=== PATIENT | female | born 1955 | race Caucasian/White ===

== ENCOUNTER → 2019-02-10 12:30 | Outpatient (CLI) | payer OTHER, SELFPAY ==
--- NOTE | 2019-02-10 | DI.MRI.S_ITS ---
PROCEDURE: MR HEAD/BRAIN WO/W CON INDICATIONS: Multiple sclerosis TECHNIQUE: Noncontrast axial T1 spin echo, axial T2 fast spin echo, sagittal and axial FLAIR, coronal T2 fast spin echo, axial gradient echo, axial diffusion and ADC through the brain. After the administration of contrast, axial and coronal 3D VIBE or T1 spin echo with fat saturation through the brain. COMPARISON: , MR, BRAIN WITH AND WITHOUT CONTRAS, 02/06/2009, 12:16. , MR, BRAIN W&WO CONTRAST, 12/05/2015, 15:52. , MR, BRAIN WITHOUT CONTRAST, 03/26/2017, 12:59. [facility], MR, MR BRAIN WITHOUT CONTRAST, 01/02/2018, 8:51. FINDINGS: Image quality: Excellent. CSF Spaces: Basal cisterns are patent. No extra-axial fluid collections. Ventricles are normal in size and shape. Brain: No midline shift. No intracranial bleeds or masses. Multiple foci of increased T2 signal compatible with reported history of multiple sclerosis involving the periventricular, subcortical, juxtacortical and corpus callosal white matter tracts are noted which are unchanged in number compared to 01/02/18. White matter lesions are not significantly changed in size or contour compared to 01/02 and 18. No abnormal intracranial enhancement. The brainstem appears normal. Diffusion-weighted images demonstrate no acute ischemic insults. No chronic ischemic insults. There is mild diffuse cerebral volume loss. Normal intravascular flow voids are present. Skull and face: Calvarial marrow is normal in signal. Orbits appear normal. Sinuses: Sinuses and mastoids appear clear. IMPRESSION: 1. Multiple foci of abnormal T2 signal involving the periventricular, subcortical, juxtacortical and corpus callosal white matter compatible with multiple sclerosis. Multiple sclerosis plaques are not significantly changed in size, contour number compared to 01/02/2018. 2. No abnormal postcontrast enhancement. Dictated by: Jenni House MD, PhD on 02/10/2019 at 14:45 Approved by: Jenni House MD, PhD on 02/10/2019 at 14:54
--- NOTE | 2019-02-10 | DI.MRI.S_ITS ---
PROCEDURE: MR CERVICAL SPINE WO/W CON INDICATIONS: Multiple sclerosis TECHNIQUE: Noncontrast sagittal T1 spin echo and T2 fast spin echo, sagittal STIR, sagittal PD fast spin echo, foraminal oblique sagittal T2 fast spin echo, axial gradient echo or T2 fast spin echo through the cervical spine. After the administration of contrast, sagittal and axial T1 spin echo with fat saturation through the cervical spine. COMPARISON: MR, C-SPINE WITHOUT CONTRAST, 02/24/2007, 7:52. FINDINGS: Image quality: Excellent. Alignment and curvature: There is normal bony alignment. Marrow: Marrow demonstrates normal overall signal. Spinal cord: There is a small, approximately 6 mm in diameter subtle focus of increased T2 signal in the right lateral column of the cervical spinal cord level of the C6-C7 disc. No suspicious intramedullary enhancement. No cerebellar tonsillar herniation. Paraspinous soft tissues: No paravertebral masses or suspicious enhancement. C2-C3: Loss of the signal. Mild, diffuse disc bulge. No central stenosis. No neural foraminal narrowing. No neural impingement. C3-C4: Loss of the signal. Mild, diffuse disc bulge. Mild bilateral facet hypertrophy. Mild right uncovertebral joint hypertrophy. Mild bilateral neural foraminal narrowing. No neural impingement. C4-C5: Loss of disc signal. Moderate, diffuse disc bulge. Mild narrowing of the central canal. Mild bilateral uncovertebral joint hypertrophy. Mild bilateral neural foraminal narrowing. No neural impingement. C5-C6: Loss of the signal and height. Moderate, diffuse disc bulge. Moderate narrowing of the central canal. Mild right and moderate left uncovertebral joint hypertrophy. Moderate right and severe left neural foraminal narrowing with compression of the exiting left C6 nerve root. C6-C7: Loss of disc signal and height. Moderate, diffuse disc bulge. Moderate narrowing of the central canal. Mild bilateral uncovertebral joint hypertrophy. Moderate bilateral neural foraminal narrowing. No neural impingement. C7-T1: Loss of the signal. Minimal, diffuse disc bulge. No central stenosis. No neural foraminal narrowing. No neural impingement. IMPRESSION: 1. Small 6 mm in diameter focus of subtle increased T2 signal in the right lateral column of the cervical spinal cord level the C6-C7 disc suspicious for multiple sclerosis plaque. 2. No abnormal postcontrast enhancement. 3. Multilevel degenerative disc disease. 4. Moderate C5-C6 and C6-C7 central canal narrowing. Mild C4-C5 central canal narrowing. 5. Moderate right and severe left C5-C6 neural foraminal narrowing. Moderate bilateral C6-C7 C7 neural foraminal narrowing. Mild bilateral C3-C4 and C4-C5 neural foraminal narrowing. 6. Compression of the exiting left C6 nerve root secondary to neural foraminal narrowing. Please correlate with clinical data. Dictated by: Jenni House MD, PhD on 02/10/2019 at 14:58 Approved by: Jenni House MD, PhD on 02/10/2019 at 15:08
== END ==
PROVIDERS: Family Provider Family Medicine; PCP Family Medicine; Visit Provider Psychiatry & Neurology Neurology
DX: G35 Multiple sclerosis (principal); M50.31 Other cervical disc degeneration, high cervical region; M48.02 Spinal stenosis, cervical region
CPT/HCPCS: 70553; 72156; A9579

== ENCOUNTER → 2019-10-04 16:01 | Outpatient (CLI) | payer OTHER, SELFPAY ==
--- NOTE | 2019-10-04 | DI.MRI.S_ITS ---
PROCEDURE: MR KNEE LT WO CON INDICATIONS: Unspecified internal derangement of left knee TECHNIQUE: Noncontrast sagittal PD fast spin echo and T2 fast spin echo with fat saturation, sagittal 3-D FLASH with fat saturation; coronal T1 spin echo and PD fast spin echo with fat saturation, and axial PD fast spin echo with fat saturation through the knee. COMPARISON: [facility], CR, XR KNEE ARTHRITIC SERIES LT, 08/23/2019, 13:31. FINDINGS: Image quality: Excellent. Menisci: The medial and lateral menisci demonstrate normal morphology and internal signal. The meniscal root ligaments appear intact. Cruciate ligaments: The anterior and posterior cruciate ligaments appear intact. Medial structures: There is a small curvilinear focus of fluid signal intensity within the mid/proximal medial collateral ligament. Visualized portions of the pes anserinus tendons appear normal. No abnormal bursal fluid. Lateral structures: The lateral collateral ligament, long and short heads of the biceps femoris tendon appear intact. The popliteus tendon appears normal. Iliotibial band appears normal. Anterior structures: The quadriceps and patellar tendons appear intact. Patellar alignment is normal. No femoral trochlear dysplasia or ventral trochlear prominence. No edema in the infrapatellar fat pad. Bones and cartilage: No bone marrow contusions or fractures. 10 mm high T2 intensity well circumscribed focus within the proximal anterior tibia with internal punctate low T2 intensity foci. Mild diffuse articular cartilage loss overlies the weightbearing aspects of the medial femoral condyle and medial tibial plateau. Focal region of severe articular cartilage loss overlies the medial patellar apex superiorly. There is mild ill-defined underlying STIR signal elevation within the medial patellar apex. Joint space: There is physiologic knee joint fluid. Trace Cali's cyst. Normal appearing synovial plicae are incidentally noted. IMPRESSION: 1. Partial-thickness medial collateral ligament tear. 2. No evidence of cruciate ligament nor meniscal tear. 3. Small focus of osteochondral injury overlying the medial patellar apex superiorly. 4. Trace Cali's cyst. 5. 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 Dictated by: Stefany Quintanilla M.D. on 10/04/2019 at 16:44 Approved by: Stefany Quintanilla M.D. on 10/04/2019 at 16:48
== END ==
PROVIDERS: PCP Family Medicine; Visit Provider Orthopaedic Surgery
DX: S83.412A Sprain of medial collateral ligament of left knee, initial encounter (principal)
CPT/HCPCS: 73721

== ENCOUNTER → 2020-06-23 11:32 | Outpatient (CLI) | payer OTHER, SELFPAY ==
[2020-06-23 12:21] LABS: Add Manual Diff / Slide Review NO; Appearance Urine UA CLEAR; Basophils Absolute Auto 0 /uL (0-100); Basophils Percent Auto 0.6 % (0-2); Bilirubin Urine UA NEGATIVE (NEGATIVE); Color Urine UA YELLOW; Eosinophils Absolute Auto 400 /uL (0-450); Eosinophils Percent Auto 5.1 % (2-4); Glucose Urine UA TRACE g/dL (Negative); Hemoglobin 13.1 g/dL (12.0-16.0); Ketones Urine UA NEGATIVE (NEGATIVE); Leukocyte Esterase Urine UA TRACE (NEGATIVE); Lymphocytes Absolute Auto 2400 /uL (1100-4500); Lymphocytes Percent Auto 29.6 % (25-40); Mean Corpuscular HGB Conc 34.6 % (30-36); Mean Corpuscular Volume 86.8 fL (80-100); Monocytes Absolute Auto 400 /uL (0-900); Monocytes Percent Auto 4.5 % (3-14); Neutrophils Absolute Auto 4800 /uL (1500-7000); Neutrophils Percent Auto 60.2 % (50-75); Nitrite Urine UA POSITIVE (Negative); Occult Blood Urine UA TRACE-LYSED (Negative); Platelet Count 379 X10^3/uL (150-400); Protein Urine UA NEGATIVE (Negative); Red Blood Cell Count 4.37 X10^6/uL (4.0-5.2); Urobilinogen Urine UA 0.2 E.U./dL (0.2)
[2020-06-23 12:27] LABS: pH Urine UA 6.5 (4.5-8.0)
[2020-06-23 12:31] LABS: Bacteria Urine Many (>30); Culture Indicated Urine Specimen Cultured; RBC Urine 1-5/HPF (0-5/HPF); Squamous Epithelial Cell Urine 0-1 /HPF (0-5/HPF); WBC Urine 10-30/HPF (0-5/HPF)
[2020-06-23 12:33] LABS: Alanine Aminotransferase 47 IU/L (<35); Albumin 4.8 g/dL (3.5-5.0); Albumin Globulin Ratio 1.8 (1.0-2.8); Alkaline Phosphatase 77 U/L (38-126); Aspartate Aminotransferase 34 IU/L (14-36); BUN Creatinine Ratio 25.5 (6-22); Bilirubin Total 0.5 mg/dL (0.2-1.3); Blood Urea Nitrogen 25 mg/dL (7-17); Calcium 9.6 mg/dL (8.4-10.2); Carbon Dioxide 31 mmol/L (22-32); Chloride 98 mmol/L (98-107); Estimated Glomerular Filt Rate 57.5 mL/min (>60); Globulin 2.7 g/dL (1.7-4.1); Glucose 93 mg/dL (80-110); HEMOLYSIS < 15 (0-50); Potassium 4.3 mmol/L (3.4-5.1); Sodium 137 mmol/L (137-145); Total Protein 7.5 g/dL (6.3-8.2)
[2020-06-23 12:49] LABS: UR Morphine/Opiate cutoff 300 Negative (Negative); Ur Creatinine Normal (Normal); Ur Specific Gravity Normal (Normal); Urine Amphetamines Negative (Negative); Urine Barbiturates Negative (Negative); Urine Benzodiazepines Negative (Negative); Urine Cocaine Negative (Negative); Urine MDMA Negative (Negative); Urine Methadone Negative (Negative); Urine Methamphetamines Negative (Negative); Urine Oxycodone Negative (Negative); Urine Phencyclidine Negative (Negative); Urine Tetrahydrocannabinol Positive (Negative); Urine Tricyclic Antidepressant Positive (Negative); Urine pH Normal (Normal)
[2020-06-23 13:11] LABS: Free T4, Direct Thyroxine 1.28 ng/dL (0.78-2.19)
[2020-06-23 13:25] LABS: Thyroid Stimulating Hormone 1.11 uIU/mL (0.47-4.68)
[2020-06-25 09:31] LABS: COVID19 Sendout Not Detected (Not Detect)
== END ==
PROVIDERS: Physician Assistant; Referring Provider Psychiatry & Neurology Psychiatry; Visit Provider Psychiatry & Neurology Psychiatry
DX: F33.2 Major depressive disorder, recurrent severe without psychotic features (principal); F41.9 Anxiety disorder, unspecified; Z51.81 Encounter for therapeutic drug level monitoring; Z11.59 Encounter for screening for other viral diseases
CPT/HCPCS: 36415; 80053; 80305; 80335; 81001; 84439; 84443; 85025; 87077; 87086; 87186; 87635

== ENCOUNTER → 2020-07-14 09:56 | Outpatient (CLI) | payer OTHER, SELFPAY ==
[2020-07-14 11:00] LABS: Cholesterol 224 mg/dL (140-199); HDL Cholesterol 42 mg/dL (40-60); LDL Cholesterol Calculated 145 mg/dL (<100); Triglycerides 187 mg/dL (35-150)
[2020-07-14 11:53] LABS: Vitamin D 25 Hydroxy (D3) 59.8 ng/mL (30.0-100.0)
== END ==
PROVIDERS: PCP Student in an Organized Health Care Education/Training Program; Referring Provider Student in an Organized Health Care Education/Training Program; Visit Provider Student in an Organized Health Care Education/Training Program
DX: Z13.220 Encounter for screening for lipoid disorders (principal); E55.9 Vitamin D deficiency, unspecified
CPT/HCPCS: 36415; 80061; 82306

== ENCOUNTER → 2020-08-02 10:05 | Outpatient (CLI) | payer OTHER, SELFPAY ==
--- NOTE | 2020-08-02 10:06 | DI.MG.S_ITS ---
BILATERAL DIGITAL SCREENING MAMMOGRAM 3D/2D WITH CAD: 08/02/2020 CLINICAL: Routine screening. Comparison is made to exams dated: 03/03/2019 mammogram and 07/15/2017 mammogram - outside location. The tissue of both breasts is predominantly fatty. Current study was also evaluated with a Computer Aided Detection (CAD) system. No significant masses, calcifications, or other findings are seen in either breast. There has been no significant interval change. IMPRESSION: NEGATIVE There is no mammographic evidence of malignancy. A 1 year screening mammogram is recommended. This exam was interpreted at Station ID: [id number]. NOTE: For mammograms, a report in lay terms will be sent to the patient. Approximately 15% of breast malignancies will not be visualized mammographically. In the management of a palpable breast mass, a negative mammogram must not discourage biopsy of a clinically suspicious lesion. Electronically Signed By: Jose Manuel winter/liz:08/02/2020 10:35:31 letter sent: Normal Exam ACR BI-RADS Category 1: Negative [id number]
== END ==
PROVIDERS: PCP Student in an Organized Health Care Education/Training Program; Referring Provider Student in an Organized Health Care Education/Training Program; Visit Provider Student in an Organized Health Care Education/Training Program
DX: Z12.31 Encounter for screening mammogram for malignant neoplasm of breast (principal)
CPT/HCPCS: 77063; 77067

== ENCOUNTER → 2021-07-12 11:37 | Outpatient (CLI) | payer OTHER, SELFPAY ==
[2021-07-12 13:00] LABS: Magnesium 2.1 mg/dL (1.6-2.3)
[2021-07-12 13:02] LABS: Alanine Aminotransferase 24 IU/L (<35); Albumin 4.5 g/dL (3.5-5.0); Alkaline Phosphatase 55 U/L (38-126); Aspartate Aminotransferase 22 IU/L (14-36); BUN Creatinine Ratio 20.2 (6-22); Bilirubin Total 0.4 mg/dL (0.2-1.3); Blood Urea Nitrogen 19 mg/dL (7-17); Carbon Dioxide 31 mmol/L (22-32); Chloride 98 mmol/L (98-107); Cholesterol 228 mg/dL (140-199); Estimated Glomerular Filt Rate > 60.0 mL/min (>60); Globulin 2.3 g/dL (1.7-4.1); Glucose 87 mg/dL (80-110); HDL Cholesterol 46 mg/dL (40-60); HEMOLYSIS < 15 (0-50); LDL Cholesterol Calculated 145 mg/dL (<100); Potassium 4.8 mmol/L (3.4-5.1); Sodium 138 mmol/L (137-145); Total Protein 6.8 g/dL (6.3-8.2); Triglycerides 184 mg/dL (35-150)
[2021-07-12 13:09] LABS: Hemoglobin A1C% w Est Avg Glu 5.1 % (4.0-6.0)
== END ==
PROVIDERS: PCP Student in an Organized Health Care Education/Training Program; Referring Provider Psychiatry & Neurology Psychiatry; Visit Provider Psychiatry & Neurology Psychiatry
DX: Z79.899 Other long term (current) drug therapy (principal); G35 Multiple sclerosis; Z01.89 Encounter for other specified special examinations; Z51.81 Encounter for therapeutic drug level monitoring
CPT/HCPCS: 36415; 80053; 80061; 83036; 83735

== ENCOUNTER → 2021-08-03 15:38 | Outpatient (CLI) | payer OTHER, SELFPAY ==
--- NOTE | 2021-08-03 | DI.MG.S_ITS ---
BILATERAL DIGITAL SCREENING MAMMOGRAM 3D/2D WITH CAD: 08/03/2021 CLINICAL: Routine screening. Comparison is made to exams dated: 08/02/2020 mammogram - [facility], 03/03/2019 mammogram, and 07/15/2017 mammogram - outside location. There are scattered fibroglandular elements in both breasts. Current study was also evaluated with a Computer Aided Detection (CAD) system. No significant masses, calcifications, or other findings are seen in either breast. There has been no significant interval change. IMPRESSION: NEGATIVE There is no mammographic evidence of malignancy. A 1 year screening mammogram is recommended. This exam was interpreted at Station ID: [id number]. NOTE: For mammograms, a report in lay terms will be sent to the patient. Approximately 15% of breast malignancies will not be visualized mammographically. In the management of a palpable breast mass, a negative mammogram must not discourage biopsy of a clinically suspicious lesion. Electronically Signed By: Reta cortes/liz:08/03/2021 16:36:09 letter sent: Normal Exam ACR BI-RADS Category 1: Negative [id number]
== END ==
PROVIDERS: PCP Student in an Organized Health Care Education/Training Program; Referring Provider Student in an Organized Health Care Education/Training Program; Visit Provider Student in an Organized Health Care Education/Training Program
DX: Z12.31 Encounter for screening mammogram for malignant neoplasm of breast (principal)
CPT/HCPCS: 77063; 77067

== ENCOUNTER → 2022-04-06 10:24 | Outpatient (CLI) | payer OTHER, SELFPAY ==
[2022-04-06 11:30] LABS: Add Manual Diff / Slide Review NO; Basophils Absolute Auto 100 /uL (0-100); Basophils Percent Auto 0.6 % (0-2); Eosinophils Absolute Auto 300 /uL (0-450); Eosinophils Percent Auto 2.4 % (2-4); Hematocrit 34.7 % (36-46); Hemoglobin 11.7 g/dL (12.0-16.0); Lymphocytes Absolute Auto 2300 /uL (1100-4500); Lymphocytes Percent Auto 18.6 % (25-40); Mean Corpuscular HGB Conc 33.8 % (30-36); Mean Corpuscular Hemoglobin 29.7 PG (26-34); Monocytes Absolute Auto 500 /uL (0-900); Monocytes Percent Auto 3.8 % (3-14); Neutrophils Absolute Auto 9200 /uL (1500-7000); Neutrophils Percent Auto 74.6 % (50-75); Platelet Count 377 X10^3/uL (150-400); Red Blood Cell Count 3.95 X10^6/uL (4.0-5.2); Red Cell Distribution Width 13.1 % (11.6-14.8); White Blood Cell Count 12.4 X10^3/uL (4.5-11.0)
[2022-04-06 11:56] LABS: Alanine Aminotransferase 21 IU/L (<35); Albumin 4.7 g/dL (3.5-5.0); Albumin Globulin Ratio 2.2 (1.0-2.8); Alkaline Phosphatase 82 U/L (38-126); Aspartate Aminotransferase 23 IU/L (14-36); BUN Creatinine Ratio 22.9 (6-22); Bilirubin Total 0.4 mg/dL (0.2-1.3); Blood Urea Nitrogen 22 mg/dL (7-17); C-Reactive Protein Quant < 0.5 mg/dL (<1.0); Calcium 9.5 mg/dL (8.4-10.2); Carbon Dioxide 26 mmol/L (22-32); Chloride 98 mmol/L (98-107); Estimated Glomerular Filt Rate > 60 mL/min (>60); Globulin 2.1 g/dL (1.7-4.1); Glucose 87 mg/dL (80-110); HEMOLYSIS < 15 (0-50); Phosphorous 4.2 mg/dL (2.8-4.1); Potassium 4.4 mmol/L (3.4-5.1); Sodium 135 mmol/L (137-145); Total Protein 6.8 g/dL (6.3-8.2)
[2022-04-06 12:02] LABS: Erythrocyte Sedimentation Rate 5 MM/HR (0-20)
[2022-04-06 12:15] LABS: TSH w/ Reflex to FT4 2.03 uIU/mL (0.47-4.68)
== END ==
PROVIDERS: PCP Student in an Organized Health Care Education/Training Program; Referring Provider Student in an Organized Health Care Education/Training Program; Visit Provider Student in an Organized Health Care Education/Training Program
DX: G43.909 Migraine, unspecified, not intractable, without status migrainosus (principal); G47.62 Sleep related leg cramps; I10 Essential (primary) hypertension
CPT/HCPCS: 36415; 80053; 84100; 84443; 85025; 85651; 86140

== ENCOUNTER → 2022-04-08 09:41 | Outpatient (CLI) | payer OTHER, SELFPAY ==
--- NOTE | 2022-04-08 09:42 | DI.CT.S_ITS ---
PROCEDURE: CT HEAD/BRAIN WO/W CON INDICATIONS: New headache after 52 TECHNIQUE: 4.5 mm thick angled axial sections acquired from the foramen magnum to the vertex both before and after the administration of intravenous contrast, with coronal and sagittal reformats. For radiation dose reduction, the following was used: automated exposure control, adjustment of mA and/or kV according to patient size. COMPARISON: [facility], MR, MR HEAD/BRAIN WO/W CON, 02/10/2019, 12:53. [facility], MR, MR BRAIN WITHOUT CONTRAST, 01/02/2018, 8:51. [facility], CT, HEAD WITHOUT CONTRAST, 12/05/2015, 12:39. [facility], CT, HEAD WITHOUT CONTRAST, 01/18/2008, 19:16. [facility], CT, HEAD WITHOUT CONTRAST, 09/21/2015, 14:44. FINDINGS: Image quality: Excellent. CSF spaces: Basal cisterns are patent. No extra-axial fluid collections. Ventricles are symmetric in size and shape. Brain: No midline shift. No intracranial bleeds or masses. No abnormal intracranial enhancement. There is cerebral volume loss for age. There is periventricular white matter chronic small vessel ischemic change. There is intracranial internal carotid artery atherosclerosis. Skull and face: Calvarium and visualized facial bones appear intact, without suspicious lesions. Sinuses: Visualized sinuses and mastoids are clear. IMPRESSION: No masses or abnormal enhancement can be seen to the limits of CT. There is No imaging explanation is found for this patient's presenting symptoms. Dictated by: Jere Rivera M.D. on 04/08/2022 at 9:38 Approved by: Jere Rivera M.D. on 04/08/2022 at 9:40
== END ==
PROVIDERS: PCP Student in an Organized Health Care Education/Training Program; Referring Provider Student in an Organized Health Care Education/Training Program; Visit Provider Student in an Organized Health Care Education/Training Program
DX: R51.9 Headache, unspecified (principal); I65.29 Occlusion and stenosis of unspecified carotid artery; F43.10 Post-traumatic stress disorder, unspecified; F41.9 Anxiety disorder, unspecified; F33.1 Major depressive disorder, recurrent, moderate; F51.9 Sleep disorder not due to a substance or known physiological condition, unspecified
CPT/HCPCS: 70470; 90837

== ENCOUNTER 2022-05-01 22:33 | Inpatient (IN) | payer OTHER, SELFPAY ==
[2022-05-01] VITALS (19 sets, daily range): BP systolic 61–113; BP diastolic 37–60; PULSE 97–105; RESP 10–33; TEMP 34.9–36.9; O2SAT 90–100
--- NOTE | 2022-05-01 | DI.RAD.S_ITS ---
PROCEDURE: XR CHEST 1V INDICATIONS: CENTRAL LINE PLACEMENT. TECHNIQUE: One view of the chest was acquired. COMPARISON: [facility], , CHEST 2 VIEW, 10/18/2017, 13:23. FINDINGS: Surgical changes and devices: There is a new right internal jugular catheter with the tip projecting over the right atrium. Lungs and pleura: There are linear left basilar opacities suggestive of atelectasis or scarring. The lung apices are incompletely included on the current study limiting evaluation. No pleural effusions or pneumothorax. Mediastinum: Mediastinal contours appear normal. Heart size is normal. Bones and chest wall: No suspicious bony lesions. Overlying soft tissues appear unremarkable. IMPRESSION: 1. No definite evidence of pneumothorax. 2. No definite acute airspace consolidation. There is likely atelectasis or scarring in the left lung base. Dictated by: Donaldo Mckeon M.D. on 05/02/2022 at 0:04 Approved by: Donaldo Mckeon M.D. on 05/02/2022 at 0:06
[2022-05-01] MEDS: SODIUM CHLORIDE 0.9% 1,000 ML 1000 ML IV ×3 (22:25→22:40)
--- NOTE | 2022-05-01 22:31 | DI.CT.S_ITS ---
PROCEDURE: CT STROKE INDICATIONS: stroke TECHNIQUE: Noncontrast 5 mm thick angled axial sections acquired from the foramen magnum to the vertex, with coronal reformats. For radiation dose reduction, the following was used: automated exposure control, adjustment of mA and/or kV according to patient size. COMPARISON: None. FINDINGS: Image quality: Excellent. CSF spaces: Basal cisterns are patent. No extra-axial fluid collections. There is mild cerebral volume loss, with resultant ventricular and sulcal prominence. Brain: No intracranial hemorrhage, mass, or mass effect. There are subcortical, periventricular and deep white matter hypodensities consistent with mild chronic small vessel ischemic changes. The dey-white matter junction appears preserved. There is intracranial internal carotid artery atherosclerosis. Skull and face: Calvarium and visualized facial bones are intact, without suspicious lesions. Sinuses: Visualized sinuses and mastoids are clear. IMPRESSION: 1. No intracranial hemorrhage or other definite acute intracranial abnormality. 2. Mild cerebral volume loss and chronic white matter small vessel ischemic changes. 3. Findings discussed Dr. Bautista on 05/01/2022 at 10:43 p.m.. This study fulfills neurological imaging criteria for inclusion or exclusion of acute stroke therapies based on available published neurological imaging guidelines. Dictated by: Donaldo Mckeon M.D. on 05/01/2022 at 22:43 Approved by: Donaldo Mckeon M.D. on 05/01/2022 at 22:45
--- NOTE | 2022-05-01 22:37 | ED_ITS ---
HPI - General Adult General Chief complaint: Neuro Symptoms/Deficit Stated complaint: Stroke Time Seen by Provider: 05/01/22 22:35 History of Present Illness HPI narrative: 66-year-old woman a history of migraine, depression, hypertension who was at home this evening relaxing watching TV complaining of a migraine. She has been having intermittent migraines over the last 3 weeks that is close to her baseline her noted that she seemed to become acutely worse, was not able to fully speak and unable to keep her head up. Time was 9:40 p.m. when he called medics. Initial blood pressure was 83/54 she was 90% on room air blood sugar was 148 heart rate 103. She was brought in as possible stroke taken immediately to the CT scanner. Related Data Home Medications Medication Instructions Recorded Confirmed cholecalciferol (vitamin D3) 25 25 mcg PO DAILY 07/28/20 03/19/22 mcg (1,000 unit) capsule magnesium hydroxide 400 mg (170 mg mg PO 07/28/20 03/19/22 magnesium) chewable tablet mecobalamin (vitamin B12) 1,000 1,000 mcg PO DAILY 07/28/20 03/19/22 mcg chewable tablet albuterol sulfate 90 mcg/actuation 2 puff inhalation Q6H PRN 07/23/21 03/19/22 aerosol inhaler (Ventolin HFA) nitrofurantoin macrocrystal 100 mg 100 mg PO DAILY 10/16/21 03/19/22 capsule trospium 60 mg capsule,extended 60 mg PO DAILY 10/16/21 03/19/22 release 24 hr methocarbamol 500 mg tablet 500 mg PO TID PRN muscle spasm 03/19/22 03/19/22 Previous Rx's Medication Instructions Recorded famotidine 20 mg tablet 20 mg PO DAILY #90 tabs 08/14/21 telmisartan 80 mg tablet 80 mg PO DAILY #90 tabs 08/14/21 fluoxetine 20 mg capsule 40 mg PO QDAY #180 caps 08/20/21 gabapentin 300 mg capsule 300 mg PO TID #270 caps 08/21/21 doxepin 75 mg capsule 75 mg PO HS #90 caps 08/31/21 acyclovir 400 mg tablet 400 mg PO DAILY #90 tabs 09/24/21 hydrochlorothiazide 25 mg tablet 25 mg PO DAILY #90 tabs 11/05/21 risperidone 0.5 mg tablet See Rx Instructions .Route 03/07/22 .COMPLEX #405 tabs promethazine 25 mg tablet 25 mg PO TID PRN nausea #30 tabs 04/15/22 rizatriptan 10 mg tablet See Rx Instructions .Route 04/15/22 .COMPLEX #6 tabs estradiol 0.01% (0.1 mg/gram) 1 g vaginal 2XW #42.5 grams 04/30/22 vaginal cream Allergies Allergy/AdvReac Type Severity Reaction Status Date / Time zolpidem AdvReac Severe HALLUCINATIONS, Verified 03/18/22 15:13 NOT KNOWING WHERE SHE WAS, DIZZINESS Review of Systems Review of Systems ROS Unobtainable: Unobtainable due to medical condition Patient History Medical History Cholelithiasis Hx of fracture of ankle Major depressive disorder, recurrent episode, severe Major depressive disorder, recurrent, moderate Surgical History History of carpal tunnel release of both wrists Hx of hysterectomy Family History Mother Cardiac arrest Father Colitis Social History household members: spouse Smoking Status: Never smoker Smoking Status: Never smoker Exam Initial Vital Signs Initial Vital Signs: Vital Signs Pulse Rate 105 H 05/01/22 22:41 General: Pale, globally weak acutely ill able to weakly respond to commands and answer yes or no questions HEENT: Moist mucous membranes, normal sclera with reactive pupils, Neck: No JVD, supple Respiratory: Lungs are clear to auscultation, no wheezing no rales no rhonchi. Full and symmetrical air movement Cardiac: Regular rate and rhythm no murmurs no bruits Abdomen: Soft, nontender, good bowel tones, no flank pain Skin: Pale and dry, no rashes Neurologic: Globally weak, Grossly neurologically intact with no obvious asymmetries or abnormalities Extremities: No trauma, well perfused Psych: Cooperative, acutely ill Procedures Central Line Placement Right IJ: Time of procedure: 01:48 Time Out Performed: Yes Patient Placed on Monitor/Pulse Ox: Yes Prep: mask, gown, gloves and other Central Line Prep: Chlorhexidine scrub Local Anesthetic: lidocaine 1% Amount of anesthesia used (mL): 3 Ultrasound Used for Placement: Yes Central Line Lumen Inserted: triple Post Procedure: sutured in place, good blood return, all ports aspirated, flushed, capped and sterile dressing applied Post Procedure X-Ray: tip of catheter in good position and no pneumothorax seen Patient Tolerated Procedure: Well Complications: none Lumbar Puncture Time of procedure: 01:46 Time Out Performed: Yes Patient Position: upright Skin Prep: Povidone-Iodine 1% Local Anesthetic: lidocaine 1% Amount of anesthesia used (mL): 5 Spinal Needle Gauge: 22G Interspace Used: L4-L5 Fluid Initially Obtained: clear Complications: traumatic tap Course Orders Ordered: ED Orders 05/01/22 22:31 CT Stroke Stat 05/01/22 22:42 Complete Blood Count AUTO DIFF Stat Comprehensive Metabolic Panel Stat Lactate (Lactic Acid) Stat Lipase Stat Magnesium Stat Procalcitonin Stat Troponin I Stat 05/01/22 22:50 Blood Culture Stat COVID19 -Nasal RAPID/Pre-Proc Stat EKG-12 Lead Stat 05/01/22 23:11 Glucose CSF Stat Meningitis Panel (Film Array) Stat Total Protein CSF Stat 05/01/22 23:12 Cell Count w Diff CSF Stat HOLD TUBE CSF Stat 05/01/22 23:15 Urinalysis and Microscopic Stat Urine Culture Stat 05/02/22 01:34 CSF culture Stat Acetaminophen (Acetaminophen 325 Mg Tablet) 650 mg PO Q6HR PRN PRN Reason: Fever/Mild Pain (1-3) Doxepin HCl (Doxepin 75 Mg Capsule) 75 mg PO BEDTIME [facility] Last Admin: 05/02/22 06:11 Dose: Not Given Documented By: [facility] Enoxaparin Sodium (Enoxaparin 40 Mg/0.4 Ml Syringe) 40 mg SUBCUT DAILY [facility] Fluoxetine HCl (Fluoxetine 20 Mg Capsule) 20 mg PO BID [facility] Gabapentin (Gabapentin 300 Mg Capsule) 300 mg PO TID [facility] Heparin Sodium (Porcine) (Heparin Flush (Cl/Picc/Mid-Line) 50 Unit/5 Ml Syringe) 50 unit IV PRN PRN PRN Reason: Flush Hydrocortisone (Hydrocortisone 100 Mg/2 Ml Vial) 50 mg IV Q6HR [facility] Last Admin: 05/02/22 06:11 Dose: 50 mg Documented By: [facility] Sodium Chloride (Normal Saline 0.9%) 1,000 mls @ 200 mls/hr IV CONT ADRIANA Last Infusion: 05/02/22 06:30 Dose: 0 mls/hr Documented By: Admin: 05/02/22 02:55 Dose: 200 mls/hr Documented By: GLENN Ceftriaxone Sodium 1,000 mg/ (Sodium Chloride) 100 mls @ 200 mls/hr IV Q24H ADRIANA Lactated Ringer's (Lactated Ringers) 1,000 mls @ 175 mls/hr IV CONT ADRIANA Last Admin: 05/02/22 06:11 Dose: 175 mls/hr Documented By: LEYLA Risperidone (Risperidone 0.25 Mg Tablet) 0.5 mg PO DAILY ADRIANA Risperidone (Risperidone 0.25 Mg Tablet) 0.25 mg PO 1200,2100 ADRIANA Sodium Chloride (Sodium Chloride 0.9% Flush) 10 ml IV PRN PRN PRN Reason: Flush Sodium Chloride (Sodium Chloride 0.9% Flush) 10 ml IV BID ADRIANA Discontinued Medications Fluoxetine HCl (Fluoxetine 20 Mg Capsule) 40 mg PO BID ADRIANA Sodium Chloride (Normal Saline 0.9%) 1,000 mls @ 1,000 mls/hr IV BOLUS ONE Stop: 05/01/22 23:28 Last Infusion: 05/01/22 23:20 Dose: 0 mls/hr Documented By: Admin: 05/01/22 22:40 Dose: 1,000 mls/hr Documented By: GLENN Ceftriaxone Sodium 2,000 mg/ (Sodium Chloride) 100 mls @ 200 mls/hr IV NOW ONE Stop: 05/01/22 23:13 Last Infusion: 05/02/22 02:35 Dose: 0 mls/hr Documented By: Admin: 05/02/22 01:54 Dose: 200 mls/hr Documented By: GLENN Sodium Chloride (Normal Saline 0.9%) 1,000 mls @ 1,000 mls/hr IV BOLUS ONE Stop: 05/02/22 00:48 Last Infusion: 05/01/22 23:20 Dose: 0 mls/hr Documented By: Admin: 05/01/22 22:40 Dose: 1,000 mls/hr Documented By: GLENN Sodium Chloride (Normal Saline 0.9%) 1,000 mls @ 1,000 mls/hr IV BOLUS ONE Stop: 05/02/22 00:52 Last Infusion: 05/02/22 01:50 Dose: 0 mls/hr Documented By: Admin: 05/01/22 22:25 Dose: 1,000 mls/hr Documented By: GLENN Sodium Chloride (Normal Saline 0.9%) 1,000 mls @ 1,000 mls/hr IV BOLUS ONE Stop: 05/02/22 02:39 Last Infusion: 05/02/22 03:00 Dose: 0 mls/hr Documented By: Admin: 05/02/22 01:51 Dose: 1,000 mls/hr Documented By: UMESH Acyclovir 770 mg/ Dextrose 250 mls @ 250 mls/hr IV NOW ONE Stop: 05/02/22 01:41 Last Infusion: 05/02/22 05:01 Dose: 0 mls/hr Documented By: Admin: 05/02/22 02:47 Dose: 250 mls/hr Documented By: GLENN Sodium Chloride (Normal Saline 0.9%) 1,000 mls @ 175 mls/hr IV CONT ADRIANA Acyclovir 770 mg/ Dextrose 250 mls @ 250 mls/hr IV Q8H ADRIANA Lidocaine HCl (Lidocaine 1% 20 Ml) 20 ml INJ INTRA-OP ONE Stop: 05/02/22 01:13 Last Admin: 05/02/22 01:50 Dose: Not Given Documented By: UMESH Ondansetron HCl (Ondansetron 4 Mg/2 Ml Inj) 4 mg IV NOW ONE Stop: 05/01/22 22:32 Last Admin: 05/02/22 01:54 Dose: 4 mg Documented By: GLENN Vital Signs Vital signs: Vital Signs - 8 hr 05/01/22 23:20 05/01/22 23:20 05/01/22 23:25 Temperature 95.9 F L 96.1 F L Pulse Rate 102 H 100 H Respiratory Rate 22 28 H Blood Pressure 108/55 L Pulse Oximetry 98 97 05/01/22 23:25 05/01/22 23:30 05/01/22 23:30 Temperature 96.3 F L Pulse Rate 100 H Respiratory Rate 27 H Blood Pressure 113/57 L 109/60 Pulse Oximetry 98 05/01/22 23:35 05/01/22 23:35 05/01/22 23:40 Temperature 96.3 F L Pulse Rate 98 H Respiratory Rate 12 Blood Pressure 109/58 L 108/56 L Pulse Oximetry 98 05/01/22 23:40 05/01/22 23:45 05/01/22 23:45 Temperature 96.4 F L 96.4 F L Pulse Rate 98 H 97 H Respiratory Rate 11 L 10 L Blood Pressure 108/58 L Pulse Oximetry 98 98 05/01/22 23:50 05/01/22 23:50 05/01/22 23:55 Temperature 96.4 F L Pulse Rate 97 H Respiratory Rate 10 L Blood Pressure 107/56 L 108/57 L Pulse Oximetry 99 05/01/22 23:55 05/02/22 00:00 05/02/22 00:00 Temperature 96.4 F L 96.4 F L Pulse Rate 97 H 97 H Respiratory Rate 10 L 11 L Blood Pressure 105/57 L Pulse Oximetry 98 98 05/02/22 00:05 05/02/22 00:05 05/02/22 00:10 Temperature 96.4 F L Pulse Rate 97 H Respiratory Rate 10 L Blood Pressure 109/56 L 112/57 L Pulse Oximetry 98 05/02/22 00:10 05/02/22 00:15 05/02/22 00:15 Temperature 96.4 F L 96.4 F L Pulse Rate 99 H 99 H Respiratory Rate 10 L 10 L Blood Pressure 110/58 L Pulse Oximetry 98 98 05/02/22 00:20 05/02/22 00:20 05/02/22 00:25 Temperature 96.4 F L Pulse Rate 101 H Respiratory Rate 21 Blood Pressure 108/56 L 108/56 L Pulse Oximetry 97 05/02/22 00:25 05/02/22 00:30 05/02/22 00:30 Temperature 96.4 F L 96.6 F L Pulse Rate 101 H 101 H Respiratory Rate 11 L 11 L Blood Pressure 108/59 L Pulse Oximetry 97 98 05/02/22 00:35 05/02/22 00:35 05/02/22 00:40 Temperature 96.6 F L Pulse Rate 104 H Respiratory Rate 18 Blood Pressure 108/66 104/60 Pulse Oximetry 100 05/02/22 00:40 05/02/22 00:45 05/02/22 00:45 Temperature 96.6 F L 96.8 F L Pulse Rate 104 H 103 H Respiratory Rate 11 L 10 L Blood Pressure 105/60 Pulse Oximetry 98 99 05/02/22 00:50 05/02/22 00:50 05/02/22 00:55 Temperature 96.8 F L 96.8 F L Pulse Rate 104 H 104 H Respiratory Rate 11 L 11 L Blood Pressure 108/61 Pulse Oximetry 100 99 05/02/22 00:55 05/02/22 01:00 05/02/22 01:00 Temperature 97.0 F L Pulse Rate 108 H Respiratory Rate 13 Blood Pressure 107/61 107/58 L Pulse Oximetry 100 05/02/22 01:05 05/02/22 01:05 05/02/22 01:10 Temperature 97.0 F L Pulse Rate 114 H Respiratory Rate 24 Blood Pressure 112/63 114/56 L Pulse Oximetry 99 05/02/22 01:10 05/02/22 01:15 05/02/22 01:15 Temperature 96.8 F L 97.0 F L Pulse Rate 116 H 112 H Respiratory Rate 19 19 Blood Pressure 100/54 L Pulse Oximetry 98 99 05/02/22 01:20 05/02/22 01:20 05/02/22 01:30 Temperature 97.2 F L 97.3 F L Pulse Rate 117 H 120 H Respiratory Rate 20 23 Blood Pressure 98/68 Pulse Oximetry 99 95 05/02/22 01:40 05/02/22 01:40 05/02/22 01:45 Temperature 97.7 F Pulse Rate 111 H Respiratory Rate 13 Blood Pressure 75/36 L 92/53 L Pulse Oximetry 98 05/02/22 01:45 05/02/22 01:50 05/02/22 01:50 Temperature 97.9 F 97.9 F Pulse Rate 109 H 115 H Respiratory Rate 18 24 Blood Pressure 90/54 L Pulse Oximetry 98 99 05/02/22 01:55 05/02/22 01:55 05/02/22 02:00 Temperature 97.9 F Pulse Rate 116 H Respiratory Rate 28 H Blood Pressure 102/56 L 105/51 L Pulse Oximetry 100 05/02/22 02:00 Temperature 97.9 F Pulse Rate 118 H Respiratory Rate 25 H Blood Pressure Pulse Oximetry 99 Medical Decision Making Lab Data Result diagrams: 05/02/22 05:40 05/02/22 05:40 Labs: Lab Results 08/10/22 08/10/22 08/10/22 Range/Units 22:42 22:42 22:42 WBC 11.1 H (4.5-11.0) X10^3/uL RBC 4.11 (4.0-5.2) X10^6/uL Hgb 12.2 (12.0-16.0) g/dL Hct 35.5 L (36-46) % MCV 86.5 (80-100) fL MCH 29.7 (26-34) PG MCHC 34.3 (30-36) % RDW 13.4 (11.6-14.8) % Plt Count 328 (150-400) X10^3/uL Neut % (Auto) 66.0 (50-75) % Lymph % (Auto) 27.1 (25-40) % [place] % (Auto) 4.6 (3-14) % Eos % (Auto) 1.6 L (2-4) % Baso % (Auto) 0.7 (0-2) % Neut # (Auto) 7300 H (7767-9605) /uL Lymph # (Auto) 3000 (2094-9689) /uL [place] # (Auto) 500 (0-900) /uL Eos # (Auto) 200 (0-450) /uL Baso # (Auto) 100 (0-100) /uL Sodium 135 L (137-145) mmol/L Potassium 3.4 (3.4-5.1) mmol/L Chloride 101 (98-107) mmol/L Carbon Dioxide 28 (22-32) mmol/L BUN 22 H (7-17) mg/dL Creatinine 0.86 (0.52-1.04) mg/dL Estimated GFR > 60 (>60) mL/min BUN/Creatinine Ratio 25.6 H (6-22) Glucose 132 H (80-110) mg/dL Lactate 1.2 (0.7-2.1) mmol/L Calcium 9.2 (8.4-10.2) mg/dL Magnesium (1.6-2.3) mg/dL Total Bilirubin 0.5 (0.2-1.3) mg/dL AST 24 (14-36) IU/L ALT 20 (<35) IU/L Alkaline Phosphatase 87 (38-126) U/L Troponin I (0.01-0.034) ng/mL Total Protein 6.8 (6.3-8.2) g/dL Albumin 4.3 (3.5-5.0) g/dL Globulin 2.5 (1.7-4.1) g/dL Albumin/Globulin Ratio 1.7 (1.0-2.8) Lipase (23-300) U/L Procalcitonin (<0.5) ng/mL Urine Color Urine Appearance Urine pH (4.5-8.0) Ur Specific [place] (1.000-1.035) Urine Protein (Negative) Urine Glucose (UA) (Negative) g/dL Urine Ketones (NEGATIVE) Urine Occult Blood (Negative) Urine Nitrate (Negative) Urine Bilirubin (NEGATIVE) Urine Urobilinogen (0.2) E.U./dL Ur Leukocyte Esterase (NEGATIVE) Urine RBC (0-5/HPF) Urine WBC (0-5/HPF) Ur Squamous Epith Cells (0-5/HPF) Urine Bacteria (None) Ur Culture Indicated? CSF Tube Number CSF Volume CSF Appearance (Clear) CSF Color (Colorless) CSF WBC (0-5) MONO/uL CSF RBC RBC /uL CSF Mononuclear WBCs CSF Polynuclear WBCs CSF Glucose (40-70) mg/dL CSF Total Protein (12-60) mg/dL CSF C.neoform/gat PCR (Not Detect) CSF CMV DNA (PCR) (Not Detect) CSF Enterovirus (PCR) (Not Detect) CSF E. coli (PCR) (Not Detect) CSF H. influenzae (PCR) (Not Detect) CSF HSV I (PCR) (Not Detect) CSF HSV II (PCR) (Not Detect) CSF HHV 6 (PCR) (Not Detect) CSF L.monocytogenes PCR (Not Detect) CSF N. meningitidis PCR (Not Detect) CSF Parechovirus (PCR) (Not Detect) CSF S. agalactiae (PCR) (Not Detect) CSF S. pneumoniae (PCR) (Not Detect) CSF VZV (PCR) (Not Detecte) SARS-CoV-2 (PCR) (Negative) 05/01/22 05/01/22 05/01/22 Range/Units 22:42 22:50 23:15 WBC (4.5-11.0) X10^3/uL RBC (4.0-5.2) X10^6/uL Hgb (12.0-16.0) g/dL Hct (36-46) % MCV (80-100) fL MCH (26-34) PG MCHC (30-36) % RDW (11.6-14.8) % Plt Count (150-400) X10^3/uL Neut % (Auto) (50-75) % Lymph % (Auto) (25-40) % [place] % (Auto) (3-14) % Eos % (Auto) (2-4) % Baso % (Auto) (0-2) % Neut # (Auto) (1558-1968) /uL Lymph # (Auto) (4315-8679) /uL [place] # (Auto) (0-900) /uL Eos # (Auto) (0-450) /uL Baso # (Auto) (0-100) /uL Sodium (137-145) mmol/L Potassium (3.4-5.1) mmol/L Chloride (98-107) mmol/L Carbon Dioxide (22-32) mmol/L BUN (7-17) mg/dL Creatinine (0.52-1.04) mg/dL Estimated GFR (>60) mL/min BUN/Creatinine Ratio (6-22) Glucose (80-110) mg/dL Lactate (0.7-2.1) mmol/L Calcium (8.4-10.2) mg/dL Magnesium 3.1 H (1.6-2.3) mg/dL Total Bilirubin (0.2-1.3) mg/dL AST (14-36) IU/L ALT (<35) IU/L Alkaline Phosphatase (38-126) U/L Troponin I < 0.012 (0.01-0.034) ng/mL Total Protein (6.3-8.2) g/dL Albumin (3.5-5.0) g/dL Globulin (1.7-4.1) g/dL Albumin/Globulin Ratio (1.0-2.8) Lipase 110 (23-300) U/L Procalcitonin 0.04 (<0.5) ng/mL Urine Color Yellow Urine Appearance Clear Urine pH 7.0 (4.5-8.0) Ur Specific [place] 1.010 (1.000-1.035) Urine Protein Negative (Negative) Urine Glucose (UA) Negative (Negative) g/dL Urine Ketones Negative (NEGATIVE) Urine Occult Blood Trace-intact (Negative) Urine Nitrate Positive H (Negative) Urine Bilirubin Negative (NEGATIVE) Urine Urobilinogen 0.2 (0.2) E.U./dL Ur Leukocyte Esterase Negative (NEGATIVE) Urine RBC None seen (0-5/HPF) Urine WBC 0-1/hpf (0-5/HPF) Ur Squamous Epith Cells 0-1 /hpf (0-5/HPF) Urine Bacteria Many (>30) H (None) Ur Culture Indicated? Specimen cultured CSF Tube Number CSF Volume CSF Appearance (Clear) CSF Color (Colorless) CSF WBC (0-5) MONO/uL CSF RBC RBC /uL CSF Mononuclear WBCs CSF Polynuclear WBCs CSF Glucose (40-70) mg/dL CSF Total Protein (12-60) mg/dL CSF C.neoform/gat PCR (Not Detect) CSF CMV DNA (PCR) (Not Detect) CSF Enterovirus (PCR) (Not Detect) CSF E. coli (PCR) (Not Detect) CSF H. influenzae (PCR) (Not Detect) CSF HSV I (PCR) (Not Detect) CSF HSV II (PCR) (Not Detect) CSF HHV 6 (PCR) (Not Detect) CSF L.monocytogenes PCR (Not Detect) CSF N. meningitidis PCR (Not Detect) CSF Parechovirus (PCR) (Not Detect) CSF S. agalactiae (PCR) (Not Detect) CSF S. pneumoniae (PCR) (Not Detect) CSF VZV (PCR) (Not Detecte) SARS-CoV-2 (PCR) Negative (Negative) 05/02/22 05/02/22 05/02/22 Range/Units 01:34 01:34 01:34 WBC (4.5-11.0) X10^3/uL RBC (4.0-5.2) X10^6/uL Hgb (12.0-16.0) g/dL Hct (36-46) % MCV (80-100) fL MCH (26-34) PG MCHC (30-36) % RDW (11.6-14.8) % Plt Count (150-400) X10^3/uL Neut % (Auto) (50-75) % Lymph % (Auto) (25-40) % [place] % (Auto) (3-14) % Eos % (Auto) (2-4) % Baso % (Auto) (0-2) % Neut # (Auto) (5603-0696) /uL Lymph # (Auto) (5559-0893) /uL [place] # (Auto) (0-900) /uL Eos # (Auto) (0-450) /uL Baso # (Auto) (0-100) /uL Sodium (137-145) mmol/L Potassium (3.4-5.1) mmol/L Chloride (98-107) mmol/L Carbon Dioxide (22-32) mmol/L BUN (7-17) mg/dL Creatinine (0.52-1.04) mg/dL Estimated GFR (>60) mL/min BUN/Creatinine Ratio (6-22) Glucose (80-110) mg/dL Lactate (0.7-2.1) mmol/L Calcium (8.4-10.2) mg/dL Magnesium (1.6-2.3) mg/dL Total Bilirubin (0.2-1.3) mg/dL AST (14-36) IU/L ALT (<35) IU/L Alkaline Phosphatase (38-126) U/L Troponin I (0.01-0.034) ng/mL Total Protein (6.3-8.2) g/dL Albumin (3.5-5.0) g/dL Globulin (1.7-4.1) g/dL Albumin/Globulin Ratio (1.0-2.8) Lipase (23-300) U/L Procalcitonin (<0.5) ng/mL Urine Color Urine Appearance Urine pH (4.5-8.0) Ur Specific [place] (1.000-1.035) Urine Protein (Negative) Urine Glucose (UA) (Negative) g/dL Urine Ketones (NEGATIVE) Urine Occult Blood (Negative) Urine Nitrate (Negative) Urine Bilirubin (NEGATIVE) Urine Urobilinogen (0.2) E.U./dL Ur Leukocyte Esterase (NEGATIVE) Urine RBC (0-5/HPF) Urine WBC (0-5/HPF) Ur Squamous Epith Cells (0-5/HPF) Urine Bacteria (None) Ur Culture Indicated? CSF Tube Number 3 CSF Volume 1.0 ml CSF Appearance Clear (Clear) CSF Color Colorless (Colorless) CSF WBC 0 (0-5) MONO/uL CSF RBC 26 RBC /uL CSF Mononuclear WBCs TNP CSF Polynuclear WBCs TNP CSF Glucose 63 (40-70) mg/dL CSF Total Protein 48 (12-60) mg/dL CSF C.neoform/gat PCR Not detected (Not Detect) CSF CMV DNA (PCR) Not detected (Not Detect) CSF Enterovirus (PCR) Not detected (Not Detect) CSF E. coli (PCR) Not detected (Not Detect) CSF H. influenzae (PCR) Not detected (Not Detect) CSF HSV I (PCR) Not detected (Not Detect) CSF HSV II (PCR) Not detected (Not Detect) CSF HHV 6 (PCR) Not detected (Not Detect) CSF L.monocytogenes PCR Not detected (Not Detect) CSF N. meningitidis PCR Not detected (Not Detect) CSF Parechovirus (PCR) Not detected (Not Detect) CSF S. agalactiae (PCR) Not detected (Not Detect) CSF S. pneumoniae (PCR) Not detected (Not Detect) CSF VZV (PCR) Not detected (Not Detecte) SARS-CoV-2 (PCR) (Negative) Point of Care Testing Glucose POC 138 Point of care testing: Point of Care Testing Glucose POC [address] scan - head: Radiologist's Impression: FINDINGS:? Image quality:? Excellent.? ? CSF spaces:? Basal cisterns are patent.? No extra-axial fluid collections.? There is mild cerebral volume loss, with resultant ventricular and sulcal prominence.? ? Brain:? No intracranial hemorrhage, mass, or mass effect.? There are subcortical, periventricular and deep white matter hypodensities consistent with mild chronic small vessel ischemic changes.? The dey-white matter junction appears preserved.? There is intracranial internal carotid artery atherosclerosis.? ? Skull and face:? Calvarium and visualized facial bones are intact, without suspicious lesions.? ? Sinuses:? Visualized sinuses and mastoids are clear.? ? IMPRESSION:? ? 1. No intracranial hemorrhage or other definite acute intracranial abnormality. ? 2. Mild cerebral volume loss and chronic white matter small vessel ischemic changes. ? 3. Findings discussed Dr. Bautista on 05/01/2022 at 10:43 p.m..? ? This study fulfills neurological imaging criteria for inclusion or exclusion of acute Chest x-ray: Radiologist's Impression: FINDINGS:? ? Surgical changes and devices:? There is a new right internal jugular catheter with the tip projecting over the right atrium.? ? Lungs and pleura:? There are linear left basilar opacities suggestive of atelectasis or scarring.? The lung apices are incompletely included on the current study limiting evaluation.? No pleural effusions or pneumothorax.? ? Mediastinum:? Mediastinal contours appear normal.? Heart size is normal.? ? Bones and chest wall:? No suspicious bony lesions.? Overlying soft tissues appear unremarkable.? ? IMPRESSION:? ? 1. No definite evidence of pneumothorax. ? 2. No definite acute airspace consolidation.? There is likely atelectasis or scarring in the left lung base.? ? ? Dictated by: Donaldo Mckeon M.D. on 05/02/2022 at 0:04 ? ? ECG Data Interpretation: Sinus rhythm at a rate of 101 Normal intervals, normal axis No acute ischemic changes MDM Narrative Medical decision making narrative: 66-year-old woman in her usual state of health until this evening when she became acutely altered difficulty speaking slumped over. She has had a significant headache for the last 3 weeks but has a long history of chronic migraine. She nor her felt that it was worse than her baseline. She does not describe significant fevers. Code stroke was initiated on arrival. No evidence of acute bleeding. Clinical exam does not suggest embolic stroke and CTA of the head neck was not performed. She was hemodynamically unstable and brought back to room 1 for additional resuscitation. She was was responding to initial L of fluid. Central line was placed without difficulty and by the end of the 2 L of fluid her blood pressure was up high enough that we did not need to begin Levophed. Blood pressures have continued to be fluid responsive. Urine is concentrated. She has not had a fever. Labs indicate a slight leukocytosis at 11.1 without significant left shift. No evidence of hypoglycemia. She is mildly hyper-magnesemic, no elevated lactic, lipase or procalcitonin. Urine nitrates are positive but no leukocyte esterase, red blood cells, white blood cells but there are multiple bacteria. Will wait for culture and patient will be on antibiotics for alternate reasons. At this time, I do not have a complete explanation of her dramatic presentation and persistent hypotension. Lumbar puncture was performed with clear fluid returning. She will be started on 2 g of ceftriaxone and IV acyclovir until CSF cultures return. Blood pressures remain sensitive to fluids she does have a central line should pressors be required. She is not immediately septic, there is no evidence of heart failure, kidney failure, liver failure. No evidence of stroke or acute coronary syndrome. Patient does have multiple sclerosis but does not have any evidence of acute exacerbation. She will be admitted to the medicine service initially going to the intensive care unit due to the soft blood pressures and uncertain etiology at this time. Findings reviewed with patient and her , questions are answered, care is reviewed with the hospitalist service. Critical Care Time Critical Care Time Critical Care Time: Yes Total Critical Care Time: 34 Attestation: Critical care time is separate from other billable procedures. There is a high probability of a significant, sudden or life-threatening deterioration that requires my full and direct attention, intervention and personal management. This critical care time includes consultation with family and other consulting doctors, review of records, and interpretation of data from labs, EKGs and imaging as well as managements of acute circulatory failure, altered mental status multiple etiologies to be excluded Discharge Plan Departure Patient Disposition: Admitted As Inpatient Clinical Impression: Acute alteration in mental status, Acute hypotension, Hypermagnesemia, Headache Admit Date/Time: 05/02/22 02:02 Admit Provider: Suzanne Mejia
--- NOTE | 2022-05-01 22:55 | PC.NURSE ---
Addendum entered by Jayshree Krishnamurthy R.N. 05/01/22 23:12: 2313: Levophed was pulled on arrival and remains at bedside. Pt with positive response to fluids. Levophed held at this time. , Wu at bedside. Pt being prepped for Lumbar puncture. Original Note: 2234: Pt arrived via [facility]. LKW 2039 while lying on couch with with heating pad due to intermittent migraine type pain. reports decreased responsiveness and difficulty rousing. Airway patent and pt breathing spontaneously. 99% on 2L via NC by EMS. No thinners. On arrival BP 80's/50's for EMS. Glucose 138. Pt unable to answer simple questions, confused. GCS 12. arrived with 22G in R hand. 20g LAC placed. Pt to CT on arrival. NS IV fluids infusing with pressure bag for repeat BP 61/40. Pt prepped for central line and inserted successfully by Dr Bautista. XR to confirm placement. 2303: placement confirmed with XR. Pt BP improved to 103/59. Capnography 37. 16F temp boucher placed.
[2022-05-01 22:56] LABS: Add Manual Diff / Slide Review NO; Basophils Absolute Auto 100 /uL (0-100); Basophils Percent Auto 0.7 % (0-2); Eosinophils Absolute Auto 200 /uL (0-450); Eosinophils Percent Auto 1.6 % (2-4); Hematocrit 35.5 % (36-46); Hemoglobin 12.2 g/dL (12.0-16.0); Lymphocytes Absolute Auto 3000 /uL (1100-4500); Lymphocytes Percent Auto 27.1 % (25-40); Mean Corpuscular HGB Conc 34.3 % (30-36); Mean Corpuscular Hemoglobin 29.7 PG (26-34); Mean Corpuscular Volume 86.5 fL (80-100); Monocytes Absolute Auto 500 /uL (0-900); Monocytes Percent Auto 4.6 % (3-14); Neutrophils Absolute Auto 7300 /uL (1500-7000); Platelet Count 328 X10^3/uL (150-400); Red Blood Cell Count 4.11 X10^6/uL (4.0-5.2); Red Cell Distribution Width 13.4 % (11.6-14.8); White Blood Cell Count 11.1 X10^3/uL (4.5-11.0)
[2022-05-01 23:07] LABS: Alanine Aminotransferase 20 IU/L (<35); Albumin 4.3 g/dL (3.5-5.0); Albumin Globulin Ratio 1.7 (1.0-2.8); Alkaline Phosphatase 87 U/L (38-126); Aspartate Aminotransferase 24 IU/L (14-36); BUN Creatinine Ratio 25.6 (6-22); Bilirubin Total 0.5 mg/dL (0.2-1.3); Blood Urea Nitrogen 22 mg/dL (7-17); Calcium 9.2 mg/dL (8.4-10.2); Carbon Dioxide 28 mmol/L (22-32); Chloride 101 mmol/L (98-107); Estimated Glomerular Filt Rate > 60 mL/min (>60); Globulin 2.5 g/dL (1.7-4.1); Glucose 132 mg/dL (80-110); HEMOLYSIS 19 (0-50); Lactate (Lactic Acid) 1.2 mmol/L (0.7-2.1); Lipase 110 U/L (23-300); Magnesium 3.1 mg/dL (1.6-2.3); Potassium 3.4 mmol/L (3.4-5.1); Sodium 135 mmol/L (137-145); Total Protein 6.8 g/dL (6.3-8.2)
[2022-05-01 23:15] LABS: COVID19 -Nasal RAPID Negative (Negative)
[2022-05-01 23:19] LABS: Troponin I < 0.012 ng/mL (0.01-0.034)
[2022-05-01 23:22] LABS: Appearance Urine UA CLEAR; Bilirubin Urine UA NEGATIVE (NEGATIVE); Color Urine UA YELLOW; Glucose Urine UA NEGATIVE (Negative); Ketones Urine UA NEGATIVE (NEGATIVE); Leukocyte Esterase Urine UA NEGATIVE (NEGATIVE); Nitrite Urine UA POSITIVE (Negative); Occult Blood Urine UA TRACE-INTACT (Negative); Protein Urine UA NEGATIVE (Negative); Urobilinogen Urine UA 0.2 E.U./dL (0.2)
[2022-05-01 23:23] LABS: Procalcitonin 0.04 ng/mL (<0.5)
[2022-05-01 23:42] LABS: Bacteria Urine Many (>30); Culture Indicated Urine Specimen Cultured; RBC Urine None Seen (0-5/HPF); Squamous Epithelial Cell Urine 0-1 /HPF (0-5/HPF); WBC Urine 0-1/HPF (0-5/HPF)
[2022-05-02] VITALS (88 sets, daily range): BP systolic 63–121; BP diastolic 36–81; PULSE 97–124; RESP 10–34; TEMP 35.8–38.8; O2SAT 85–100; BMI 28.3
[2022-05-02] MEDS: SODIUM CHLORIDE 0.9% 1,000 ML 1000 ML IV (01:51)
[2022-05-02 01:52] LABS: Glucose CSF 63 mg/dL (40-70); Total Protein CSF 48 mg/dL (12-60)
[2022-05-02] MEDS: ONDANSETRON 4 MG/2 ML INJ IV (01:54)
[2022-05-02] MEDS: cefTRIAXone 2,000 MG in SODIUM CHLORIDE 0.9% 100 ML 200 MG IV (01:54)
[2022-05-02 02:16] LABS: Appearance CSF Clear (Clear); CSF Tube Number 3; CSF Tube Volume 1.0 mL; Color CSF Colorless (Colorless); Red Blood Cell CSF 26 RBC /uL; White Blood Cell CSF 0 MONO/uL (0-5)
[2022-05-02] MEDS: WATER IV (02:47)
[2022-05-02] MEDS: ACYCLOVIR IV (02:47)
[2022-05-02] MEDS: DEXTROSE 5% IV (02:47)
[2022-05-02] MEDS: SODIUM CHLORIDE 0.9% 1,000 ML 200 ML IV (02:55)
[2022-05-02] MEDS: NOREPINEPHRINE BITARTRATE/D5W 4 MG/250 ML PLAST..BAG 30 MG IV (02:55)
[2022-05-02 03:07] LABS: Cryptococcus neoformans/gattii Not Detected (Not Detect); Enterovirus Not Detected (Not Detect); Escherichia coli K1 Not Detected (Not Detect); Haemophilus influenzae Not Detected (Not Detect); Herpes simplex virus 1 Not Detected (Not Detect); Herpes simplex virus 2 Not Detected (Not Detect); Human herpesvirus 6 Not Detected (Not Detect); Human parechovirus Not Detected (Not Detect); Listeria monocytogenes Not Detected (Not Detect); Neisseria meningitidis Not Detected (Not Detect); Streptococcus agalactiae Not Detected (Not Detect); Streptococcus pneumoniae Not Detected (Not Detect); Varicella Zoster Virus Not Detected (Not Detecte)
--- NOTE | 2022-05-02 04:07 | PM.HP.1 ---
History of Present Illness History of Present Illness Date Patient Seen: 05/02/22 Time Patient Seen: 03:45 Chief complaint: Hypotension, sepsis Narrative: Rhonda Cartagena is a 66-year-old female with a history of MS, fibromyalgia, depression, essential hypertension, was in her usual state of health when she and her were watching TV, she went to walk to the bathroom and per the she collapsed and could not speak or hold her head up. He states that her eyes were closed and was not responding to her . Six he called EMS. Upon presentation to the ED your blood pressure was 83/54, she was 90% on room air and had an elevated blood sugar of 148 and elevated heart rate of 103. Per the patient and she has a history of migraine headaches and has had worsening headaches over the past 3 weeks. Chest x-ray was negative for pneumonia, brain CT was negative for any intracranial hemorrhage or intracranial abnormality it did note mild cerebral volume loss and chronic white matter small-vessel ischemic changes. Per clinical exam and brain imaging, she was ruled out for CVA and worked up for possible infection of unknown origin. In the ED they did a lumbar puncture and cell count and CS F fluid analysis is pending. ED provider placed a central line. She was initiated on IV ceftriaxone and IV acyclovir though the patient takes oral acyclovir for herpes suppression. She continues to have soft blood pressures and request was made to have her admitted to the ICU for further monitoring and when she arrived to the floor, they had started her on a levaphed drip. She had been responding to fluid boluses. She is febrile with a temperature of 100.2?, blood pressure 101/52, heart rate 124, respiratory rate 19, oxygen saturation of 93% on 2 L. She has an elevated white count of 11.1 with a left shift and a mildly elevated neutrophil count of 7300, sodium is 135 BUN 22, glucose 132, magnesium 3.1, liver enzymes were within normal limits she had positive nitrates in her urine with ?many bacteria? and the specimen will be cultured and is pending. CSF panel did not indicate any abnormalities. Bacterial and viral cultures are pending. COVID-19 PCR is negative. Patient History Medical History Cholelithiasis Hx of fracture of ankle Major depressive disorder, recurrent episode, severe Major depressive disorder, recurrent, moderate Surgical History History of carpal tunnel release of both wrists Hx of hysterectomy Family & Social History Family History Mother Cardiac arrest Father Colitis Safety & Behavioral: Feels Safe in Current Yes Environment Been Physically Hurt or No Threatened By a Person Tobacco & Substance use: Smoking Status Never smoker Alcohol consumption Rarely Meds Home Medications and Allergies Home Medications Medication Instructions Recorded Confirmed Type cholecalciferol (vitamin D3) 25 25 mcg PO DAILY 07/28/20 03/19/22 History mcg (1,000 unit) capsule magnesium hydroxide 400 mg (170 mg mg PO 07/28/20 03/19/22 History magnesium) chewable tablet mecobalamin (vitamin B12) 1,000 1,000 mcg PO DAILY 07/28/20 03/19/22 History mcg chewable tablet albuterol sulfate 90 mcg/actuation 2 puff inhalation Q6H PRN 07/23/21 03/19/22 History aerosol inhaler (Ventolin HFA) famotidine 20 mg tablet 20 mg PO DAILY #90 tabs 08/14/21 03/19/22 Rx telmisartan 80 mg tablet 80 mg PO DAILY #90 tabs 08/14/21 03/19/22 Rx fluoxetine 20 mg capsule 40 mg PO QDAY #180 caps 08/20/21 03/19/22 Rx gabapentin 300 mg capsule 300 mg PO TID #270 caps 08/21/21 03/19/22 Rx doxepin 75 mg capsule 75 mg PO HS #90 caps 08/31/21 03/19/22 Rx acyclovir 400 mg tablet 400 mg PO DAILY #90 tabs 09/24/21 03/19/22 Rx nitrofurantoin macrocrystal 100 mg 100 mg PO DAILY 10/16/21 03/19/22 History capsule trospium 60 mg capsule,extended 60 mg PO DAILY 10/16/21 03/19/22 History release 24 hr hydrochlorothiazide 25 mg tablet 25 mg PO DAILY #90 tabs 11/05/21 03/19/22 Rx risperidone 0.5 mg tablet See Rx Instructions .Route 03/07/22 03/19/22 Rx .COMPLEX #405 tabs methocarbamol 500 mg tablet 500 mg PO TID PRN muscle spasm 03/19/22 03/19/22 History promethazine 25 mg tablet 25 mg PO TID PRN nausea #30 tabs 04/15/22 Rx rizatriptan 10 mg tablet See Rx Instructions .Route 04/15/22 Rx .COMPLEX #6 tabs estradiol 0.01% (0.1 mg/gram) 1 g vaginal 2XW #42.5 grams 04/30/22 Rx vaginal cream Allergies Allergy/AdvReac Type Severity Reaction Status Date / Time zolpidem AdvReac Severe HALLUCINATIONS, Verified 03/18/22 15:13 NOT KNOWING WHERE SHE WAS, DIZZINESS Review of Systems Review of Systems ROS: Yes All systems reviewed with the patient and are negative except as otherwise documented Exam Vital Signs (past 8 hours): - 05/01/22 22:52 05/01/22 22:41 05/01/22 22:43 Temperature 98.4 F Pulse Rate 104 H 105 H Respiratory Rate 14 Blood Pressure 85/50 L 61/37 L Pulse Oximetry 90 L Oxygen Delivery Method Room Air Oxygen Flow Rate 05/01/22 22:43 05/01/22 22:45 05/01/22 22:45 Temperature Pulse Rate 104 H 102 H Respiratory Rate 13 13 Blood Pressure 74/44 L Pulse Oximetry 98 Oxygen Delivery Method Nasal Cannula Oxygen Flow Rate 2 05/01/22 22:50 05/01/22 22:51 05/01/22 22:51 Temperature Pulse Rate 100 H 100 H Respiratory Rate 15 27 H Blood Pressure 106/57 L Pulse Oximetry 96 98 Oxygen Delivery Method Nasal Cannula Nasal Cannula Oxygen Flow Rate 2 2 05/01/22 22:55 05/01/22 22:55 05/01/22 23:00 Temperature Pulse Rate 101 H Respiratory Rate 14 Blood Pressure 98/54 L 99/54 L Pulse Oximetry 100 Oxygen Delivery Method Oxygen Flow Rate 05/01/22 23:00 05/01/22 23:05 05/01/22 23:05 Temperature Pulse Rate 101 H 100 H Respiratory Rate 33 H 14 Blood Pressure 103/59 L Pulse Oximetry 100 100 Oxygen Delivery Method Oxygen Flow Rate 05/01/22 23:10 05/01/22 23:10 05/01/22 23:15 Temperature Pulse Rate 104 H Respiratory Rate 17 Blood Pressure 106/57 L 107/56 L Pulse Oximetry 97 Oxygen Delivery Method Oxygen Flow Rate 05/01/22 23:15 05/01/22 23:20 05/01/22 23:20 Temperature 94.8 F L 95.9 F L Pulse Rate 104 H 102 H Respiratory Rate 15 22 Blood Pressure 108/55 L Pulse Oximetry 98 98 Oxygen Delivery Method Oxygen Flow Rate 05/01/22 23:25 05/01/22 23:25 05/01/22 23:30 Temperature 96.1 F L Pulse Rate 100 H Respiratory Rate 28 H Blood Pressure 113/57 L 109/60 Pulse Oximetry 97 Oxygen Delivery Method Oxygen Flow Rate 05/01/22 23:30 05/01/22 23:35 05/01/22 23:35 Temperature 96.3 F L 96.3 F L Pulse Rate 100 H 98 H Respiratory Rate 27 H 12 Blood Pressure 109/58 L Pulse Oximetry 98 98 Oxygen Delivery Method Oxygen Flow Rate 05/01/22 23:40 05/01/22 23:40 05/01/22 23:45 Temperature 96.4 F L Pulse Rate 98 H Respiratory Rate 11 L Blood Pressure 108/56 L 108/58 L Pulse Oximetry 98 Oxygen Delivery Method Oxygen Flow Rate 05/01/22 23:45 05/01/22 23:50 05/01/22 23:50 Temperature 96.4 F L 96.4 F L Pulse Rate 97 H 97 H Respiratory Rate 10 L 10 L Blood Pressure 107/56 L Pulse Oximetry 98 99 Oxygen Delivery Method Oxygen Flow Rate 05/01/22 23:55 05/01/22 23:55 05/02/22 00:00 Temperature 96.4 F L Pulse Rate 97 H Respiratory Rate 10 L Blood Pressure 108/57 L 105/57 L Pulse Oximetry 98 Oxygen Delivery Method Oxygen Flow Rate 05/02/22 00:00 05/02/22 00:05 05/02/22 00:05 Temperature 96.4 F L 96.4 F L Pulse Rate 97 H 97 H Respiratory Rate 11 L 10 L Blood Pressure 109/56 L Pulse Oximetry 98 98 Oxygen Delivery Method Oxygen Flow Rate 05/02/22 00:10 05/02/22 00:10 05/02/22 00:15 Temperature 96.4 F L Pulse Rate 99 H Respiratory Rate 10 L Blood Pressure 112/57 L 110/58 L Pulse Oximetry 98 Oxygen Delivery Method Oxygen Flow Rate 05/02/22 00:15 05/02/22 00:20 05/02/22 00:20 Temperature 96.4 F L 96.4 F L Pulse Rate 99 H 101 H Respiratory Rate 10 L 21 Blood Pressure 108/56 L Pulse Oximetry 98 97 Oxygen Delivery Method Oxygen Flow Rate 05/02/22 00:25 05/02/22 00:25 05/02/22 00:30 Temperature 96.4 F L Pulse Rate 101 H Respiratory Rate 11 L Blood Pressure 108/56 L 108/59 L Pulse Oximetry 97 Oxygen Delivery Method Oxygen Flow Rate 05/02/22 00:30 05/02/22 00:35 05/02/22 00:35 Temperature 96.6 F L 96.6 F L Pulse Rate 101 H 104 H Respiratory Rate 11 L 18 Blood Pressure 108/66 Pulse Oximetry 98 100 Oxygen Delivery Method Oxygen Flow Rate 05/02/22 00:40 05/02/22 00:40 05/02/22 00:45 Temperature 96.6 F L Pulse Rate 104 H Respiratory Rate 11 L Blood Pressure 104/60 105/60 Pulse Oximetry 98 Oxygen Delivery Method Oxygen Flow Rate 05/02/22 00:45 05/02/22 00:50 05/02/22 00:50 Temperature 96.8 F L 96.8 F L Pulse Rate 103 H 104 H Respiratory Rate 10 L 11 L Blood Pressure 108/61 Pulse Oximetry 99 100 Oxygen Delivery Method Oxygen Flow Rate 05/02/22 00:55 05/02/22 00:55 05/02/22 01:00 Temperature 96.8 F L Pulse Rate 104 H Respiratory Rate 11 L Blood Pressure 107/61 107/58 L Pulse Oximetry 99 Oxygen Delivery Method Oxygen Flow Rate 05/02/22 01:00 05/02/22 01:05 05/02/22 01:05 Temperature 97.0 F L 97.0 F L Pulse Rate 108 H 114 H Respiratory Rate 13 24 Blood Pressure 112/63 Pulse Oximetry 100 99 Oxygen Delivery Method Oxygen Flow Rate 05/02/22 01:10 05/02/22 01:10 05/02/22 01:15 Temperature 96.8 F L Pulse Rate 116 H Respiratory Rate 19 Blood Pressure 114/56 L 100/54 L Pulse Oximetry 98 Oxygen Delivery Method Oxygen Flow Rate 05/02/22 01:15 05/02/22 01:20 05/02/22 01:20 Temperature 97.0 F L 97.2 F L Pulse Rate 112 H 117 H Respiratory Rate 19 20 Blood Pressure 98/68 Pulse Oximetry 99 99 Oxygen Delivery Method Oxygen Flow Rate 05/02/22 01:30 05/02/22 01:40 05/02/22 01:40 Temperature 97.3 F L 97.7 F Pulse Rate 120 H 111 H Respiratory Rate 23 13 Blood Pressure 75/36 L Pulse Oximetry 95 98 Oxygen Delivery Method Oxygen Flow Rate 05/02/22 01:45 05/02/22 01:45 05/02/22 01:50 Temperature 97.9 F 97.9 F Pulse Rate 109 H 115 H Respiratory Rate 18 24 Blood Pressure 92/53 L Pulse Oximetry 98 99 Oxygen Delivery Method Oxygen Flow Rate 05/02/22 01:50 05/02/22 01:55 05/02/22 01:55 Temperature 97.9 F Pulse Rate 116 H Respiratory Rate 28 H Blood Pressure 90/54 L 102/56 L Pulse Oximetry 100 Oxygen Delivery Method Oxygen Flow Rate 05/02/22 02:00 05/02/22 02:00 05/02/22 02:05 Temperature 97.9 F 98.1 F Pulse Rate 118 H 116 H Respiratory Rate 25 H 15 Blood Pressure 105/51 L Pulse Oximetry 99 99 Oxygen Delivery Method Oxygen Flow Rate 05/02/22 02:05 05/02/22 02:10 05/02/22 02:10 Temperature 98.1 F Pulse Rate 114 H Respiratory Rate 18 Blood Pressure 95/50 L 94/44 L Pulse Oximetry 99 Oxygen Delivery Method Oxygen Flow Rate 05/02/22 02:16 05/02/22 02:16 05/02/22 02:20 Temperature 98.2 F Pulse Rate 119 H Respiratory Rate 14 Blood Pressure 63/39 L 103/57 L Pulse Oximetry 100 Oxygen Delivery Method Oxygen Flow Rate 05/02/22 02:20 05/02/22 02:30 05/02/22 02:30 Temperature 98.2 F 98.6 F Pulse Rate 121 H 120 H Respiratory Rate 24 17 Blood Pressure 88/49 L Pulse Oximetry 100 100 Oxygen Delivery Method Oxygen Flow Rate 05/02/22 02:45 05/02/22 02:45 05/02/22 03:00 Temperature 99.0 F Pulse Rate 124 H Respiratory Rate 22 Blood Pressure 86/51 L 88/56 L Pulse Oximetry 100 Oxygen Delivery Method Oxygen Flow Rate 05/02/22 03:00 05/02/22 03:05 05/02/22 03:05 Temperature 99.3 F 99.5 F Pulse Rate 121 H 123 H Respiratory Rate 18 23 Blood Pressure 100/65 Pulse Oximetry 100 100 Oxygen Delivery Method Oxygen Flow Rate 05/02/22 03:13 05/02/22 03:13 05/02/22 03:15 Temperature 99.7 F H Pulse Rate 121 H Respiratory Rate 23 Blood Pressure 106/67 101/64 Pulse Oximetry 99 Oxygen Delivery Method Oxygen Flow Rate 05/02/22 03:15 05/02/22 03:20 05/02/22 03:20 Temperature 99.7 F H 99.9 F H Pulse Rate 121 H 118 H Respiratory Rate 21 19 Blood Pressure 95/54 L Pulse Oximetry 100 100 Oxygen Delivery Method Oxygen Flow Rate 05/02/22 03:25 05/02/22 03:25 05/02/22 03:30 Temperature 99.9 F H Pulse Rate 116 H Respiratory Rate 23 Blood Pressure 92/46 L 91/47 L Pulse Oximetry 99 Oxygen Delivery Method Oxygen Flow Rate 05/02/22 03:30 Temperature 100.0 F H Pulse Rate 117 H Respiratory Rate 20 Blood Pressure Pulse Oximetry 99 Oxygen Delivery Method Oxygen Flow Rate Oxygen Delivery Method Room Air Oxygen Flow Rate 2 Narrative Exam Narrative: Gen: Alert, oriented, well-developed [] y.o. [] fe[]male, NAD HEENT: normocephalic, atraumatic, conjunctiva clear, sclera non-icteric, oral mucosa pink and moist Neck: supple, full ROM, no JVD, trachea is midline Resp: Lungs CTA, non-labored breathing CV: RRR, no murmur or rubs Abd: soft, non-tender, normoactive BTs Skin: no lesions or rashes, dry and intact Neuro: Alert and oriented X 4 w/no focal deficits. Speech clear and coherent. Extremities: moves all 4 extremities, is ambulatory, negative Rachel?s sign Psyche: normal mood and affect. Objective Labs Result Diagrams: 05/01/22 22:42 05/01/22 22:42 Labs: Laboratory Results - last 24 hr 05/01/22 05/01/22 05/01/22 22:42 22:42 22:42 WBC 11.1 H RBC 4.11 Hgb 12.2 Hct 35.5 L MCV 86.5 MCH 29.7 MCHC 34.3 RDW 13.4 Plt Count 328 Neut % (Auto) 66.0 Lymph % (Auto) 27.1 [place] % (Auto) 4.6 Eos % (Auto) 1.6 L Baso % (Auto) 0.7 Neut # (Auto) 7300 H Lymph # (Auto) 3000 [place] # (Auto) 500 Eos # (Auto) 200 Baso # (Auto) 100 Sodium 135 L Potassium 3.4 Chloride 101 Carbon Dioxide 28 BUN 22 H Creatinine 0.86 Estimated GFR > 60 BUN/Creatinine Ratio 25.6 H Glucose 132 H Lactate 1.2 Calcium 9.2 Magnesium Total Bilirubin 0.5 AST 24 ALT 20 Alkaline Phosphatase 87 Troponin I Total Protein 6.8 Albumin 4.3 Globulin 2.5 Albumin/Globulin Ratio 1.7 Lipase Procalcitonin Urine Color Urine Appearance Urine pH Ur Specific [place] Urine Protein Urine Glucose (UA) Urine Ketones Urine Occult Blood Urine Nitrate Urine Bilirubin Urine Urobilinogen Ur Leukocyte Esterase Urine RBC Urine WBC Ur Squamous Epith Cells Urine Bacteria Ur Culture Indicated? CSF Tube Number CSF Volume CSF Appearance CSF Color CSF WBC CSF RBC CSF Mononuclear WBCs CSF Polynuclear WBCs CSF Glucose CSF Total Protein CSF C.neoform/gat PCR CSF CMV DNA (PCR) CSF Enterovirus (PCR) CSF E. coli (PCR) CSF H. influenzae (PCR) CSF HSV I (PCR) CSF HSV II (PCR) CSF HHV 6 (PCR) CSF L.monocytogenes PCR CSF N. meningitidis PCR CSF Parechovirus (PCR) CSF S. agalactiae (PCR) CSF S. pneumoniae (PCR) CSF VZV (PCR) SARS-CoV-2 (PCR) 05/01/22 05/01/22 05/01/22 22:42 22:50 23:15 WBC RBC Hgb Hct MCV MCH MCHC RDW Plt Count Neut % (Auto) Lymph % (Auto) [place] % (Auto) Eos % (Auto) Baso % (Auto) Neut # (Auto) Lymph # (Auto) [place] # (Auto) Eos # (Auto) Baso # (Auto) Sodium Potassium Chloride Carbon Dioxide BUN Creatinine Estimated GFR BUN/Creatinine Ratio Glucose Lactate Calcium Magnesium 3.1 H Total Bilirubin AST ALT Alkaline Phosphatase Troponin I < 0.012 Total Protein Albumin Globulin Albumin/Globulin Ratio Lipase 110 Procalcitonin 0.04 Urine Color Yellow Urine Appearance Clear Urine pH 7.0 Ur Specific [place] 1.010 Urine Protein Negative Urine Glucose (UA) Negative Urine Ketones Negative Urine Occult Blood Trace-intact Urine Nitrate Positive H Urine Bilirubin Negative Urine Urobilinogen 0.2 Ur Leukocyte Esterase Negative Urine RBC None seen Urine WBC 0-1/hpf Ur Squamous Epith Cells 0-1 /hpf Urine Bacteria Many (>30) H Ur Culture Indicated? Specimen cultured CSF Tube Number CSF Volume CSF Appearance CSF Color CSF WBC CSF RBC CSF Mononuclear WBCs CSF Polynuclear WBCs CSF Glucose CSF Total Protein CSF C.neoform/gat PCR CSF CMV DNA (PCR) CSF Enterovirus (PCR) CSF E. coli (PCR) CSF H. influenzae (PCR) CSF HSV I (PCR) CSF HSV II (PCR) CSF HHV 6 (PCR) CSF L.monocytogenes PCR CSF N. meningitidis PCR CSF Parechovirus (PCR) CSF S. agalactiae (PCR) CSF S. pneumoniae (PCR) CSF VZV (PCR) SARS-CoV-2 (PCR) Negative 05/02/22 05/02/22 05/02/22 01:34 01:34 01:34 WBC RBC Hgb Hct MCV MCH MCHC RDW Plt Count Neut % (Auto) Lymph % (Auto) [place] % (Auto) Eos % (Auto) Baso % (Auto) Neut # (Auto) Lymph # (Auto) [place] # (Auto) Eos # (Auto) Baso # (Auto) Sodium Potassium Chloride Carbon Dioxide BUN Creatinine Estimated GFR BUN/Creatinine Ratio Glucose Lactate Calcium Magnesium Total Bilirubin AST ALT Alkaline Phosphatase Troponin I Total Protein Albumin Globulin Albumin/Globulin Ratio Lipase Procalcitonin Urine Color Urine Appearance Urine pH Ur Specific [place] Urine Protein Urine Glucose (UA) Urine Ketones Urine Occult Blood Urine Nitrate Urine Bilirubin Urine Urobilinogen Ur Leukocyte Esterase Urine RBC Urine WBC Ur Squamous Epith Cells Urine Bacteria Ur Culture Indicated? CSF Tube Number 3 CSF Volume 1.0 ml CSF Appearance Clear CSF Color Colorless CSF WBC 0 CSF RBC 26 CSF Mononuclear WBCs TNP CSF Polynuclear WBCs TNP CSF Glucose 63 CSF Total Protein 48 CSF C.neoform/gat PCR Not detected CSF CMV DNA (PCR) Not detected CSF Enterovirus (PCR) Not detected CSF E. coli (PCR) Not detected CSF H. influenzae (PCR) Not detected CSF HSV I (PCR) Not detected CSF HSV II (PCR) Not detected CSF HHV 6 (PCR) Not detected CSF L.monocytogenes PCR Not detected CSF N. meningitidis PCR Not detected CSF Parechovirus (PCR) Not detected CSF S. agalactiae (PCR) Not detected CSF S. pneumoniae (PCR) Not detected CSF VZV (PCR) Not detected SARS-CoV-2 (PCR) Assessment & Plan Assessment & Plan narrative: Rhonda Cartagena is admitted to the ICU for hypotension associated with a UTI, and other unknown cause. Bacterial or viral meningitis ruled out, CSF protein and glucose within normal limits and no bacteria seen. Sepsis qSOFA score of 2, acute, unknown bacterial origin, present on admission Patient is febrile, heart rate persistently above 100, hypotensive, elevated white count and magnesium She was intiated on IV ceftriaxone and acyclovir. Acyclovir will be d/c'd due to normal CSF results. CT of the chest abdomen and pelvis Question if initial presentation might be a seizure, may need to consult neurology as we do not have EEG capability Hypotension, present on admission She was bolused 4 liters NS in the ED echo in the am, serial troponins Will start LR at 175 ml/hour per advice of home care coordinator Multiple sclerosis, chronic Continue home dose of gabapentin 300 mg po tid Depresson, chronic Continue home doses of doxepin, fluoxitine and risperidone Hypermagnemesia, present on admission Magnesium is 3/1, continue to monitor daily VTE Prophylaxis: Wells risk score 0 [X]Enoxaparin 40 mg subQ once daily [X] Bilateral SCDs Patient is admitted to the inpatient intensive care service due to the severity of disease, risks of further disease progression and this stay is expected to exceed 2 midnights. FEN: IV fluids: LR at 175 ml/hour, diet: general, labs: CBC, C/BMP, liver enzymes, Mag, PT/INR Consultants Intercept ICU care and involvement in the patient?s care is appreciated. Dispo: unknown at this time Code status: DNR/DNI as discussed with the patient who identifies her , Wu as her surrogate and POA. [X] I have utilized all available immediate resources to obtain, update, or review of the patient's current medications COVID-19 COVID-19 status: Negative Result date/Date tested (Pos, Neg/Pending): 05/02/22 Time Spent With Patient Critical Care time: I spent a total of 45 minutes of critical care time on this patient's care today; this time is exclusive of procedural time. Scores SOFA PaO2/FIO2: >=400 mmHg Platelets: >= 150 Bilirubin: < 1.2 mg/dL Hypotension: Dopamine >5 or norepinephrine <=0.1 Viki Coma Scale: 15 Renal: < 1.2 mg/dL SOFA Score: 3 Wells' Criteria for PE Clinical signs and symptoms of DVT: No PE is #1 Dx or equally likely: No Heart rate > 100: No Immobilization at least 3 days or surg in previous 4 weeks: No History of PE or DVT: No Hemoptysis: No Malignancy w/Treatment within 6 months or palliative: No Wells' PE Score total: 0
--- NOTE | 2022-05-02 04:47 | P.TELICUCN_ITS ---
History of Present Illness Consult details If camera was activated, add TeleICU A-V Statement: audio/visiual connection established pt seen in and assess in bed with bedside provider and nurse present Chief complaint: Hypotension, sepsis Consent obtained for tele-person investigator care: Yes Patient Location: ICU Provider location (State): [place] Other participants/roles: [facility] Medical History Cholelithiasis Hx of fracture of ankle Major depressive disorder, recurrent episode, severe Major depressive disorder, recurrent, moderate Surgical History History of carpal tunnel release of both wrists Hx of hysterectomy Family History Mother Cardiac arrest Father Colitis Social History household members: spouse Smoking Status: Never smoker Current Medications Current Medications Medications: Home Medications cholecalciferol (vitamin D3) 25 mcg (1,000 unit) capsule 25 mcg PO DAILY 03/11 [History Confirmed 03/19/22] magnesium hydroxide 400 mg (170 mg magnesium) chewable tablet mg PO 07/28/20 [History Confirmed 03/19/22] mecobalamin (vitamin B12) 1,000 mcg chewable tablet 1,000 mcg PO DAILY 07/28/20 [History Confirmed 03/19/22] albuterol sulfate 90 mcg/actuation aerosol inhaler (Ventolin HFA) 2 puff inhalation Q6H PRN 07/23/21 [History Confirmed 03/19/22] famotidine 20 mg tablet 20 mg PO DAILY #90 tabs 08/14/21 [Rx Confirmed 03/19/22] telmisartan 80 mg tablet 80 mg PO DAILY #90 tabs 08/14/21 [Rx Confirmed 03/19/22] fluoxetine 20 mg capsule 40 mg PO QDAY #180 caps 08/20/21 [Rx Confirmed 03/19/22] gabapentin 300 mg capsule 300 mg PO TID #270 caps 08/21/21 [Rx Confirmed ] doxepin 75 mg capsule 75 mg PO HS #90 caps 08/31/21 [Rx Confirmed 03/19/22] acyclovir 400 mg tablet 400 mg PO DAILY #90 tabs 09/24/21 [Rx Confirmed 03/19/22] nitrofurantoin macrocrystal 100 mg capsule 100 mg PO DAILY 10/16/21 [History Confirmed 03/19/22] trospium 60 mg capsule,extended release 24 hr 60 mg PO DAILY 10/16/21 [History Confirmed 03/19/22] hydrochlorothiazide 25 mg tablet 25 mg PO DAILY #90 tabs 11/05/21 [Rx Confirmed 03/19/22] risperidone 0.5 mg tablet See Rx Instructions .Route .COMPLEX #405 tabs 03/07/22 [Rx Confirmed 03/19/22] methocarbamol 500 mg tablet 500 mg PO TID PRN muscle spasm 03/19/22 [History Confirmed 03/19/22] promethazine 25 mg tablet 25 mg PO TID PRN nausea #30 tabs 04/15/22 [Rx] rizatriptan 10 mg tablet See Rx Instructions .Route .COMPLEX #6 tabs 04/15/22 [Rx] estradiol 0.01% (0.1 mg/gram) vaginal cream 1 g vaginal 2XW #42.5 grams 04/30/22 [Rx] Visit Medications (administered) Generic Name Dose Route Start Last Admin Trade Name Freq PRN Reason Stop Dose Admin Sodium Chloride 1,000 mls @ 200 mls/hr 05/02/22 01:45 05/02/22 02:55 Normal Saline 0.9% IV 200 mls/hr CONT ADRIANA Administration Exam Vital Signs (past 8 hours): - 05/01/22 22:52 05/01/22 22:41 05/01/22 22:43 Temperature 98.4 F Pulse Rate 104 H 105 H Respiratory Rate 14 Blood Pressure 85/50 L 61/37 L Pulse Oximetry 90 L Oxygen Delivery Method Room Air Oxygen Flow Rate 05/01/22 22:43 05/01/22 22:45 05/01/22 22:45 Temperature Pulse Rate 104 H 102 H Respiratory Rate 13 13 Blood Pressure 74/44 L Pulse Oximetry 98 Oxygen Delivery Method Nasal Cannula Oxygen Flow Rate 2 05/01/22 22:50 05/01/22 22:51 05/01/22 22:51 Temperature Pulse Rate 100 H 100 H Respiratory Rate 15 27 H Blood Pressure 106/57 L Pulse Oximetry 96 98 Oxygen Delivery Method Nasal Cannula Nasal Cannula Oxygen Flow Rate 2 2 05/01/22 22:55 05/01/22 22:55 05/01/22 23:00 Temperature Pulse Rate 101 H Respiratory Rate 14 Blood Pressure 98/54 L 99/54 L Pulse Oximetry 100 Oxygen Delivery Method Oxygen Flow Rate 05/01/22 23:00 05/01/22 23:05 05/01/22 23:05 Temperature Pulse Rate 101 H 100 H Respiratory Rate 33 H 14 Blood Pressure 103/59 L Pulse Oximetry 100 100 Oxygen Delivery Method Oxygen Flow Rate 05/01/22 23:10 05/01/22 23:10 05/01/22 23:15 Temperature Pulse Rate 104 H Respiratory Rate 17 Blood Pressure 106/57 L 107/56 L Pulse Oximetry 97 Oxygen Delivery Method Oxygen Flow Rate 05/01/22 23:15 05/01/22 23:20 05/01/22 23:20 Temperature 94.8 F L 95.9 F L Pulse Rate 104 H 102 H Respiratory Rate 15 22 Blood Pressure 108/55 L Pulse Oximetry 98 98 Oxygen Delivery Method Oxygen Flow Rate 05/01/22 23:25 05/01/22 23:25 05/01/22 23:30 Temperature 96.1 F L Pulse Rate 100 H Respiratory Rate 28 H Blood Pressure 113/57 L 109/60 Pulse Oximetry 97 Oxygen Delivery Method Oxygen Flow Rate 05/01/22 23:30 05/01/22 23:35 05/01/22 23:35 Temperature 96.3 F L 96.3 F L Pulse Rate 100 H 98 H Respiratory Rate 27 H 12 Blood Pressure 109/58 L Pulse Oximetry 98 98 Oxygen Delivery Method Oxygen Flow Rate 05/01/22 23:40 05/01/22 23:40 05/01/22 23:45 Temperature 96.4 F L Pulse Rate 98 H Respiratory Rate 11 L Blood Pressure 108/56 L 108/58 L Pulse Oximetry 98 Oxygen Delivery Method Oxygen Flow Rate 05/01/22 23:45 05/01/22 23:50 05/01/22 23:50 Temperature 96.4 F L 96.4 F L Pulse Rate 97 H 97 H Respiratory Rate 10 L 10 L Blood Pressure 107/56 L Pulse Oximetry 98 99 Oxygen Delivery Method Oxygen Flow Rate 05/01/22 23:55 05/01/22 23:55 05/02/22 00:00 Temperature 96.4 F L Pulse Rate 97 H Respiratory Rate 10 L Blood Pressure 108/57 L 105/57 L Pulse Oximetry 98 Oxygen Delivery Method Oxygen Flow Rate 05/02/22 00:00 05/02/22 00:05 05/02/22 00:05 Temperature 96.4 F L 96.4 F L Pulse Rate 97 H 97 H Respiratory Rate 11 L 10 L Blood Pressure 109/56 L Pulse Oximetry 98 98 Oxygen Delivery Method Oxygen Flow Rate 05/02/22 00:10 05/02/22 00:10 05/02/22 00:15 Temperature 96.4 F L Pulse Rate 99 H Respiratory Rate 10 L Blood Pressure 112/57 L 110/58 L Pulse Oximetry 98 Oxygen Delivery Method Oxygen Flow Rate 05/02/22 00:15 05/02/22 00:20 05/02/22 00:20 Temperature 96.4 F L 96.4 F L Pulse Rate 99 H 101 H Respiratory Rate 10 L 21 Blood Pressure 108/56 L Pulse Oximetry 98 97 Oxygen Delivery Method Oxygen Flow Rate 05/02/22 00:25 05/02/22 00:25 05/02/22 00:30 Temperature 96.4 F L Pulse Rate 101 H Respiratory Rate 11 L Blood Pressure 108/56 L 108/59 L Pulse Oximetry 97 Oxygen Delivery Method Oxygen Flow Rate 05/02/22 00:30 05/02/22 00:35 05/02/22 00:35 Temperature 96.6 F L 96.6 F L Pulse Rate 101 H 104 H Respiratory Rate 11 L 18 Blood Pressure 108/66 Pulse Oximetry 98 100 Oxygen Delivery Method Oxygen Flow Rate 05/02/22 00:40 05/02/22 00:40 05/02/22 00:45 Temperature 96.6 F L Pulse Rate 104 H Respiratory Rate 11 L Blood Pressure 104/60 105/60 Pulse Oximetry 98 Oxygen Delivery Method Oxygen Flow Rate 05/02/22 00:45 05/02/22 00:50 05/02/22 00:50 Temperature 96.8 F L 96.8 F L Pulse Rate 103 H 104 H Respiratory Rate 10 L 11 L Blood Pressure 108/61 Pulse Oximetry 99 100 Oxygen Delivery Method Oxygen Flow Rate 05/02/22 00:55 05/02/22 00:55 05/02/22 01:00 Temperature 96.8 F L Pulse Rate 104 H Respiratory Rate 11 L Blood Pressure 107/61 107/58 L Pulse Oximetry 99 Oxygen Delivery Method Oxygen Flow Rate 05/02/22 01:00 05/02/22 01:05 05/02/22 01:05 Temperature 97.0 F L 97.0 F L Pulse Rate 108 H 114 H Respiratory Rate 13 24 Blood Pressure 112/63 Pulse Oximetry 100 99 Oxygen Delivery Method Oxygen Flow Rate 05/02/22 01:10 05/02/22 01:10 05/02/22 01:15 Temperature 96.8 F L Pulse Rate 116 H Respiratory Rate 19 Blood Pressure 114/56 L 100/54 L Pulse Oximetry 98 Oxygen Delivery Method Oxygen Flow Rate 05/02/22 01:15 05/02/22 01:20 05/02/22 01:20 Temperature 97.0 F L 97.2 F L Pulse Rate 112 H 117 H Respiratory Rate 19 20 Blood Pressure 98/68 Pulse Oximetry 99 99 Oxygen Delivery Method Oxygen Flow Rate 05/02/22 01:30 05/02/22 01:40 05/02/22 01:40 Temperature 97.3 F L 97.7 F Pulse Rate 120 H 111 H Respiratory Rate 23 13 Blood Pressure 75/36 L Pulse Oximetry 95 98 Oxygen Delivery Method Oxygen Flow Rate 05/02/22 01:45 05/02/22 01:45 05/02/22 01:50 Temperature 97.9 F 97.9 F Pulse Rate 109 H 115 H Respiratory Rate 18 24 Blood Pressure 92/53 L Pulse Oximetry 98 99 Oxygen Delivery Method Oxygen Flow Rate 05/02/22 01:50 05/02/22 01:55 05/02/22 01:55 Temperature 97.9 F Pulse Rate 116 H Respiratory Rate 28 H Blood Pressure 90/54 L 102/56 L Pulse Oximetry 100 Oxygen Delivery Method Oxygen Flow Rate 05/02/22 02:00 05/02/22 02:00 05/02/22 02:05 Temperature 97.9 F 98.1 F Pulse Rate 118 H 116 H Respiratory Rate 25 H 15 Blood Pressure 105/51 L Pulse Oximetry 99 99 Oxygen Delivery Method Oxygen Flow Rate 05/02/22 02:05 05/02/22 02:10 05/02/22 02:10 Temperature 98.1 F Pulse Rate 114 H Respiratory Rate 18 Blood Pressure 95/50 L 94/44 L Pulse Oximetry 99 Oxygen Delivery Method Oxygen Flow Rate 05/02/22 02:16 05/02/22 02:16 05/02/22 02:20 Temperature 98.2 F Pulse Rate 119 H Respiratory Rate 14 Blood Pressure 63/39 L 103/57 L Pulse Oximetry 100 Oxygen Delivery Method Oxygen Flow Rate 05/02/22 02:20 05/02/22 02:30 05/02/22 02:30 Temperature 98.2 F 98.6 F Pulse Rate 121 H 120 H Respiratory Rate 24 17 Blood Pressure 88/49 L Pulse Oximetry 100 100 Oxygen Delivery Method Oxygen Flow Rate 05/02/22 02:45 05/02/22 02:45 05/02/22 03:00 Temperature 99.0 F Pulse Rate 124 H Respiratory Rate 22 Blood Pressure 86/51 L 88/56 L Pulse Oximetry 100 Oxygen Delivery Method Oxygen Flow Rate 05/02/22 03:00 05/02/22 03:05 05/02/22 03:05 Temperature 99.3 F 99.5 F Pulse Rate 121 H 123 H Respiratory Rate 18 23 Blood Pressure 100/65 Pulse Oximetry 100 100 Oxygen Delivery Method Oxygen Flow Rate 05/02/22 03:13 05/02/22 03:13 05/02/22 03:15 Temperature 99.7 F H Pulse Rate 121 H Respiratory Rate 23 Blood Pressure 106/67 101/64 Pulse Oximetry 99 Oxygen Delivery Method Oxygen Flow Rate 05/02/22 03:15 05/02/22 03:20 05/02/22 03:20 Temperature 99.7 F H 99.9 F H Pulse Rate 121 H 118 H Respiratory Rate 21 19 Blood Pressure 95/54 L Pulse Oximetry 100 100 Oxygen Delivery Method Oxygen Flow Rate 05/02/22 03:25 05/02/22 03:25 05/02/22 03:30 Temperature 99.9 F H Pulse Rate 116 H Respiratory Rate 23 Blood Pressure 92/46 L 91/47 L Pulse Oximetry 99 Oxygen Delivery Method Oxygen Flow Rate 05/02/22 03:30 05/02/22 04:00 05/02/22 04:00 Temperature 100.0 F H 100.2 F H Pulse Rate 117 H 124 H Respiratory Rate 20 19 Blood Pressure 101/52 L Pulse Oximetry 99 93 Oxygen Delivery Method Oxygen Flow Rate Oxygen Delivery Method Room Air Oxygen Flow Rate 2 Objective Labs Result Diagrams: 05/01/22 22:42 05/01/22 22:42 Labs: Laboratory Results - last 24 hr 05/01/22 05/01/22 05/01/22 22:42 22:42 22:42 WBC 11.1 H RBC 4.11 Hgb 12.2 Hct 35.5 L MCV 86.5 MCH 29.7 MCHC 34.3 RDW 13.4 Plt Count 328 Neut % (Auto) 66.0 Lymph % (Auto) 27.1 [place] % (Auto) 4.6 Eos % (Auto) 1.6 L Baso % (Auto) 0.7 Neut # (Auto) 7300 H Lymph # (Auto) 3000 [place] # (Auto) 500 Eos # (Auto) 200 Baso # (Auto) 100 Sodium 135 L Potassium 3.4 Chloride 101 Carbon Dioxide 28 BUN 22 H Creatinine 0.86 Estimated GFR > 60 BUN/Creatinine Ratio 25.6 H Glucose 132 H Lactate 1.2 Calcium 9.2 Magnesium Total Bilirubin 0.5 AST 24 ALT 20 Alkaline Phosphatase 87 Troponin I Total Protein 6.8 Albumin 4.3 Globulin 2.5 Albumin/Globulin Ratio 1.7 Lipase Procalcitonin Urine Color Urine Appearance Urine pH Ur Specific [place] Urine Protein Urine Glucose (UA) Urine Ketones Urine Occult Blood Urine Nitrate Urine Bilirubin Urine Urobilinogen Ur Leukocyte Esterase Urine RBC Urine WBC Ur Squamous Epith Cells Urine Bacteria Ur Culture Indicated? CSF Tube Number CSF Volume CSF Appearance CSF Color CSF WBC CSF RBC CSF Mononuclear WBCs CSF Polynuclear WBCs CSF Glucose CSF Total Protein CSF C.neoform/gat PCR CSF CMV DNA (PCR) CSF Enterovirus (PCR) CSF E. coli (PCR) CSF H. influenzae (PCR) CSF HSV I (PCR) CSF HSV II (PCR) CSF HHV 6 (PCR) CSF L.monocytogenes PCR CSF N. meningitidis PCR CSF Parechovirus (PCR) CSF S. agalactiae (PCR) CSF S. pneumoniae (PCR) CSF VZV (PCR) SARS-CoV-2 (PCR) 05/01/22 05/01/22 05/01/22 22:42 22:50 23:15 WBC RBC Hgb Hct MCV MCH MCHC RDW Plt Count Neut % (Auto) Lymph % (Auto) [place] % (Auto) Eos % (Auto) Baso % (Auto) Neut # (Auto) Lymph # (Auto) [place] # (Auto) Eos # (Auto) Baso # (Auto) Sodium Potassium Chloride Carbon Dioxide BUN Creatinine Estimated GFR BUN/Creatinine Ratio Glucose Lactate Calcium Magnesium 3.1 H Total Bilirubin AST ALT Alkaline Phosphatase Troponin I < 0.012 Total Protein Albumin Globulin Albumin/Globulin Ratio Lipase 110 Procalcitonin 0.04 Urine Color Yellow Urine Appearance Clear Urine pH 7.0 Ur Specific [place] 1.010 Urine Protein Negative Urine Glucose (UA) Negative Urine Ketones Negative Urine Occult Blood Trace-intact Urine Nitrate Positive H Urine Bilirubin Negative Urine Urobilinogen 0.2 Ur Leukocyte Esterase Negative Urine RBC None seen Urine WBC 0-1/hpf Ur Squamous Epith Cells 0-1 /hpf Urine Bacteria Many (>30) H Ur Culture Indicated? Specimen cultured CSF Tube Number CSF Volume CSF Appearance CSF Color CSF WBC CSF RBC CSF Mononuclear WBCs CSF Polynuclear WBCs CSF Glucose CSF Total Protein CSF C.neoform/gat PCR CSF CMV DNA (PCR) CSF Enterovirus (PCR) CSF E. coli (PCR) CSF H. influenzae (PCR) CSF HSV I (PCR) CSF HSV II (PCR) CSF HHV 6 (PCR) CSF L.monocytogenes PCR CSF N. meningitidis PCR CSF Parechovirus (PCR) CSF S. agalactiae (PCR) CSF S. pneumoniae (PCR) CSF VZV (PCR) SARS-CoV-2 (PCR) Negative 05/02/22 05/02/22 05/02/22 01:34 01:34 01:34 WBC RBC Hgb Hct MCV MCH MCHC RDW Plt Count Neut % (Auto) Lymph % (Auto) [place] % (Auto) Eos % (Auto) Baso % (Auto) Neut # (Auto) Lymph # (Auto) [place] # (Auto) Eos # (Auto) Baso # (Auto) Sodium Potassium Chloride Carbon Dioxide BUN Creatinine Estimated GFR BUN/Creatinine Ratio Glucose Lactate Calcium Magnesium Total Bilirubin AST ALT Alkaline Phosphatase Troponin I Total Protein Albumin Globulin Albumin/Globulin Ratio Lipase Procalcitonin Urine Color Urine Appearance Urine pH Ur Specific [place] Urine Protein Urine Glucose (UA) Urine Ketones Urine Occult Blood Urine Nitrate Urine Bilirubin Urine Urobilinogen Ur Leukocyte Esterase Urine RBC Urine WBC Ur Squamous Epith Cells Urine Bacteria Ur Culture Indicated? CSF Tube Number 3 CSF Volume 1.0 ml CSF Appearance Clear CSF Color Colorless CSF WBC 0 CSF RBC 26 CSF Mononuclear WBCs TNP CSF Polynuclear WBCs TNP CSF Glucose 63 CSF Total Protein 48 CSF C.neoform/gat PCR Not detected CSF CMV DNA (PCR) Not detected CSF Enterovirus (PCR) Not detected CSF E. coli (PCR) Not detected CSF H. influenzae (PCR) Not detected CSF HSV I (PCR) Not detected CSF HSV II (PCR) Not detected CSF HHV 6 (PCR) Not detected CSF L.monocytogenes PCR Not detected CSF N. meningitidis PCR Not detected CSF Parechovirus (PCR) Not detected CSF S. agalactiae (PCR) Not detected CSF S. pneumoniae (PCR) Not detected CSF VZV (PCR) Not detected SARS-CoV-2 (PCR) Assessment & Plan Assessment & Plan narrative: pt seen with Dr ramírez and bedside nurse chart/labs/imaging reviewed 66 year old female with ams possible septic shock 2/2 to UTI vs other meningitis/encephalitis unlikely dehydration/volume depletion suggest -neurochecks/seizure precautions -avoid sedatives -initial imaging -ve -can check eeg/MRI -LP -ve -continue ivf, assess responsiveness, should use LR -jo cx -broad spec abx -wean pressers -start stress dose steroids -consider ct CAP -serial ekg/trop first set -ve -check echo -monitor ins/outs -replace lytes prn -keep glucose 140-180s -gi/dvt ppx -please call eICU if condition changes Time Spent With Patient Critical Care time: I spent a total of 45] minutes of critical care time on this patient's care today; this time is exclusive of procedural time.
--- NOTE | 2022-05-02 05:00 | DI.CT.S_ITS ---
PROCEDURE: CT CHEST ABD PEL W CON INDICATIONS: Sepsis of unknown origin TECHNIQUE: After the administration of oral and intravenous contrast, axial sections acquired from the supraclavicular neck to the pubic symphysis. Coronal and sagittal reformats were performed. For radiation dose reduction, the following was used: automated exposure control, adjustment of mA and/or kV according to patient size. COMPARISON: [facility], [place], ABDOMEN/PELVIS WITH CONTRAST, 01/10/2016, 19:59. FINDINGS: Image quality: Adequate. CHEST: Lower Neck: No enlarged lymph nodes. Axillae: No enlarged lymph nodes. Lungs and Airways: Mild dependent opacities present, likely dependent and hypoventilatory atelectasis. No lobar consolidation. Pleura: No pneumothorax or large pleural effusions. Heart: No pericardial effusion. Thoracic Vessels: The aorta and pulmonary arteries demonstrate normal size. Mediastinum and Cassy: No enlarged lymph nodes. Tip of the right internal jugular central venous catheter terminates at the right atrium. Esophagus: Possible wall thickening. ABDOMEN: Liver: Unremarkable. Gallbladder: Resected. Biliary ducts: Unremarkable. Pancreas: Unremarkable. Spleen: Unremarkable. Adrenal Glands: Unremarkable. Kidneys and Ureters: No hydronephrosis. Stomach and Bowel: The stomach is distended with oral contrast. Oral contrast has reached the level of the distal small bowel at the time of the exam. No evidence of high-grade mechanical small bowel obstruction. A large volume of stool is present throughout the colon. The colon is distended from the cecum through the descending colon, without a definite high-grade caliber transition to more normal caliber sigmoid and rectum. Mild pericolonic fat stranding and fluid present adjacent to the descending colon. Normal appendix. Peritoneum: Trace abdominal and pelvic free fluid. No free air. Ventral Wall: No hernia. Abdominal Nodes: No retroperitoneal or mesenteric adenopathy by size criteria. Vessels: Aorta and inferior vena cava are normal in size. PELVIS: Pelvic Organs: The uterus is not visualized and is presumed surgically absent. Bladder: A Hsu catheter is present. Small amount of gas in the bladder presumably related to the presence of the catheter. Pelvic Nodes: No enlarged lymph nodes. Miscellaneous: No inguinal hernias are seen. Bones: Multilevel degenerative change of the visualized spine. IMPRESSION: 1. Mild fat stranding and fluid is present adjacent to the descending colon, findings that could indicate a colitis with infectious or inflammatory etiologies possible. Ischemic colitis is also possible. 2. The colon is distended without definite evidence of a focal caliber transition. Findings raise the possibility of a colonic ileus. 3. Mild bilateral pulmonary opacities present, likely atelectasis but aspiration or pneumonia are difficult to fully exclude. 4. Possible esophageal wall thickening demonstrated, which can be seen in the setting of esophagitis. Dictated by: Jose Manuel Francisco M.D. on 05/02/2022 at 8:33 Approved by: Jose Manuel Francisco M.D. on 05/02/2022 at 9:04
[2022-05-02 06:04] LABS: Add Manual Diff / Slide Review NO; Basophils Absolute Auto 100 /uL (0-100); Basophils Percent Auto 0.5 % (0-2); Eosinophils Absolute Auto 0 /uL (0-450); Hematocrit 31.9 % (36-46); Hemoglobin 10.9 g/dL (12.0-16.0); Lymphocytes Absolute Auto 600 /uL (1100-4500); Lymphocytes Percent Auto 3.2 % (25-40); Mean Corpuscular HGB Conc 34.2 % (30-36); Mean Corpuscular Hemoglobin 29.8 PG (26-34); Monocytes Absolute Auto 1000 /uL (0-900); Monocytes Percent Auto 5.1 % (3-14); Neutrophils Absolute Auto 18000 /uL (1500-7000); Neutrophils Percent Auto 91.2 % (50-75); Platelet Count 307 X10^3/uL (150-400); Red Blood Cell Count 3.67 X10^6/uL (4.0-5.2); Red Cell Distribution Width 13.5 % (11.6-14.8); White Blood Cell Count 19.7 X10^3/uL (4.5-11.0)
[2022-05-02] MEDS: HYDROCORTISONE 100 MG/2 ML VIAL 50 MG IV ×4 (06:11→23:40)
[2022-05-02] MEDS: LACTATED RINGERS 1,000 ML 175 ML IV (06:11)
[2022-05-02 06:14] LABS: Alanine Aminotransferase 23 IU/L (<35); Albumin 3.4 g/dL (3.5-5.0); Albumin Globulin Ratio 1.5 (1.0-2.8); Alkaline Phosphatase 63 U/L (38-126); Aspartate Aminotransferase 24 IU/L (14-36); BUN Creatinine Ratio 23.9 (6-22); Bilirubin Total 0.2 mg/dL (0.2-1.3); Blood Urea Nitrogen 17 mg/dL (7-17); Calcium 7.3 mg/dL (8.4-10.2); Carbon Dioxide 22 mmol/L (22-32); Chloride 108 mmol/L (98-107); Estimated Glomerular Filt Rate > 60 mL/min (>60); Globulin 2.2 g/dL (1.7-4.1); Glucose 165 mg/dL (80-110); HEMOLYSIS < 15 (0-50); Magnesium 2.2 mg/dL (1.6-2.3); Potassium 3.7 mmol/L (3.4-5.1); Sodium 136 mmol/L (137-145); Total Protein 5.6 g/dL (6.3-8.2)
[2022-05-02 06:26] LABS: Troponin I < 0.012 ng/mL (0.01-0.034)
--- NOTE | 2022-05-02 06:45 | PC.NURSE ---
Admit Note-Patient brought to ICU room 226, slider board for transfer to bed. Drowsy but oriented x4, call answer most questions, at bedside for awhile, took all her belongings home. Levophed started in ED, currently at 10mcg/min, BP 90s-105/50s MAP 70s, ST 110-120, core Tmax with Hsu up to 101.5, she had chills upon admit, has several blankets.
[2022-05-02] MEDS: NOREPINEPHRINE BITARTRATE/D5W 4 MG/250 ML PLAST..BAG 41.3 MG IV (08:32)
[2022-05-02] MEDS: GABAPENTIN 300 MG CAPSULE PO ×3 (08:33→21:02)
[2022-05-02] MEDS: ENOXAPARIN 40 MG/0.4 ML SYRINGE SUBCUT (08:33)
[2022-05-02] MEDS: FLUoxetine 20 MG CAPSULE PO ×2 (08:33→21:02)
[2022-05-02] MEDS: risperiDONE 0.25 MG TABLET 0.5 MG PO (08:33)
[2022-05-02] MEDS: SODIUM CHLORIDE 0.9% FLUSH 10 ML IV ×2 (08:35→21:03)
[2022-05-02] MEDS: PIPERACILLIN/TAZO 3.375 GM in SODIUM CHLORIDE 0.9% 100 ML IV ×2 (09:45→17:43)
[2022-05-02 10:00] LABS: TSH w/ Reflex to FT4 3.75 uIU/mL (0.47-4.68)
--- NOTE | 2022-05-02 10:13 | P.TELICUPN_ITS ---
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: Yes Patient Location: ICU Provider location (State): [place] Other participants/roles: [facility] Current Medications Current Medications Medications: Home Medications cholecalciferol (vitamin D3) 25 mcg (1,000 unit) capsule 25 mcg PO DAILY 07/28/20 [History Confirmed 05/02/22] magnesium hydroxide 400 mg (170 mg magnesium) chewable tablet mg PO 07/28/20 [History Confirmed 03/19/22] mecobalamin (vitamin B12) 1,000 mcg chewable tablet 1,000 mcg PO DAILY 07/28/20 [History Confirmed 05/02/22] famotidine 20 mg tablet 20 mg PO DAILY #90 tabs 08/14/21 [Rx Confirmed 05/02/22] telmisartan 80 mg tablet 80 mg PO DAILY #90 tabs 08/14/21 [Rx Confirmed 05/02/22] fluoxetine 20 mg capsule 40 mg PO QDAY #180 caps 08/20/21 [Rx Confirmed 05/02/22] gabapentin 300 mg capsule 300 mg PO TID #270 caps 08/21/21 [Rx Confirmed 05/02/22] doxepin 75 mg capsule 75 mg PO HS #90 caps 08/31/21 [Rx Confirmed 05/02/22] nitrofurantoin macrocrystal 100 mg capsule 100 mg PO DAILY 10/16/21 [History Confirmed 05/02/22] trospium 60 mg capsule,extended release 24 hr 60 mg PO DAILY 10/16/21 [History Confirmed 05/02/22] hydrochlorothiazide 25 mg tablet 25 mg PO DAILY #90 tabs 11/05/21 [Rx Confirmed 05/02/22] risperidone 0.5 mg tablet See Rx Instructions .Route .COMPLEX #405 tabs 03/07/22 [Rx Confirmed 03/19/22] methocarbamol 500 mg tablet 500 mg PO TID PRN muscle spasm 03/19/22 [History Confirmed 05/02/22] promethazine 25 mg tablet 25 mg PO TID PRN nausea #30 tabs 04/15/22 [Rx Confirmed 05/02/22] rizatriptan 10 mg tablet See Rx Instructions .Route .COMPLEX #6 tabs 04/15/22 [Rx] estradiol 0.01% (0.1 mg/gram) vaginal cream 1 g vaginal 2XW #42.5 grams 04/30/22 [Rx Confirmed 05/02/22] Visit Medications (administered) Generic Name Dose Route Start Last Admin Trade Name Bala PRN Reason Stop Dose Admin Doxepin HCl 75 mg 05/02/22 03:30 05/02/22 06:11 Doxepin 75 Mg Capsule PO Not Given BEDTIME ADRIANA Enoxaparin Sodium 40 mg 05/02/22 09:00 05/02/22 08:33 Enoxaparin 40 Mg/0.4 Ml Syringe SUBCUT 40 mg DAILY ADRIANA Administration Fluoxetine HCl 20 mg 05/02/22 09:00 05/02/22 08:33 Fluoxetine 20 Mg Capsule PO 20 mg BID ADRIANA Administration Gabapentin 300 mg 05/02/22 09:00 05/02/22 08:33 Gabapentin 300 Mg Capsule PO 300 mg TID ADRIANA Administration Hydrocortisone 50 mg 05/02/22 06:00 05/02/22 06:11 Hydrocortisone 100 Mg/2 Ml Vial IV 50 mg Q6HR ADRIANA Administration Lactated Ringer's 1,000 mls @ 175 mls/hr 05/02/22 05:15 05/02/22 06:11 Lactated Ringers IV 175 mls/hr CONT ADRIANA Administration NOREPINEPHRINE BITARTRATE/D5W 4 mg in 250 mls @ 30 mls/hr 05/02/22 07:24 05/02/22 09:06 Levophed IV 12 mcg/min TITRATE ADRIANA 45 mls/hr Titration Protocol 8 MCG/MIN Risperidone 0.5 mg 05/02/22 09:00 05/02/22 08:33 Risperidone 0.25 Mg Tablet PO 0.5 mg DAILY ADRIANA Administration Sodium Chloride 10 ml 05/02/22 09:00 05/02/22 08:35 Sodium Chloride 0.9% Flush IV 10 ml BID ADRIANA Administration Objective Labs Result Diagrams: 05/02/22 05:40 05/02/22 05:40 Labs: Laboratory Results - last 24 hr 05/01/22 05/01/22 05/01/22 22:40 22:42 22:42 WBC 11.1 H RBC 4.11 Hgb 12.2 Hct 35.5 L MCV 86.5 MCH 29.7 MCHC 34.3 RDW 13.4 Plt Count 328 Neut % (Auto) 66.0 Lymph % (Auto) 27.1 [place] % (Auto) 4.6 Eos % (Auto) 1.6 L Baso % (Auto) 0.7 Neut # (Auto) 7300 H Lymph # (Auto) 3000 [place] # (Auto) 500 Eos # (Auto) 200 Baso # (Auto) 100 Sodium 135 L Potassium 3.4 Chloride 101 Carbon Dioxide 28 BUN 22 H Creatinine 0.86 Estimated GFR > 60 BUN/Creatinine Ratio 25.6 H Glucose 132 H Lactate Calcium 9.2 Magnesium Total Bilirubin 0.5 AST 24 ALT 20 Alkaline Phosphatase 87 Troponin I Total Protein 6.8 Albumin 4.3 Globulin 2.5 Albumin/Globulin Ratio 1.7 Lipase Procalcitonin TSH 3.75 Urine Color Urine Appearance Urine pH Ur Specific [place] Urine Protein Urine Glucose (UA) Urine Ketones Urine Occult Blood Urine Nitrate Urine Bilirubin Urine Urobilinogen Ur Leukocyte Esterase Urine RBC Urine WBC Ur Squamous Epith Cells Urine Bacteria Ur Culture Indicated? CSF Tube Number CSF Volume CSF Appearance CSF Color CSF WBC CSF RBC CSF Mononuclear WBCs CSF Polynuclear WBCs CSF Glucose CSF Total Protein CSF C.neoform/gat PCR CSF CMV DNA (PCR) CSF Enterovirus (PCR) CSF E. coli (PCR) CSF H. influenzae (PCR) CSF HSV I (PCR) CSF HSV II (PCR) CSF HHV 6 (PCR) CSF L.monocytogenes PCR CSF N. meningitidis PCR CSF Parechovirus (PCR) CSF S. agalactiae (PCR) CSF S. pneumoniae (PCR) CSF VZV (PCR) Nasal Screen MRSA (PCR) SARS-CoV-2 (PCR) 05/01/22 05/01/22 05/01/22 22:42 22:42 22:50 WBC RBC Hgb Hct MCV MCH MCHC RDW Plt Count Neut % (Auto) Lymph % (Auto) [place] % (Auto) Eos % (Auto) Baso % (Auto) Neut # (Auto) Lymph # (Auto) [place] # (Auto) Eos # (Auto) Baso # (Auto) Sodium Potassium Chloride Carbon Dioxide BUN Creatinine Estimated GFR BUN/Creatinine Ratio Glucose Lactate 1.2 Calcium Magnesium 3.1 H Total Bilirubin AST ALT Alkaline Phosphatase Troponin I < 0.012 Total Protein Albumin Globulin Albumin/Globulin Ratio Lipase 110 Procalcitonin 0.04 TSH Urine Color Urine Appearance Urine pH Ur Specific [place] Urine Protein Urine Glucose (UA) Urine Ketones Urine Occult Blood Urine Nitrate Urine Bilirubin Urine Urobilinogen Ur Leukocyte Esterase Urine RBC Urine WBC Ur Squamous Epith Cells Urine Bacteria Ur Culture Indicated? CSF Tube Number CSF Volume CSF Appearance CSF Color CSF WBC CSF RBC CSF Mononuclear WBCs CSF Polynuclear WBCs CSF Glucose CSF Total Protein CSF C.neoform/gat PCR CSF CMV DNA (PCR) CSF Enterovirus (PCR) CSF E. coli (PCR) CSF H. influenzae (PCR) CSF HSV I (PCR) CSF HSV II (PCR) CSF HHV 6 (PCR) CSF L.monocytogenes PCR CSF N. meningitidis PCR CSF Parechovirus (PCR) CSF S. agalactiae (PCR) CSF S. pneumoniae (PCR) CSF VZV (PCR) Nasal Screen MRSA (PCR) SARS-CoV-2 (PCR) Negative 05/01/22 05/02/22 05/02/22 23:15 01:34 01:34 WBC RBC Hgb Hct MCV MCH MCHC RDW Plt Count Neut % (Auto) Lymph % (Auto) [place] % (Auto) Eos % (Auto) Baso % (Auto) Neut # (Auto) Lymph # (Auto) [place] # (Auto) Eos # (Auto) Baso # (Auto) Sodium Potassium Chloride Carbon Dioxide BUN Creatinine Estimated GFR BUN/Creatinine Ratio Glucose Lactate Calcium Magnesium Total Bilirubin AST ALT Alkaline Phosphatase Troponin I Total Protein Albumin Globulin Albumin/Globulin Ratio Lipase Procalcitonin TSH Urine Color Yellow Urine Appearance Clear Urine pH 7.0 Ur Specific [place] 1.010 Urine Protein Negative Urine Glucose (UA) Negative Urine Ketones Negative Urine Occult Blood Trace-intact Urine Nitrate Positive H Urine Bilirubin Negative Urine Urobilinogen 0.2 Ur Leukocyte Esterase Negative Urine RBC None seen Urine WBC 0-1/hpf Ur Squamous Epith Cells 0-1 /hpf Urine Bacteria Many (>30) H Ur Culture Indicated? Specimen cultured CSF Tube Number CSF Volume CSF Appearance CSF Color CSF WBC CSF RBC CSF Mononuclear WBCs CSF Polynuclear WBCs CSF Glucose 63 CSF Total Protein 48 CSF C.neoform/gat PCR Not detected CSF CMV DNA (PCR) Not detected CSF Enterovirus (PCR) Not detected CSF E. coli (PCR) Not detected CSF H. influenzae (PCR) Not detected CSF HSV I (PCR) Not detected CSF HSV II (PCR) Not detected CSF HHV 6 (PCR) Not detected CSF L.monocytogenes PCR Not detected CSF N. meningitidis PCR Not detected CSF Parechovirus (PCR) Not detected CSF S. agalactiae (PCR) Not detected CSF S. pneumoniae (PCR) Not detected CSF VZV (PCR) Not detected Nasal Screen MRSA (PCR) SARS-CoV-2 (PCR) 05/02/22 05/02/22 05/02/22 01:34 04:00 05:40 WBC 19.7 H D RBC 3.67 L Hgb 10.9 L Hct 31.9 L MCV 87.0 MCH 29.8 MCHC 34.2 RDW 13.5 Plt Count 307 Neut % (Auto) 91.2 H D Lymph % (Auto) 3.2 L D [place] % (Auto) 5.1 Eos % (Auto) 0.0 L Baso % (Auto) 0.5 Neut # (Auto) 75238 H Lymph # (Auto) 600 L [place] # (Auto) 1000 H Eos # (Auto) 0 Baso # (Auto) 100 Sodium Potassium Chloride Carbon Dioxide BUN Creatinine Estimated GFR BUN/Creatinine Ratio Glucose Lactate Calcium Magnesium Total Bilirubin AST ALT Alkaline Phosphatase Troponin I Total Protein Albumin Globulin Albumin/Globulin Ratio Lipase Procalcitonin TSH Urine Color Urine Appearance Urine pH Ur Specific [place] Urine Protein Urine Glucose (UA) Urine Ketones Urine Occult Blood Urine Nitrate Urine Bilirubin Urine Urobilinogen Ur Leukocyte Esterase Urine RBC Urine WBC Ur Squamous Epith Cells Urine Bacteria Ur Culture Indicated? CSF Tube Number 3 CSF Volume 1.0 ml CSF Appearance Clear CSF Color Colorless CSF WBC 0 CSF RBC 26 CSF Mononuclear WBCs TNP CSF Polynuclear WBCs TNP CSF Glucose CSF Total Protein CSF C.neoform/gat PCR CSF CMV DNA (PCR) CSF Enterovirus (PCR) CSF E. coli (PCR) CSF H. influenzae (PCR) CSF HSV I (PCR) CSF HSV II (PCR) CSF HHV 6 (PCR) CSF L.monocytogenes PCR CSF N. meningitidis PCR CSF Parechovirus (PCR) CSF S. agalactiae (PCR) CSF S. pneumoniae (PCR) CSF VZV (PCR) Nasal Screen MRSA (PCR) Negative for mrsa SARS-CoV-2 (PCR) 05/02/22 05/02/22 05:40 05:40 WBC RBC Hgb Hct MCV MCH MCHC RDW Plt Count Neut % (Auto) Lymph % (Auto) [place] % (Auto) Eos % (Auto) Baso % (Auto) Neut # (Auto) Lymph # (Auto) [place] # (Auto) Eos # (Auto) Baso # (Auto) Sodium 136 L Potassium 3.7 Chloride 108 H Carbon Dioxide 22 BUN 17 Creatinine 0.71 Estimated GFR > 60 BUN/Creatinine Ratio 23.9 H Glucose 165 H Lactate Calcium 7.3 L Magnesium 2.2 Total Bilirubin 0.2 AST 24 ALT 23 Alkaline Phosphatase 63 Troponin I < 0.012 Total Protein 5.6 L Albumin 3.4 L Globulin 2.2 Albumin/Globulin Ratio 1.5 Lipase Procalcitonin TSH Urine Color Urine Appearance Urine pH Ur Specific [place] Urine Protein Urine Glucose (UA) Urine Ketones Urine Occult Blood Urine Nitrate Urine Bilirubin Urine Urobilinogen Ur Leukocyte Esterase Urine RBC Urine WBC Ur Squamous Epith Cells Urine Bacteria Ur Culture Indicated? CSF Tube Number CSF Volume CSF Appearance CSF Color CSF WBC CSF RBC CSF Mononuclear WBCs CSF Polynuclear WBCs CSF Glucose CSF Total Protein CSF C.neoform/gat PCR CSF CMV DNA (PCR) CSF Enterovirus (PCR) CSF E. coli (PCR) CSF H. influenzae (PCR) CSF HSV I (PCR) CSF HSV II (PCR) CSF HHV 6 (PCR) CSF L.monocytogenes PCR CSF N. meningitidis PCR CSF Parechovirus (PCR) CSF S. agalactiae (PCR) CSF S. pneumoniae (PCR) CSF VZV (PCR) Nasal Screen MRSA (PCR) SARS-CoV-2 (PCR) Exam Vital Signs (past 8 hours): - 05/02/22 02:16 05/02/22 02:16 05/02/22 02:20 Temperature 98.2 F Pulse Rate 119 H Respiratory Rate 14 Blood Pressure 63/39 L 103/57 L Pulse Oximetry 100 Oxygen Delivery Method Oxygen Flow Rate 05/02/22 02:20 05/02/22 02:30 05/02/22 02:30 Temperature 98.2 F 98.6 F Pulse Rate 121 H 120 H Respiratory Rate 24 17 Blood Pressure 88/49 L Pulse Oximetry 100 100 Oxygen Delivery Method Oxygen Flow Rate 05/02/22 02:45 05/02/22 02:45 05/02/22 03:00 Temperature 99.0 F Pulse Rate 124 H Respiratory Rate 22 Blood Pressure 86/51 L 88/56 L Pulse Oximetry 100 Oxygen Delivery Method Oxygen Flow Rate 05/02/22 03:00 05/02/22 03:05 05/02/22 03:05 Temperature 99.3 F 99.5 F Pulse Rate 121 H 123 H Respiratory Rate 18 23 Blood Pressure 100/65 Pulse Oximetry 100 100 Oxygen Delivery Method Oxygen Flow Rate 05/02/22 03:13 05/02/22 03:13 05/02/22 03:15 Temperature 99.7 F H Pulse Rate 121 H Respiratory Rate 23 Blood Pressure 106/67 101/64 Pulse Oximetry 99 Oxygen Delivery Method Oxygen Flow Rate 05/02/22 03:15 05/02/22 03:20 05/02/22 03:20 Temperature 99.7 F H 99.9 F H Pulse Rate 121 H 118 H Respiratory Rate 21 19 Blood Pressure 95/54 L Pulse Oximetry 100 100 Oxygen Delivery Method Oxygen Flow Rate 05/02/22 03:25 05/02/22 03:25 05/02/22 03:30 Temperature 99.9 F H Pulse Rate 116 H Respiratory Rate 23 Blood Pressure 92/46 L 91/47 L Pulse Oximetry 99 Oxygen Delivery Method Oxygen Flow Rate 05/02/22 03:30 05/02/22 04:00 05/02/22 04:00 Temperature 100.0 F H 100.2 F H Pulse Rate 117 H 124 H Respiratory Rate 20 19 Blood Pressure 101/52 L Pulse Oximetry 99 93 Oxygen Delivery Method Oxygen Flow Rate 05/02/22 04:00 05/02/22 04:30 05/02/22 04:30 Temperature 100.6 F H Pulse Rate 118 H Respiratory Rate 15 Blood Pressure 98/49 L Pulse Oximetry 96 Oxygen Delivery Method Room Air [place] Nasal Cannula Oxygen Flow Rate 05/02/22 05:00 05/02/22 05:00 05/02/22 05:30 Temperature 100.6 F H Pulse Rate 116 H Respiratory Rate 16 Blood Pressure 96/51 L 100/52 L Pulse Oximetry 98 Oxygen Delivery Method Oxygen Flow Rate 05/02/22 05:30 05/02/22 05:59 05/02/22 06:00 Temperature 100.9 F H 101.1 F H Pulse Rate 115 H 115 H Respiratory Rate 16 16 Blood Pressure 100/52 L Pulse Oximetry 98 98 Oxygen Delivery Method Oxygen Flow Rate 05/02/22 07:00 05/02/22 08:00 05/02/22 09:00 Temperature 101.7 F H 101.3 F H 98.1 F Pulse Rate 116 H 112 H Respiratory Rate 16 17 Blood Pressure 100/74 106/65 Pulse Oximetry 97 95 Oxygen Delivery Method Oxygen Flow Rate 2 2 05/02/22 06:00 05/02/22 06:30 05/02/22 06:30 Temperature 101.1 F H 101.5 F H Pulse Rate 115 H 116 H Respiratory Rate 15 15 Blood Pressure 102/49 L Pulse Oximetry 98 98 Oxygen Delivery Method Oxygen Flow Rate 05/02/22 07:00 05/02/22 07:00 05/02/22 07:30 Temperature 101.7 F H Pulse Rate 116 H Respiratory Rate 16 Blood Pressure 100/47 L 101/53 L Pulse Oximetry 97 Oxygen Delivery Method Oxygen Flow Rate 05/02/22 07:30 05/02/22 08:00 05/02/22 08:00 Temperature 101.8 F H 101.7 F H Pulse Rate 123 H 115 H Respiratory Rate 23 15 Blood Pressure 89/48 L Pulse Oximetry 94 94 Oxygen Delivery Method Oxygen Flow Rate 05/02/22 08:26 05/02/22 08:26 05/02/22 08:29 Temperature 101.3 F H 101.3 F H Pulse Rate 118 H 117 H Respiratory Rate 17 22 Blood Pressure 93/54 L Pulse Oximetry 90 L 95 Oxygen Delivery Method Oxygen Flow Rate 05/02/22 08:29 05/02/22 08:30 05/02/22 08:30 Temperature 101.3 F H Pulse Rate 116 H Respiratory Rate 17 Blood Pressure 106/51 L 103/54 L Pulse Oximetry 95 Oxygen Delivery Method Oxygen Flow Rate 05/02/22 09:00 05/02/22 09:00 05/02/22 07:00 Temperature Pulse Rate 116 H Respiratory Rate 23 Blood Pressure 75/51 L Pulse Oximetry 95 Oxygen Delivery Method Room Air [place] Nasal Cannula Oxygen Flow Rate Oxygen Delivery Method Room Air,[place] Nasal Cannula Oxygen Flow Rate 2 Assessment & Plan Assessment & Plan narrative: pt seen with Dr Crow bedside nurse chart/labs/imaging reviewed clincially pt improved, alert awake does not appear toxic 66 year old female with ams possible septic shock 2/2 to UTI vs other dehydration/volume depletion suggest -neurochecks/seizure precautions -avoid sedatives -CT CAP, possible colitis -MRI pending -LP -ve -continue ivf would decrease maintenance fluid to 100, bolus 500cc of albumin and assess responsiveness -change levo to sher -add vaso if requirements remain high -ucx showing gram -ve baciilli -continue zosyn, would give 1 dose of amikacin -check final cxs -sd steroids -echo pending -monitor ins/outs -replace lytes prn -keep glucose 140-180s -gi/dvt ppx -unclear if this is an MS flair, appears less likely. suggest neuro evaluation if possible. -please call eICU if condition changes Time Spent With Patient Critical Care time: I spent a total of [] minutes of critical care time on this patient's care today; this time is exclusive of procedural time.
[2022-05-02 10:16] LABS: D Dimer 1235 ng/ml (<500)
--- NOTE | 2022-05-02 10:32 | DI.ECHO.S_ITS ---
Name: KENYA ALFORD Study Date: 05/02/2022 Height: 65 in : :Hospital ReadingLocation: Weight: 170 lb : : Gender: Female BSA: 1.8 m2 : :: 1955 Age: 66 yrs BP: 121/63 mmHg: :Reason For Study: Hypotension : :Ordering Physician: ELE, : :PILY Performed By: Landry Schneider : :Referring: PILY MARLOW : + + Interpretation Summary The left ventricle is normal in size and wall thickness. Left ventricular systolic function is normal. The ejection fraction is estimated to be 65-70%. The patient was in sinus tachycardia with heart rates between 112-117 bpm during the exam. There is mild tricuspid regurgitation. The right ventricular systolic pressure is estimated to be at least 33 mmHg based on an estimated right atrial pressure of 3 mm Hg. No prior study for comparison Procedure: A two-dimensional transthoracic echocardiogram with color flow and Doppler was performed. The study quality was technically adequate. There is no prior echocardiogram noted for this patient. The patient was in sinus tachycardia with heart rates between 112-117 bpm during the exam. Left Ventricle: The left ventricle is normal in size and wall thickness. Left ventricular systolic function is normal. The ejection fraction is estimated to be 65-70%. There are no focal wall motion abnormalities. Diastolic parameters suggest probable normal left ventricular diastolic function and normal filling pressures. Right Ventricle: The right ventricle is normal in size and function. Atria: Both atria are normal in size. The interatrial septum grossly appears intact with no obvious evidence for an atrial septal defect. Mitral Valve: The mitral valve is normal in structure and function. There is no mitral regurgitation noted. Aortic Valve: The aortic valve is normal in structure and function. No aortic regurgitation is present. Tricuspid Valve: The tricuspid valve is normal in structure and function. There is mild tricuspid regurgitation. The right ventricular systolic pressure is estimated to be at least 33 mmHg based on an estimated right atrial pressure of 3 mm Hg. Pulmonic Valve: The pulmonic valve is normal in structure and function. There is a trace or physiologic amount of pulmonic regurgitation. Great Vessels: The aortic root is normal size. The dimensions of the ascending aorta are normal. The IVC is of normal diameter and collapses greater than 50% with a sniff. This suggests a low right atrial pressure of 3 mm Hg. Pericardium/ Pleura There is no pericardial effusion. There is no pleural effusion. MMode/2D Measurements & Calculations LVIDd: 3.8 cm LVOT diam: 1.9 cm LVIDs: 2.3 cm Ao root diam: 2.7 cm FS: 38.2 % asc Aorta Diam: 2.7 cm IVSd: 0.85 cm LVPWd: 0.89 cm LV rodas. diameter/BSA (cm/m^2): 2.0 LV sys. diameter/BSA (cm/m^2): 1.3 LA A2 area: 14.2 cm2 RA long axis: 4.7 cm LA A4 area: 15.0 cm2 RA area: 9.7 cm2 LA length (vol): 4.3 cm RA vol: 17.0 ml LA vol: 41.6 ml RA : 9.2 ml/m2 LA vol index: 22.6 ml/m2 TAPSE: 2.0 cm Doppler Measurements & Calculations Ao V2 max: 207.1 cm/sec LVOT Max Marcus: 172.5 cm/sec Ao V2 mean: 139.3 cm/sec LV V1 max P.9 mmHg Ao max P.2 mmHg LV V1 VTI: 26.1 cm Ao mean P.6 mmHg BKEAH(I,D): 2.7 cm2 Ao V2 VTI: 28.9 cm BEKAH(V,D): 2.5 cm2 sev ratio: 0.90 BEKAH indexed to BSA (cm^2/m^2): 1.5 MV E max marcus: 88.5 cm/sec TR max marcus: 273.3 cm/sec MV A max marcus: 126.5 cm/sec TR max P.9 mmHg MV E/A: 0.70 Med Peak E' Marcus: 8.8 cm/sec E/E' med: 10.1 Lat Peak E' Marcus: 11.3 cm/sec E/E' lat: 7.9 E/e' average: 9.0 MV dec time: 0.23 sec SV(LVOT): 77.7 ml Reading Physician:KAILA
[2022-05-02] MEDS: HYDROCODONE/ACET 5/325 TABLET 1 TAB PO ×2 (11:24→18:37)
[2022-05-02] MEDS: LACTATED RINGERS 1,000 ML 100 ML IV ×2 (11:25→22:27)
[2022-05-02] MEDS: INSULIN LISPRO 100 UNIT/ML 3ML VIAL SUBCUT ×2 (11:25→17:06)
[2022-05-02 12:07] LABS: Troponin I < 0.012 ng/mL (0.01-0.034)
[2022-05-02] MEDS: risperiDONE 0.25 MG TABLET PO ×2 (12:44→21:02)
[2022-05-02] MEDS: SODIUM CHLORIDE 0.9% INTRA-ARTI (12:44)
[2022-05-02] MEDS: TOBRAMYCIN INTRA-ARTI (12:44)
[2022-05-02] MEDS: NOREPINEPHRINE BITARTRATE/D5W 4 MG/250 ML PLAST..BAG 33.75 MG IV (15:34)
--- NOTE | 2022-05-02 16:39 | PC.NURSE ---
Dayshift note: A/Ox4, lethargic at times, Levophed infusing as noted in emar BP currently 94/53 with MAP of 70, ST 105/110, LR infusing at 100 mL/hr. Tmax 99.3, temp. sensing boucher is not accurate, currently using oral thermometer for temps. Boucher patent draining clear yellow urine. Bed low and locked, call light within reach, will continue to monitor.
[2022-05-02 19:10] LABS: Troponin I 0.013 ng/mL (0.01-0.034)
--- NOTE | 2022-05-02 20:22 | PM.PN.1 ---
Subjective Subjective Date Patient Seen: 05/02/22 Time Patient Seen: 08:00 Interval history: Today her mental status improved. She did have waxing and waning weakness in her upper and lower extremities. She continued to have a headache and felt fatigued. Exam Vital Signs (past 8 hours): - 05/02/22 13:00 05/02/22 14:00 05/02/22 15:00 Temperature 99.3 F Pulse Rate 120 H 112 H Respiratory Rate 27 H 32 H Blood Pressure 109/59 L 99/55 L Pulse Oximetry 90 L 94 Oxygen Delivery Method Room Air [place] Nasal Cannula Oxygen Flow Rate 0 0 05/02/22 12:30 05/02/22 12:30 05/02/22 13:00 Temperature Pulse Rate 120 H Respiratory Rate 27 H Blood Pressure 99/55 L 109/59 L Pulse Oximetry Oxygen Delivery Method Oxygen Flow Rate 05/02/22 13:00 05/02/22 13:30 05/02/22 13:30 Temperature Pulse Rate 115 H 120 H Respiratory Rate 21 24 Blood Pressure 93/55 L Pulse Oximetry 91 Oxygen Delivery Method Oxygen Flow Rate 05/02/22 13:57 05/02/22 13:57 05/02/22 13:59 Temperature Pulse Rate 116 H 116 H Respiratory Rate 22 22 Blood Pressure 92/46 L Pulse Oximetry 88 L 89 L Oxygen Delivery Method Oxygen Flow Rate 05/02/22 13:59 05/02/22 14:00 05/02/22 14:02 Temperature Pulse Rate 117 H 116 H Respiratory Rate 27 H 23 Blood Pressure 93/47 L Pulse Oximetry 88 L 88 L Oxygen Delivery Method Oxygen Flow Rate 05/02/22 14:02 05/02/22 14:30 05/02/22 14:30 Temperature Pulse Rate 112 H Respiratory Rate 20 Blood Pressure 99/55 L 99/49 L Pulse Oximetry 93 Oxygen Delivery Method Oxygen Flow Rate 05/02/22 15:00 05/02/22 15:00 05/02/22 15:00 Temperature Pulse Rate 108 H 108 H Respiratory Rate 17 16 Blood Pressure 96/51 L 96/51 L Pulse Oximetry 95 95 Oxygen Delivery Method Oxygen Flow Rate 2 05/02/22 16:00 05/02/22 17:00 05/02/22 15:30 Temperature 98.2 F Pulse Rate 109 H 106 H Respiratory Rate 18 31 H Blood Pressure 94/50 L 99/51 L 88/46 L Pulse Oximetry 95 96 Oxygen Delivery Method Oxygen Flow Rate 2 2 05/02/22 15:30 05/02/22 16:00 05/02/22 16:00 Temperature Pulse Rate 108 H 109 H Respiratory Rate 16 17 Blood Pressure 94/50 L Pulse Oximetry 95 94 Oxygen Delivery Method Oxygen Flow Rate 05/02/22 16:30 05/02/22 16:30 05/02/22 17:00 Temperature Pulse Rate 108 H Respiratory Rate 16 Blood Pressure 94/53 L 99/51 L Pulse Oximetry 95 Oxygen Delivery Method Oxygen Flow Rate 05/02/22 17:00 05/02/22 18:00 05/02/22 17:30 Temperature Pulse Rate 107 H 111 H 114 H Respiratory Rate 17 26 H 34 H Blood Pressure 105/57 L Pulse Oximetry 96 93 92 Oxygen Delivery Method Oxygen Flow Rate 0 05/02/22 17:31 05/02/22 17:31 05/02/22 18:00 Temperature Pulse Rate 114 H Respiratory Rate 29 H Blood Pressure 99/81 105/57 L Pulse Oximetry 91 Oxygen Delivery Method Oxygen Flow Rate 05/02/22 18:00 05/02/22 18:30 05/02/22 18:30 Temperature Pulse Rate 114 H 114 H Respiratory Rate 30 H 33 H Blood Pressure 96/58 L Pulse Oximetry 92 90 L Oxygen Delivery Method Oxygen Flow Rate 05/02/22 19:00 05/02/22 19:01 05/02/22 19:01 Temperature Pulse Rate 115 H 115 H Respiratory Rate 24 23 Blood Pressure 95/55 L Pulse Oximetry 88 L 88 L Oxygen Delivery Method Oxygen Flow Rate 05/02/22 20:00 Temperature Pulse Rate Respiratory Rate Blood Pressure Pulse Oximetry Oxygen Delivery Method Nasal Cannula Oxygen Flow Rate Oxygen Delivery Method Nasal Cannula Oxygen Flow Rate 0 Narrative Exam Narrative: Gen: ill appearing, oriented Resp: clear bilaterally CV: tachycardic, with no murmurs Abd: soft, distended, minimal tenderness Neuro: Alert and oriented, she has had waxning and waning weakness in her arms and legs, but has had noted 3/5 strength in her upper and lower extremities with subjective numbness in her upper extremities Objective Labs Result Diagrams: 05/02/22 05:40 05/02/22 05:40 Labs: Laboratory Results - last 24 hr 05/01/22 05/01/22 05/01/22 22:40 22:42 22:42 WBC 11.1 H RBC 4.11 Hgb 12.2 Hct 35.5 L MCV 86.5 MCH 29.7 MCHC 34.3 RDW 13.4 Plt Count 328 Neut % (Auto) 66.0 Lymph % (Auto) 27.1 [place] % (Auto) 4.6 Eos % (Auto) 1.6 L Baso % (Auto) 0.7 Neut # (Auto) 7300 H Lymph # (Auto) 3000 [place] # (Auto) 500 Eos # (Auto) 200 Baso # (Auto) 100 D-Dimer Sodium 135 L Potassium 3.4 Chloride 101 Carbon Dioxide 28 BUN 22 H Creatinine 0.86 Estimated GFR > 60 BUN/Creatinine Ratio 25.6 H Glucose 132 H Lactate Calcium 9.2 Magnesium Total Bilirubin 0.5 AST 24 ALT 20 Alkaline Phosphatase 87 Troponin I Total Protein 6.8 Albumin 4.3 Globulin 2.5 Albumin/Globulin Ratio 1.7 Lipase Procalcitonin TSH 3.75 Urine Color Urine Appearance Urine pH Ur Specific [place] Urine Protein Urine Glucose (UA) Urine Ketones Urine Occult Blood Urine Nitrate Urine Bilirubin Urine Urobilinogen Ur Leukocyte Esterase Urine RBC Urine WBC Ur Squamous Epith Cells Urine Bacteria Ur Culture Indicated? CSF Tube Number CSF Volume CSF Appearance CSF Color CSF WBC CSF RBC CSF Mononuclear WBCs CSF Polynuclear WBCs CSF Glucose CSF Total Protein CSF C.neoform/gat PCR CSF CMV DNA (PCR) CSF Enterovirus (PCR) CSF E. coli (PCR) CSF H. influenzae (PCR) CSF HSV I (PCR) CSF HSV II (PCR) CSF HHV 6 (PCR) CSF L.monocytogenes PCR CSF N. meningitidis PCR CSF Parechovirus (PCR) CSF S. agalactiae (PCR) CSF S. pneumoniae (PCR) CSF VZV (PCR) Nasal Screen MRSA (PCR) SARS-CoV-2 (PCR) 05/01/22 05/01/22 05/01/22 22:42 22:42 22:50 WBC RBC Hgb Hct MCV MCH MCHC RDW Plt Count Neut % (Auto) Lymph % (Auto) [place] % (Auto) Eos % (Auto) Baso % (Auto) Neut # (Auto) Lymph # (Auto) [place] # (Auto) Eos # (Auto) Baso # (Auto) D-Dimer Sodium Potassium Chloride Carbon Dioxide BUN Creatinine Estimated GFR BUN/Creatinine Ratio Glucose Lactate 1.2 Calcium Magnesium 3.1 H Total Bilirubin AST ALT Alkaline Phosphatase Troponin I < 0.012 Total Protein Albumin Globulin Albumin/Globulin Ratio Lipase 110 Procalcitonin 0.04 TSH Urine Color Urine Appearance Urine pH Ur Specific [place] Urine Protein Urine Glucose (UA) Urine Ketones Urine Occult Blood Urine Nitrate Urine Bilirubin Urine Urobilinogen Ur Leukocyte Esterase Urine RBC Urine WBC Ur Squamous Epith Cells Urine Bacteria Ur Culture Indicated? CSF Tube Number CSF Volume CSF Appearance CSF Color CSF WBC CSF RBC CSF Mononuclear WBCs CSF Polynuclear WBCs CSF Glucose CSF Total Protein CSF C.neoform/gat PCR CSF CMV DNA (PCR) CSF Enterovirus (PCR) CSF E. coli (PCR) CSF H. influenzae (PCR) CSF HSV I (PCR) CSF HSV II (PCR) CSF HHV 6 (PCR) CSF L.monocytogenes PCR CSF N. meningitidis PCR CSF Parechovirus (PCR) CSF S. agalactiae (PCR) CSF S. pneumoniae (PCR) CSF VZV (PCR) Nasal Screen MRSA (PCR) SARS-CoV-2 (PCR) Negative 05/01/22 05/02/22 05/02/22 23:15 01:34 01:34 WBC RBC Hgb Hct MCV MCH MCHC RDW Plt Count Neut % (Auto) Lymph % (Auto) [place] % (Auto) Eos % (Auto) Baso % (Auto) Neut # (Auto) Lymph # (Auto) [place] # (Auto) Eos # (Auto) Baso # (Auto) D-Dimer Sodium Potassium Chloride Carbon Dioxide BUN Creatinine Estimated GFR BUN/Creatinine Ratio Glucose Lactate Calcium Magnesium Total Bilirubin AST ALT Alkaline Phosphatase Troponin I Total Protein Albumin Globulin Albumin/Globulin Ratio Lipase Procalcitonin TSH Urine Color Yellow Urine Appearance Clear Urine pH 7.0 Ur Specific [place] 1.010 Urine Protein Negative Urine Glucose (UA) Negative Urine Ketones Negative Urine Occult Blood Trace-intact Urine Nitrate Positive H Urine Bilirubin Negative Urine Urobilinogen 0.2 Ur Leukocyte Esterase Negative Urine RBC None seen Urine WBC 0-1/hpf Ur Squamous Epith Cells 0-1 /hpf Urine Bacteria Many (>30) H Ur Culture Indicated? Specimen cultured CSF Tube Number CSF Volume CSF Appearance CSF Color CSF WBC CSF RBC CSF Mononuclear WBCs CSF Polynuclear WBCs CSF Glucose 63 CSF Total Protein 48 CSF C.neoform/gat PCR Not detected CSF CMV DNA (PCR) Not detected CSF Enterovirus (PCR) Not detected CSF E. coli (PCR) Not detected CSF H. influenzae (PCR) Not detected CSF HSV I (PCR) Not detected CSF HSV II (PCR) Not detected CSF HHV 6 (PCR) Not detected CSF L.monocytogenes PCR Not detected CSF N. meningitidis PCR Not detected CSF Parechovirus (PCR) Not detected CSF S. agalactiae (PCR) Not detected CSF S. pneumoniae (PCR) Not detected CSF VZV (PCR) Not detected Nasal Screen MRSA (PCR) SARS-CoV-2 (PCR) 05/02/22 05/02/22 05/02/22 01:34 04:00 05:40 WBC 19.7 H D RBC 3.67 L Hgb 10.9 L Hct 31.9 L MCV 87.0 MCH 29.8 MCHC 34.2 RDW 13.5 Plt Count 307 Neut % (Auto) 91.2 H D Lymph % (Auto) 3.2 L D [place] % (Auto) 5.1 Eos % (Auto) 0.0 L Baso % (Auto) 0.5 Neut # (Auto) 71693 H Lymph # (Auto) 600 L [place] # (Auto) 1000 H Eos # (Auto) 0 Baso # (Auto) 100 D-Dimer Sodium Potassium Chloride Carbon Dioxide BUN Creatinine Estimated GFR BUN/Creatinine Ratio Glucose Lactate Calcium Magnesium Total Bilirubin AST ALT Alkaline Phosphatase Troponin I Total Protein Albumin Globulin Albumin/Globulin Ratio Lipase Procalcitonin TSH Urine Color Urine Appearance Urine pH Ur Specific [place] Urine Protein Urine Glucose (UA) Urine Ketones Urine Occult Blood Urine Nitrate Urine Bilirubin Urine Urobilinogen Ur Leukocyte Esterase Urine RBC Urine WBC Ur Squamous Epith Cells Urine Bacteria Ur Culture Indicated? CSF Tube Number 3 CSF Volume 1.0 ml CSF Appearance Clear CSF Color Colorless CSF WBC 0 CSF RBC 26 CSF Mononuclear WBCs TNP CSF Polynuclear WBCs TNP CSF Glucose CSF Total Protein CSF C.neoform/gat PCR CSF CMV DNA (PCR) CSF Enterovirus (PCR) CSF E. coli (PCR) CSF H. influenzae (PCR) CSF HSV I (PCR) CSF HSV II (PCR) CSF HHV 6 (PCR) CSF L.monocytogenes PCR CSF N. meningitidis PCR CSF Parechovirus (PCR) CSF S. agalactiae (PCR) CSF S. pneumoniae (PCR) CSF VZV (PCR) Nasal Screen MRSA (PCR) Negative for mrsa SARS-CoV-2 (PCR) 05/02/22 05/02/22 05/02/22 05:40 05:40 09:42 WBC RBC Hgb Hct MCV MCH MCHC RDW Plt Count Neut % (Auto) Lymph % (Auto) [place] % (Auto) Eos % (Auto) Baso % (Auto) Neut # (Auto) Lymph # (Auto) [place] # (Auto) Eos # (Auto) Baso # (Auto) D-Dimer 1235 H Sodium 136 L Potassium 3.7 Chloride 108 H Carbon Dioxide 22 BUN 17 Creatinine 0.71 Estimated GFR > 60 BUN/Creatinine Ratio 23.9 H Glucose 165 H Lactate Calcium 7.3 L Magnesium 2.2 Total Bilirubin 0.2 AST 24 ALT 23 Alkaline Phosphatase 63 Troponin I < 0.012 Total Protein 5.6 L Albumin 3.4 L Globulin 2.2 Albumin/Globulin Ratio 1.5 Lipase Procalcitonin TSH Urine Color Urine Appearance Urine pH Ur Specific [place] Urine Protein Urine Glucose (UA) Urine Ketones Urine Occult Blood Urine Nitrate Urine Bilirubin Urine Urobilinogen Ur Leukocyte Esterase Urine RBC Urine WBC Ur Squamous Epith Cells Urine Bacteria Ur Culture Indicated? CSF Tube Number CSF Volume CSF Appearance CSF Color CSF WBC CSF RBC CSF Mononuclear WBCs CSF Polynuclear WBCs CSF Glucose CSF Total Protein CSF C.neoform/gat PCR CSF CMV DNA (PCR) CSF Enterovirus (PCR) CSF E. coli (PCR) CSF H. influenzae (PCR) CSF HSV I (PCR) CSF HSV II (PCR) CSF HHV 6 (PCR) CSF L.monocytogenes PCR CSF N. meningitidis PCR CSF Parechovirus (PCR) CSF S. agalactiae (PCR) CSF S. pneumoniae (PCR) CSF VZV (PCR) Nasal Screen MRSA (PCR) SARS-CoV-2 (PCR) 05/02/22 05/02/22 11:05 17:35 WBC RBC Hgb Hct MCV MCH MCHC RDW Plt Count Neut % (Auto) Lymph % (Auto) [place] % (Auto) Eos % (Auto) Baso % (Auto) Neut # (Auto) Lymph # (Auto) [place] # (Auto) Eos # (Auto) Baso # (Auto) D-Dimer Sodium Potassium Chloride Carbon Dioxide BUN Creatinine Estimated GFR BUN/Creatinine Ratio Glucose Lactate Calcium Magnesium Total Bilirubin AST ALT Alkaline Phosphatase Troponin I < 0.012 0.013 Total Protein Albumin Globulin Albumin/Globulin Ratio Lipase Procalcitonin TSH Urine Color Urine Appearance Urine pH Ur Specific [place] Urine Protein Urine Glucose (UA) Urine Ketones Urine Occult Blood Urine Nitrate Urine Bilirubin Urine Urobilinogen Ur Leukocyte Esterase Urine RBC Urine WBC Ur Squamous Epith Cells Urine Bacteria Ur Culture Indicated? CSF Tube Number CSF Volume CSF Appearance CSF Color CSF WBC CSF RBC CSF Mononuclear WBCs CSF Polynuclear WBCs CSF Glucose CSF Total Protein CSF C.neoform/gat PCR CSF CMV DNA (PCR) CSF Enterovirus (PCR) CSF E. coli (PCR) CSF H. influenzae (PCR) CSF HSV I (PCR) CSF HSV II (PCR) CSF HHV 6 (PCR) CSF L.monocytogenes PCR CSF N. meningitidis PCR CSF Parechovirus (PCR) CSF S. agalactiae (PCR) CSF S. pneumoniae (PCR) CSF VZV (PCR) Nasal Screen MRSA (PCR) SARS-CoV-2 (PCR) [facility] Medical History Cholelithiasis Hx of fracture of ankle Major depressive disorder, recurrent episode, severe Major depressive disorder, recurrent, moderate Surgical History History of carpal tunnel release of both wrists Hx of hysterectomy Family History Mother Cardiac arrest Father Colitis Social History household members: spouse Smoking Status: Never smoker Assessment & Plan Assessment & Plan narrative: Ms. Cartagena is a 66W with PMH MS who presented with weakness found to have UTI and septic shock. 1. Septic shock from urinary tract infection - initially started on ceftriaxone and acyclovir - workup showed positive UA, and gram negative rods in blood - follow up speciaition - CT showed possible colitis, has nausea, but no vomiting/diarrhea -check stool if diarrhea - no respiratory symptoms, but slightly hypoxemic on room air, lung imaging shows no definite consolidation - LP shows no evidence of infection - due to shock, abx were broadended to double GNR coverage with zosyn, tobra and plan to narrow based on sensitivities -MRSA swab negative, no vancomycin Hypotension -suspect secondary to infection -MAP goal of 65 -in AM of 03/02 was maxed on levophed at 12, but throughout day able to wean down -ECHO already ordered and completed, not read yet, no effusion noted on CT Multiple sclerosis, chronic -Continue home dose of gabapentin 300 mg po tid -if continues to have neuro symptoms after treatment of infection, per neurology would recommend at that time getting MRI to eval for new lesion that would warrant steroids, however currently they do not think MRI is indicated, and given infection would advise against steroids if actively treating infection Depresson, chronic -Continue home doses of doxepin, fluoxitine and risperidone Hypermagnemesia, resolved COVID-19 COVID-19 status: Negative Result date/Date tested (Pos, Neg/Pending): 05/02/22 Time Spent With Patient Critical Care time: I spent a total of [] minutes of critical care time on this patient's care today; this time is exclusive of procedural time.
--- NOTE | 2022-05-02 20:54 | PM.ICURNDS ---
- Date Patient Seen: 05/02/22 Time Patient Seen: 20:54 :: This patient was seen via real time interactive two-way audiovisual telecommunication. Note: patient seen with bedside nurse febrile to 101, pressors requirements less, levo at 6mcg adequate urinr output will give 1L ivf bolus, check bcx will monitor
[2022-05-02] MEDS: LACTATED RINGERS 1,000 ML 1000 ML IV (21:02)
[2022-05-02] MEDS: ACETAMINOPHEN 325 MG TABLET 650 MG PO (21:02)
[2022-05-02] MEDS: DOXEPIN 75 MG PO (21:02)
--- NOTE | 2022-05-02 22:02 | PC.NURSE ---
Addendum entered by Felicitas Preston R.N. 05/03/22 06:19: Patient remains on Levophed gtt at 6mcg/min, current BP 114/62(82), will attempt to titrate down. HR 100-105, she has been afebrile since 2200. After receiving HS meds-fluoxetine, doxepin, risperidone, and gabapentin, patient was lethargic, sleeping hard, but in am, she was able to follow commands and oriented x3. 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 Patient is drowsy but able to follow commands, NIH =1. 1 liter LR bolus started, Blood Cultures obtained, Tylenol given allow with her HS meds, no swallow difficulty, denies nausea.
[2022-05-02 22:54] LABS: Acinetobacter baumannii Not Detected (Not Detect); Candida albicans Not Detected (Not Detect); Candida glabrata Not Detected (Not Detect); Candida krusei Not Detected (Not Detect); Candida parapsilosis Not Detected (Not Detect); Candida tropicalis Not Detected (Not Detect); E. coli Not Detected (Not Detect); Enterobacter cloacae complex Not Detected (Not Detect); Enterobacteriaceae species Not Detected (Not Detect); Enterococcus species Not Detected (Not Detect); Haemophilus influenzae Not Detected (Not Detect); Listeria monocytogenes Not Detected (Not Detect); Methicillin-resistant gene Not Detected (Not Detect); Neisseria meningitidis Not Detected (Not Detect); Proteus species Not Detected (Not Detect); Pseudomonas aeruginosa Not Detected (Not Detect); Serratia marcescens Not Detected (Not Detect); Staphylococcus species Detected (Not Detect); Streptococcus agalactiae (Gr B Not Detected (Not Detect); Streptococcus pneumonia Not Detected (Not Detect); Streptococcus pyogenes (Gr A) Not Detected (Not Detect); Streptococcus species Not Detected (Not Detect)
[2022-05-03] VITALS (50 sets, daily range): BP systolic 90–136; BP diastolic 50–80; PULSE 98–121; RESP 10–36; TEMP 36.6–36.8; O2SAT 83–98
[2022-05-03 00:19] LABS: Troponin I < 0.012 ng/mL (0.01-0.034)
[2022-05-03] MEDS: PIPERACILLIN/TAZO 3.375 GM in SODIUM CHLORIDE 0.9% 100 ML IV ×2 (00:49→08:57)
[2022-05-03] MEDS: NOREPINEPHRINE BITARTRATE/D5W 4 MG/250 ML PLAST..BAG 22.5 MG IV (00:50)
[2022-05-03] MEDS: HYDROCORTISONE 100 MG/2 ML VIAL 50 MG IV (05:36)
[2022-05-03 05:57] LABS: Add Manual Diff / Slide Review NO; Basophils Absolute Auto 100 /uL (0-100); Basophils Percent Auto 0.5 % (0-2); Eosinophils Absolute Auto 0 /uL (0-450); Hematocrit 28.5 % (36-46); Hemoglobin 9.8 g/dL (12.0-16.0); Lymphocytes Absolute Auto 1000 /uL (1100-4500); Mean Corpuscular HGB Conc 34.2 % (30-36); Mean Corpuscular Hemoglobin 29.6 PG (26-34); Mean Corpuscular Volume 86.6 fL (80-100); Monocytes Absolute Auto 1400 /uL (0-900); Monocytes Percent Auto 7.2 % (3-14); Neutrophils Absolute Auto 17300 /uL (1500-7000); Neutrophils Percent Auto 87.3 % (50-75); Platelet Count 267 X10^3/uL (150-400); Red Cell Distribution Width 13.4 % (11.6-14.8); White Blood Cell Count 19.9 X10^3/uL (4.5-11.0)
[2022-05-03 07:11] LABS: Alanine Aminotransferase 26 IU/L (<35); Albumin 2.7 g/dL (3.5-5.0); Albumin Globulin Ratio 1.2 (1.0-2.8); Alkaline Phosphatase 51 U/L (38-126); Aspartate Aminotransferase 24 IU/L (14-36); BUN Creatinine Ratio 16.9 (6-22); Bilirubin Total 0.5 mg/dL (0.2-1.3); Blood Urea Nitrogen 12 mg/dL (7-17); Calcium 7.7 mg/dL (8.4-10.2); Carbon Dioxide 27 mmol/L (22-32); Chloride 107 mmol/L (98-107); Estimated Glomerular Filt Rate > 60 mL/min (>60); Globulin 2.3 g/dL (1.7-4.1); Glucose 146 mg/dL (80-110); HEMOLYSIS < 15 (0-50); Magnesium 1.9 mg/dL (1.6-2.3); Potassium 3.3 mmol/L (3.4-5.1); Sodium 136 mmol/L (137-145)
--- NOTE | 2022-05-03 08:08 | CM.DANOTE ---
Initial DCP Assessment Note Pt is a 66 yo female, resident of [place], arrives via EMS for increasing sx of stroke at home- sever migraine, unable to speak and keep her head upright. Patient admitted inpatient and found to be septic sec to UTI PMH includes: MS, fibromyalgia, depression, essential hypertension PCP: Dereck Roper Payer: Derrell [id number] Reviewed chart, met w/patient and spouse, introduced self and role. Patient sleepy but A+O, able to participate in conversation. Patient/spouse have 4 adult children, none together, [place]. Patient indp in ADLs most days, unless she is suffering from a flare either from her MS and/or her Fibromyalgia; during which she will require assistance d/t pain and weakness Spouse expects to take patient back home upon DC. Discussed HH and patient/spouse agreeable if it's recommended Additional PMH, Mental Health, includes: PTSD, Anxiety, Major Depressive Disorder (MDD), Sleep ndisorder, Personality disorder, eating disorder. Patient is established at behavioral health CM team will plan to follow closely in case any DC needs or concerns arise ALICE Arevalo Discharge Planning/Care Management CM Discharge Assessment Start: 05/03/22 08:04 Freq: Status: Active Protocol: Document 05/03/22 08:04 YOMAIRA (Rec: 05/03/22 08:07 YOMAIRA [id number]) Discharge Planning Assessment Assigned [employer] ALICE Garcia DPOA/Assigned Designee Name Wu Cartagena, spouse Contact Information [phone] Advance Directives? No History Provided By Patient,Significant Other Prior Living Arrangements House Household Members spouse Type of transportation used prior to Relies on Others admit Independent with ADL's Yes: MS and Fibromyalgia flares=days she requires assistance Is patient alert and oriented? Yes Needs Assistance With Bathing,Grooming,Meal Prep, Managing Medications,Home Chores / Shopping Comment Depending on the day per spouse Barriers to Discharge Yes Comment Weakness. Expect home w/spouse , r/o need for HH Discharge Plan Home Transportation Arrangement Spouse Additional Comment Will discuss HH w/team and w/ patient/spouse Medicare Choice List Provided Yes
[2022-05-03] MEDS: ENOXAPARIN 40 MG/0.4 ML SYRINGE SUBCUT (08:41)
[2022-05-03] MEDS: risperiDONE 0.25 MG TABLET 0.5 MG PO (08:42)
[2022-05-03] MEDS: FLUoxetine 20 MG CAPSULE PO ×2 (08:42→21:01)
[2022-05-03] MEDS: INSULIN LISPRO 100 UNIT/ML 3ML VIAL SUBCUT ×3 (08:42→17:06)
[2022-05-03] MEDS: GABAPENTIN 300 MG CAPSULE PO ×3 (08:42→21:01)
[2022-05-03] MEDS: SODIUM CHLORIDE 0.9% FLUSH 10 ML IV ×2 (08:43→21:02)
[2022-05-03] MEDS: HYDROCODONE/ACET 5/325 TABLET 1 TAB PO ×2 (08:55→19:54)
--- NOTE | 2022-05-03 09:49 | P.TELICUPN_ITS ---
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 Patient Location: ICU Provider location (State): [place] Other participants/roles: [facility] Current Medications Current Medications Medications: Home Medications cholecalciferol (vitamin D3) 25 mcg (1,000 unit) capsule 25 mcg PO DAILY 07/28/20 [History Confirmed 05/02/22] magnesium hydroxide 400 mg (170 mg magnesium) chewable tablet 400 mg PO DAILY 07/28/20 [History Confirmed 05/02/22] mecobalamin (vitamin B12) 1,000 mcg chewable tablet 1,000 mcg PO DAILY 07/28/20 [History Confirmed 05/02/22] famotidine 20 mg tablet 20 mg PO DAILY #90 tabs 08/14/21 [Rx Confirmed 05/02/22] telmisartan 80 mg tablet 80 mg PO DAILY #90 tabs 08/14/21 [Rx Confirmed 05/02/22] fluoxetine 20 mg capsule 40 mg PO QDAY #180 caps 08/20/21 [Rx Confirmed 05/02/22] gabapentin 300 mg capsule 300 mg PO TID #270 caps 08/21/21 [Rx Confirmed 05/02/22] doxepin 75 mg capsule 75 mg PO HS #90 caps 08/31/21 [Rx Confirmed 05/02/22] nitrofurantoin macrocrystal 100 mg capsule 100 mg PO DAILY 10/16/21 [History Confirmed 05/02/22] trospium 60 mg capsule,extended release 24 hr 60 mg PO DAILY 10/16/21 [History Confirmed 05/02/22] hydrochlorothiazide 25 mg tablet 25 mg PO DAILY #90 tabs 11/05/21 [Rx Confirmed 05/02/22] risperidone 0.5 mg tablet See Rx Instructions .Route .COMPLEX #405 tabs 03/07/22 [Rx Confirmed 05/02/22] methocarbamol 500 mg tablet 500 mg PO TID PRN muscle spasm 03/19/22 [History Confirmed 05/02/22] promethazine 25 mg tablet 25 mg PO TID PRN nausea #30 tabs 04/15/22 [Rx Confirmed 05/02/22] rizatriptan 10 mg tablet See Rx Instructions .Route .COMPLEX #6 tabs 04/15/22 [Rx Confirmed 05/02/22] estradiol 0.01% (0.1 mg/gram) vaginal cream 1 g vaginal 2XW #42.5 grams 04/30/22 [Rx Confirmed 05/02/22] Visit Medications (administered) Generic Name Dose Route Start Last Admin Trade Name Bala PRN Reason Stop Dose Admin Acetaminophen 650 mg 05/02/22 02:25 05/02/22 21:02 Acetaminophen 325 Mg Tablet PO 650 mg Q6HR PRN Administration Fever/Mild Pain (1-3) Hydrocodone Bitart/Acetaminophen 1 tab 05/02/22 12:55 05/03/22 08:55 Hydrocodone/Acet 5/325 Tablet PO 1 tab Q4HR PRN Administration Pain, Moderate (4-6) Doxepin HCl 75 mg 05/02/22 03:30 05/02/22 21:02 Doxepin 75 Mg Capsule PO 75 mg BEDTIME ADRIANA Administration Enoxaparin Sodium 40 mg 05/02/22 09:00 05/03/22 08:41 Enoxaparin 40 Mg/0.4 Ml Syringe SUBCUT 40 mg DAILY ADRIANA Administration Fluoxetine HCl 20 mg 05/02/22 09:00 05/03/22 08:42 Fluoxetine 20 Mg Capsule PO 20 mg BID ADRIANA Administration Gabapentin 300 mg 05/02/22 09:00 05/03/22 08:42 Gabapentin 300 Mg Capsule PO 300 mg TID ADRIANA Administration Hydrocortisone 50 mg 05/03/22 00:00 05/03/22 05:36 Hydrocortisone 100 Mg/2 Ml Vial IV 50 mg Q6HR ADRIANA Administration NOREPINEPHRINE BITARTRATE/D5W 4 mg in 250 mls @ 30 mls/hr 05/02/22 07:24 09:00 Levophed IV 4 mcg/min TITRATE ADRIANA 15 mls/hr Titration Protocol 8 MCG/MIN Piperacillin Sod/Tazobactam 100 mls @ 25 mls/hr 05/02/22 09:15 05/03/22 08:57 Sod 3.375 gm/ Sodium Chloride IV 25 mls/hr Q8H ADRIANA Administration Vasopressin 40 unit/ Sodium 102 mls @ 6.12 mls/hr 05/02/22 09:11 05/02/22 11:09 Chloride INJ Not Given TITRATE ADRIANA 0.04 UNIT/MIN Lactated Ringer's 1,000 mls @ 100 mls/hr 05/02/22 11:15 05/02/22 22:27 Lactated Ringers IV 100 mls/hr CONT ADRIANA Administration Insulin Human Lispro 0 unit 05/02/22 11:45 05/03/22 08:42 Insulin Lispro 100 Unit/Ml 3ml Vial SUBCUT 1 unit ACHS ADRIANA Administration Protocol Risperidone 0.5 mg 05/02/22 09:00 05/03/22 08:42 Risperidone 0.25 Mg Tablet PO 0.5 mg DAILY ADRIANA Administration Risperidone 0.25 mg 05/02/22 12:00 05/02/22 21:02 Risperidone 0.25 Mg Tablet PO 0.25 mg 1200,2100 ADRIANA Administration Sodium Chloride 10 ml 05/02/22 09:00 05/03/22 08:43 Sodium Chloride 0.9% Flush IV 10 ml BID ADRIANA Administration Objective Labs Result Diagrams: 05/03/22 05:45 05/03/22 05:45 Labs: Laboratory Results - last 24 hr 05/01/22 05/01/22 05/02/22 22:40 22:50 09:42 WBC RBC Hgb Hct MCV MCH MCHC RDW Plt Count Neut % (Auto) Lymph % (Auto) [place] % (Auto) Eos % (Auto) Baso % (Auto) Neut # (Auto) Lymph # (Auto) [place] # (Auto) Eos # (Auto) Baso # (Auto) D-Dimer 1235 H Sodium Potassium Chloride Carbon Dioxide BUN Creatinine Estimated GFR BUN/Creatinine Ratio Glucose Calcium Magnesium Total Bilirubin AST ALT Alkaline Phosphatase Troponin I Total Protein Albumin Globulin Albumin/Globulin Ratio TSH 3.75 A. baumannii (PCR) Not detected Allyson albicans (PCR) Not detected C. glabrata (PCR) Not detected C. krusei (PCR) Not detected C. parapsilosis (PCR) Not detected C. tropicalis (PCR) Not detected Enterobacteriac sp PCR Not detected E. cloacae complex PCR Not detected Enterococcus sp PCR Not detected E. coli (PCR) Not detected H. influenzae (PCR) Not detected Klebsiella oxytoca PCR Not detected Klebsiella pneumoniae Not detected List. monocytogenes PCR Not detected N. meningitidis (PCR) Not detected Proteus species (PCR) Not detected Serratia marcescens PCR Not detected Staphylococcus sp PCR Detected H Staph aureus (PCR) Not detected mecA-Methicil Res Gene Not detected Streptococcus sp PCR Not detected Group A Strep (PCR) Not detected Strep agalactiae (PCR) Not detected Strep pneumoniae (PCR) Not detected P. aeruginosa (PCR) Not detected Jamaal/B-Vanco Res Genes Not Reportable KPC-Carbap Res Gene PCR Not Reportable 05/02/22 05/02/22 05/02/22 11:05 17:35 23:40 WBC RBC Hgb Hct MCV MCH MCHC RDW Plt Count Neut % (Auto) Lymph % (Auto) [place] % (Auto) Eos % (Auto) Baso % (Auto) Neut # (Auto) Lymph # (Auto) [place] # (Auto) Eos # (Auto) Baso # (Auto) D-Dimer Sodium Potassium Chloride Carbon Dioxide BUN Creatinine Estimated GFR BUN/Creatinine Ratio Glucose Calcium Magnesium Total Bilirubin AST ALT Alkaline Phosphatase Troponin I < 0.012 0.013 < 0.012 Total Protein Albumin Globulin Albumin/Globulin Ratio TSH A. baumannii (PCR) Allyson albicans (PCR) C. glabrata (PCR) C. krusei (PCR) C. parapsilosis (PCR) C. tropicalis (PCR) Enterobacteriac sp PCR E. cloacae complex PCR Enterococcus sp PCR E. coli (PCR) H. influenzae (PCR) Klebsiella oxytoca PCR Klebsiella pneumoniae List. monocytogenes PCR N. meningitidis (PCR) Proteus species (PCR) Serratia marcescens PCR Staphylococcus sp PCR Staph aureus (PCR) mecA-Methicil Res Gene Streptococcus sp PCR Group A Strep (PCR) Strep agalactiae (PCR) Strep pneumoniae (PCR) P. aeruginosa (PCR) Jamaal/B-Vanco Res Genes KPC-Carbap Res Gene PCR 05/03/22 05/03/22 05:45 05:45 WBC 19.9 H RBC 3.30 L Hgb 9.8 L Hct 28.5 L MCV 86.6 MCH 29.6 MCHC 34.2 RDW 13.4 Plt Count 267 Neut % (Auto) 87.3 H Lymph % (Auto) 5.0 L [place] % (Auto) 7.2 Eos % (Auto) 0.0 L Baso % (Auto) 0.5 Neut # (Auto) 56037 H Lymph # (Auto) 1000 L [place] # (Auto) 1400 H Eos # (Auto) 0 Baso # (Auto) 100 D-Dimer Sodium 136 L Potassium 3.3 L Chloride 107 Carbon Dioxide 27 BUN 12 Creatinine 0.71 Estimated GFR > 60 BUN/Creatinine Ratio 16.9 Glucose 146 H Calcium 7.7 L Magnesium 1.9 Total Bilirubin 0.5 AST 24 ALT 26 Alkaline Phosphatase 51 Troponin I Total Protein 5.0 L Albumin 2.7 L Globulin 2.3 Albumin/Globulin Ratio 1.2 TSH A. baumannii (PCR) Allyson albicans (PCR) C. glabrata (PCR) C. krusei (PCR) C. parapsilosis (PCR) C. tropicalis (PCR) Enterobacteriac sp PCR E. cloacae complex PCR Enterococcus sp PCR E. coli (PCR) H. influenzae (PCR) Klebsiella oxytoca PCR Klebsiella pneumoniae List. monocytogenes PCR N. meningitidis (PCR) Proteus species (PCR) Serratia marcescens PCR Staphylococcus sp PCR Staph aureus (PCR) mecA-Methicil Res Gene Streptococcus sp PCR Group A Strep (PCR) Strep agalactiae (PCR) Strep pneumoniae (PCR) P. aeruginosa (PCR) Jamaal/B-Vanco Res Genes KPC-Carbap Res Gene PCR Exam Vital Signs (past 8 hours): - 05/03/22 02:00 05/03/22 02:00 05/03/22 02:00 Temperature Pulse Rate 104 H 104 H Respiratory Rate 12 12 Blood Pressure 110/56 L 110/56 L Pulse Oximetry 96 96 Oxygen Delivery Method Oxygen Flow Rate 0 05/03/22 04:00 05/03/22 02:30 05/03/22 02:30 Temperature 98.2 F Pulse Rate 101 H 100 H Respiratory Rate 10 L 11 L Blood Pressure 103/57 L 100/51 L Pulse Oximetry 96 96 Oxygen Delivery Method Oxygen Flow Rate 0 05/03/22 03:00 05/03/22 03:00 05/03/22 03:30 Temperature Pulse Rate 98 H Respiratory Rate 11 L Blood Pressure 103/56 L 98/56 L Pulse Oximetry 96 Oxygen Delivery Method Oxygen Flow Rate 05/03/22 03:30 05/03/22 04:00 05/03/22 04:00 Temperature Pulse Rate 100 H 101 H Respiratory Rate 10 L 10 L Blood Pressure 103/57 L Pulse Oximetry 96 96 Oxygen Delivery Method Oxygen Flow Rate 05/03/22 04:00 05/03/22 05:00 05/03/22 04:30 Temperature Pulse Rate 101 H Respiratory Rate 12 Blood Pressure 109/60 114/63 Pulse Oximetry 96 Oxygen Delivery Method Nasal Cannula Oxygen Flow Rate 0 05/03/22 04:30 05/03/22 05:00 05/03/22 05:00 Temperature Pulse Rate 101 H 101 H Respiratory Rate 13 12 Blood Pressure 109/60 Pulse Oximetry 97 96 Oxygen Delivery Method Oxygen Flow Rate 05/03/22 05:30 05/03/22 05:30 05/03/22 06:00 Temperature Pulse Rate 102 H Respiratory Rate 12 Blood Pressure 119/65 114/62 Pulse Oximetry 97 Oxygen Delivery Method Oxygen Flow Rate 05/03/22 06:00 05/03/22 06:30 05/03/22 06:30 Temperature Pulse Rate 101 H 104 H Respiratory Rate 13 13 Blood Pressure 122/69 Pulse Oximetry 97 97 Oxygen Delivery Method Oxygen Flow Rate 05/03/22 07:00 05/03/22 07:00 05/03/22 07:30 Temperature Pulse Rate 103 H Respiratory Rate 12 Blood Pressure 117/64 108/56 L Pulse Oximetry 95 Oxygen Delivery Method Oxygen Flow Rate 05/03/22 07:30 05/03/22 08:00 05/03/22 08:00 Temperature Pulse Rate 103 H 101 H Respiratory Rate 13 15 Blood Pressure 111/57 L Pulse Oximetry 95 96 Oxygen Delivery Method Oxygen Flow Rate 05/03/22 08:30 05/03/22 08:30 05/03/22 09:00 Temperature Pulse Rate 115 H Respiratory Rate 24 Blood Pressure 115/69 114/58 L Pulse Oximetry 93 Oxygen Delivery Method Oxygen Flow Rate 05/03/22 09:00 Temperature Pulse Rate 121 H Respiratory Rate 27 H Blood Pressure Pulse Oximetry 94 Oxygen Delivery Method Oxygen Flow Rate Oxygen Delivery Method Nasal Cannula Oxygen Flow Rate 0 Assessment & Plan Assessment & Plan narrative: pt seen with nikky nurse and provider chart/labs/imaging reviewed non tonix with some weakness 66 year old female with ams possible septic shock 2/2 to UTI vs other dehydration/volume depletion MS flair suggest -neurochecks/seizure precautions -avoid sedatives -MRI still pending, pt is on pressors -remains on ivf, will try albumin today -can set map goal to 60-65 -start midodrine 10mg tid -wean off levo -start solumedrol MS exacerbation dose, 1g for 3 days, would benefit from neuro eval -echo done results pending -check venous duplex to rule out dvt -cxs grew jo sensitive e.coi, can dc zosyn start rocpehin -monitor ins/outs -replace lytes prn -keep glucose 140-180s -gi/dvt ppx -pt with more MS flair like symptoms in past 24 hours likely 2/2 to UTI -please call eICU if condition changes Time Spent With Patient Critical Care time: I spent a total of [45] minutes of critical care time on this patient's care today; this time is exclusive of procedural time.
[2022-05-03] MEDS: POTASSIUM CHLORIDE 20 MEQ TAB 40 MEQ PO ×2 (10:14→15:12)
--- NOTE | 2022-05-03 11:33 | OT.IP.EVAL ---
Current Diagnoses Sepsis, unspecified organism (05/02/22) Past Medical History (Last Reviewed 05/02/22 @ 04:24 by LYN Black) Cholelithiasis Hx of fracture of ankle Major depressive disorder, recurrent episode, severe Major depressive disorder, recurrent, moderate Surgical History (Last Reviewed 05/02/22 @ 04:24 by LYN Black) History of carpal tunnel release of both wrists Hx of hysterectomy Occupational Therapy Inpatient Evaluation/Re-Eval M1 PT/OT-IP Prior Functional Status Start: 05/03/22 11:42 Freq: NEEDED Status: Active Protocol: Document 05/03/22 11:43 [facility] (Rec: 05/03/22 12:05 [facility] [id number]) Medical Review Prior Functional Status Communication independent Mobility and Gait Pt has MS and states on her good days able to walk without any devices, however on her bad days uses a cane, 4ww for longer distances , and uses a wc for appointments and long outings. Activities of Daily Living and IADL's Pt states mainly does her dressing needs and that her assist her with most everything else pending her flare ups. Social History Household Members spouse Living Arrangements House Number of Floors (Floors) Two Floors Number of Stairs To Enter/Railing? 6 steps from the front and left rail and right wall. From the garage 6 steps and bilateral rails. Pt able to use bathroom on the main level and sleep on the love seat if needed. However her bedroom is upstairs approx 6 steps, landing, and 6 steps -railing on the left and wall on the right going up. Home Environment High Toilet,Walk in Shower Home Equipment Four Wheel Walker,Straight Cane,Manual Wheelchair,Hand Held Shower,[facility] Additional Social History Comment Pt's always present to assist pt to get up and down the steps. M2 OT-IP Current Condition Start: 05/03/22 11:42 Freq: Status: Active Protocol: Document 05/03/22 11:43 [facility] (Rec: 05/03/22 12:05 [facility] [id number]) Occupational Therapy Current Condition Current Condition Evaluation Date 05/03/22 Treatment Diagnosis Hypotension/sepsis/ UTI Diagnosis Onset Date 05/02/22 M3 OT- IP Subjective and Pain Start: 05/03/22 11:42 Freq: Status: Active Protocol: Document 05/03/22 11:43 [facility] (Rec: 05/03/22 12:05 [facility] [id number]) OT- Subjective Occupational Therapy Visit Type Type Initial Evaluation Visit Start Time 10:48 Visit Stop Time 11:33 Total Visit Minutes 45 Occupational Therapy Visit Comments Patient Comments Pt agreed to get up. Patient/Caregiver Goals To go home. OT Pain Assessment Pain When Pain Assessed At Rest Pain Present Pain Present Denied Pain M4 OT- IP ADL's Start: 05/03/22 11:42 Freq: Status: Active Protocol: Document 05/03/22 11:43 [facility] (Rec: 05/03/22 12:05 [facility] [id number]) OT ODH-Bban-Sejpzey Comments OT Self-Feeding Comments not at meal time OT ADL-Grooming General Evaluation Grooming Ability Standby Assistance Comments OT Grooming Comments Pt able to wash her face after set-up. OT ADL-Oral Care Comments Oral Care Comments Pt states did prior. OT ADL-Dressing General Eval Lower Body Dressing Ability Standby Assistance Comments OT Dressing Comments Pt able to get her socks on while in bed. Pt states at home can get herself dressed but takes between 10-15 minutes to do. OT ADL-Toileting General Evaluation Toileting Ability Total Assistance Comments OT Toileting Comments Hsu in place. OT ADL-Bathing Comments OT Bathing Comments Not performed. M5 OT- IP IADL's Start: 05/03/22 11:42 Freq: Status: Active Protocol: Document 05/03/22 11:43 [facility] (Rec: 05/03/22 12:05 [facility] [id number]) OT-Instrumental Activities of Daily Living Home Safety Awareness Awareness of Need for Assistance at Home Good Awareness Home Safety Comments Pt's assist pt for most needs especially when pt has her MS flare ups. Medication Management Medication Management Caregiver Administers Money Management Money Management Caregiver Provides Assistance Meal Preparation Meal Preparation Caregiver Provides Assist Electrician Station Assistant Electrician Station Assistant Caregiver Provides Assist M6 OT- IP Functional Cognition Start: 05/03/22 11:42 Freq: Status: Active Protocol: Document 05/03/22 11:43 [facility] (Rec: 05/03/22 12:05 [facility] [id number]) Cognitive Factors Limiting Selfcare Function Cognitive Ability Level of Alertness Alert Patient Orientation Name,Place,Situation Attention Span Ability Capable of Focused Attention, Capable of Sustained Attention Ability to Follow Commands Able to Follow One Step Commands Cognitive Comments Cognitive Assessment Comments Pt able to follow directions for ADl and mobility needs. Pt needing cues to take a rest break as tends to push herself to continue even though pt looking a little pale. OT- Vision and Hearing OT- Hearing Assessment OT- Hearing Assessment WFL OT- Vision Assessment Visual Acuity Glasses All The Time Occular Pursuits WFL Visual Convergence WFL Visual Stark WFL Diplopia Absent Vision Assessment Comments Pt states has difficulty to see close up and states going to get her eyes rechecked as just received new glasses 6 months ago. M7 OT- IP Mobility and Balance Start: 05/03/22 11:42 Freq: Status: Active Protocol: Document 05/03/22 11:43 [facility] (Rec: 05/03/22 12:05 [facility] [id number]) OT- Bed Mobility Assessment Supine to Sit Supine to Sit Assist Standby Assistance,Head of Bed Elevated OT-Transfer Assessment Sit to and From Stand Sit to and from Stand Contact Guard Assistance Transfers Transfer Ability Minimal Assistance Technique Transfer Destination Bed,Chair Transfer Technique Stand Step Pivot Devices Transfer Assistive Devices Gait Belt,Front Wheeled Walker Comments Mobility Comments BP in supine 108/58 and after sitting down after taking a few steps in the rooom with the FWW 104/58. Pt able to get to the edge of the bed with HOB up, pt not feeling up to trying to get up with bed flat as she does at home. Pt states at times her has to get her up out of bed. Sit to stand CGA to the FWW and able to take some step CGA initially and then MEAGAN as tiring. Pt needing assist for all tubing management. Pt's O2 94%. OT- Balance Assessment Sitting Balance and Reactions Static Sitting Balance Ability Normal Dynamic Sitting Balance Ability Good Standing Balance and Reactions Static Standing Balance Ability Fair Dynamic Standing Balance Ability Poor M8 OT- IP Objective Assessments Start: 05/03/22 11:42 Freq: Status: Active Protocol: Document 05/03/22 11:43 [facility] (Rec: 05/03/22 12:05 [facility] [id number]) OT Gross Range of Motion Upper Extremity Range of Motion Assessment Within Functional Limits OT Strength Upper Extremity Strength Assessment Within Functional Limits OT- Coordination Assessment Upper Extremity Finger to Nose Test Within Functional Limits OT-Muscle Tone Assessment Muscle Tone WNL Yes OT Sensation Assessment Comments Summary Comments Intactt for light touch M9 OT- IP Assessment and Plan Start: 05/03/22 11:42 Freq: Status: Active Protocol: Document 05/03/22 11:43 [facility] (Rec: 05/03/22 12:05 [facility] [id number]) OT Summary Assessment and Plan Potential Rehabilitation Potential Good Analytic Complexity at Evaluation Moderate Summary OT Impairments Balance,Functional Mobility, Grooming,Dressing,Toileting, Bathing,Toilet Transfers, Shower Transfers,Activity Tolerance Progress Towards Goals Progressing Toward Goals Assessment Summary Pt MOD complexity and main barriers are steps, decreased activity tolerance and dynamic balance, and now needing one person assist for all ADl and mobility needs. Pt has a supportive prior at times assist pt with her needs due to MS flares up. Pt looking to go home when medically stable. Pt will benefit to continue her outpt PT in [place]. Goals Self-Feeding Goal Independent Grooming Goal Independent Dressing Goal Independent Toileting Goal Independent Bathing Goal Minimal Assistance Toilet Transfer Goal Independent Shower Transfer Goal Standby Assistance Patient/Caregiver Education Goal Demonstrate Energy Conservation and Pacing Days to Meet Goals 7 Frequency of Treatment Frequency Of Treatment Once a Day Treatment Plan OT Treatment Plan ADL Training,Functional Mobility,Patient/Family Education,Discharge Planning Discharge Recommendations OT Discharge Recommendations Home with 14/04 Assist Available,Outpatient PT Home Equipment Needs shower chair, fww Transportation Needs at Discharge Private Vehicle
[2022-05-03] MEDS: ALBUMIN HUMAN 25 GM/100 ML VIAL IV (11:36)
[2022-05-03] MEDS: methylPREDNISolone 1,000 MG in SODIUM CHLORIDE 0.9% 250 ML 258 MG IV (11:36)
[2022-05-03] MEDS: MIDODRINE HCL 5 MG TABLET 10 MG PO ×2 (11:53→17:06)
[2022-05-03] MEDS: risperiDONE 0.25 MG TABLET PO ×2 (11:54→21:02)
--- NOTE | 2022-05-03 12:48 | P.PN_ITS ---
Subjective Subjective Date Patient Seen: 05/03/22 Interval history: 66-year-old female with multiple sclerosis, hypertension and fibromyalgia who was admitted early yesterday morning with septic shock secondary to UTI. She is been requiring pressors but has been tolerating weaning doses. In the patient has been on Zosyn and a single dose of tobramycin. She is requiring norepinephrine, required up to 12 mcg per minute yesterday, but by last evening was down to 7. Overnight she was weaned down to 4 micrograms/minute. Blood pressures have been maintaining in the low 100s. She is asymptomatic. She was on hydrocortisone for possible adrenal insufficiency. She has been having some neurologic symptoms with increasing leg weakness, hand weakness, and left eye blurring. Neurology was contacted yesterday and advised that likely her MS flare could be secondary to her acute infection. Today, she reports improvement in her weakness and numbness. She also reports her blurred vision in the left eye appears improved. Exam Vital Signs (past 8 hours): - 05/03/22 05:00 05/03/22 05:00 05/03/22 05:00 Pulse Rate 101 H 101 H Respiratory Rate 12 12 Blood Pressure 109/60 109/60 Pulse Oximetry 96 96 Oxygen Flow Rate 0 05/03/22 05:30 05/03/22 05:30 05/03/22 06:00 Pulse Rate 102 H Respiratory Rate 12 Blood Pressure 119/65 114/62 Pulse Oximetry 97 Oxygen Flow Rate 05/03/22 06:00 05/03/22 06:30 05/03/22 06:30 Pulse Rate 101 H 104 H Respiratory Rate 13 13 Blood Pressure 122/69 Pulse Oximetry 97 97 Oxygen Flow Rate 05/03/22 07:00 05/03/22 07:00 05/03/22 07:30 Pulse Rate 103 H Respiratory Rate 12 Blood Pressure 117/64 108/56 L Pulse Oximetry 95 Oxygen Flow Rate 05/03/22 07:30 05/03/22 08:00 05/03/22 08:00 Pulse Rate 103 H 101 H Respiratory Rate 13 15 Blood Pressure 111/57 L Pulse Oximetry 95 96 Oxygen Flow Rate 05/03/22 08:30 05/03/22 08:30 05/03/22 09:00 Pulse Rate 115 H Respiratory Rate 24 Blood Pressure 115/69 114/58 L Pulse Oximetry 93 Oxygen Flow Rate 05/03/22 09:00 05/03/22 09:30 05/03/22 09:30 Pulse Rate 121 H 119 H Respiratory Rate 27 H 23 Blood Pressure 106/58 L Pulse Oximetry 94 91 Oxygen Flow Rate 05/03/22 10:00 05/03/22 10:00 05/03/22 10:30 Pulse Rate 116 H Respiratory Rate 33 H Blood Pressure 99/69 103/60 Pulse Oximetry 90 L Oxygen Flow Rate 05/03/22 10:30 05/03/22 11:00 05/03/22 11:02 Pulse Rate 113 H 115 H Respiratory Rate 20 25 H Blood Pressure 108/58 L Pulse Oximetry 91 92 Oxygen Flow Rate 05/03/22 11:02 05/03/22 11:27 05/03/22 11:27 Pulse Rate 115 H 113 H Respiratory Rate 24 21 Blood Pressure 108/56 L Pulse Oximetry 93 93 Oxygen Flow Rate 05/03/22 11:28 05/03/22 11:28 05/03/22 11:30 Pulse Rate 113 H 112 H Respiratory Rate 24 31 H Blood Pressure 104/58 L Pulse Oximetry 92 92 Oxygen Flow Rate Oxygen Delivery Method Nasal Cannula Oxygen Flow Rate 0 Narrative Exam Narrative: GEN: Alert and oriented x 3, NAD HEENT:NC, Face symmetric CHEST: Respiratory excursions symmetric, CTAB CV: RRR, no M/R/G ABD: Soft, NT/ND, BT present in all 4 quadrants, no organomegaly or masses EXTR: warm, well perfused, no C/C/E SKIN: warm and dry, no rash NEURO: Alert and oriented x 3, nonfocal Objective Labs Result Diagrams: 05/03/22 05:45 05/03/22 05:45 Labs: Laboratory Results - last 24 hr 05/01/22 05/02/22 05/02/22 22:50 17:35 23:40 WBC RBC Hgb Hct MCV MCH MCHC RDW Plt Count Neut % (Auto) Lymph % (Auto) [place] % (Auto) Eos % (Auto) Baso % (Auto) Neut # (Auto) Lymph # (Auto) [place] # (Auto) Eos # (Auto) Baso # (Auto) Sodium Potassium Chloride Carbon Dioxide BUN Creatinine Estimated GFR BUN/Creatinine Ratio Glucose Calcium Magnesium Total Bilirubin AST ALT Alkaline Phosphatase Troponin I 0.013 < 0.012 Total Protein Albumin Globulin Albumin/Globulin Ratio A. baumannii (PCR) Not detected Allyson albicans (PCR) Not detected C. glabrata (PCR) Not detected C. krusei (PCR) Not detected C. parapsilosis (PCR) Not detected C. tropicalis (PCR) Not detected Enterobacteriac sp PCR Not detected E. cloacae complex PCR Not detected Enterococcus sp PCR Not detected E. coli (PCR) Not detected H. influenzae (PCR) Not detected Klebsiella oxytoca PCR Not detected Klebsiella pneumoniae Not detected List. monocytogenes PCR Not detected N. meningitidis (PCR) Not detected Proteus species (PCR) Not detected Serratia marcescens PCR Not detected Staphylococcus sp PCR Detected H Staph aureus (PCR) Not detected mecA-Methicil Res Gene Not detected Streptococcus sp PCR Not detected Group A Strep (PCR) Not detected Strep agalactiae (PCR) Not detected Strep pneumoniae (PCR) Not detected P. aeruginosa (PCR) Not detected Jamaal/B-Vanco Res Genes Not Reportable KPC-Carbap Res Gene PCR Not Reportable 05/03/22 05/03/22 05:45 05:45 WBC 19.9 H RBC 3.30 L Hgb 9.8 L Hct 28.5 L MCV 86.6 MCH 29.6 MCHC 34.2 RDW 13.4 Plt Count 267 Neut % (Auto) 87.3 H Lymph % (Auto) 5.0 L [place] % (Auto) 7.2 Eos % (Auto) 0.0 L Baso % (Auto) 0.5 Neut # (Auto) 99269 H Lymph # (Auto) 1000 L [place] # (Auto) 1400 H Eos # (Auto) 0 Baso # (Auto) 100 Sodium 136 L Potassium 3.3 L Chloride 107 Carbon Dioxide 27 BUN 12 Creatinine 0.71 Estimated GFR > 60 BUN/Creatinine Ratio 16.9 Glucose 146 H Calcium 7.7 L Magnesium 1.9 Total Bilirubin 0.5 AST 24 ALT 26 Alkaline Phosphatase 51 Troponin I Total Protein 5.0 L Albumin 2.7 L Globulin 2.3 Albumin/Globulin Ratio 1.2 A. baumannii (PCR) Allyson albicans (PCR) C. glabrata (PCR) C. krusei (PCR) C. parapsilosis (PCR) C. tropicalis (PCR) Enterobacteriac sp PCR E. cloacae complex PCR Enterococcus sp PCR E. coli (PCR) H. influenzae (PCR) Klebsiella oxytoca PCR Klebsiella pneumoniae List. monocytogenes PCR N. meningitidis (PCR) Proteus species (PCR) Serratia marcescens PCR Staphylococcus sp PCR Staph aureus (PCR) mecA-Methicil Res Gene Streptococcus sp PCR Group A Strep (PCR) Strep agalactiae (PCR) Strep pneumoniae (PCR) P. aeruginosa (PCR) Jamaal/B-Vanco Res Genes KPC-Carbap Res Gene PCR PFSH Medical History Cholelithiasis Hx of fracture of ankle Major depressive disorder, recurrent episode, severe Major depressive disorder, recurrent, moderate Surgical History History of carpal tunnel release of both wrists Hx of hysterectomy Family History Mother Cardiac arrest Father Colitis Social History household members: spouse Smoking Status: Never smoker Assessment & Plan Assessment & Plan narrative: 1. Septic shock Tolerating weaning of Levophed. Blood pressures have stabilized to some extent. Tele road passenger firer recommended the initiation of midodrine 10 mg 3 times daily and further weaning of the Levophed. Additionally recommended the addition of a 1 time bolus of albumin. Etiology of the septic shock is E coli UTI, pansensitive. Septic shock is improving. CSF and blood cultures have been negative to date. Echo results revealed a normal LVEF. Sinus tachycardia. Mild TR. RVSP of at least 33 mm Hg. 2. E coli UTI Patient will be transitioned to Rocephin given the resulting sensitivities. 3. Multiple sclerosis with flare Continue usual dose of gabapentin. Will start Solu-Medrol 1 g IV daily x3 days. Once she is weaned off of pressors, an MRI of the brain can be accomplished. The IV pumps are not MRI compatible. She does report improving symptoms today. Will have PT and OT work with her. 4. Leukocytosis White blood cell count is 19.9. Likely persistent elevation related to steroids. Clinically, she is improving. 5. Normocytic anemia Hemoglobin is 9.8, down from 10.9. Likely hemodilutional. 6. Hypokalemia Potassium is 3.3 today. Will replete. 7. Depression Continue doxepin, fluoxetine, and risperidone. Resolved issues: Hypermagnesemia Code status Full Prophylaxis Continue Lovenox Disposition Continued inpatient ICU stay. Time Spent With Patient Critical Care time: I spent a total of [] minutes of critical care time on this patient's care today; this time is exclusive of procedural time.
--- NOTE | 2022-05-03 15:34 | PT.IIE ---
Current Diagnoses Sepsis, unspecified organism (05/02/22) Surgical History (Last Reviewed 05/02/22 @ 04:24 by LYN Black) History of carpal tunnel release of both wrists Hx of hysterectomy Medical History (Last Reviewed 05/02/22 @ 04:24 by LYN Black) Cholelithiasis Hx of fracture of ankle Major depressive disorder, recurrent episode, severe Major depressive disorder, recurrent, moderate Physical Therapy Inpatient Evaluation/Re-Eval M1 PT/OT-IP Prior Functional Status Start: 05/03/22 11:42 Freq: NEEDED Status: Active Protocol: Document 05/03/22 15:36 DLM (Rec: 05/03/22 17:09 DLM [id number]) Medical Review Prior Functional Status Medical History Reviewed Yes Diet/Fluid Consistency Regular Communication independent Mobility and Gait Pt has MS and states on her good days able to walk without any devices, however on her bad days uses a cane, 4ww for longer distances , and uses a wc for appointments and on outings in community. On her good days she can go up and down the stairs at home on her own and on her bad days her Spouse assists her. Activities of Daily Living and IADL's Pt states she can do her own dressing and that her assist her with most everythng else pending her flare ups. Spouse reports they cook together. Prior Functional Level (Other details) she is not driving so she goes everywhere with her Spouse Social History Household Members spouse Living Arrangements House Number of Floors (Floors) Two Floors Number of Stairs To Enter/Railing? 6 steps from the front and left rail and right wall. From the garage 6 steps and bilateral rails. Pt able to use bathroom on the main level and sleep on the love seat if needed. Her bedroom is upstairs approx 6 steps, landing, and 6 steps- railing on the left and wall on the right going up. Home Environment High Toilet,Walk in Shower Home Equipment Four Wheel Walker,Straight Cane,Manual Wheelchair,Hand Held Shower,Career Manager Additional Social History Comment Pt's can provide 24/7 assist at home as needed M2 PT-IP Current Condition Start: 05/03/22 16:53 Freq: NEEDED Status: Active Protocol: Document 05/03/22 15:36 DLM (Rec: 05/03/22 17:09 [facility] [id number]) Physical Therapy Current Condition Current Condition Evaluation Date 05/03/22 Treatment Diagnosis UTI, septic, impaired gait and mobility Onset Date 05/02/22 M3 PT-IP Subjective Start: 05/03/22 16:53 Freq: NEEDED Status: Active Protocol: Document 05/03/22 15:36 DLM (Rec: 05/03/22 17:09 DL [id number]) Subjective Physical Therapy Visit Type Type Initial Evaluation Visit Start Time 15:00 Visit Stop Time 15:36 Total Visit Minutes 36 Number of UX INTERACTION DESIGNER Visits 0 Physical Therapy Visit Comments Patient Comments she reports she is feeling better today Patient Goals Discharge home M4 PT-IP Mobility and Gait Start: 05/03/22 16:53 Freq: NEEDED Status: Active Protocol: Document 05/03/22 15:36 DLM (Rec: 05/03/22 17:09 [facility] [id number]) PT-Transfer Assessment Sit to and From Stand Sit to and from Stand Standby Assistance,Contact Guard Assistance,Use of Upper Extremities Equipment Transfer Assistive Device Gait Belt,Front Wheeled Walker Transfers Transfer Destination Chair Transfer Technique Stand Step Pivot Transfer Ability Level of Assist Contact Guard Assistance Comments Mobility Comments Pt up in the recliner this visit and wants to stay up so bed mobility not assessed at this time Gait Assessment Gait Gait Assistance Required: Contact Guard Assist,Minimum Assistance Distance (Feet) 40 Assistive Devices Assistive Device Gait Belt,Front Wheeled Walker Gait Deviations General Gait Pattern Wide Based Gait Factors Limiting Gait Function Factors Limiting Gait Function Decreased Activity Tolerance, Incoordination,Poor Balance Comments Gait Comments she needs assist to stay coordinated with the FWW and keep her feet inside of the device, gait training performed in her room due to the limitations of her many lines today Stair Climbing Assessment Comments Stair Climbing Comments not assessed today PT-Balance Assessment Sitting Balance and Reactions Static Sitting Balance Ability Normal Dynamic Sitting Balance Ability Good Standing Balance and Reactions Static Standing Balance Ability Good Dynamic Standing Balance Ability Fair Device Used FWW M5 PT-IP Objective Assessments Start: 05/03/22 16:53 Freq: NEEDED Status: Active Protocol: Document 05/03/22 15:36 DLM (Rec: 05/03/22 17:09 [facility] [id number]) Orientation Orientation/Cognition Level of Alertness Alert Orientation Name,Age,Birthday,Month,Date, Year,Day of Week,Place, Situation Language Function Ability No Deficits Noted Safety Awareness Understands Safety Issues Memory Description Short Term Impaired Comments she defers to her Spouse for some more complicated questions about how she does things at home, pt reports feeling like it is hard to take deep breaths today Gross Range of Motion Upper Extremity ROM Assessment Within Functional Limits Lower Extremity ROM Assessment Within Functional Limits Impairments mild ankle stiffness that affects DF Strength Upper Extremity Strength Assessment Within Functional Limits Lower Extremity Strength Assessment Within Functional Limits Coordination Assessment Gross Coordination Gross Coordination Impaired Assessment Coordination Comments mild bradykinetic Sensation Assessment Sensation Gross Sensation WNL Muscle Tone Comments Muscle Tone Comments mild tremors in LE's standing without device M6 PT-IP Treatment Start: 05/03/22 16:53 Freq: NEEDED Status: Active Protocol: Document 05/03/22 15:36 DLM (Rec: 05/03/22 17:09 DL [id number]) Physical Therapy Treatment Exercises Exercises Ankle Pumps,Shoulder Flexion Education Education Provided Safety Other Treatments Other Treatment Performed Her Spouse was present for therapy session today M7 PT-IP Assessment and Plan Start: 05/03/22 16:53 Freq: NEEDED Status: Active Protocol: Document 05/03/22 15:36 DLM (Rec: 05/03/22 17:09 DL [id number]) PT Summary Assessment and Plan Potential Rehabilitation Potential Good Status of Condition at Evaluation Evolving Summary Impairments Strength,Balance,Coordination, Bed Mobility,Transfers,Gait, Activity Tolerance Assessment Summary Rhonda is alert and sitting up in the recliner. She describes getting tired faster than normal but otherwise tolerated activity well today. She was able to ambulate in her room with the FWW and one person assist. Her Spouse is prepared to assist her at home and can provide 24/7 assist as needed. She could benefit from home health PT to further assist in her functional recovery. She is below her baseline in functional mobility and gait. There are reports of increased left sided weakness related to her infection but this appears to be resolving and was not identified on this clinical exam. Goals Bed Mobility Goal Independent Transfer Goal Independent,Front Wheeled Walker Gait Goal Independent,Front Wheel Walker Gait Distance 100 feet Other Goals UP and down 6 steps with rail and min assist Days to Meet Goals 3 Frequency of Treatment Frequency Of Treatment Once a Day Treatment Plan Physical Therapy Treatment Plan Bed Mobility Training,Transfer Training,Gait Training, Therapeutic Exercise,Balance Retraining,Discharge Planning, Neuromuscular Re-ed Precautions Other Precautions fall risk, has hx of MS Recommendations To Nursing Amount of Assist Needed 1 Person Assist Discharge Recommendations PT Discharge Recommendations Home with Assistance Transportation Needs at Discharge Private Vehicle
[2022-05-03] MEDS: cefTRIAXone 1,000 MG in SODIUM CHLORIDE 0.9% 100 ML 200 MG IV (17:05)
[2022-05-03] MEDS: LACTATED RINGERS 1,000 ML 100 ML IV (19:09)
--- NOTE | 2022-05-03 19:58 | PM.ICURNDS ---
- Date Patient Seen: 05/03/22 Time Patient Seen: 20:03 :: This patient was seen via real time interactive two-way audiovisual telecommunication. Note: Pateint off levophed since 1 pm w/ MAP > 65. Patient complains of epigastric discomfort. Added protonix given patient was started on pulse steroids. D/w patient and RN at bedside.
[2022-05-03] MEDS: DOXEPIN 75 MG PO (21:02)
[2022-05-03] MEDS: PANTOPRAZOLE DR 40 MG TABLET PO (21:02)
[2022-05-03] MEDS: ACETAMINOPHEN 325 MG TABLET 650 MG PO (22:20)
[2022-05-03] MEDS: SUMAtriptan 25 MG TABLET 50 MG PO (23:54)
[2022-05-04] VITALS (39 sets, daily range): BP systolic 96–156; BP diastolic 60–86; PULSE 67–108; RESP 4–35; TEMP 32–37; O2SAT 89–97
[2022-05-04] MEDS: FUROSEMIDE 40 MG/4 ML VIAL IV ×3 (00:29→17:56)
--- NOTE | 2022-05-04 00:35 | PC.NURSE ---
Addendum entered by Felicitas Preston R.N. 05/04/22 06:48: As preceptor, I agree with Betsey Marshall assessment, interventions, and documentation. Addendum entered by Betsey Sanchez R.N. 05/04/22 06:34: Pt continued to have trouble breathing after Lasix was given. Manager Of Construction was notified. An ABG, CXR and an additional dose of lasix was ordered, along with the addition of the Bipap and to stop the LR. Original Note: Pt complaining of shortness of breath. Lung sounds heard were expiratory wheezes and crackles. Roberto SULLIVAN was notified and ordered a treatment from RT. Manager Of Construction also notified and 40 mg of IV Lasix was ordered and given. Pt also complaining of migraines. PO narco nor tylenol helped. Roberto SULLIVAN notified and ordered Sumatriptan for headaches.
[2022-05-04 05:26] LABS: Add Manual Diff / Slide Review NO; Basophils Absolute Auto 0 /uL (0-100); Basophils Percent Auto 0.1 % (0-2); Eosinophils Absolute Auto 0 /uL (0-450); Lymphocytes Absolute Auto 1200 /uL (1100-4500); Lymphocytes Percent Auto 5.6 % (25-40); Mean Corpuscular HGB Conc 33.4 % (30-36); Mean Corpuscular Hemoglobin 29.2 PG (26-34); Mean Corpuscular Volume 87.5 fL (80-100); Monocytes Absolute Auto 700 /uL (0-900); Monocytes Percent Auto 3.4 % (3-14); Neutrophils Absolute Auto 19500 /uL (1500-7000); Neutrophils Percent Auto 90.9 % (50-75); Platelet Count 253 X10^3/uL (150-400); Red Blood Cell Count 3.08 X10^6/uL (4.0-5.2); Red Cell Distribution Width 13.6 % (11.6-14.8); White Blood Cell Count 21.4 X10^3/uL (4.5-11.0)
[2022-05-04 05:35] LABS: Alanine Aminotransferase 25 IU/L (<35); Albumin 3.2 g/dL (3.5-5.0); Albumin Globulin Ratio 1.3 (1.0-2.8); Alkaline Phosphatase 52 U/L (38-126); Aspartate Aminotransferase 19 IU/L (14-36); BUN Creatinine Ratio 29.1 (6-22); Bilirubin Total 0.3 mg/dL (0.2-1.3); Blood Urea Nitrogen 23 mg/dL (7-17); Calcium 8.5 mg/dL (8.4-10.2); Carbon Dioxide 27 mmol/L (22-32); Chloride 101 mmol/L (98-107); Estimated Glomerular Filt Rate > 60 mL/min (>60); Globulin 2.4 g/dL (1.7-4.1); Glucose 138 mg/dL (80-110); HEMOLYSIS < 15 (0-50); Magnesium 1.8 mg/dL (1.6-2.3); Sodium 136 mmol/L (137-145); Total Protein 5.6 g/dL (6.3-8.2)
--- NOTE | 2022-05-04 05:52 | DI.RAD.S_ITS ---
PROCEDURE: XR CHEST 1V INDICATIONS: SOB TECHNIQUE: One view of the chest was acquired. COMPARISON: [facility], CT, CT CHEST ABD PEL W CON, 05/02/2022, 8:15. [facility], CR, XR CHEST 1V, 05/01/2022, 22:59. [facility], CR, CHEST 2 VIEW, 10/18/2017, 13:23. FINDINGS: Surgical changes and devices: Right IJ central venous line with the catheter tip projecting at right atrium. Lungs and pleura: Lower lung volumes. Wispy pulmonary markings bilaterally. No pleural effusions or pneumothorax. Mediastinum: Mediastinal contours appear unchanged. Heart size is within normal limits. Bones and chest wall: No suspicious bony lesions. Overlying soft tissues appear unremarkable. IMPRESSION: Right IJ central venous line with the catheter tip projecting at the right atrium. Mild fluid overload/CHF is suspected. Pneumonia felt to be less likely. No significant discrepancy with the overnight preliminary interpretation. Dictated by: Jayme Draper M.D. on 05/04/2022 at 7:57 Approved by: Jayme Draper M.D. on 05/04/2022 at 8:01
[2022-05-04] MEDS: MIDODRINE HCL 5 MG TABLET 10 MG PO ×3 (06:04→17:56)
[2022-05-04] MEDS: PANTOPRAZOLE DR 40 MG TABLET PO (06:04)
--- NOTE | 2022-05-04 06:05 | DI.MRI.S_ITS ---
PROCEDURE: MR HEAD/BRAIN WO CON INDICATIONS: Neuro symptoms in MS TECHNIQUE: Non-contrast axial T1 spin echo, axial T2 fast spin echo, sagittal and axial FLAIR, coronal T2 fast spin echo, axial gradient echo, axial diffusion and ADC through the brain. COMPARISON: [facility], CT, CT STROKE, 05/01/2022, 22:38. [facility], MR, MR HEAD/BRAIN WO/W CON, 02/10/2019, 12:53. [facility], MR, MR BRAIN WITHOUT CONTRAST, 01/02/2018, 8:51. [facility], MR, BRAIN WITHOUT CONTRAST, 03/26/2017, 12:59. FINDINGS: Image quality: Excellent. CSF spaces: Ventricles appear symmetric in size and shape. Basal cisterns are patent. No extra-axial fluid collections. Brain: No intracranial bleeds or mass effects. There is cerebral volume loss for age. Age-appropriate brain parenchymal volume loss is seen. Several foci of T2 weighted hyperintensity can be seen within the periventricular and deep white matter. A few of the periventricular lesions demonstrate a perpendicular orientation to the lateral ventricles. There is involvement of the corpus callosum. Brainstem appears normal. Diffusion-weighted images show no acute ischemic insults. No chronic ischemic insults. Normal intravascular flow voids are present. Skull and face: Calvarial bone marrow is normal in signal. Orbits are normal. Sinuses: Sinuses and mastoids are clear. IMPRESSION: No findings of acute or subacute infarction can be seen. Multiple foci of T2 weighted hyperintensity are seen, which are similar to prior studies and are consistent with the given clinical history of multiple sclerosis. Dictated by: Jere Rivera M.D. on 05/05/2022 at 11:58 Approved by: Jere Rivera M.D. on 05/05/2022 at 12:01
--- NOTE | 2022-05-04 07:25 | PM.PN.1 ---
Subjective Subjective Date Patient Seen: 05/04/22 Interval history: 66-year-old female with multiple sclerosis, hypertension and fibromyalgia who was admitted early yesterday morning with septic shock secondary to UTI.? She was requiring pressors yesterday but was placed on midodrine and the Levophed was weaned off over the course of the evening yesterday. Overnight, patient developed sudden onset of shortness of breath. Chest x-ray revealed pulmonary edema with evidence of volume overload. She was placed on BiPAP and given furosemide 40 mg IV a little after midnight and a 2nd dose around 6:00 a.m.. She had only diuresed about 1800 cc by this morning. She reports some persistent blurriness in her left eye. She does complain of feeling short of breath. She would like to have the BiPAP removed. Exam Vital Signs (past 8 hours): - 05/03/22 23:31 05/04/22 00:00 05/04/22 01:00 Temperature Pulse Rate 101 H Respiratory Rate 22 Blood Pressure Pulse Oximetry 90 L Oxygen Delivery Method Nasal Cannula Oxygen Flow Rate 3 Fraction of Inspired Oxygen 05/03/22 23:56 05/03/22 23:56 05/04/22 00:01 Temperature Pulse Rate 105 H 104 H Respiratory Rate 32 H 30 H Blood Pressure 131/67 Pulse Oximetry 92 92 Oxygen Delivery Method Oxygen Flow Rate Fraction of Inspired Oxygen 05/04/22 00:01 05/04/22 01:07 05/04/22 01:07 Temperature Pulse Rate 103 H Respiratory Rate 30 H Blood Pressure 142/82 H 115/74 Pulse Oximetry 90 L Oxygen Delivery Method Oxygen Flow Rate Fraction of Inspired Oxygen 05/04/22 01:08 05/04/22 03:00 05/04/22 02:00 Temperature Pulse Rate 98 H Respiratory Rate 18 Blood Pressure 142/75 H Pulse Oximetry 93 Oxygen Delivery Method Oxygen Flow Rate 3 Fraction of Inspired Oxygen 05/04/22 02:00 05/04/22 02:55 05/04/22 02:55 Temperature Pulse Rate 89 91 H Respiratory Rate 15 13 Blood Pressure 155/76 H Pulse Oximetry 94 91 Oxygen Delivery Method Oxygen Flow Rate Fraction of Inspired Oxygen 05/04/22 02:59 05/04/22 04:00 05/04/22 04:00 Temperature Pulse Rate 90 Respiratory Rate 13 Blood Pressure Pulse Oximetry 93 Oxygen Delivery Method Room Air Oxygen Flow Rate 3 Fraction of Inspired Oxygen 05/04/22 04:00 05/04/22 04:00 05/04/22 04:46 Temperature Pulse Rate 94 H 94 H Respiratory Rate 14 14 Blood Pressure 139/86 Pulse Oximetry 94 94 Oxygen Delivery Method Oxygen Flow Rate Fraction of Inspired Oxygen 05/04/22 06:00 05/04/22 06:15 05/04/22 06:00 Temperature 97.7 F Pulse Rate 100 H 108 H Respiratory Rate 24 29 H Blood Pressure 127/66 Pulse Oximetry 97 89 L Oxygen Delivery Method Oxygen Flow Rate Fraction of Inspired Oxygen 50 05/04/22 06:00 05/04/22 06:52 05/04/22 06:10 Temperature Pulse Rate 94 H Respiratory Rate 17 Blood Pressure 127/66 127/66 Pulse Oximetry 97 Oxygen Delivery Method Oxygen Flow Rate Fraction of Inspired Oxygen 50 Fraction of Inspired Oxygen 50 Oxygen Delivery Method Room Air Oxygen Flow Rate 3 Narrative Exam Narrative: GEN: Alert and oriented x 3, tachypneic HEENT:NC, Face symmetric CHEST: Respiratory excursions symmetric, coarse and diminished throughout, crackles heard anteriorly CV: RRR, no M/R/G ABD: Soft, NT/moderately distended, BT present in all 4 quadrants, no organomegaly or masses EXTR: warm, well perfused, no C/C/E, generalized edema, nonpitting noted to lower extremities, hips, and hands SKIN: warm and dry, no rash NEURO: Alert and oriented x 3, nonfocal Objective Labs Result Diagrams: 05/04/22 04:55 05/04/22 16:25 Labs: Laboratory Results - last 24 hr 05/03/22 05/04/22 05/04/22 05:45 04:55 04:55 WBC 21.4 H RBC 3.08 L Hgb 9.0 L Hct 27.0 L MCV 87.5 MCH 29.2 MCHC 33.4 RDW 13.6 Plt Count 253 Neut % (Auto) 90.9 H Lymph % (Auto) 5.6 L [place] % (Auto) 3.4 Eos % (Auto) 0.0 L Baso % (Auto) 0.1 Neut # (Auto) 61048 H Lymph # (Auto) 1200 [place] # (Auto) 700 Eos # (Auto) 0 Baso # (Auto) 0 Sodium 136 L 136 L Potassium 3.3 L 4.0 Chloride 107 101 Carbon Dioxide 27 27 BUN 12 23 H Creatinine 0.71 0.79 Estimated GFR > 60 > 60 BUN/Creatinine Ratio 16.9 29.1 H Glucose 146 H 138 H Calcium 7.7 L 8.5 Magnesium 1.9 1.8 Total Bilirubin 0.5 0.3 AST 24 19 ALT 26 25 Alkaline Phosphatase 51 52 Total Protein 5.0 L 5.6 L Albumin 2.7 L 3.2 L Globulin 2.3 2.4 Albumin/Globulin Ratio 1.2 1.3 PFSH Medical History Cholelithiasis Hx of fracture of ankle Major depressive disorder, recurrent episode, severe Major depressive disorder, recurrent, moderate Surgical History History of carpal tunnel release of both wrists Hx of hysterectomy Family History Mother Cardiac arrest Father Colitis Social History household members: spouse Smoking Status: Never smoker Assessment & Plan Assessment & Plan narrative: 1. Acute hypoxic respiratory failure Likely secondary to volume overload related to fluid resuscitation for her septic shock. She is diuresing reasonably well at this time. Will continue BiPAP for now. Continue diuresis as tolerated. Wean to nasal cannula oxygen when able. 2. Septic shock Resolved with the addition of midodrine. She did receive IV albumin yesterday. Etiology of the septic shock is E coli UTI, pansensitive.?CSF and blood cultures have been negative to date.? Echo results revealed a normal LVEF.? Sinus tachycardia.? Mild TR.? RVSP of at least 33 mm Hg. 2. E coli UTI On Rocephin. 3. Multiple sclerosis with flare Continue usual dose of gabapentin.? Continue Solu-Medrol 1 g IV daily, day 2/3. Plan for MRI of the brain today, but will hopefully be able to do it later today if she can wean off of the BiPAP. 4. Leukocytosis White blood cell count up.? Likely persistent elevation related to steroids.? 5. Normocytic anemia Hemoglobin is now down to 9 from 9.8 yesterday and 10.9 the day before. Likely hemodilution all. Anticipate this will improve with diuresis., 6. Hypokalemia Improved with repletion. Given diuresis, will monitor. 7. Depression Continue doxepin, fluoxetine, and risperidone. 8. Steroid induced Hyperglycemia Blood sugar on this morning's labs was 138. Up to 211 this afternoon. As she will only receive 1 more dose of high-dose IV Solu-Medrol, will defer fingersticks. Resolved issues: Hypermagnesemia Code status Full Prophylaxis Continue Lovenox Disposition Continued inpatient ICU stay. Time Spent With Patient Critical Care time: I spent a total of [] minutes of critical care time on this patient's care today; this time is exclusive of procedural time.
--- NOTE | 2022-05-04 07:30 | DI.US.S_ITS ---
PROCEDURE: US PERIPH VENOUS LOW EXTREM BI INDICATIONS: EDEMA TECHNIQUE: Real-time imaging, as well as color and pulse Doppler interrogation, were performed of the deep veins of both legs from the inguinal ligament to the popliteal fossa. COMPARISON: [facility], CR, XR CHEST 1V, 05/04/2022, 6:06. FINDINGS: Right: The common femoral, femoral and popliteal veins are normally compressible, and free of intraluminal thrombus. Color and pulse Doppler demonstrate normal phasic intravascular flow. There is normal augmentation response to distal compression maneuver. Left: The common femoral, femoral and popliteal veins are normally compressible, and free of intraluminal thrombus. Color and pulse Doppler demonstrate normal phasic intravascular flow. There is normal augmentation response to distal compression maneuver. IMPRESSION: Negative for deep venous thrombosis. Dictated by: Jere Rivera M.D. on 05/04/2022 at 7:55 Approved by: Jere Rivera M.D. on 05/04/2022 at 7:56
[2022-05-04] MEDS: ENOXAPARIN 40 MG/0.4 ML SYRINGE SUBCUT (09:32)
[2022-05-04] MEDS: HYDROCODONE/ACET 5/325 TABLET 1 TAB PO (09:35)
[2022-05-04] MEDS: risperiDONE 0.25 MG TABLET 0.5 MG PO (09:35)
[2022-05-04] MEDS: GABAPENTIN 300 MG CAPSULE PO ×3 (09:35→20:43)
[2022-05-04] MEDS: FLUoxetine 20 MG CAPSULE PO ×2 (09:35→20:43)
[2022-05-04] MEDS: SODIUM CHLORIDE 0.9% FLUSH 10 ML IV ×2 (09:36→20:50)
--- NOTE | 2022-05-04 09:54 | P.TELICUPN_ITS ---
Subjective Subjective Consent obtained for tele-recovery auditor care: Yes Patient Location: ICU Provider location (State): [place] Other participants/roles: [facility] Current Medications Current Medications Medications: Home Medications cholecalciferol (vitamin D3) 25 mcg (1,000 unit) capsule 25 mcg PO DAILY 07/28/20 [History Confirmed 05/02/22] magnesium hydroxide 400 mg (170 mg magnesium) chewable tablet 400 mg PO DAILY 07/28/20 [History Confirmed 05/02/22] mecobalamin (vitamin B12) 1,000 mcg chewable tablet 1,000 mcg PO DAILY 07/28/20 [History Confirmed 05/02/22] famotidine 20 mg tablet 20 mg PO DAILY #90 tabs 08/14/21 [Rx Confirmed 05/02/22] telmisartan 80 mg tablet 80 mg PO DAILY #90 tabs 08/14/21 [Rx Confirmed 05/02/22] fluoxetine 20 mg capsule 40 mg PO QDAY #180 caps 08/20/21 [Rx Confirmed 05/02/22] gabapentin 300 mg capsule 300 mg PO TID #270 caps 08/21/21 [Rx Confirmed 05/02/22] doxepin 75 mg capsule 75 mg PO HS #90 caps 08/31/21 [Rx Confirmed 05/02/22] nitrofurantoin macrocrystal 100 mg capsule 100 mg PO DAILY 10/16/21 [History Confirmed 05/02/22] trospium 60 mg capsule,extended release 24 hr 60 mg PO DAILY 10/16/21 [History Confirmed 05/02/22] hydrochlorothiazide 25 mg tablet 25 mg PO DAILY #90 tabs 11/05/21 [Rx Confirmed 05/02/22] risperidone 0.5 mg tablet See Rx Instructions .Route .COMPLEX #405 tabs 03/07/22 [Rx Confirmed 05/02/22] methocarbamol 500 mg tablet 500 mg PO TID PRN muscle spasm 03/19/22 [History Confirmed 05/02/22] promethazine 25 mg tablet 25 mg PO TID PRN nausea #30 tabs 04/15/22 [Rx Confirmed 05/02/22] rizatriptan 10 mg tablet See Rx Instructions .Route .COMPLEX #6 tabs 04/15/22 [Rx Confirmed 05/02/22] estradiol 0.01% (0.1 mg/gram) vaginal cream 1 g vaginal 2XW #42.5 grams 04/30/22 [Rx Confirmed 05/02/22] Visit Medications (administered) Generic Name Dose Route Start Last Admin Trade Name Bala PRN Reason Stop Dose Admin Acetaminophen 650 mg 05/02/22 02:25 05/03/22 22:20 Acetaminophen 325 Mg Tablet PO 650 mg Q6HR PRN Administration Fever/Mild Pain (1-3) Hydrocodone Bitart/Acetaminophen 1 tab 05/02/22 12:55 05/04/22 09:35 Hydrocodone/Acet 5/325 Tablet PO 1 tab Q4HR PRN Administration Pain, Moderate (4-6) Doxepin HCl 75 mg 05/02/22 03:30 05/03/22 21:02 Doxepin 75 Mg Capsule PO 75 mg BEDTIME ADRIANA Administration Enoxaparin Sodium 40 mg 05/02/22 09:00 05/04/22 09:32 Enoxaparin 40 Mg/0.4 Ml Syringe SUBCUT 40 mg DAILY ADRIANA Administration Fluoxetine HCl 20 mg 05/02/22 09:00 05/04/22 09:35 Fluoxetine 20 Mg Capsule PO 20 mg BID ADRIANA Administration Gabapentin 300 mg 05/02/22 09:00 05/04/22 09:35 Gabapentin 300 Mg Capsule PO 300 mg TID ADRIANA Administration NOREPINEPHRINE BITARTRATE/D5W 4 mg in 250 mls @ 30 mls/hr 05/02/22 07:24 05/03/22 13:08 Levophed IV 0 mcg/min TITRATE ADRIANA 0 mls/hr Titration Protocol 8 MCG/MIN Vasopressin 40 unit/ Sodium 102 mls @ 6.12 mls/hr 05/02/22 09:11 05/02/22 11:09 Chloride INJ Not Given TITRATE ADRIANA 0.04 UNIT/MIN Methylprednisolone 1,000 mg/ 258 mls @ 258 mls/hr 05/03/22 11:15 05/03/22 19:28 Sodium Chloride IV 05/05/22 12:14 Infused Q24H ADRIANA Infusion Ceftriaxone Sodium 1,000 mg/ 100 mls @ 200 mls/hr 05/03/22 17:00 05/03/22 19:29 Sodium Chloride IV 05/09/22 17:29 Infused Q24H ADRIANA Infusion Insulin Human Lispro 0 unit 05/02/22 11:45 05/04/22 08:20 Insulin Lispro 100 Unit/Ml 3ml Vial SUBCUT Not Given ACHS [facility] Protocol Midodrine 10 mg 05/03/22 12:00 05/04/22 06:04 Midodrine Hcl 5 Mg Tablet PO 10 mg 0600,1200,1800 ADRIANA Administration Pantoprazole Sodium 40 mg 05/03/22 20:05 05/04/22 06:[address] 40 Mg Tablet PO 40 mg 0700 ADRIANA Administration Risperidone 0.5 mg 05/02/22 09:00 05/04/22 09:35 Risperidone 0.25 Mg Tablet PO 0.5 mg DAILY ADRIANA Administration Risperidone 0.25 mg 05/02/22 12:00 05/03/22 21:02 Risperidone 0.25 Mg Tablet PO 0.25 mg 1200,2100 ADRIANA Administration Sodium Chloride 10 ml 05/02/22 09:00 05/04/22 09:36 Sodium Chloride 0.9% Flush IV 10 ml BID ADRIANA Administration Sumatriptan Succinate 50 mg 05/03/22 23:29 05/03/22 23:54 Sumatriptan 25 Mg Tablet PO 50 mg Q2H PRN Administration Headache Objective Ventilator Parameters: Ventilator Settings FiO2 0.50 Labs Result Diagrams: 05/04/22 04:55 05/04/22 04:55 Labs: Laboratory Results - last 24 hr 05/04/22 05/04/22 04:55 04:55 WBC 21.4 H RBC 3.08 L Hgb 9.0 L Hct 27.0 L MCV 87.5 MCH 29.2 MCHC 33.4 RDW 13.6 Plt Count 253 Neut % (Auto) 90.9 H Lymph % (Auto) 5.6 L [place] % (Auto) 3.4 Eos % (Auto) 0.0 L Baso % (Auto) 0.1 Neut # (Auto) 58256 H Lymph # (Auto) 1200 [place] # (Auto) 700 Eos # (Auto) 0 Baso # (Auto) 0 Sodium 136 L Potassium 4.0 Chloride 101 Carbon Dioxide 27 BUN 23 H Creatinine 0.79 Estimated GFR > 60 BUN/Creatinine Ratio 29.1 H Glucose 138 H Calcium 8.5 Magnesium 1.8 Total Bilirubin 0.3 AST 19 ALT 25 Alkaline Phosphatase 52 Total Protein 5.6 L Albumin 3.2 L Globulin 2.4 Albumin/Globulin Ratio 1.3 Exam Vital Signs (past 8 hours): - 05/04/22 03:00 05/04/22 02:00 05/04/22 02:00 Temperature Pulse Rate 89 Respiratory Rate 15 Blood Pressure 142/75 H Pulse Oximetry 94 Oxygen Delivery Method Oxygen Flow Rate 3 Fraction of Inspired Oxygen 05/04/22 02:55 05/04/22 02:55 05/04/22 02:59 Temperature Pulse Rate 91 H 90 Respiratory Rate 13 13 Blood Pressure 155/76 H Pulse Oximetry 91 93 Oxygen Delivery Method Oxygen Flow Rate Fraction of Inspired Oxygen 05/04/22 04:00 05/04/22 04:00 05/04/22 04:00 Temperature Pulse Rate Respiratory Rate Blood Pressure 139/86 Pulse Oximetry Oxygen Delivery Method Room Air Oxygen Flow Rate 3 Fraction of Inspired Oxygen 05/04/22 04:00 05/04/22 04:46 05/04/22 06:00 Temperature Pulse Rate 94 H 94 H 100 H Respiratory Rate 14 14 24 Blood Pressure 127/66 Pulse Oximetry 94 94 97 Oxygen Delivery Method Oxygen Flow Rate Fraction of Inspired Oxygen 50 05/04/22 06:15 05/04/22 06:00 05/04/22 06:00 Temperature 97.7 F Pulse Rate 108 H Respiratory Rate 29 H Blood Pressure 127/66 Pulse Oximetry 89 L Oxygen Delivery Method Oxygen Flow Rate Fraction of Inspired Oxygen 05/04/22 06:52 05/04/22 06:10 05/04/22 07:00 Temperature Pulse Rate 94 H 91 H Respiratory Rate 17 17 Blood Pressure 127/66 Pulse Oximetry 97 97 Oxygen Delivery Method Oxygen Flow Rate Fraction of Inspired Oxygen 50 05/04/22 07:30 05/04/22 08:00 05/04/22 08:00 Temperature Pulse Rate 90 94 H Respiratory Rate 15 20 Blood Pressure 143/75 H Pulse Oximetry 97 97 Oxygen Delivery Method Oxygen Flow Rate Fraction of Inspired Oxygen 05/04/22 08:00 05/04/22 08:30 05/04/22 09:00 Temperature Pulse Rate 92 H 94 H Respiratory Rate 16 32 H Blood Pressure Pulse Oximetry 97 97 Oxygen Delivery Method BiPAP Oxygen Flow Rate Fraction of Inspired Oxygen 05/04/22 09:20 05/04/22 09:36 Temperature Pulse Rate 81 Respiratory Rate 26 H Blood Pressure 143/75 H Pulse Oximetry 94 Oxygen Delivery Method High Flow Nasal Cannula Oxygen Flow Rate Fraction of Inspired Oxygen 40 Fraction of Inspired Oxygen 40 Oxygen Delivery Method High Flow Nasal Cannula Oxygen Flow Rate 3 Assessment & Plan Assessment & Plan narrative: pt seen with bedisde nurse and provider chart/labs/imaging reviewed HR improved, off prssors on bipap for pulmonary edema 66 year old female with ams possible septic shock 2/2 to UTI vs other dehydration/volume depletion MS flair pulmonary edema/volume overload suggest -neurochecks/seizure precautions -avoid sedatives -MRI still pending, pt is on bipap now -dc ivf -lasix 40mg gave this am, can give more this afternoon -bipap prn, keep sat above 92% -can set map goal to 60-65 -continue midodrine 10mg tid -cotinue solumedrol 1g daily -echo done results pending -venoux duplex -ve for dvt -continue rocephin -monitor ins/outs -replace lytes prn -keep glucose 140-180s -gi/dvt ppx -please call eICU if condition changes Time Spent With Patient Critical Care time: I spent a total of [] minutes of critical care time on this patient's care today; this time is exclusive of procedural time.
[2022-05-04] MEDS: SUMAtriptan 25 MG TABLET 50 MG PO (10:23)
--- NOTE | 2022-05-04 12:08 | PT.IPNOTE ---
Pt on Bipap this morning with fluid over-load. Holding physical therapy treatment this AM. Will follow up this afternoon when pt ready to progress her activity level.
--- NOTE | 2022-05-04 12:16 | OT.IPNOTE ---
Pt just being taken off BiPAp, able to talk to nursing and states best to try later to work with the pt. Nursing able to assist pt with ADl needs and PT to check on the pt later.
[2022-05-04] MEDS: risperiDONE 0.25 MG TABLET PO ×2 (12:28→20:44)
[2022-05-04] MEDS: methylPREDNISolone 1,000 MG in SODIUM CHLORIDE 0.9% 250 ML 258 MG IV (12:28)
[2022-05-04] MEDS: INSULIN LISPRO 100 UNIT/ML 3ML VIAL SUBCUT ×3 (12:28→20:47)
--- NOTE | 2022-05-04 15:22 | PT.IPTN ---
Current Diagnoses Sepsis, unspecified organism (05/02/22) Physical Therapy Treatment Note M2 PT-IP Current Condition Start: 05/03/22 16:53 Freq: NEEDED Status: Active Protocol: Document 05/03/22 15:36 DLM (Rec: 05/03/22 17:09 DLM [id number]) Physical Therapy Current Condition Current Condition Evaluation Date 05/03/22 Treatment Diagnosis UTI, septic, impaired gait and mobility Onset Date 05/02/22 M3 PT-IP Subjective Start: 05/03/22 16:53 Freq: NEEDED Status: Active Protocol: Document 05/04/22 15:22 DLM (Rec: 05/04/22 15:49 DL [id number]) Subjective Physical Therapy Visit Type Type Treatment Note Visit Start Time 14:37 Visit Stop Time 15:22 Total Visit Minutes 45 Number of AUTO INSPECTOR Visits 0 Physical Therapy Visit Comments Patient Comments She wants to walk in the kim. She had a migraine last night and did not sleep well. Patient Goals she wants to be able to go home M4 PT-IP Mobility and Gait Start: 05/03/22 16:53 Freq: NEEDED Status: Active Protocol: Document 05/04/22 15:22 DLM (Rec: 05/04/22 15:49 DL [id number]) PT-Bed Mobility Assessment Rolling Level of Assist Standby Assistance Supine to Sit Supine to Sit Standby Assistance Scooting Scooting to Edge of Bed Independent PT-Transfer Assessment Sit to and From Stand Sit to and from Stand Standby Assistance,Use of Upper Extremities Equipment Transfer Assistive Device Gait Belt,Front Wheeled Walker Transfers Transfer Destination Chair Transfer Technique Stand Step Pivot Transfer Ability Level of Assist Standby Assistance,Use of Upper Extremities Comments Mobility Comments she needs reminders to keep the FWW close when fully backing up to the recliner and use UE's on the armrests for safety Gait Assessment Gait Gait Assistance Required: Standby Assistance Distance (Feet) 140 Assistive Devices Assistive Device Gait Belt,Front Wheeled Walker Factors Limiting Gait Function Factors Limiting Gait Function Decreased Activity Tolerance, Decreased Strength,Poor Balance Comments Gait Comments pt up to recliner this visit. She did two laps in the kim ( 2 x 140 feet) with seated rest between gait trials. Pt on 5 LPM of oxygen today. PT-Balance Assessment Sitting Balance and Reactions Static Sitting Balance Ability Normal Dynamic Sitting Balance Ability Good Standing Balance and Reactions Static Standing Balance Ability Good Dynamic Standing Balance Ability Good Device Used FWW M5 PT-IP Objective Assessments Start: 05/03/22 16:53 Freq: NEEDED Status: Active Protocol: Document 05/04/22 15:22 DLM (Rec: 05/04/22 15:49 DL [id number]) Orientation Orientation/Cognition Level of Alertness Alert Orientation Name,Age,Birthday,Month,Date, Year,Day of Week,Place, Situation Language Function Ability No Deficits Noted Safety Awareness Understands Safety Issues Memory Description No Deficits Noted M6 PT-IP Treatment Start: 05/03/22 16:53 Freq: NEEDED Status: Active Protocol: Document 05/04/22 15:22 DLM (Rec: 05/04/22 15:49 DL [id number]) Physical Therapy Treatment Exercises Exercises Ankle Pumps,Shoulder Flexion Other Treatments Other Treatment Performed Seated LE ex: marching and knee ext x 10 reps each LE M7 PT-IP Assessment and Plan Start: 05/03/22 16:53 Freq: NEEDED Status: Active Protocol: Document 05/04/22 15:22 DLM (Rec: 05/04/22 15:49 [facility] [id number]) PT Summary Assessment and Plan Summary Impairments Strength,Balance,Coordination, Bed Mobility,Transfers,Gait, Activity Tolerance Progress Towards Goals Progressing Toward Goals Assessment Summary Rhonda is alert and resting in bed. She is off BIPAP at this time and using 5 LPM of oxygen. She continues to feel she has additional swelling today. She tolerated gait in the kim well with the FWW. She is eager to increase her activity level. Her Spouse is visiting most of the day. Continue to plan for discharge home with spouse to assist as needed. Goals Bed Mobility Goal Independent Transfer Goal Independent,Front Wheeled Walker Gait Goal Independent,Front Wheel Walker Gait Distance 100 feet Other Goals UP and down 6 steps with rail and min assist Days to Meet Goals 3 Frequency of Treatment Frequency Of Treatment Once a Day Treatment Plan Physical Therapy Treatment Plan Bed Mobility Training,Transfer Training,Gait Training, Therapeutic Exercise,Balance Retraining,Discharge Planning, Neuromuscular Re-ed Precautions Other Precautions fall risk, has hx of MS Recommendations To Nursing Amount of Assist Needed 1 Person Assist Discharge Recommendations PT Discharge Recommendations Home with Assistance Transportation Needs at Discharge Private Vehicle
[2022-05-04 16:45] LABS: BUN Creatinine Ratio 35.7 (6-22); Blood Urea Nitrogen 30 mg/dL (7-17); Calcium 8.8 mg/dL (8.4-10.2); Carbon Dioxide 27 mmol/L (22-32); Chloride 100 mmol/L (98-107); Estimated Glomerular Filt Rate > 60 mL/min (>60); Glucose 211 mg/dL (80-110); HEMOLYSIS < 15 (0-50); Potassium 3.9 mmol/L (3.4-5.1); Sodium 133 mmol/L (137-145)
[2022-05-04] MEDS: cefTRIAXone 1,000 MG in SODIUM CHLORIDE 0.9% 100 ML 200 MG IV (16:54)
[2022-05-04 18:46] LABS: Fractionated Inspired Oxygen 50; HCO3 ABG 25 mmol/L (22-26); Oxygen Saturation ABG 97 % (95-100); PCO2 ABG 40.5 mmHg (35-45); PO2 ABG 89 mmHg (80-100); TCO2 ABG 27 mmol/L (21-31)
[2022-05-04] MEDS: DOXEPIN 75 MG PO (20:44)
--- NOTE | 2022-05-04 20:46 | PM.ICURNDS ---
- :: This patient was seen via real time interactive two-way audiovisual telecommunication. patient on HFNC at reduced shannan and fio2. states she is feeling better. contiues to be diuresed and bipap is at bedside. Pending MRI tomorrow. Overall imrpoivng with negative balance. on GI and dvt ppx.
[2022-05-05] VITALS (7 sets, daily range): BP systolic 124–145; BP diastolic 67–80; PULSE 66–98; RESP 11–20; TEMP 36.4–37.1; O2SAT 91–96
--- NOTE | 2022-05-05 03:15 | RT ---
Pt used BiPAP for approx. 7 hours tonight. At 0315, noted pt on 4L NC, tolerating well, SPO2 WNL, no apparent resp. distress noted, will cont. to monitor.
[2022-05-05] MEDS: MIDODRINE HCL 5 MG TABLET 10 MG PO (06:22)
--- NOTE | 2022-05-05 07:18 | P.PN_ITS ---
Subjective Subjective Date Patient Seen: 05/05/22 Interval history: 66-year-old female with multiple sclerosis, hypertension and fibromyalgia who was admitted early yesterday morning with septic shock secondary to UTI.? She was requiring pressors yesterday but was placed on midodrine and the Levophed was weaned off over the course of the evening yesterday.? Overnight, patient developed sudden onset of shortness of breath.? Chest x-ray revealed pulmonary edema with evidence of volume overload.? She was placed on BiPAP and diuresed with good results. She was able to wean off the BiPAP during the day yesterday. She did wear it last night. She does continue to have some swelling but notes improvement overall. She notes no residual tingling or numbness to her hands or feet. She believes her left eye blurred vision has resolved. Exam Vital Signs (past 8 hours): - 05/05/22 00:00 05/05/22 04:00 05/05/22 00:00 Temperature 98.8 F Pulse Rate 66 Respiratory Rate 11 L Blood Pressure 127/80 Pulse Oximetry 96 Oxygen Delivery Method BiPAP High Flow Nasal Cannula Oxygen Flow Rate Fraction of Inspired Oxygen 0.35 05/05/22 04:00 Temperature 98.2 F Pulse Rate 94 H Respiratory Rate 19 Blood Pressure 124/73 Pulse Oximetry 94 Oxygen Delivery Method Oxygen Flow Rate 4 Fraction of Inspired Oxygen Fraction of Inspired Oxygen 0.35 Oxygen Delivery Method High Flow Nasal Cannula Oxygen Flow Rate 4 Narrative Exam Narrative: GEN: Alert and oriented x 3, NAD HEENT:NC, Face symmetric CHEST: Respiratory excursions symmetric, coarse and diminished throughout, no crackles CV: RRR, no M/R/G ABD: Soft, NT/mild to moderately distended, BT present in all 4 quadrants, no organomegaly or masses EXTR: warm, well perfused, no C/C/E, generalized edema, nonpitting noted to lower extremities, hips, and hands, improved from yesterday SKIN: warm and dry, no rash NEURO: Alert and oriented x 3, nonfocal Objective Labs Result Diagrams: 05/04/22 04:55 05/04/22 16:25 Labs: Laboratory Results - last 24 hr 05/04/22 05/04/22 06:29 16:25 ABG pH 7.40 ABG pCO2 40.5 ABG pO2 89 ABG HCO3 25 ABG Total CO2 27 ABG O2 Saturation 97 ABG Base Excess 1.0 FiO2 50 Sodium 133 L Potassium 3.9 Chloride 100 Carbon Dioxide 27 BUN 30 H Creatinine 0.84 Estimated GFR > 60 BUN/Creatinine Ratio 35.7 H Glucose 211 H Calcium 8.8 PFSH Medical History Cholelithiasis Hx of fracture of ankle Major depressive disorder, recurrent episode, severe Major depressive disorder, recurrent, moderate Surgical History History of carpal tunnel release of both wrists Hx of hysterectomy Family History Mother Cardiac arrest Father Colitis Social History household members: spouse Smoking Status: Never smoker Assessment & Plan Assessment & Plan narrative: 1. Acute hypoxic respiratory failure Likely secondary to volume overload related to fluid resuscitation for her septic shock.? She is diuresing reasonably well at this time.? Will given additional 20 mg of IV Lasix this morning.? She is on 4 L of oxygen. At baseline she does not wear any oxygen. Once her diuresis has begun to reduce, will plan to remove her Hsu catheter. Continue to wean oxygen as able. 2. Septic shock Resolved with the addition of midodrine.? Etiology of the septic shock is E coli UTI, pansensitive.?CSF and blood cultures have been negative to date.? Echo results revealed a normal LVEF.? Sinus tachycardia.? Mild TR.? RVSP of at least 33 mm Hg. Blood pressures have normalized. Midodrine will be discontinued. 2. E coli UTI On Rocephin. 3. Multiple sclerosis with flare Continue usual dose of gabapentin.? Continue Solu-Medrol 1 g IV daily, day 3/3.? MRI was performed today which revealed no acute abnormalities. No worsening evidence of demyelinating plaques 4. Leukocytosis White blood cell count up.? Likely persistent elevation related to steroids.? 21.4 yesterday. Anticipate this will improve off of steroids 5. Normocytic anemia Hemoglobin wasw down to 9 yesterday from 9.8 the prior day, and 10.9 the day before that.? Likely hemodilution related.? Will repeat a CBC in the morning. 6. Hypokalemia Improved with repletion.? Potassium was 3.9 today. 7. Depression Continue doxepin, fluoxetine, and risperidone. 8. Steroid induced Hyperglycemia Blood sugars on serum labs yesterday were elevated. She was not initiated on fi ngersticks as she is slated to receive her final dose of 1g of IV Solu-Medrol today. ? Resolved issues: Hypermagnesemia Code status Full Prophylaxis Continue Lovenox Disposition Transition to acute care level of care today. Therapies have cleared her for discharge home with home health. Anticipate discharge tomorrow. Will DC central line, encourage patient to increase activity and to take a shower today Time Spent With Patient Critical Care time: I spent a total of [] minutes of critical care time on this patient's care today; this time is exclusive of procedural time.
[2022-05-05] MEDS: ACETAMINOPHEN 325 MG TABLET 650 MG PO (08:26)
[2022-05-05] MEDS: FLUoxetine 20 MG CAPSULE PO ×2 (08:26→21:22)
[2022-05-05] MEDS: ENOXAPARIN 40 MG/0.4 ML SYRINGE SUBCUT (08:26)
[2022-05-05] MEDS: risperiDONE 0.25 MG TABLET 0.5 MG PO ×2 (08:26→12:45)
[2022-05-05] MEDS: GABAPENTIN 300 MG CAPSULE PO ×3 (08:26→21:21)
[2022-05-05] MEDS: PANTOPRAZOLE DR 40 MG TABLET PO (08:26)
[2022-05-05] MEDS: SODIUM CHLORIDE 0.9% FLUSH 10 ML IV (08:27)
[2022-05-05] MEDS: POTASSIUM CHLORIDE 20 MEQ TAB PO (09:51)
[2022-05-05] MEDS: FUROSEMIDE 40 MG/4 ML VIAL 20 MG IV (09:51)
[2022-05-05] MEDS: ALPRAZolam 0.5 MG TABLET PO (12:07)
[2022-05-05] MEDS: methylPREDNISolone 1,000 MG in SODIUM CHLORIDE 0.9% 250 ML 258 MG IV (12:45)
[2022-05-05] MEDS: INSULIN LISPRO 100 UNIT/ML 3ML VIAL SUBCUT ×3 (12:45→21:25)
--- NOTE | 2022-05-05 16:54 | PT.IPTN ---
Current Diagnoses Sepsis, unspecified organism (05/02/22) Physical Therapy Treatment Note M2 PT-IP Current Condition Start: 05/03/22 16:53 Freq: NEEDED Status: Active Protocol: Document 05/05/22 16:19 SP (Rec: 05/05/22 18:22 SP [id number]) Physical Therapy Current Condition Current Condition Evaluation Date 05/03/22 Treatment Diagnosis UTI, septic, impaired gait and mobility Onset Date 05/02/22 M3 PT-IP Subjective Start: 05/03/22 16:53 Freq: NEEDED Status: Active Protocol: Document 05/05/22 16:19 SP (Rec: 05/05/22 18:22 SP [id number]) Subjective Physical Therapy Visit Type Type Treatment Note Visit Start Time 16:19 Visit Stop Time 16:54 Total Visit Minutes 35 Notes Vitals taken during tx: seated in chair resting: BP 136/71 HR85, SaO2 88% on RA 93 % on 2L. with mobility: SaO2 93-95% on RA. provided assist required throughout tx during caregiver training. Number of HIDE PASTER Visits 1 Physical Therapy Visit Comments Patient Comments Pt agreeable to hallway and stair assessment. Patient Goals Wants to return home when able with to assist her. M4 PT-IP Mobility and Gait Start: 05/03/22 16:53 Freq: NEEDED Status: Active Protocol: Document 05/05/22 16:19 SP (Rec: 05/05/22 18:22 SP [id number]) PT-Transfer Assessment Sit to and From Stand Sit to and from Stand Standby Assistance,Use of Upper Extremities Equipment Transfer Assistive Device Gait Belt,Front Wheeled Walker ,4 Wheeled Walker Transfers Transfer Destination Chair Transfer Technique pt ambulated using FWW/4WW Transfer Ability Level of Assist Standby Assistance,Use of Upper Extremities Comments Mobility Comments Pt requires cues for 4WW brake mgt pre/ post mobility, improved walker positioning front fully during pre sit. STS SBA w/FWW or 4WW, walk across room for SaO2 assessment pre leaving room, maintained 93-95% on RA with occasional cuing for slower pacing and proper breath with mask. She able walk around nursing station 150 ft total, wheeled to stairs in w/c, complete full 18 stairs has to complete at home enter and up to bedroom with L HR and wall on R, discussed can use her SPC on R instead of and use of GB for stabiltiy with both in agreement on her days not as strong. She was ableto walk 100 ft back to room w/ 4WW, ed x1 for squeeze brakes and body closer with good carryover. She returned to chair when arrived back to room. SBA seated in chair. She had call light and allneeds in reach before left. Spoke with ELEVATOR WORKER pt on RA and maintained 93-95% throughout tx. Is ableto return home when medically cleared, recommending HHPT for progress strength, endurance and functional mobility independence. Gait Assessment Gait Gait Assistance Required: Standby Assistance Distance (Feet) 150 Able to Maintain Weight Bearing Status Yes During Gait Assistive Devices Assistive Device Gait Belt,Front Wheeled Walker ,4 Wheeled Walker Gait Deviations General Gait Pattern Antalgic,Wide Based Gait Factors Limiting Gait Function Factors Limiting Gait Function Decreased Activity Tolerance, Decreased Strength,Poor Balance,Poor Safety Awareness, Respiratory Distress Comments Gait Comments Pt up in recliner pre/post this visit. She did 1 laps 150ft (including room distance ) with seated rest before wheeled down to stairs, completed 18 consecutively L BHR, 88% briefly with breath ed recovers in seconds 93-95% on RA. Recommending HHPT when medically ready to DC. Stair Climbing Assessment Evaluation Level of Assist On Stairs Standby Assistance,Contact Guard Assistance Devices Stair Climbing Assistive Devices Left Railing,Right Railing Technique/Endurance Stair Climbing Direction Ascend and Descend Stair Climbing Technique Step Over Step,Step to Step Number of Steps Climbed 3 Stair Climbing Set # Repetitions (reps) 6 Comments Stair Climbing Comments completed 18 consecutively, 3 brief stop stand rests for breath recovery. PT-Balance Assessment Sitting Balance and Reactions Static Sitting Balance Ability Normal Dynamic Sitting Balance Ability Normal Standing Balance and Reactions Static Standing Balance Ability Good Dynamic Standing Balance Ability Good Device Used FWW M5 PT-IP Objective Assessments Start: 05/03/22 16:53 Freq: NEEDED Status: Active Protocol: Document 05/04/22 15:22 DLM (Rec: 05/04/22 15:49 DLM [id number]) Orientation Orientation/Cognition Level of Alertness Alert Orientation Name,Age,Birthday,Month,Date, Year,Day of Week,Place, Situation Language Function Ability No Deficits Noted Safety Awareness Understands Safety Issues Memory Description No Deficits Noted M6 PT-IP Treatment Start: 05/03/22 16:53 Freq: NEEDED Status: Active Protocol: Document 05/05/22 16:19 SP (Rec: 05/05/22 18:22 SP [id number]) Physical Therapy Treatment Other Treatments Other Treatment Performed Education for breath during gait activity as needed, x3 when 88% RA recover quickly seconds and maintain 93- 95% on RA, M7 PT-IP Assessment and Plan Start: 05/03/22 16:53 Freq: NEEDED Status: Active Protocol: Document 05/05/22 16:19 SP (Rec: 05/05/22 18:22 SP [id number]) PT Summary Assessment and Plan Potential Rehabilitation Potential Good Status of Condition at Evaluation Evolving Summary Impairments Strength,Balance,Coordination, Bed Mobility,Transfers,Gait, Activity Tolerance Progress Towards Goals Progressing Toward Goals,Slow Progress due to Activity Tolerance Assessment Summary Pt CG- SBA during all mobility using FWW, completed gait 150 ft , 100ft Fww/4WW and 18 stairs B HR as descibed for home set up, briefly 88% on RA x3 instances, recovers quickly 93-95% RA. Recommending HHPT when medically cleared with to assist her as needed. Goals Bed Mobility Goal Independent Transfer Goal Independent,Front Wheeled Walker Gait Goal Independent,Front Wheel Walker Gait Distance 100 feet Other Goals UP and down 6 steps with rail and min assist Days to Meet Goals 3 Frequency of Treatment Frequency Of Treatment Once a Day Treatment Plan Physical Therapy Treatment Plan Bed Mobility Training,Transfer Training,Gait Training, Therapeutic Exercise,Balance Retraining,Discharge Planning, Neuromuscular Re-ed Other Recommendations and Next Treatment standing balance activities, Focus further distance gait 4WW. Precautions Other Precautions fall risk, has hx of MS Recommendations To Nursing Amount of Assist Needed Standby Assistance,1 Person Assist Discharge Recommendations PT Discharge Recommendations Home with Assistance,Home Health Transportation Needs at Discharge Private Vehicle
[2022-05-05] MEDS: cefTRIAXone 1,000 MG in SODIUM CHLORIDE 0.9% 100 ML 200 MG IV (17:20)
[2022-05-05] MEDS: risperiDONE 0.25 MG TABLET 0.75 MG PO (21:22)
[2022-05-05] MEDS: DOXEPIN 75 MG PO (21:24)
[2022-05-06] VITALS: BP 152/74; PULSE 76; RESP 21; TEMP 37.2; O2SAT 97
[2022-05-06 03:24] VITALS: PULSE 82; O2SAT 96
[2022-05-06 04:00] VITALS: BP 153/77; PULSE 80; RESP 17; TEMP 36.7; O2SAT 96
[2022-05-06] MEDS: HYDROCODONE/ACET 5/325 TABLET 1 TAB PO (04:02)
[2022-05-06 06:02] LABS: BUN Creatinine Ratio 41.2 (6-22); Blood Urea Nitrogen 28 mg/dL (7-17); Calcium 8.4 mg/dL (8.4-10.2); Carbon Dioxide 32 mmol/L (22-32); Chloride 100 mmol/L (98-107); Estimated Glomerular Filt Rate > 60 mL/min (>60); Glucose 158 mg/dL (80-110); HEMOLYSIS < 15 (0-50); Potassium 3.3 mmol/L (3.4-5.1); Sodium 137 mmol/L (137-145)
[2022-05-06 06:07] LABS: Add Manual Diff / Slide Review YES; Hematocrit 27.3 % (36-46); Hemoglobin 9.3 g/dL (12.0-16.0); Mean Corpuscular HGB Conc 34.2 % (30-36); Mean Corpuscular Hemoglobin 29.7 PG (26-34); Mean Corpuscular Volume 86.8 fL (80-100); Platelet Count 329 X10^3/uL (150-400); Red Blood Cell Count 3.15 X10^6/uL (4.0-5.2); Red Cell Distribution Width 13.4 % (11.6-14.8); White Blood Cell Count 17.2 X10^3/uL (4.5-11.0)
[2022-05-06 07:21] LABS: Neutrophils Absolute Manual 13416 /uL (3000-5900); RBC Morphology Norm; Total Cells Counted 100
[2022-05-06 07:53] VITALS: O2SAT 93
[2022-05-06 08:00] VITALS: BP 144/74; PULSE 71; RESP 22; O2SAT 94
[2022-05-06] MEDS: PANTOPRAZOLE DR 40 MG TABLET PO (08:44)
[2022-05-06] MEDS: GABAPENTIN 300 MG CAPSULE PO (08:44)
[2022-05-06] MEDS: ENOXAPARIN 40 MG/0.4 ML SYRINGE SUBCUT (08:44)
[2022-05-06] MEDS: CHOLECALCIFEROL (VITAMIN D3) 1,000 UNIT TABLET 1000 UNIT PO (08:44)
[2022-05-06] MEDS: FLUoxetine 20 MG CAPSULE PO (08:44)
[2022-05-06] MEDS: INSULIN LISPRO 100 UNIT/ML 3ML VIAL SUBCUT (08:45)
[2022-05-06] MEDS: POTASSIUM CHLORIDE 20 MEQ TAB 40 MEQ PO (09:37)
[2022-05-06] MEDS: FUROSEMIDE 20 MG/2 ML VIAL IV (09:37)
[2022-05-06] MEDS: risperiDONE 1 MG TABLET PO (09:37)
--- NOTE | 2022-05-06 11:21 | CM.DPC ---
DCP/continued: Reviewed chart. Order received for patient to d/c home today with HH. Arrangements have been started with [facility]. Asked POTATO PEELER/Shelly to finalize d/c arrangements and provide patient with brochure. P: Home today with [facility]. BILL
--- NOTE | 2022-05-06 11:57 | PT-IP ANOTE ---
Attempted to see pt at 11:52, pt about to d/c home and feels safe and states she has no further needs for inpatient PT.
--- NOTE | 2022-05-06 12:09 | PC.NURSE ---
pt O2 92% while ambulating and no SOB. 98% at rest. removed her IJ, applied pressure and patient was in chair for about 20 minutes
--- NOTE | 2022-05-06 15:54 | PM.DS.1 ---
History of Present Illness History of Present Illness Date Patient Seen: 05/02/22 Time Patient Seen: 03:45 Chief complaint: Hypotension, sepsis Narrative: Per admitting provider: Rhonda Cartagena is a 66-year-old female with a history of MS, fibromyalgia, depression, essential hypertension, was in her usual state of health when she and her were watching TV, she went to walk to the bathroom and per the she collapsed and could not speak or hold her head up. He states that her eyes were closed and was not responding to her . Six he called EMS. Upon presentation to the ED your blood pressure was 83/54, she was 90% on room air and had an elevated blood sugar of 148 and elevated heart rate of 103. Per the patient and she has a history of migraine headaches and has had worsening headaches over the past 3 weeks. Chest x-ray was negative for pneumonia, brain CT was negative for any intracranial hemorrhage or intracranial abnormality it did note mild cerebral volume loss and chronic white matter small-vessel ischemic changes. Per clinical exam and brain imaging, she was ruled out for CVA and worked up for possible infection of unknown origin. In the ED they did a lumbar puncture and cell count and CS F fluid analysis is pending. ED provider placed a central line. She was initiated on IV ceftriaxone and IV acyclovir though the patient takes oral acyclovir for herpes suppression. She continues to have soft blood pressures and request was made to have her admitted to the ICU for further monitoring and when she arrived to the floor, they had started her on a levaphed drip. She had been responding to fluid boluses. She is febrile with a temperature of 100.2?, blood pressure 101/52, heart rate 124, respiratory rate 19, oxygen saturation of 93% on 2 L. She has an elevated white count of 11.1 with a left shift and a mildly elevated neutrophil count of 7300, sodium is 135 BUN 22, glucose 132, magnesium 3.1, liver enzymes were within normal limits she had positive nitrates in her urine with ?many bacteria? and the specimen will be cultured and is pending. CSF panel did not indicate any abnormalities. Bacterial and viral cultures are pending. COVID-19 PCR is negative. Discharge Providers Provider Date of admission: 05/02/22 02:02 Discharge Date: 05/06/22 Primary care physician: Dereck Roper MD Consults: 05/03/22 10:34 Consult to Occupational Therapy Evaluate & Treat Comment: Physician Instructions: Evaluate and treat Consult to Physical Therapy Evaluate & Treat Comment: Physician Instructions: Evaluate and Treat 05/04/22 11:06 Consult to Home Health Routine Comment: Reason For Exam: Home Health upon DC Discharge provider: Dennis Chaudhary MD Summary Hospital Course Discharge Diagnosis: 1. Septic shock secondary to E. coli UTI 2. Acute hypoxemic respiratory failure secondary to acute pulmonary edema 3. Multiple sclerosis 4. Anemia 5. Hypokalemia 6. Depression Hospital Course: Ms. Cartagena was admitted with hypotension. She was found to have a UTI with pansensitive E. coli. Initially she was quite hypotensive and did require central line placement and pressors. She improved with this and fluid resuscitation. She did require oxygen and was found to have pulmonary edema after resuscitation but this improved with treatment. She had transient, waxing and waning neurologic symptoms notably weakness and clumsiness in her extremities. Workup showed no stroke, and no acute MS plaques, and it was thought this was exacerbated by her infection. This resolved by the time of discharge. She was discharged with additional antibiotics to complete a week of antibiotics. Exam Vital Signs (past 8 hours): Fraction of Inspired Oxygen 28 Oxygen Delivery Method Room Air Oxygen Flow Rate 0 Narrative Exam Narrative: GEN: no acute distress PULM: clear bilaterally CV: regular rate and rhythm, no murmurs ABD: soft, nontender, nondistended Objective Labs Result Diagrams: 05/06/22 05:35 05/06/22 05:35 [facility] Medical History Cholelithiasis Hx of fracture of ankle Major depressive disorder, recurrent episode, severe Major depressive disorder, recurrent, moderate Surgical History History of carpal tunnel release of both wrists Hx of hysterectomy Family History Mother Cardiac arrest Father Colitis Social History household members: spouse Smoking Status: Never smoker Discharge Plan Discharge Plan Patient Disposition: Home Provider Discharge Comment: 1. Finish taking your antibiotics as prescribed 2. Follow up with your PCP in 1 week 3. Follow up with your urologist in 2 weeks 4. Your MRI showed no new concerning findings 5. Your leg ultrasounds were negative for blood clots Discharge orders & Medications Prescriptions: New ciprofloxacin HCl 500 mg tablet 500 mg PO BID Qty: 6 0RF Continued methocarbamol 500 mg tablet 500 mg PO TID PRN (Reason: muscle spasm) cholecalciferol (vitamin D3) 25 mcg (1,000 unit) capsule 25 mcg PO DAILY mecobalamin (vitamin B12) 1,000 mcg tablet,chewable 1,000 mcg PO DAILY magnesium hydroxide 400 mg (170 mg magnesium) tablet,chewable 400 mg PO DAILY doxepin 75 mg capsule 75 mg PO HS Qty: 90 1RF trospium 60 mg capsule,extended release 24hr 60 mg PO DAILY famotidine 20 mg tablet 20 mg PO DAILY Qty: 90 3RF telmisartan 80 mg tablet 80 mg PO DAILY Qty: 90 3RF fluoxetine 20 mg capsule 40 mg PO QDAY Qty: 180 1RF gabapentin 300 mg capsule 300 mg PO TID Qty: 270 3RF hydrochlorothiazide 25 mg tablet 25 mg PO DAILY Qty: 90 2RF risperidone 0.5 mg tablet See Rx Instructions .ROUTE .COMPLEX Qty: 405 0RF Dose Instruction: take 2 tabs (1mg) by mouth in the morning, 1.5 tabs (0.75mg) around midday, and another 1.5 tabs (0.75mg) at bedtime; for severe anxiety Rx Instructions: take 2 tabs (1mg) by mouth in the morning, 1 tabs (0.5mg) around midday, and another 1.5 tabs (0.75mg) at bedtime; for severe anxiety rizatriptan 10 mg tablet See Rx Instructions .ROUTE .COMPLEX Qty: 6 11RF Dose Instruction: Take 1 tablet (10 mg) by mouth every 2 hours as needed for migraine headache. Maximum daily dose 20mg Rx Instructions: Take 1 tablet (10 mg) by mouth every 2 hours as needed for migraine headache. Maximum daily dose 20mg promethazine 25 mg tablet 25 mg PO TID PRN (Reason: nausea) Qty: 30 0RF estradiol 0.01 % (0.1 mg/gram) cream 1 g vaginal 2XW Qty: 42.5 3RF Discontinued nitrofurantoin macrocrystal 100 mg capsule 100 mg PO DAILY Follow up/Referrals: Dereck Roper MD [Primary Care Provider] - 1 Week (*Appt on April @4:30pm with . [phone] *Please check in @4:15pm) Diet/Activity/Treatments Diet: Diet as Tolerated Activity: tolerated; HH PT/OT eval and treat Oxygen: N/A Discharge Data Primary Care Provider: Dereck Roper
== END 2022-05-06 12:34 | disposition home health service (06) | DRG 871 ==
LOC: ED 05-02 02:02 → ICU 05-02 03:12 → AC 05-03 12:50 → ICU 05-03 12:50
PROVIDERS: Family Medicine; Internal Medicine; Internal Medicine Critical Care Medicine; Admitting Provider Nurse Practitioner Family; Emergency Provider Emergency Medicine; PCP Student in an Organized Health Care Education/Training Program; Referring Provider Emergency Medicine; Visit Provider Nurse Practitioner Family
DX: A41.9 Sepsis, unspecified organism (principal); R65.21 Severe sepsis with septic shock; J81.0 Acute pulmonary edema; J96.01 Acute respiratory failure with hypoxia; N39.0 Urinary tract infection, site not specified; F33.1 Major depressive disorder, recurrent, moderate; E83.42 Hypomagnesemia; G35 Multiple sclerosis; B96.20 Unspecified Escherichia coli [E. coli] as the cause of diseases classified elsewhere; E87.6 Hypokalemia; R73.9 Hyperglycemia, unspecified; I10 Essential (primary) hypertension; M79.7 Fibromyalgia; Z66 Do not resuscitate; Z20.822 Contact with and (suspected) exposure to COVID-19; F43.10 Post-traumatic stress disorder, unspecified; F41.9 Anxiety disorder, unspecified; F51.9 Sleep disorder not due to a substance or known physiological condition, unspecified
CPT/HCPCS: 36415; 36592; 36600; 70450; 70551; 71045; 71260; 74177; 80048; 80053; 81001; 82805; 82945; 82962; 83605; 83690; 83735; 84145; 84157; 84443; 84484; 85007; 85025; 85379; 87040; 87070; 87077; 87086; 87150; 87186; 87205; 87635; 87797; 87798; 89051; 90834; 93005; 93010; 93306; 93970; 94660; 94762; 97110; 97116; 97162; 97166; 97530; 99285; 99291; C9803; J0696; J1642; J1650; J1720; J1815; J1940; J2405; J2543; J2930; P9041; Q9967

== ENCOUNTER → 2022-05-11 17:58 | Outpatient (CLI) | payer OTHER, SELFPAY ==
[2022-05-02 04:03] VITALS: BMI 28.3
[2022-05-04 22:35] VITALS: PULSE 67; RESP 12; O2SAT 96
== END ==
PROVIDERS: PCP Student in an Organized Health Care Education/Training Program; Visit Provider Physician Assistant
DX: N34.3 Urethral syndrome, unspecified (principal)
CPT/HCPCS: 87086

== ENCOUNTER 2022-06-11 13:34 | Inpatient (IN) | payer OTHER, SELFPAY ==
[2022-05-02 04:03] VITALS: BMI 28.3
[2022-05-04 22:35] VITALS: PULSE 67; RESP 12; O2SAT 96
[2022-06-11] VITALS (37 sets, daily range): BP systolic 83–131; BP diastolic 46–90; PULSE 89–111; RESP 13–24; TEMP 36.4–37; O2SAT 95–100; BMI 28.3; BMI 28.5
--- NOTE | 2022-06-11 13:42 | DI.RAD.S_ITS ---
PROCEDURE: XR CHEST 1V INDICATIONS: suspected sepsis TECHNIQUE: One view of the chest was acquired. COMPARISON: [facility], CR, XR CHEST 1V, 05/04/2022, 6:06. FINDINGS: Surgical changes and devices: None. Lungs and pleura: Lungs are clear. No pleural effusions or pneumothorax. Mediastinum: Mediastinal contours appear normal. Heart size is normal. Bones and chest wall: No suspicious bony lesions. Overlying soft tissues appear unremarkable. IMPRESSION: No acute cardiopulmonary process demonstrated radiographically. Dictated by: Robin Johnson M.D. on 06/11/2022 at 14:02 Approved by: Robin Johnson M.D. on 06/11/2022 at 14:03
--- NOTE | 2022-06-11 13:57 | ED_ITS ---
HPI - Nausea/Vomiting/Diarrhea General Chief complaint: Nausea/Vomiting/Diarrhea Stated complaint: VOMITING/WEAK/BODY ACHES Time Seen by Provider: 06/11/22 13:56 Source: patient Mode of arrival: Ambulatory History of Present Illness HPI Narrative: Patient is a 66-year-old female admitted the hospital 05/01/2022 for presyncope and sepsis. Found to have UTI E coli, hospital stay she had waxing waning neurologic symptoms thought to have possible MRI but MRI was negative. She presents today with diarrhea and nausea. She also feels lightheaded and dizzy. He was found to be hypotensive with a blood pressure in the 70's. She has a she has had nonbloody diarrhea multiple times started all day yesterday. She has minimal abdominal pain she has had some vomiting. She denies chest pain or palpitations. She feels lightheaded every time she stands up. No one is sick. Related Data Home Medications Medication Instructions Recorded Confirmed cholecalciferol (vitamin D3) 25 25 mcg PO DAILY 07/28/20 05/28/22 mcg (1,000 unit) capsule magnesium hydroxide 400 mg (170 mg 400 mg PO DAILY 07/28/20 05/28/22 magnesium) chewable tablet mecobalamin (vitamin B12) 1,000 1,000 mcg PO DAILY 07/28/20 05/28/22 mcg chewable tablet trospium 60 mg capsule,extended 60 mg PO DAILY 10/16/21 05/28/22 release 24 hr methocarbamol 500 mg tablet 500 mg PO TID PRN muscle spasm 03/19/22 05/28/22 Previous Rx's Medication Instructions Recorded famotidine 20 mg tablet 20 mg PO DAILY #90 tabs 08/14/21 telmisartan 80 mg tablet 80 mg PO DAILY #90 tabs 08/14/21 gabapentin 300 mg capsule 300 mg PO TID #270 caps 08/21/21 hydrochlorothiazide 25 mg tablet 25 mg PO DAILY #90 tabs 11/05/21 promethazine 25 mg tablet 25 mg PO TID PRN nausea #30 tabs 04/15/22 rizatriptan 10 mg tablet See Rx Instructions .Route 04/15/22 .COMPLEX #6 tabs estradiol 0.01% (0.1 mg/gram) 1 g vaginal 2XW #42.5 grams 04/30/22 vaginal cream doxepin 75 mg capsule 75 mg PO HS #90 caps 05/28/22 risperidone 0.5 mg tablet See Rx Instructions .Route 05/28/22 .COMPLEX #360 tabs fluoxetine 20 mg capsule 40 mg PO QDAY #180 caps 06/03/22 Allergies Allergy/AdvReac Type Severity Reaction Status Date / Time zolpidem AdvReac Severe HALLUCINATIONS, Verified 06/11/22 13:42 NOT KNOWING WHERE SHE WAS, DIZZINESS Review of Systems Review of Systems Narrative: GENERAL: Denies chills, fatigue, malaise, fever, sweats, travel HEENT: Denies sinus pain, ear pain, sore throat, difficulty swallowing, neck pain RESPIRATORY: Denies dyspnea, cough, wheezing, hemoptysis, sputum. CARDIOVASCULAR: Denies chest pain, palpitations, orthopnea, edema GASTROINTESTINAL: see HPI : Denies dysuria, frequency, incontinence, hematuria, urinary retention, flank pain. MUSCULOSKELETAL: Denies weakness, joint pain, or bony pain SKIN: No rash, no erythema, no pruritus NEUROLOGIC: Denies weakness, dizziness, headache, numbness, change in speech, confusion PSYCHIATRIC: No concerning psychosocial issues. 12 point review of systems is negative except for those stated above and HPI Patient History Medical History Anxiety Cholelithiasis Fibromyalgia Hx of fracture of ankle Major depressive disorder, recurrent, moderate Mixed hyperlipidemia Post traumatic stress disorder (PTSD) Surgical History History of carpal tunnel release of both wrists Hx of hysterectomy Family History Mother Cardiac arrest Father Colitis Social History household members: spouse Smoking Status: Never smoker Smoking Status: Never smoker alcohol intake frequency: holidays/special occasions only Substance Use Type: does not use Exam Initial Vital Signs Initial Vital Signs: Vital Signs Temperature 97.5 F L 06/11/22 13:38 Pulse Rate 103 H 06/11/22 13:38 Respiratory Rate 18 06/11/22 13:38 Blood Pressure 83/46 L 06/11/22 13:38 Pulse Oximetry 99 06/11/22 13:38 Oxygen Delivery Method 06/11/22 13:38 GENERAL: Slightly pale alert 66-year-old female and in no acute distress. HEENT: Head atraumatic,EOMI, pupils reactive, face symmetric, moist mucous membranes CARDIOVASCULAR: Regular rate and rhythm without murmurs, rubs or gallops. RESPIRATORY: Breath sounds equal bilaterally, no wheezes rales or rhonchi. ABDOMEN: Soft, nontender. Normoactive bowel sounds all 4 quadrants. No guarding or rebound. EXTREMITIES: Normal range of motion, no clubbing or edema. Neurovascularly intact NEUROLOGICAL: Alert and oriented x4.Normal gait and speech. Voice Intercept Technician strength equal bilateral SKIN: Warm, dry, no laceration, no petechiae, no rashes or lesions. Course Orders Ordered: ED Orders 06/11/22 13:42 XR chest 1V Stat RT Consult Eval and Treat NOW 06/11/22 14:00 Complete Blood Count AUTO DIFF Stat Comprehensive Metabolic Panel Stat Lactate (Lactic Acid) Stat Lipase Stat Procalcitonin Stat Troponin & CK Cardiac Panel Stat 06/11/22 14:05 COVID19 -Nasal RAPID/Pre-Proc Stat 06/11/22 14:09 EKG-12 Lead Stat 06/11/22 14:15 EKG-12 Lead Stat 06/11/22 14:28 Blood Culture Stat 06/11/22 15:07 CT abdomen pelvis wo con Stat 06/11/22 16:28 Urinalysis and Microscopic Stat 06/11/22 19:17 C Diff [Clostridium Difficile Tox PCR] Stat Stool Culture Stat Discontinued Medications Sodium Chloride (Normal Saline 0.9%) 1,000 mls @ 1,000 mls/hr IV BOLUS ONE Stop: 06/11/22 14:41 Last Admin: 06/11/22 14:23 Dose: Not Given Documented By: LUCAS Sodium Chloride (Normal Saline 0.9%) 2,313.33 mls @ 771.11 mls/hr 30 ml/kg infuse over 3 hr (2313.33 ml) IV NOW ONE Stop: 06/11/22 17:08 Last Infusion: 06/11/22 17:30 Dose: 0 mls/hr Documented By: Admin: 06/11/22 14:16 Dose: 771.11 mls/hr Documented By: LUCAS Vital Signs Vital signs: Vital Signs - 8 hr 06/11/22 13:38 06/11/22 14:06 06/11/22 14:10 Temperature 97.5 F L Pulse Rate 103 H 100 H Respiratory Rate 18 20 Blood Pressure 83/46 L 90/52 L Pulse Oximetry 99 Oxygen Delivery Method Room Air 06/11/22 14:10 06/11/22 14:15 06/11/22 14:15 Temperature Pulse Rate 100 H 98 H Respiratory Rate 22 23 Blood Pressure 88/53 L Pulse Oximetry 96 97 Oxygen Delivery Method 06/11/22 14:30 06/11/22 14:45 06/11/22 14:50 Temperature Pulse Rate 94 H 92 H 94 H Respiratory Rate 19 13 24 Blood Pressure Pulse Oximetry 98 97 98 Oxygen Delivery Method 06/11/22 14:50 06/11/22 15:00 06/11/22 15:00 Temperature Pulse Rate 92 H Respiratory Rate 15 Blood Pressure 97/52 L 99/57 L Pulse Oximetry 97 Oxygen Delivery Method 06/11/22 15:15 06/11/22 15:15 06/11/22 15:30 Temperature Pulse Rate 91 H Respiratory Rate 16 Blood Pressure 99/58 L 107/55 L Pulse Oximetry 98 Oxygen Delivery Method 06/11/22 15:30 06/11/22 15:45 06/11/22 15:45 Temperature Pulse Rate 91 H 89 Respiratory Rate 16 14 Blood Pressure 103/55 L Pulse Oximetry 95 97 Oxygen Delivery Method 06/11/22 15:56 06/11/22 15:56 06/11/22 16:00 Temperature Pulse Rate 93 H Respiratory Rate 15 Blood Pressure 103/59 L 109/59 L Pulse Oximetry 98 Oxygen Delivery Method 06/11/22 16:00 06/11/22 16:15 06/11/22 16:15 Temperature Pulse Rate 91 H 92 H Respiratory Rate 18 24 Blood Pressure 109/61 Pulse Oximetry 98 98 Oxygen Delivery Method 06/11/22 16:30 06/11/22 16:30 06/11/22 16:45 Temperature Pulse Rate 93 H Respiratory Rate 22 Blood Pressure 106/56 L 112/60 Pulse Oximetry 97 Oxygen Delivery Method 06/11/22 16:45 06/11/22 17:00 06/11/22 17:00 Temperature Pulse Rate 92 H 95 H Respiratory Rate 15 Blood Pressure 121/55 L Pulse Oximetry 98 95 Oxygen Delivery Method 06/11/22 17:15 06/11/22 17:16 06/11/22 17:16 Temperature Pulse Rate 89 91 H Respiratory Rate 19 Blood Pressure 115/58 L Pulse Oximetry 97 96 Oxygen Delivery Method 06/11/22 17:30 06/11/22 17:38 06/11/22 17:38 Temperature Pulse Rate 106 H 91 H Respiratory Rate 22 Blood Pressure 116/62 Pulse Oximetry 100 Oxygen Delivery Method 06/11/22 17:45 06/11/22 17:50 06/11/22 17:50 Temperature Pulse Rate 90 89 Respiratory Rate 18 18 Blood Pressure 120/60 Pulse Oximetry 98 98 Oxygen Delivery Method 06/11/22 18:05 06/11/22 18:00 06/11/22 18:00 Temperature Pulse Rate 107 H 91 H Respiratory Rate 22 22 Blood Pressure 116/61 Pulse Oximetry 98 97 Oxygen Delivery Method 06/11/22 18:08 06/11/22 18:08 06/11/22 18:15 Temperature Pulse Rate 94 H 91 H Respiratory Rate 17 Blood Pressure 111/56 L Pulse Oximetry 96 98 Oxygen Delivery Method 06/11/22 18:30 06/11/22 18:30 06/11/22 18:45 Temperature Pulse Rate 92 H 94 H Respiratory Rate 14 23 Blood Pressure 105/58 L Pulse Oximetry 98 98 Oxygen Delivery Method 06/11/22 19:00 06/11/22 19:00 06/11/22 19:15 Temperature Pulse Rate 92 H 93 H Respiratory Rate 18 20 Blood Pressure 109/59 L Pulse Oximetry 98 97 Oxygen Delivery Method MDM - Nausea/Vomiting/Diarrhea Lab Data Result diagrams: 06/11/22 14:00 06/11/22 14:00 Labs: Lab Results 06/11/22 06/11/22 06/11/22 Range/Units 14:00 14:00 14:00 WBC 19.9 H (4.5-11.0) X10^3/uL RBC 3.96 L (4.0-5.2) X10^6/uL Hgb 11.8 L (12.0-16.0) g/dL Hct 34.2 L (36-46) % MCV 86.4 (80-100) fL MCH 29.7 (26-34) PG MCHC 34.4 (30-36) % RDW 14.9 H (11.6-14.8) % Plt Count 387 (150-400) X10^3/uL Neut % (Auto) 85.1 H (50-75) % Lymph % (Auto) 8.7 L (25-40) % [place] % (Auto) 5.7 (3-14) % Eos % (Auto) 0.2 L (2-4) % Baso % (Auto) 0.3 (0-2) % Neut # (Auto) 86149 H (6233-4823) /uL Lymph # (Auto) 1700 (5193-5924) /uL [place] # (Auto) 1100 H (0-900) /uL Eos # (Auto) 0 (0-450) /uL Baso # (Auto) 100 (0-100) /uL Sodium 130 L (137-145) mmol/L Potassium 3.2 L (3.4-5.1) mmol/L Chloride 93 L (98-107) mmol/L Carbon Dioxide 22 (22-32) mmol/L BUN 63 H (7-17) mg/dL Creatinine 1.97 H (0.52-1.04) mg/dL Estimated GFR 28 L (>60) mL/min BUN/Creatinine Ratio 32.0 H (6-22) Glucose 138 H (80-110) mg/dL Lactate 2.2 H (0.7-2.1) mmol/L Calcium 8.7 (8.4-10.2) mg/dL Total Bilirubin 0.5 (0.2-1.3) mg/dL AST 34 (14-36) IU/L ALT 29 (<35) IU/L Alkaline Phosphatase 84 (38-126) U/L Total Creatine Kinase (30-135) U/L CK-MB (CK-2) CK-MB (CK-2) Rel Index Troponin I (0.01-0.034) ng/mL Total Protein 7.2 (6.3-8.2) g/dL Albumin 4.3 (3.5-5.0) g/dL Globulin 2.9 (1.7-4.1) g/dL Albumin/Globulin Ratio 1.5 (1.0-2.8) Lipase 39 (23-300) U/L Procalcitonin 0.40 (<0.5) ng/mL Urine Color Urine Appearance Urine pH (4.5-8.0) Ur Specific [place] (1.000-1.035) Urine Protein (Negative) Urine Glucose (UA) (Negative) g/dL Urine Ketones (NEGATIVE) Urine Occult Blood (Negative) Urine Nitrate (Negative) Urine Bilirubin (NEGATIVE) Urine Urobilinogen (0.2) E.U./dL Ur Leukocyte Esterase (NEGATIVE) Urine RBC (0-5/HPF) Urine WBC (0-5/HPF) Ur Squamous Epith Cells (0-5/HPF) Urine Bacteria (None) Hyaline Casts (None) Ur Culture Indicated? SARS-CoV-2 (PCR) (Negative) 06/11/22 06/11/22 06/11/22 Range/Units 14:00 14:05 16:28 WBC (4.5-11.0) X10^3/uL RBC (4.0-5.2) X10^6/uL Hgb (12.0-16.0) g/dL Hct (36-46) % MCV (80-100) fL MCH (26-34) PG MCHC (30-36) % RDW (11.6-14.8) % Plt Count (150-400) X10^3/uL Neut % (Auto) (50-75) % Lymph % (Auto) (25-40) % [place] % (Auto) (3-14) % Eos % (Auto) (2-4) % Baso % (Auto) (0-2) % Neut # (Auto) (9523-2589) /uL Lymph # (Auto) (7246-3797) /uL [place] # (Auto) (0-900) /uL Eos # (Auto) (0-450) /uL Baso # (Auto) (0-100) /uL Sodium (137-145) mmol/L Potassium (3.4-5.1) mmol/L Chloride (98-107) mmol/L Carbon Dioxide (22-32) mmol/L BUN (7-17) mg/dL Creatinine (0.52-1.04) mg/dL Estimated GFR (>60) mL/min BUN/Creatinine Ratio (6-22) Glucose (80-110) mg/dL Lactate (0.7-2.1) mmol/L Calcium (8.4-10.2) mg/dL Total Bilirubin (0.2-1.3) mg/dL AST (14-36) IU/L ALT (<35) IU/L Alkaline Phosphatase (38-126) U/L Total Creatine Kinase 28 L (30-135) U/L CK-MB (CK-2) TNP CK-MB (CK-2) Rel Index TNP Troponin I < 0.012 (0.01-0.034) ng/mL Total Protein (6.3-8.2) g/dL Albumin (3.5-5.0) g/dL Globulin (1.7-4.1) g/dL Albumin/Globulin Ratio (1.0-2.8) Lipase (23-300) U/L Procalcitonin (<0.5) ng/mL Urine Color Yellow Urine Appearance Clear Urine pH 5.5 (4.5-8.0) Ur Specific [place] <=1.005 (1.000-1.035) Urine Protein Negative (Negative) Urine Glucose (UA) Negative (Negative) g/dL Urine Ketones Negative (NEGATIVE) Urine Occult Blood Negative (Negative) Urine Nitrate Negative (Negative) Urine Bilirubin Negative (NEGATIVE) Urine Urobilinogen 0.2 (0.2) E.U./dL Ur Leukocyte Esterase Negative (NEGATIVE) Urine RBC 0-1/hpf (0-5/HPF) Urine WBC 1-5/hpf (0-5/HPF) Ur Squamous Epith Cells 1-5 /hpf (0-5/HPF) Urine Bacteria None seen (None) Hyaline Casts 5-10/lpf (None) Ur Culture Indicated? Cult not indicated SARS-CoV-2 (PCR) Negative (Negative) 06/11/22 Range/Units 16:55 WBC (4.5-11.0) X10^3/uL RBC (4.0-5.2) X10^6/uL Hgb (12.0-16.0) g/dL Hct (36-46) % MCV (80-100) fL MCH (26-34) PG MCHC (30-36) % RDW (11.6-14.8) % Plt Count (150-400) X10^3/uL Neut % (Auto) (50-75) % Lymph % (Auto) (25-40) % [place] % (Auto) (3-14) % Eos % (Auto) (2-4) % Baso % (Auto) (0-2) % Neut # (Auto) (6258-1826) /uL Lymph # (Auto) (6774-9133) /uL [place] # (Auto) (0-900) /uL Eos # (Auto) (0-450) /uL Baso # (Auto) (0-100) /uL Sodium (137-145) mmol/L Potassium (3.4-5.1) mmol/L Chloride (98-107) mmol/L Carbon Dioxide (22-32) mmol/L BUN (7-17) mg/dL Creatinine (0.52-1.04) mg/dL Estimated GFR (>60) mL/min BUN/Creatinine Ratio (6-22) Glucose (80-110) mg/dL Lactate 1.1 (0.7-2.1) mmol/L Calcium (8.4-10.2) mg/dL Total Bilirubin (0.2-1.3) mg/dL AST (14-36) IU/L ALT (<35) IU/L Alkaline Phosphatase (38-126) U/L Total Creatine Kinase (30-135) U/L CK-MB (CK-2) CK-MB (CK-2) Rel Index Troponin I (0.01-0.034) ng/mL Total Protein (6.3-8.2) g/dL Albumin (3.5-5.0) g/dL Globulin (1.7-4.1) g/dL Albumin/Globulin Ratio (1.0-2.8) Lipase (23-300) U/L Procalcitonin (<0.5) ng/mL Urine Color Urine Appearance Urine pH (4.5-8.0) Ur Specific [place] (1.000-1.035) Urine Protein (Negative) Urine Glucose (UA) (Negative) g/dL Urine Ketones (NEGATIVE) Urine Occult Blood (Negative) Urine Nitrate (Negative) Urine Bilirubin (NEGATIVE) Urine Urobilinogen (0.2) E.U./dL Ur Leukocyte Esterase (NEGATIVE) Urine RBC (0-5/HPF) Urine WBC (0-5/HPF) Ur Squamous Epith Cells (0-5/HPF) Urine Bacteria (None) Hyaline Casts (None) Ur Culture Indicated? SARS-CoV-2 (PCR) (Negative) Imaging Data Chest x-ray: Radiologist's Impression: XRay Report Signed Patient: Rhonda Cartagena MR#: [id number] : 1955 Acct:[id number] Age/Sex: 66 / F Date of Service: 06/11/22 Loc: ED Accession Number: [id number] ?? Procedure: XR chest 1V Ordering Provider: Diane Faulkner D.O. PROCEDURE:? XR CHEST 1V ? INDICATIONS:? suspected sepsis ? TECHNIQUE:? One view of the chest was acquired.? ? COMPARISON:? [facility], , XR CHEST 1V, 05/04/2022, 6:06. ? FINDINGS:? ? Surgical changes and devices:? None.? ? Lungs and pleura:? Lungs are clear.? No pleural effusions or pneumothorax.? ? Mediastinum:? Mediastinal contours appear normal.? Heart size is normal.? ? Bones and chest wall:? No suspicious bony lesions.? Overlying soft tissues appear unremarkable.? ? IMPRESSION:? No acute cardiopulmonary process demonstrated radiographically. ? ? Dictated by: Robin Johnson M.D. on 06/11/2022 at 14:02 ? ? Approved by: Robin Johnson M.D. on 06/11/2022 at 14:03 ? CT scan - abdomen/pelvis: Radiologist's Impression: Rhonda Cartagena MR#: [id number] : 1955 Acct:[id number] Age/Sex: 66 / F Date of Service: 06/11/22 Loc: ED Accession Number: [id number] ?? Procedure: CT abdomen pelvis wo con Ordering Provider: Diane Faulkner D.O. PROCEDURE:? CT ABDOMEN PELVIS WO CON ? INDICATIONS:? diarrhea ? TECHNIQUE:? After the administration of oral contrast, 5 mm thick sections acquired from the diaphragms to the symphysis.? 5 mm coronal and sagittal reformats were performed.? For radiation dose reduction, the following was used:? automated exposure control, adjustment of mA and/or kV according to patient size.? ? COMPARISON:? None. ? FINDINGS:? Image quality:? Excellent.? ? ABDOMEN:? Lung bases:? Lung bases are clear.? Heart size is normal.? ? Solid organs:? Liver is normal in size.? Cholecystectomy.? Pancreas is normal in size.? Spleen is normal in size.? No adrenal nodules.? Both kidneys are normal in size, without hydronephrosis or nephrolithiasis.? ? Peritoneum and bowel:? Bowel loops demonstrate normal wall thickness and caliber.? No free fluid or air.? ? Nodes and vessels:? No retroperitoneal or mesenteric adenopathy by size criteria.? Aorta and inferior vena cava are normal in size.? ? Miscellaneous:? No ventral hernias.? ? ? PELVIS:? Genitourinary:? Bladder wall thickness is normal.? ? Miscellaneous:? No inguinal hernias or adenopathy.? ? Bones:? No suspicious bony lesions.? No vertebral body compression fractures.? ? IMPRESSION:? No acute finding. ? ? Dictated by: Robin Johnson M.D. on 06/11/2022 at 15:55 ? ? ECG Data Interpretation: The cardia rate 100 p.r. interval 146 QRS [address] changes similar to previous EKG actually improved from prior the previous 1 had multiple artifact MDM Narrative Medical decision making narrative: Patient is found to be quite hypotensive. With significant GI loss. She is found to be dehydrated with an elevated BUN and creatinine. Mild elevation in lactate. She does have elevated leukocytosis of 19.9 she previously has had elevation with her sepsis. Concern for CHF with recent infection. However she really did not provide a large enough stool sample for there to be a GI panel. She has some tenderness in her abdomen CT without contrast does not show any abnormality. Blood pressure improved with IV fluids. She states that her legs feel extremely weak. She requires assistance while walking on her ambulation trial. Discussed this with her who states that she does have MS she does have some neurologic symptoms and sometimes requires walking mri assistant devices however her bilateral lower extremity weakness is new. Dr Chaudhary accepts patient Discharge Plan Departure Patient Disposition: Admitted as Observation Clinical Impression: Gastroenteritis, PRANEETH (acute kidney injury) Admit Date/Time: 06/11/22 19:17 Admit Provider: Suzanne Mejia
[2022-06-11] MEDS: SODIUM CHLORIDE 0.9% 2,313.33 ML 771.11 ML IV (14:16)
[2022-06-11 14:29] LABS: Add Manual Diff / Slide Review NO; Basophils Absolute Auto 100 /uL (0-100); Basophils Percent Auto 0.3 % (0-2); Eosinophils Absolute Auto 0 /uL (0-450); Eosinophils Percent Auto 0.2 % (2-4); Hematocrit 34.2 % (36-46); Hemoglobin 11.8 g/dL (12.0-16.0); Lymphocytes Absolute Auto 1700 /uL (1100-4500); Lymphocytes Percent Auto 8.7 % (25-40); Mean Corpuscular HGB Conc 34.4 % (30-36); Mean Corpuscular Hemoglobin 29.7 PG (26-34); Mean Corpuscular Volume 86.4 fL (80-100); Monocytes Absolute Auto 1100 /uL (0-900); Monocytes Percent Auto 5.7 % (3-14); Neutrophils Absolute Auto 16900 /uL (1500-7000); Neutrophils Percent Auto 85.1 % (50-75); Platelet Count 387 X10^3/uL (150-400); Red Blood Cell Count 3.96 X10^6/uL (4.0-5.2); Red Cell Distribution Width 14.9 % (11.6-14.8); White Blood Cell Count 19.9 X10^3/uL (4.5-11.0)
[2022-06-11 14:53] LABS: Alanine Aminotransferase 29 IU/L (<35); Albumin 4.3 g/dL (3.5-5.0); Albumin Globulin Ratio 1.5 (1.0-2.8); Alkaline Phosphatase 84 U/L (38-126); Aspartate Aminotransferase 34 IU/L (14-36); Bilirubin Total 0.5 mg/dL (0.2-1.3); Blood Urea Nitrogen 63 mg/dL (7-17); Calcium 8.7 mg/dL (8.4-10.2); Carbon Dioxide 22 mmol/L (22-32); Chloride 93 mmol/L (98-107); Creatine Kinase 28 U/L (30-135); Estimated Glomerular Filt Rate 28 mL/min (>60); Globulin 2.9 g/dL (1.7-4.1); Glucose 138 mg/dL (80-110); HEMOLYSIS < 15 (0-50); Lipase 39 U/L (23-300); Potassium 3.2 mmol/L (3.4-5.1); Sodium 130 mmol/L (137-145); Total Protein 7.2 g/dL (6.3-8.2)
[2022-06-11 14:55] LABS: Lactate (Lactic Acid) 2.2 mmol/L (0.7-2.1)
[2022-06-11 15:05] LABS: Troponin I < 0.012 ng/mL (0.01-0.034)
--- NOTE | 2022-06-11 15:07 | DI.CT.S_ITS ---
PROCEDURE: CT ABDOMEN PELVIS WO CON INDICATIONS: diarrhea TECHNIQUE: After the administration of oral contrast, 5 mm thick sections acquired from the diaphragms to the symphysis. 5 mm coronal and sagittal reformats were performed. For radiation dose reduction, the following was used: automated exposure control, adjustment of mA and/or kV according to patient size. COMPARISON: None. FINDINGS: Image quality: Excellent. ABDOMEN: Lung bases: Lung bases are clear. Heart size is normal. Solid organs: Liver is normal in size. Cholecystectomy. Pancreas is normal in size. Spleen is normal in size. No adrenal nodules. Both kidneys are normal in size, without hydronephrosis or nephrolithiasis. Peritoneum and bowel: Bowel loops demonstrate normal wall thickness and caliber. No free fluid or air. Nodes and vessels: No retroperitoneal or mesenteric adenopathy by size criteria. Aorta and inferior vena cava are normal in size. Miscellaneous: No ventral hernias. PELVIS: Genitourinary: Bladder wall thickness is normal. Miscellaneous: No inguinal hernias or adenopathy. Bones: No suspicious bony lesions. No vertebral body compression fractures. IMPRESSION: No acute finding. Dictated by: Robin Johnson M.D. on 06/11/2022 at 15:55 Approved by: Robin Johnson M.D. on 06/11/2022 at 15:56
[2022-06-11 16:24] LABS: Reflexed Lactate in 2 Hours Y
[2022-06-11 17:19] LABS: Appearance Urine UA CLEAR; Bilirubin Urine UA NEGATIVE (NEGATIVE); Color Urine UA YELLOW; Glucose Urine UA NEGATIVE (Negative); Ketones Urine UA NEGATIVE (NEGATIVE); Leukocyte Esterase Urine UA NEGATIVE (NEGATIVE); Nitrite Urine UA NEGATIVE (Negative); Occult Blood Urine UA NEGATIVE (Negative); Protein Urine UA NEGATIVE (Negative); Specific Gravity Urine UA <=1.005 (1.000-1.035); Urobilinogen Urine UA 0.2 E.U./dL (0.2)
[2022-06-11 17:22] LABS: Lactate 2HR (Lactic Acid Rflx) 1.1 mmol/L (0.7-2.1)
[2022-06-11 17:24] LABS: pH Urine UA 5.5 (4.5-8.0)
[2022-06-11 17:44] LABS: Bacteria Urine None Seen; Culture Indicated Urine Cult Not Indicated; Hyaline Casts Urine 5-10/LPF; RBC Urine 0-1/HPF (0-5/HPF); Squamous Epithelial Cell Urine 1-5 /HPF (0-5/HPF); WBC Urine 1-5/HPF (0-5/HPF)
--- NOTE | 2022-06-11 18:13 | PC.NURSE ---
Pt. did not pass ambulation trial. Pt. stated I'm getting very dizzy. 107 while walking. RN and MD notified.
[2022-06-11 18:48] LABS: COVID19 -Nasal RAPID Negative (Negative)
--- NOTE | 2022-06-11 19:19 | PM.HP.1 ---
History of Present Illness History of Present Illness Date Patient Seen: 06/11/22 Time Patient Seen: 18:45 Chief complaint: VOMITING/WEAK/BODY ACHES Narrative: Ms. Cartagena is a 66W with PMH of MS, depression and admission last month for sepsis from a E. coli UTI who presents with nausea, vomiting, diarrhea. She states she had been in her normal state of health and then over the last couple days she developed abdominal pain. She developed nausea, vomiting, and diarrhea. No other sick contacts. No bloody emesis or stool. Her has eaten the same food and has no symptoms. She feels dizzy and lightheaded. She often has neurologic issues when infected due to her MS and she feels she has upper and lower extremity trembling and difficulty with word finding. In the ED workup was done, she was found to be hypotensive with a blood pressure in the 70's.?Vitals otherwise notable for tachycardia in the 100s. Labs notable for WBC 19.9. hgb 11.8. Na 130, k 3.2, BUN 63, creat 1.97. Lactate 2.2->1.1. Trop negative. Procal 0.40. UA negative. Chest xray with no acute process. CT abdomen with no acute process. Patient History Medical History Anxiety Cholelithiasis Fibromyalgia Hx of fracture of ankle Major depressive disorder, recurrent, moderate Mixed hyperlipidemia Post traumatic stress disorder (PTSD) Surgical History History of carpal tunnel release of both wrists Hx of hysterectomy Family & Social History Family History Mother Cardiac arrest Father Colitis Social History: household members spouse Safety & Behavioral: Feels Safe in Current Yes Environment Tobacco & Substance use: Smoking Status Never smoker alcohol intake frequency holiday/special occasion Substance Use Type does not use Meds Home Medications and Allergies Home Medications Medication Instructions Recorded Confirmed Type cholecalciferol (vitamin D3) 25 25 mcg PO DAILY 07/28/20 05/28/22 History mcg (1,000 unit) capsule magnesium hydroxide 400 mg (170 mg 400 mg PO DAILY 07/28/20 05/28/22 History magnesium) chewable tablet mecobalamin (vitamin B12) 1,000 1,000 mcg PO DAILY 07/28/20 05/28/22 History mcg chewable tablet famotidine 20 mg tablet 20 mg PO DAILY #90 tabs 08/14/21 05/28/22 Rx telmisartan 80 mg tablet 80 mg PO DAILY #90 tabs 08/14/21 05/28/22 Rx gabapentin 300 mg capsule 300 mg PO TID #270 caps 08/21/21 05/28/22 Rx trospium 60 mg capsule,extended 60 mg PO DAILY 10/16/21 05/28/22 History release 24 hr hydrochlorothiazide 25 mg tablet 25 mg PO DAILY #90 tabs 11/05/21 05/28/22 Rx methocarbamol 500 mg tablet 500 mg PO TID PRN muscle spasm 03/19/22 05/28/22 History promethazine 25 mg tablet 25 mg PO TID PRN nausea #30 tabs 04/15/22 05/28/22 Rx rizatriptan 10 mg tablet See Rx Instructions .Route 04/15/22 05/28/22 Rx .COMPLEX #6 tabs estradiol 0.01% (0.1 mg/gram) 1 g vaginal 2XW #42.5 grams 04/30/22 05/28/22 Rx vaginal cream doxepin 75 mg capsule 75 mg PO HS #90 caps 05/28/22 05/28/22 Rx risperidone 0.5 mg tablet See Rx Instructions .Route 05/28/22 05/28/22 Rx .COMPLEX #360 tabs fluoxetine 20 mg capsule 40 mg PO QDAY #180 caps 06/03/22 Rx Allergies Allergy/AdvReac Type Severity Reaction Status Date / Time zolpidem AdvReac Severe HALLUCINATIONS, Verified 06/11/22 13:42 NOT KNOWING WHERE SHE WAS, DIZZINESS Review of Systems Review of Systems Narrative: 14 systems reviewed and negative aside from what is noted in HPI Exam Vital Signs (past 8 hours): - 06/11/22 13:38 06/11/22 14:06 06/11/22 14:10 Temperature 97.5 F L Pulse Rate 103 H 100 H Respiratory Rate 18 20 Blood Pressure 83/46 L 90/52 L Pulse Oximetry 99 Oxygen Delivery Method Room Air 06/11/22 14:10 06/11/22 14:15 06/11/22 14:15 Temperature Pulse Rate 100 H 98 H Respiratory Rate 22 23 Blood Pressure 88/53 L Pulse Oximetry 96 97 Oxygen Delivery Method 06/11/22 14:30 06/11/22 14:45 06/11/22 14:50 Temperature Pulse Rate 94 H 92 H 94 H Respiratory Rate 19 13 24 Blood Pressure Pulse Oximetry 98 97 98 Oxygen Delivery Method 06/11/22 14:50 06/11/22 15:00 06/11/22 15:00 Temperature Pulse Rate 92 H Respiratory Rate 15 Blood Pressure 97/52 L 99/57 L Pulse Oximetry 97 Oxygen Delivery Method 06/11/22 15:15 06/11/22 15:15 06/11/22 15:30 Temperature Pulse Rate 91 H Respiratory Rate 16 Blood Pressure 99/58 L 107/55 L Pulse Oximetry 98 Oxygen Delivery Method 06/11/22 15:30 06/11/22 15:45 06/11/22 15:45 Temperature Pulse Rate 91 H 89 Respiratory Rate 16 14 Blood Pressure 103/55 L Pulse Oximetry 95 97 Oxygen Delivery Method 06/11/22 15:56 06/11/22 15:56 06/11/22 16:00 Temperature Pulse Rate 93 H Respiratory Rate 15 Blood Pressure 103/59 L 109/59 L Pulse Oximetry 98 Oxygen Delivery Method 06/11/22 16:00 06/11/22 16:15 06/11/22 16:15 Temperature Pulse Rate 91 H 92 H Respiratory Rate 18 24 Blood Pressure 109/61 Pulse Oximetry 98 98 Oxygen Delivery Method 06/11/22 16:30 06/11/22 16:30 06/11/22 16:45 Temperature Pulse Rate 93 H Respiratory Rate 22 Blood Pressure 106/56 L 112/60 Pulse Oximetry 97 Oxygen Delivery Method 06/11/22 16:45 06/11/22 17:00 06/11/22 17:00 Temperature Pulse Rate 92 H 95 H Respiratory Rate 15 Blood Pressure 121/55 L Pulse Oximetry 98 95 Oxygen Delivery Method 06/11/22 17:15 06/11/22 17:16 06/11/22 17:16 Temperature Pulse Rate 89 91 H Respiratory Rate 19 Blood Pressure 115/58 L Pulse Oximetry 97 96 Oxygen Delivery Method 06/11/22 17:30 06/11/22 17:38 06/11/22 17:38 Temperature Pulse Rate 106 H 91 H Respiratory Rate 22 Blood Pressure 116/62 Pulse Oximetry 100 Oxygen Delivery Method 06/11/22 17:45 06/11/22 17:50 06/11/22 17:50 Temperature Pulse Rate 90 89 Respiratory Rate 18 18 Blood Pressure 120/60 Pulse Oximetry 98 98 Oxygen Delivery Method 06/11/22 18:05 06/11/22 18:00 06/11/22 18:00 Temperature Pulse Rate 107 H 91 H Respiratory Rate 22 22 Blood Pressure 116/61 Pulse Oximetry 98 97 Oxygen Delivery Method 06/11/22 18:08 06/11/22 18:08 06/11/22 18:15 Temperature Pulse Rate 94 H 91 H Respiratory Rate 17 Blood Pressure 111/56 L Pulse Oximetry 96 98 Oxygen Delivery Method 06/11/22 18:30 06/11/22 18:30 06/11/22 18:45 Temperature Pulse Rate 92 H 94 H Respiratory Rate 14 23 Blood Pressure 105/58 L Pulse Oximetry 98 98 Oxygen Delivery Method Oxygen Delivery Method Room Air Narrative Exam Narrative: GEN: mild distress HEENT: dry mucous membranes, PERRL NECK: trachea midline, no JVD PULM: clear bilaterally, no wheezes, rhonchi, rales CV: tachycardic, no murmurs ABD: soft, mildly tender, mildly distended, no organomegaly EXT: warm and well perfused with no edema NEURO: awake, alert, oriented, tremulous, has word finding difficulty Objective Labs Result Diagrams: 06/11/22 14:00 06/11/22 14:00 Labs: Laboratory Results - last 24 hr 06/11/22 06/11/22 06/11/22 14:00 14:00 14:00 WBC 19.9 H RBC 3.96 L Hgb 11.8 L Hct 34.2 L MCV 86.4 MCH 29.7 MCHC 34.4 RDW 14.9 H Plt Count 387 Neut % (Auto) 85.1 H Lymph % (Auto) 8.7 L [place] % (Auto) 5.7 Eos % (Auto) 0.2 L Baso % (Auto) 0.3 Neut # (Auto) 60403 H Lymph # (Auto) 1700 [place] # (Auto) 1100 H Eos # (Auto) 0 Baso # (Auto) 100 Sodium 130 L Potassium 3.2 L Chloride 93 L Carbon Dioxide 22 BUN 63 H Creatinine 1.97 H Estimated GFR 28 L BUN/Creatinine Ratio 32.0 H Glucose 138 H Lactate 2.2 H Calcium 8.7 Total Bilirubin 0.5 AST 34 ALT 29 Alkaline Phosphatase 84 Total Creatine Kinase CK-MB (CK-2) CK-MB (CK-2) Rel Index Troponin I Total Protein 7.2 Albumin 4.3 Globulin 2.9 Albumin/Globulin Ratio 1.5 Lipase 39 Procalcitonin 0.40 Urine Color Urine Appearance Urine pH Ur Specific [place] Urine Protein Urine Glucose (UA) Urine Ketones Urine Occult Blood Urine Nitrate Urine Bilirubin Urine Urobilinogen Ur Leukocyte Esterase Urine RBC Urine WBC Ur Squamous Epith Cells Urine Bacteria Hyaline Casts Ur Culture Indicated? SARS-CoV-2 (PCR) 06/11/22 06/11/22 06/11/22 14:00 14:05 16:28 WBC RBC Hgb Hct MCV MCH MCHC RDW Plt Count Neut % (Auto) Lymph % (Auto) [place] % (Auto) Eos % (Auto) Baso % (Auto) Neut # (Auto) Lymph # (Auto) [place] # (Auto) Eos # (Auto) Baso # (Auto) Sodium Potassium Chloride Carbon Dioxide BUN Creatinine Estimated GFR BUN/Creatinine Ratio Glucose Lactate Calcium Total Bilirubin AST ALT Alkaline Phosphatase Total Creatine Kinase 28 L CK-MB (CK-2) TNP CK-MB (CK-2) Rel Index TNP Troponin I < 0.012 Total Protein Albumin Globulin Albumin/Globulin Ratio Lipase Procalcitonin Urine Color Yellow Urine Appearance Clear Urine pH 5.5 Ur Specific [place] <=1.005 Urine Protein Negative Urine Glucose (UA) Negative Urine Ketones Negative Urine Occult Blood Negative Urine Nitrate Negative Urine Bilirubin Negative Urine Urobilinogen 0.2 Ur Leukocyte Esterase Negative Urine RBC 0-1/hpf Urine WBC 1-5/hpf Ur Squamous Epith Cells 1-5 /hpf Urine Bacteria None seen Hyaline Casts 5-10/lpf Ur Culture Indicated? Cult not indicated SARS-CoV-2 (PCR) Negative 06/11/22 16:55 WBC RBC Hgb Hct MCV MCH MCHC RDW Plt Count Neut % (Auto) Lymph % (Auto) [place] % (Auto) Eos % (Auto) Baso % (Auto) Neut # (Auto) Lymph # (Auto) [place] # (Auto) Eos # (Auto) Baso # (Auto) Sodium Potassium Chloride Carbon Dioxide BUN Creatinine Estimated GFR BUN/Creatinine Ratio Glucose Lactate 1.1 Calcium Total Bilirubin AST ALT Alkaline Phosphatase Total Creatine Kinase CK-MB (CK-2) CK-MB (CK-2) Rel Index Troponin I Total Protein Albumin Globulin Albumin/Globulin Ratio Lipase Procalcitonin Urine Color Urine Appearance Urine pH Ur Specific [place] Urine Protein Urine Glucose (UA) Urine Ketones Urine Occult Blood Urine Nitrate Urine Bilirubin Urine Urobilinogen Ur Leukocyte Esterase Urine RBC Urine WBC Ur Squamous Epith Cells Urine Bacteria Hyaline Casts Ur Culture Indicated? SARS-CoV-2 (PCR) Assessment & Plan Assessment & Plan narrative: Ms. Cartagena is a 66W with PMH MS who presents with vomiting and diarrhea found to have sepsis and PRANEETH. 1. Acute vomiting and diarrhea causing sepsis and PRANEETH -etiology is possibly infectious diarrhea, possibly c diff given recent antibiotic use -empiric treatment for now with azithromycin and PO vancomycin -check c. diff, check stool cultures -CT abdomen with no acute process -sepsis with tachycardia, leukocytosis, with hypotension and organ dysfunction with PRANEETH 2. PRANEETH -secondary to hypovolemia from fluid loss -empiric IV fluids -check creatinine daily 3. Tremulous, word finding difficulties with history of MS -suspect this is secondary to infection in patient with MS -no indication for head imaging now, but if focal deficit will order 4. Hypokalemia -replete carefully with IV K riders 5. Anemia -mild, appears chronic -no need for transfusion CODE: Full Proxy: Wu Cartagena, I have utilized all available resources to reconcile the patient's home medications. Time Spent With Patient Critical Care time: I spent a total of [] minutes of critical care time on this patient's care today; this time is exclusive of procedural time. Quality MIPS - Admit I confirm the patient?s Advance Care Plan is present, Code status is documented, Surrogate decision maker is in patient?s record [If Yes, STOP here]: Yes
[2022-06-11] MEDS: HEPARIN 5,000 UNIT/ML VIAL 5000 UNIT SUBCUT (22:17)
[2022-06-11] MEDS: VANCOMYCIN 125 MG CAPSULE PO (22:17)
[2022-06-11] MEDS: AZITHROMYCIN 250 MG TABLET 500 MG PO (22:17)
[2022-06-11] MEDS: POTASSIUM CHLORIDE IN WATER 10 MEQ/100 ML PIGGYBACK 100 MEQ IV (22:18)
[2022-06-11] MEDS: SODIUM CHLORIDE 0.9% 1,000 ML 150 ML IV (22:20)
[2022-06-12] MEDS: POTASSIUM CHLORIDE IN WATER 10 MEQ/100 ML PIGGYBACK 100 MEQ IV (00:13)
[2022-06-12 00:30] VITALS: BP 108/57; PULSE 105; RESP 18; TEMP 36.8; O2SAT 94
[2022-06-12] MEDS: ACETAMINOPHEN 325 MG TABLET 650 MG PO (03:46)
[2022-06-12 03:52] VITALS: BP 102/47; PULSE 114; RESP 18; TEMP 37.3; O2SAT 93
[2022-06-12] MEDS: VANCOMYCIN 125 MG CAPSULE PO ×2 (04:51→09:57)
[2022-06-12] MEDS: SODIUM CHLORIDE 0.9% 1,000 ML 150 ML IV ×2 (04:52→13:01)
[2022-06-12 06:29] LABS: Blood Urea Nitrogen 32 mg/dL (7-17); Calcium 7.9 mg/dL (8.4-10.2); Carbon Dioxide 24 mmol/L (22-32); Chloride 106 mmol/L (98-107); Estimated Glomerular Filt Rate > 60 mL/min (>60); Glucose 101 mg/dL (80-110); HEMOLYSIS < 15 (0-50); Magnesium 2.2 mg/dL (1.6-2.3); Potassium 3.7 mmol/L (3.4-5.1); Sodium 136 mmol/L (137-145)
[2022-06-12 06:40] LABS: Add Manual Diff / Slide Review NO; Basophils Absolute Auto 100 /uL (0-100); Basophils Percent Auto 0.6 % (0-2); Eosinophils Absolute Auto 100 /uL (0-450); Eosinophils Percent Auto 0.7 % (2-4); Hematocrit 25.9 % (36-46); Hemoglobin 8.9 g/dL (12.0-16.0); Lymphocytes Absolute Auto 1800 /uL (1100-4500); Lymphocytes Percent Auto 14.1 % (25-40); Mean Corpuscular HGB Conc 34.4 % (30-36); Mean Corpuscular Hemoglobin 29.7 PG (26-34); Mean Corpuscular Volume 86.4 fL (80-100); Monocytes Absolute Auto 800 /uL (0-900); Monocytes Percent Auto 6.7 % (3-14); Neutrophils Absolute Auto 9700 /uL (1500-7000); Neutrophils Percent Auto 77.9 % (50-75); Platelet Count 264 X10^3/uL (150-400); White Blood Cell Count 12.5 X10^3/uL (4.5-11.0)
[2022-06-12 08:00] VITALS: O2SAT 97
[2022-06-12 08:57] VITALS: BP 112/49; PULSE 102; RESP 20; TEMP 36.3; O2SAT 93
[2022-06-12] MEDS: AZITHROMYCIN 250 MG TABLET 500 MG PO (09:57)
[2022-06-12] MEDS: FLUoxetine 20 MG CAPSULE 40 MG PO (09:57)
[2022-06-12] MEDS: HEPARIN 5,000 UNIT/ML VIAL 5000 UNIT SUBCUT (09:57)
[2022-06-12 11:34] VITALS: BP 103/55; PULSE 93; RESP 22; TEMP 36.3; O2SAT 95
--- NOTE | 2022-06-12 15:13 | P.DS_ITS ---
History of Present Illness History of Present Illness Date Patient Seen: 06/12/22 Chief complaint: VOMITING/WEAK/BODY ACHES Narrative: Improving eager to go home. Discharge Providers Provider Date of admission: 06/11/22 19:17 Discharge Date: 06/12/22 Primary care physician: Dereck Roper MD Discharge provider: Liv Murdock MD Summary Hospital Course Discharge Diagnosis: Most responsible diagnosis: Acute diarrhea, likely infectious Pre Admit diagnosis: Acute diarrhea Nausea vomiting Acute kidney injury History of MS Tremulous, word finding difficulties with history of MS Acute hyponatremia Acute hypokalemia Leukocytosis Abdominal pain Hypotension Post admit diagnosis: Resolution of hypokalemia Resolution of hyponatremia Resolution of acute kidney injury Secondary diagnosis: Anxiety Cholelithiasis Fibromyalgia Hx of fracture of ankle Major depressive disorder, recurrent, moderate Mixed hyperlipidemia Post traumatic stress disorder (PTSD) History of carpal tunnel release of both wrists Hx of hysterectomy Hospital Course: Patient presented with acute abdominal pain for a couple days and subsequent persistent diarrhea with associated nausea and vomiting. Patient had low potassium low sodium and acute kidney injury on presentation. She also had difficulty with words and tremulousness which she consistently gets when she is ill due to her MS. Patient was treated with azithromycin for heard diarrhea and covered with vancomycin due to recent history of C difficile. Fluid hydration was provided. Patient was stable the following day and eager to be discharged home. Unfortunately no C difficile toxin test was taken. However the quick turnaround in regards to symptoms likely secondary to hydration, and treatment with azithromycin diarrhea. Azithromycin was continued on discharge and vancomy donell was discontinued. Status at Discharge Cognitive/behavioral status at discharge: at baseline, oriented Functional status at discharge: independent ambulation Overall status at discharge: patient is back to baseline Time Spent with Patient Time spent: Greater than 30 minutes Exam Vital Signs (past 8 hours): - 06/12/22 08:57 06/12/22 08:00 06/12/22 11:34 Temperature 97.3 F L 97.3 F L Pulse Rate 102 H 93 H Respiratory Rate 20 22 Blood Pressure 112/49 L 103/55 L Pulse Oximetry 93 97 95 Oxygen Delivery Method Room Air Oxygen Flow Rate 0 0 0 Oxygen Delivery Method Room Air Oxygen Flow Rate 0 Objective Labs Result Diagrams: 06/12/22 05:35 06/12/22 05:35 Labs: Laboratory Results - last 24 hr 09/06/11/22 06/11/22 14:00 14:05 16:28 WBC RBC Hgb Hct MCV MCH MCHC RDW Plt Count Neut % (Auto) Lymph % (Auto) [place] % (Auto) Eos % (Auto) Baso % (Auto) Neut # (Auto) Lymph # (Auto) [place] # (Auto) Eos # (Auto) Baso # (Auto) Sodium Potassium Chloride Carbon Dioxide BUN Creatinine Estimated GFR BUN/Creatinine Ratio Glucose Lactate Calcium Magnesium Procalcitonin 0.40 Urine Color Yellow Urine Appearance Clear Urine pH 5.5 Ur Specific [place] <=1.005 Urine Protein Negative Urine Glucose (UA) Negative Urine Ketones Negative Urine Occult Blood Negative Urine Nitrate Negative Urine Bilirubin Negative Urine Urobilinogen 0.2 Ur Leukocyte Esterase Negative Urine RBC 0-1/hpf Urine WBC 1-5/hpf Ur Squamous Epith Cells 1-5 /hpf Urine Bacteria None seen Hyaline Casts 5-10/lpf Ur Culture Indicated? Cult not indicated SARS-CoV-2 (PCR) Negative 06/11/22 06/12/22 06/12/22 16:55 05:35 05:35 WBC 12.5 H RBC 3.00 L Hgb 8.9 L Hct 25.9 L MCV 86.4 MCH 29.7 MCHC 34.4 RDW 14.0 Plt Count 264 Neut % (Auto) 77.9 H Lymph % (Auto) 14.1 L [place] % (Auto) 6.7 Eos % (Auto) 0.7 L Baso % (Auto) 0.6 Neut # (Auto) 9700 H Lymph # (Auto) 1800 [place] # (Auto) 800 Eos # (Auto) 100 Baso # (Auto) 100 Sodium 136 L Potassium 3.7 Chloride 106 Carbon Dioxide 24 BUN 32 H Creatinine 0.78 Estimated GFR > 60 BUN/Creatinine Ratio 41.0 H Glucose 101 Lactate 1.1 Calcium 7.9 L Magnesium 2.2 Procalcitonin Urine Color Urine Appearance Urine pH Ur Specific [place] Urine Protein Urine Glucose (UA) Urine Ketones Urine Occult Blood Urine Nitrate Urine Bilirubin Urine Urobilinogen Ur Leukocyte Esterase Urine RBC Urine WBC Ur Squamous Epith Cells Urine Bacteria Hyaline Casts Ur Culture Indicated? SARS-CoV-2 (PCR) PFSH Medical History Anxiety Cholelithiasis Fibromyalgia Hx of fracture of ankle Major depressive disorder, recurrent, moderate Mixed hyperlipidemia Post traumatic stress disorder (PTSD) Surgical History History of carpal tunnel release of both wrists Hx of hysterectomy Family History Mother Cardiac arrest Father Colitis Social History household members: spouse Smoking Status: Never smoker Discharge Plan Discharge Plan Patient Disposition: Home Discharge orders & Medications Prescriptions: New azithromycin [Zithromax Z-Maksim] 250 mg Tablet 500 mg PO DAILY Qty: 2 0RF Continued methocarbamol 500 mg tablet 500 mg PO TID PRN (Reason: muscle spasm) risperidone 0.5 mg tablet See Rx Instructions .ROUTE .COMPLEX Qty: 360 1RF Dose Instruction: take 2 tabs (1mg) by mouth in the morning, 1.5 tabs (0.75mg) around midday, and another 1.5 tabs (0.75mg) at bedtime; for severe anxiety Rx Instructions: take 2 tabs (1mg) by mouth in the morning, 1 tabs (0.5mg) at midday, and 1 tab (0.5mg) at bedtime for severe anxiety cholecalciferol (vitamin D3) 25 mcg (1,000 unit) capsule 25 mcg PO DAILY mecobalamin (vitamin B12) 1,000 mcg tablet,chewable 1,000 mcg PO DAILY magnesium hydroxide 400 mg (170 mg magnesium) tablet,chewable 400 mg PO DAILY trospium 60 mg capsule,extended release 24hr 60 mg PO DAILY famotidine 20 mg tablet 20 mg PO DAILY Qty: 90 3RF telmisartan 80 mg tablet 80 mg PO DAILY Qty: 90 3RF gabapentin 300 mg capsule 300 mg PO TID Qty: 270 3RF hydrochlorothiazide 25 mg tablet 25 mg PO DAILY Qty: 90 2RF rizatriptan 10 mg tablet See Rx Instructions .ROUTE .COMPLEX Qty: 6 11RF Dose Instruction: Take 1 tablet (10 mg) by mouth every 2 hours as needed for migraine headache. Maximum daily dose 20mg Rx Instructions: Take 1 tablet (10 mg) by mouth every 2 hours as needed for migraine headache. Maximum daily dose 20mg promethazine 25 mg tablet 25 mg PO TID PRN (Reason: nausea) Qty: 30 0RF estradiol 0.01 % (0.1 mg/gram) cream 1 g vaginal 2XW Qty: 42.5 3RF doxepin 75 mg capsule 75 mg PO HS Qty: 90 1RF fluoxetine 20 mg capsule 40 mg PO QDAY Qty: 180 1RF Follow up/Referrals: Dereck Roper MD [Primary Care Provider] - Discharge Data Primary Care Provider: Dereck Roper Quality VTE Deep Vein Thrombosis/Pulmonary Embolism Present on Admission: No
== END 2022-06-12 14:15 | disposition home or self-care (01) | DRG 392 ==
LOC: ED 13:56 → AC 19:17
PROVIDERS: Internal Medicine; Admitting Provider Nurse Practitioner Family; Emergency Provider Emergency Medicine; PCP Student in an Organized Health Care Education/Training Program; Referring Provider Emergency Medicine; Visit Provider Nurse Practitioner Family
DX: A09 Infectious gastroenteritis and colitis, unspecified (principal); N17.9 Acute kidney failure, unspecified; F33.1 Major depressive disorder, recurrent, moderate; G35 Multiple sclerosis; D64.9 Anemia, unspecified; E87.6 Hypokalemia; I10 Essential (primary) hypertension; Z20.822 Contact with and (suspected) exposure to COVID-19; Z86.19 Personal history of other infectious and parasitic diseases; F51.9 Sleep disorder not due to a substance or known physiological condition, unspecified
CPT/HCPCS: 36415; 71045; 74176; 80048; 80053; 81001; 82550; 83605; 83690; 83735; 84145; 84484; 85025; 87040; 87045; 87635; 87899; 90837; 93005; 93010; 99284; C9803; J1644

== ENCOUNTER → 2022-08-06 15:54 | Outpatient (CLI) | payer OTHER, SELFPAY ==
[2022-05-04 22:35] VITALS: PULSE 67; RESP 12; O2SAT 96
[2022-06-11 20:28] VITALS: BMI 28.5
--- NOTE | 2022-08-06 | DI.MG.S_ITS ---
BILATERAL DIGITAL SCREENING MAMMOGRAM 3D/2D WITH CAD: 08/06/2022 Comparison is made to exams dated: 08/03/2021 mammogram and 08/02/2020 mammogram - [facility]. There are scattered areas of fibroglandular density in both breasts (category b / 25%-50% glandular tissue). Current study was also evaluated with a Computer Aided Detection (CAD) system. No significant masses, calcifications, or other findings are seen in either breast. There has been no significant interval change. IMPRESSION: NEGATIVE There is no mammographic evidence of malignancy. A 1 year screening mammogram is recommended. Based on the Tyrer Cuzick model (a risk assessment model) the patient's lifetime risk is 5.5% and her 10 year risk is 2.5%. According to the ACR, ACS, and NCCN guidelines, an annual breast MRI exam along with mammogram is recommended if the patient's lifetime risk is 20% or greater. This exam was interpreted at Station ID: [id number]. NOTE: For mammograms, a report in lay terms will be sent to the patient. Approximately 15% of breast malignancies will not be visualized mammographically. In the management of a palpable breast mass, a negative mammogram must not discourage biopsy of a clinically suspicious lesion. Electronically Signed By: Martha [email or web address]/[email or web address]:08/07/2022 14:06:26 letter sent: Normal Exam ACR BI-RADS Category 1: Negative 3341F
--- NOTE | 2022-08-06 15:59 | DI.RAD.S_ITS ---
PROCEDURE: XR SHOULDER LT MIN 2V INDICATIONS: Bilateral shoulder pain TECHNIQUE: Three views of the shoulder were acquired. COMPARISON: None. FINDINGS: Bones: No fractures or dislocations. Mildly decreased joint space at the acromioclavicular joint No suspicious bony lesions. Visualized ribs appear intact. Soft tissues: No suspicious soft tissue calcifications. IMPRESSION: 1. Minor AC joint degeneration. Otherwise normal shoulder. Dictated by: Reta Linn M.D. on 08/07/2022 at 10:27 Approved by: Reta Linn M.D. on 08/07/2022 at 10:28
--- NOTE | 2022-08-06 15:59 | DI.RAD.S_ITS ---
PROCEDURE: XR SHOULDER RT MIN 2V INDICATIONS: Bilateral shoulder pain TECHNIQUE: Three views of the shoulder were acquired. COMPARISON: None. FINDINGS: Bones: No fractures or dislocations. No suspicious bony lesions. Visualized ribs appear intact. Soft tissues: No suspicious soft tissue calcifications. IMPRESSION: Normal right shoulder. Dictated by: Reta Linn M.D. on 08/07/2022 at 10:28 Approved by: Reta Linn M.D. on 08/07/2022 at 10:28
== END ==
PROVIDERS: Family Provider Student in an Organized Health Care Education/Training Program; PCP Student in an Organized Health Care Education/Training Program; Referring Provider Student in an Organized Health Care Education/Training Program; Visit Provider Student in an Organized Health Care Education/Training Program
DX: Z12.31 Encounter for screening mammogram for malignant neoplasm of breast (principal); M25.511 Pain in right shoulder; M25.512 Pain in left shoulder; M12.811 Other specific arthropathies, not elsewhere classified, right shoulder; M12.812 Other specific arthropathies, not elsewhere classified, left shoulder
CPT/HCPCS: 73030; 77063; 77067

== ENCOUNTER → 2022-10-30 12:14 | Outpatient (CLI) | payer OTHER, SELFPAY ==
[2022-05-04 22:35] VITALS: PULSE 67; RESP 12; O2SAT 96
[2022-06-11 20:28] VITALS: BMI 28.5
--- NOTE | 2022-10-30 12:18 | DI.RAD.S_ITS ---
PROCEDURE: XR KNEE RT 4V INDICATIONS: Right knee pain and swelling w/o trauma TECHNIQUE: 3 views of the knee were acquired. COMPARISON: None. FINDINGS: Bones: No displaced fracture or dislocation. Mild arthrosis. Soft tissues: Joint effusion is present. IMPRESSION: No acute osseous abnormality. Joint effusion is present. If there is high concern for further derangement, consider MRI evaluation. Dictated by: Huber Roberson M.D. on 10/30/2022 at 16:13 Approved by: Huber Roberson M.D. on 10/30/2022 at 16:14
== END ==
PROVIDERS: Family Provider Student in an Organized Health Care Education/Training Program; PCP Student in an Organized Health Care Education/Training Program; Referring Provider Student in an Organized Health Care Education/Training Program; Visit Provider Student in an Organized Health Care Education/Training Program
DX: M25.561 Pain in right knee (principal); M25.461 Effusion, right knee
CPT/HCPCS: 73562

== ENCOUNTER → 2023-01-11 13:44 | Outpatient (CLI) | payer OTHER, SELFPAY ==
[2022-05-04 22:35] VITALS: PULSE 67; RESP 12; O2SAT 96
[2022-06-11 20:28] VITALS: BMI 28.5
--- NOTE | 2023-01-11 13:45 | DI.MRI.S_ITS ---
PROCEDURE: MR KNEE RT WO CON INDICATIONS: ongoing right knee pain TECHNIQUE: Noncontrast sagittal PD fast spin echo and T2 fast spin echo with fat saturation, sagittal 3-D FLASH with fat saturation; coronal T1 spin echo and PD fast spin echo with fat saturation, and axial PD fast spin echo with fat saturation through the knee. COMPARISON: [facility], CR, XR KNEE RT 4V, 10/30/2022, 12:29. FINDINGS: Image quality: Excellent. Menisci: There is complex tear of the posterior horn and body of the medial meniscus. There is intrasubstance degeneration of the anterior horn of the lateral meniscus. The meniscal root ligaments appear intact. Cruciate ligaments: The anterior and posterior cruciate ligaments appear intact. Mild mucoid degeneration of ACL. Medial structures: The medial collateral ligament appears intact. The semimembranosus tendon insertions and meniscocapsular junction appear intact. Visualized portions of the pes anserinus tendons appear normal. No abnormal bursal fluid. Lateral structures: The lateral collateral ligament, long and short heads of the biceps femoris tendon appear intact. The popliteus tendon appears normal. Iliotibial band appears normal. Anterior structures: The quadriceps and patellar tendons appear intact. Mild quadriceps tendinitis. Patellar alignment is normal. No femoral trochlear dysplasia or ventral trochlear prominence. No edema in the infrapatellar fat pad. Bones and cartilage: No bone marrow contusions or fractures. Tricompartmental cartilage thinning and fibrillation, most pronounced in the patellofemoral compartment and medial femorotibial compartment. There are full-thickness cartilage fissures in the medial facet of patella with associated subchondral edema and cyst formation. Joint space: There is moderate knee joint fluid. No Cali's cyst. Normal appearing synovial plicae are incidentally noted. IMPRESSION: 1. Complex tear of the posterior horn and body of the medial meniscus. 2. Intrasubstance degeneration of the anterior horn of the lateral meniscus. 3. Tricompartmental cartilage thinning and fibrillation. There are full-thickness cartilage fissures in the medial facet of patella. 4. Moderate knee joint effusion. Dictated by: Leticia John M.D. on 01/13/2023 at 7:44 Approved by: Leticia John M.D. on 01/13/2023 at 8:59
== END ==
PROVIDERS: Family Provider Student in an Organized Health Care Education/Training Program; PCP Student in an Organized Health Care Education/Training Program; Referring Provider Student in an Organized Health Care Education/Training Program; Visit Provider Student in an Organized Health Care Education/Training Program
DX: S83.231A Complex tear of medial meniscus, current injury, right knee, initial encounter (principal); M25.461 Effusion, right knee; M25.561 Pain in right knee; G89.29 Other chronic pain
CPT/HCPCS: 73721

== ENCOUNTER → 2023-01-14 13:47 | Outpatient (CLI) | payer OTHER, SELFPAY ==
[2022-05-04 22:35] VITALS: PULSE 67; RESP 12; O2SAT 96
[2022-06-11 20:28] VITALS: BMI 28.5
[2023-01-14 14:14] VITALS: BMI 29.7
--- NOTE | 2023-01-14 14:15 | DIET.OUTPTC ---
Dietary Outpatient Consultation Note Consultation Date: 01/14/[address] 67[address] visit for help with weight management. Height: 5'5 Wt: 171# down from 178# in October Hx weight in 40s: 135-145# BMI 28.5 Pt with med hx fibromyalgia, MS, depression and PTSD seeing addiction social worker and psychiatry. Pt noticed weight gain during menopause then more acute weight gain after prednisone use for shoulder injury last year. Pt injured knee three months ago, recent MRI showing knee has torn ligaments and meniscus. Pt was hospitalized for 1w in ICU for sepsis. Pt and spouse stopped eating ultraprocessed foods and started an anti-inflammatory pescatarian diet 7y ago which they really enjoy. Pt trialed a 800kcal diet to try to lose weight followed by a 1200 kcal diet but is not seeing effects. Has morning nausea 3x/w consistently, takes some raw libia Food Recall: wakes 8am has cup coffee with sweetened soymilk B: breakfast bowl- blueberries, nuts, sweetened vanilla almond non-dairy yogurt, Orgain pea protein powder, brewers yeast or half homemade protein bar. does PT exercises for knee and shoulder L: leftovers, brown rice with chopped veggies and tofu, black chiang chalupa if out and about, water or chamomile with green tea D: salads as a meal, fish with broccoli and cauliflower, potatoes with onions and miyokos Sn: sometimes a handful of BBQ chips Physical Activity- PT exercises, active around house, but limited walking and cardio because of knee injury (3mo ago)- difficulty with going down stairs and decline and in general, little to no strength training or cardio level exercise. RD Impression: Pt with excellent quality diet. I would not recommend pt continue severe calorie restriction, instead, focus on continuing high quality foods with the addition of 1/2 c beans/legumes daily for increased intake soluble fiber and focus on strength training for improvements in lean body mass. Pt likely experiencing slow metabolism from loss of LBM related to menopause, hospitalization for sepsis, and reduced physical activity related to MS and orthopedic injuries. Interventions: 1. Educated pt on role of LBM on metabolic rate and the detrimental effects of severe kcal restriction on metabolic rate. 2. Discussed realistic weight loss goals of no more than 1# per week and weight goal of 150-165#, important to maintain at least BMI 23 after age 65. 3. Pt will communicate with PT to help her find strength training routine that will be realistic and safe. 4. Educated pt on role of soluble fiber on weight management. Pt and will experiment more with lentils. Pt will aim for 1/2 cup cooked daily. f/u in 6w to assess progress. Electronically Signed by: Oralia Ryan 01/14/23 14:15 Clinical Dietitian [address] [id number]
== END ==
PROVIDERS: Absent Provider Student in an Organized Health Care Education/Training Program; Family Provider Student in an Organized Health Care Education/Training Program; PCP Student in an Organized Health Care Education/Training Program; Referring Provider Student in an Organized Health Care Education/Training Program; Visit Provider Student in an Organized Health Care Education/Training Program
DX: R63.4 Abnormal weight loss (principal); Z68.28 Body mass index [BMI] 28.0-28.9, adult; Z71.3 Dietary counseling and surveillance
CPT/HCPCS: 97802

== ENCOUNTER 2023-03-04 11:28 | Day surgery (SDC) | payer OTHER, SELFPAY ==
[2022-05-04 22:35] VITALS: PULSE 67; RESP 12; O2SAT 96
[2022-06-11 20:28] VITALS: BMI 28.5
[2023-03-04 11:56] VITALS: BMI 28.3
[2023-03-04] MEDS: LACTATED RINGERS 1,000 ML 200 ML IV (12:08)
--- NOTE | 2023-03-04 13:05 | PM.HP.1 ---
History of Present Illness History of Present Illness Date Patient Seen: 03/04/23 Time Patient Seen: 13:05 Chief complaint: [facility] [place] Narrative: 67-year-old woman here for screening colonoscopy. History of colonoscopy greater than 10 years ago normal. No family history of intestinal malignancy. No abdominal complaints. [facility] Medical History Anxiety Cholelithiasis Fibromyalgia Hx of fracture of ankle Major depressive disorder, recurrent, moderate Mixed hyperlipidemia Post traumatic stress disorder (PTSD) Surgical History History of carpal tunnel release of both wrists Hx of hysterectomy Family History Mother Cardiac arrest Father Colitis Social History household members: spouse Smoking Status: Never smoker alcohol intake: current Meds Home Medications and Allergies Home Medications Medication Instructions Recorded Confirmed Type cholecalciferol (vitamin D3) 25 25 mcg PO DAILY 07/28/20 03/04/23 History mcg (1,000 unit) capsule magnesium hydroxide 400 mg (170 mg 400 mg PO DAILY 07/28/20 03/04/23 History magnesium) chewable tablet mecobalamin (vitamin B12) 1,000 1,000 mcg PO DAILY 07/28/20 03/04/23 History mcg chewable tablet trospium 60 mg capsule,extended 60 mg PO DAILY 10/16/21 03/04/23 History release 24 hr estradiol 0.01% (0.1 mg/gram) 1 g vaginal 2XW #42.5 grams 04/30/22 03/04/23 Rx vaginal cream acyclovir 400 mg tablet 400 mg PO DAILY #90 tabs 07/18/22 03/04/23 Rx famotidine 20 mg tablet 20 mg PO DAILY #90 tabs 08/05/22 03/04/23 Rx gabapentin 300 mg capsule 300 mg PO TID #270 caps 08/05/22 03/04/23 Rx telmisartan 80 mg tablet 80 mg PO DAILY #90 tabs 08/05/22 03/04/23 Rx doxepin 75 mg capsule 75 mg PO HS #90 caps 10/09/22 03/04/23 Rx rizatriptan 10 mg tablet 10 mg PO Q2H PRN migraine headache 10/14/22 03/04/23 Rx #12 tabs risperidone 0.5 mg tablet See Rx Instructions .Route 11/04/22 03/04/23 Rx .COMPLEX #360 tabs fluoxetine 20 mg capsule 40 mg PO QDAY #180 caps 11/26/22 03/04/23 Rx methocarbamol 500 mg tablet 500 mg PO TID PRN muscle spasm #30 12/23/22 03/04/23 Rx tabs hydrochlorothiazide 25 mg tablet 25 mg PO DAILY #90 tabs 01/21/23 03/04/23 Rx Allergies Allergy/AdvReac Type Severity Reaction Status Date / Time zolpidem AdvReac Severe HALLUCINATIONS, Verified 03/04/23 11:48 NOT KNOWING WHERE SHE WAS, DIZZINESS Exam Narrative Exam Narrative: General adult woman alert oriented no acute distress Chest nonlabored respiration Extremities warm well perfused Assessment & Plan Assessment & Plan narrative: The patient requires colorectal screening and colonoscopy is recommended. Technical details were discussed. Risks, benefits, alternatives explained. Risks including but not limited to myocardial infarction, aspiration, bleeding, pain, missed lesion, incomplete examination, need for further radiographic studies, colonic perforation, and need for major abdominal surgery were discussed. All questions were answered to their satisfaction, and they are in agreement with this plan.
[2023-03-04 13:24] VITALS: BP 99/55; PULSE 78; RESP 14; TEMP 36.4; O2SAT 93
--- NOTE | 2023-03-04 13:24 | PM.OP.COLON ---
Operative Date/Time/Diagnoses Date of procedure: 03/04/23 Time of procedure: 13:24 Pre-op diagnosis: Colorectal screening Post-op diagnosis: same Procedure & Clinicians Study performed: Colonoscopy aborted Same procedure as scheduled: Yes Indications: 67-year-old woman here for routine screening colonoscopy Surgeon: Caleb Mckenzie Procedure Notes Procedure in detail: The history and physical was performed/updated and the patient is ASA class is 2. The procedure was discussed in detail with the patient. Potential risks complications including infection, bleeding, missed diagnosis, perforation, need for surgery, and were explained. Their questions were answered and informed consent was obtained. Patient was brought to the procedure room and placed standard monitoring equipment. The patient's vital signs were monitored continuously throughout the entire procedure. Prior to starting time-out was performed. The patient was placed in the left lateral recumbent position. Procedural sedation was administered by anesthesia. Examination began with a thorough inspection of the perianal area there was no evidence of fissures, fistulae, external hemorrhoids or cutaneous malignancy. The colonoscopy scope was then placed into the anal canal and was advanced forward. The quality of the preparation was inadequate for accurate and safe performance of the exam and the procedure was subsequently aborted. Impression: Aborted colonoscopy Post-procedure Plan for aftercare: Reschedule with alternative prep Disposition: same day surgery
[2023-03-04 13:28] VITALS: BP 112/68; PULSE 75; RESP 11; O2SAT 94
[2023-03-04 13:33] VITALS: BP 117/71; PULSE 74; RESP 12; O2SAT 95
[2023-03-04 13:40] VITALS: BP 118/72; PULSE 72; RESP 13; TEMP 36.1; O2SAT 96
== END 2023-03-04 15:00 | disposition home or self-care (01) ==
PROVIDERS: Family Provider Student in an Organized Health Care Education/Training Program; PCP Pediatrics; Referring Provider Surgery; Visit Provider Surgery
PROC: 0DJD8ZZ Inspection of Lower Intestinal Tract, Via Natural or Artificial Opening Endoscopic (ICD-10-PCS; CPT 45378; principal; 2023-03-04 12:45)
DX: Z12.11 Encounter for screening for malignant neoplasm of colon (principal); Z53.09 Procedure and treatment not carried out because of other contraindication
CPT/HCPCS: 45378

== ENCOUNTER → 2023-04-11 | Outpatient (CLI) | payer OTHER, SELFPAY ==
[2022-05-04 22:35] VITALS: PULSE 67; RESP 12; O2SAT 96
[2022-06-11 20:28] VITALS: BMI 28.5
--- NOTE | 2023-04-11 11:23 | DI.RAD.S_ITS ---
PROCEDURE: XR DEXA AXIAL SKELETON INDICATIONS: assess for osteoporosis COMPARISON: None. FINDINGS: This blank DEXA report has been sent in error by the PACS system. The correct and complete report will be forthcoming in 1-2 days. Thank you for your patience and understanding. Dictated by: Evans Lewis M.D. on 04/11/2023 at 13:26 Approved by: Evans Lewis M.D. on 04/11/2023 at 13:26
--- NOTE | 2023-04-11 11:34 | DI.DEXA.S_ITS ---
Bone Density Report Name: KENYA ALFORD Age: 67 Sex: Female Ethnicity: White Date of : 1955 Indication: postmenopausal; screening for osteoporosis; parental hip fracture; prior fracture; Referring Provider: MONICA RAMIREZ Study: Bone densitometry was performed. Exam Date: April 11, 2023 Accession number: [id number] Bone Density: Region BMD T-score Z-score Classification AP Spine(L1-L4) 0.852 -1.8 0.0 Osteopenia Femoral Neck (Left) 0.656 -1.7 -0.2 Osteopenia Total Hip (Left) 0.776 -1.4 -0.1 Osteopenia Femoral Neck (Right) 0.727 -1.1 0.4 Osteopenia Total Hip (Right) 0.842 -0.8 0.4 Normal Total Hip Mean 0.809 -1.1 0.2 Osteopenia World Health Organization criteria for BMD impression classify patients as: Normal (T-score at or above -1.0), Osteopenia (T-score between -1.0 and -2.5), or Osteoporosis (T-score at or below -2.5). 10-year Fracture Risk(1): Major Osteoporotic Fracture 28% Hip Fracture 2.2% Reported Risk Factors: [place] (), Neck BMD=0.656, BMI=29.1, previous fracture, parental fracture (1) FRAX(R) Version 3.08. Fracture probability calculated for an untreated patient. Fracture probability may be lower if the patient has received treatment. Impression: The patient has low bone mass, based on the Total Spine T-score. The patient has an estimated ten-year risk of hip fracture of 2.2% and an estimated ten-year risk of major fracture of 28%, based on the WHO FRAX algorithm. The patient has risk factors, including: parental hip fracture, previous fracture. Discussion: BONE DENSITY IS LOW AT ONE OR MORE SKELETAL SITES. THE PATIENT'S BMD AND CLINICAL RISK FACTOR S CONTRIBUTE TO THIS PATIENT'S INCREASED RISK OF FRACTURE. This patient's lowest T-score is low at one or more skeletal sites. It meets the World Health Organization's (WHO) criteria for ?low bone mass? (T-score between -1.0 and -2.5). The patient's 10-year risk of a major osteoporotic fracture as calculated by FRAX exceeds the threshold where pharmacological therapy is recommended by the National Osteoporosis Foundation (NOF). However, all treatment decisions require clinical judgment and consideration of individual patient factors, including patient preferences, comorbidities, previous drug use, risk factors not captured in the FRAX model (e.g., frailty, falls, vitamin D deficiency, increased bone turnover, interval significant decline in bone density) and possible under or overestimation of fracture risk by FRAX. The patient should follow a healthful lifestyle (good nutrition with adequate calcium and vitamin D, and appropriate weight-bearing exercise). Follow-Up: Consider a repeat BMD and Vertebral Fracture Assessment (VFA) exam in 2 years or sooner if medically necessary, to reassess this patient's status. Reported by: HUMBERTO RAINES M.D. on 04/11/2023 11:50:00 AM.
== END ==
PROVIDERS: Family Provider Student in an Organized Health Care Education/Training Program; PCP Student in an Organized Health Care Education/Training Program; Referring Provider Pediatrics; Visit Provider Pediatrics
DX: Z78.0 Asymptomatic menopausal state (principal); K59.00 Constipation, unspecified; Z13.820 Encounter for screening for osteoporosis; M85.88 Other specified disorders of bone density and structure, other site
CPT/HCPCS: 77080

== ENCOUNTER → 2023-07-15 16:11 | Outpatient (CLI) | payer OTHER, SELFPAY ==
[2022-05-04 22:35] VITALS: PULSE 67; RESP 12; O2SAT 96
[2022-06-11 20:28] VITALS: BMI 28.5
[2023-07-15 17:44] LABS: Alanine Aminotransferase 21 IU/L (<35); Albumin 4.5 g/dL (3.5-5.0); Albumin Globulin Ratio 1.7 (1.0-2.8); Alkaline Phosphatase 68 U/L (38-126); Aspartate Aminotransferase 21 IU/L (14-36); BUN Creatinine Ratio 23.8 (6-22); Bilirubin Total 0.2 mg/dL (0.2-1.3); Blood Urea Nitrogen 31 mg/dL (7-17); Carbon Dioxide 28 mmol/L (22-32); Chloride 97 mmol/L (98-107); Estimated Glomerular Filt Rate 46 mL/min (>60); Globulin 2.6 g/dL (1.7-4.1); Glucose 127 mg/dL (80-110); HEMOLYSIS < 15 (0-50); Potassium 3.6 mmol/L (3.4-5.1); Sodium 135 mmol/L (137-145); Total Protein 7.1 g/dL (6.3-8.2)
[2023-07-15 18:02] LABS: Vitamin D 25 Hydroxy (D3) 112 ng/mL (30.0-100.0)
[2023-07-15 18:16] LABS: TSH w/ Reflex to FT4 2.13 uIU/mL (0.47-4.68)
[2023-07-15 18:51] LABS: Folate 17.4 ng/mL (2.76-20.0); Vitamin B12 > 1000 pg/mL (239-931)
== END ==
PROVIDERS: Family Provider Student in an Organized Health Care Education/Training Program; PCP Student in an Organized Health Care Education/Training Program; Referring Provider Psychiatry & Neurology Neurology; Visit Provider Psychiatry & Neurology Neurology
DX: R25.1 Tremor, unspecified (principal); G35 Multiple sclerosis; L65.9 Nonscarring hair loss, unspecified; Z78.9 Other specified health status; E55.9 Vitamin D deficiency, unspecified
CPT/HCPCS: 36415; 80053; 82306; 82607; 82746; 84443

== ENCOUNTER → 2023-08-05 15:33 | Outpatient (CLI) | payer OTHER, SELFPAY ==
[2022-05-04 22:35] VITALS: PULSE 67; RESP 12; O2SAT 96
[2022-06-11 20:28] VITALS: BMI 28.5
[2023-08-05 17:14] LABS: Add Manual Diff / Slide Review NO; Basophils Absolute Auto 100 /uL (0-100); Basophils Percent Auto 1.1 % (0-2); Eosinophils Absolute Auto 300 /uL (0-450); Eosinophils Percent Auto 3.1 % (2-4); Hematocrit 31.1 % (36-46); Hemoglobin 10.7 g/dL (12.0-16.0); Lymphocytes Absolute Auto 2200 /uL (1100-4500); Lymphocytes Percent Auto 26.2 % (25-40); Mean Corpuscular HGB Conc 34.4 % (30-36); Mean Corpuscular Hemoglobin 29.2 PG (26-34); Monocytes Absolute Auto 400 /uL (0-900); Monocytes Percent Auto 5.3 % (3-14); Neutrophils Absolute Auto 5400 /uL (1500-7000); Neutrophils Percent Auto 64.3 % (50-75); Platelet Count 392 X10^3/uL (150-400); Red Blood Cell Count 3.66 X10^6/uL (4.0-5.2); Red Cell Distribution Width 13.6 % (11.6-14.8); White Blood Cell Count 8.4 X10^3/uL (4.5-11.0)
[2023-08-05 17:17] LABS: Hemoglobin A1C% w Est Avg Glu 5.4 % (4.0-6.0)
[2023-08-05 17:25] LABS: Cholesterol 224 mg/dL (140-199); HDL Cholesterol 56 mg/dL (40-60); LDL Cholesterol Calculated 135 mg/dL (<100); Triglycerides 166 mg/dL (35-150)
[2023-08-05 17:34] LABS: HEMOLYSIS < 15 (0-50); Iron 41 ug/dL (37-170)
[2023-08-05 17:45] LABS: Percent Iron Saturation 9 % (15-50); Total Iron Binding Capacity 444 ug/dL (265-497); Transferrin 385 mg/dL (206-381)
[2023-08-05 17:58] LABS: Ferritin 11 ng/mL (11-264)
== END ==
PROVIDERS: Family Provider Student in an Organized Health Care Education/Training Program; PCP Family Medicine; Referring Provider Family Medicine; Visit Provider Family Medicine
DX: D64.9 Anemia, unspecified (principal); R73.9 Hyperglycemia, unspecified; I10 Essential (primary) hypertension; L65.9 Nonscarring hair loss, unspecified
CPT/HCPCS: 36415; 80061; 82728; 83036; 83540; 83550; 85025

== ENCOUNTER → 2023-08-13 15:12 | Outpatient (CLI) | payer OTHER, SELFPAY ==
[2022-05-04 22:35] VITALS: PULSE 67; RESP 12; O2SAT 96
[2022-06-11 20:28] VITALS: BMI 28.5
--- NOTE | 2023-08-13 | DI.MG.S_ITS ---
BILATERAL DIGITAL SCREENING MAMMOGRAM 3D/2D WITH CAD: 08/13/2023 CLINICAL: Routine screening. Comparison is made to exams dated: 08/03/2021 mammogram, 08/06/2022 mammogram, 08/02/2020 mammogram - [facility], and 03/03/2019 mammogram - outside location. There are scattered areas of fibroglandular density in both breasts (category b / 25%-50% glandular tissue). Current study was also evaluated with a Computer Aided Detection (CAD) system. There are benign vascular calcifications in both breasts. No significant masses, calcifications, or other findings are seen in either breast. There has been no significant interval change. IMPRESSION: BENIGN There is no mammographic evidence of malignancy. A 1 year screening mammogram is recommended. Based on the Tyrer Cuzick model (a risk assessment model) the patient's lifetime risk is 5.4% and her 10 year risk is 2.6%. According to the ACR, ACS, and NCCN guidelines, an annual breast MRI exam along with mammogram is recommended if the patient's lifetime risk is 20% or greater. This exam was interpreted at Station ID: [id number]. NOTE: For mammograms, a report in lay terms will be sent to the patient. Approximately 15% of breast malignancies will not be visualized mammographically. In the management of a palpable breast mass, a negative mammogram must not discourage biopsy of a clinically suspicious lesion. Electronically Signed By: Jayme quijano/liz:08/15/2023 08:23:20 letter sent: Normal Exam ACR BI-RADS Category 2: Benign Finding(s) 3342F
== END ==
PROVIDERS: Family Provider Student in an Organized Health Care Education/Training Program; PCP Family Medicine; Referring Provider Family Medicine; Visit Provider Family Medicine
DX: Z12.31 Encounter for screening mammogram for malignant neoplasm of breast (principal)
CPT/HCPCS: 77063; 77067

== ENCOUNTER → 2023-12-17 12:16 | Outpatient (CLI) | payer OTHER, SELFPAY ==
[2022-05-04 22:35] VITALS: PULSE 67; RESP 12; O2SAT 96
[2022-06-11 20:28] VITALS: BMI 28.5
[2023-12-17 12:55] LABS: Add Manual Diff / Slide Review NO; Basophils Absolute Auto 100 /uL (0-100); Basophils Percent Auto 0.7 % (0-2); Eosinophils Absolute Auto 300 /uL (0-450); Hematocrit 37.2 % (36-46); Hemoglobin 12.5 g/dL (12.0-16.0); Lymphocytes Absolute Auto 2100 /uL (1100-4500); Lymphocytes Percent Auto 21.1 % (25-40); Mean Corpuscular HGB Conc 33.7 % (30-36); Mean Corpuscular Hemoglobin 29.1 PG (26-34); Mean Corpuscular Volume 86.3 fL (80-100); Monocytes Absolute Auto 600 /uL (0-900); Monocytes Percent Auto 5.8 % (3-14); Neutrophils Absolute Auto 7000 /uL (1500-7000); Neutrophils Percent Auto 69.4 % (50-75); Platelet Count 344 X10^3/uL (150-400); Red Blood Cell Count 4.31 X10^6/uL (4.0-5.2); Red Cell Distribution Width 14.4 % (11.6-14.8); White Blood Cell Count 10.1 X10^3/uL (4.5-11.0)
[2023-12-17 15:38] LABS: BUN Creatinine Ratio 22.5 (6-22); Blood Urea Nitrogen 25 mg/dL (7-17); Calcium 9.6 mg/dL (8.4-10.2); Carbon Dioxide 32 mmol/L (22-32); Chloride 103 mmol/L (98-107); Estimated Glomerular Filt Rate 55 mL/min (>60); Glucose 83 mg/dL (80-110); HEMOLYSIS < 15 (0-50); Sodium 139 mmol/L (137-145)
[2023-12-18 20:02] LABS: HEMOLYSIS < 15 (0-50); Iron 70 ug/dL (37-170)
[2023-12-18 20:27] LABS: Percent Iron Saturation 16 % (15-50); Total Iron Binding Capacity 432 ug/dL (265-497); Transferrin 366 mg/dL (206-381)
== END ==
LOC: LAB 12:17
PROVIDERS: Family Provider Student in an Organized Health Care Education/Training Program; PCP Family Medicine; Referring Provider Family Medicine; Visit Provider Family Medicine
DX: N18.30 Chronic kidney disease, stage 3 unspecified (principal); G35 Multiple sclerosis; I10 Essential (primary) hypertension; D64.9 Anemia, unspecified
CPT/HCPCS: 80048; 83540; 83550; 85025

== ENCOUNTER → 2023-12-23 13:15 | Outpatient (CLI) | payer OTHER, SELFPAY ==
[2022-05-04 22:35] VITALS: PULSE 67; RESP 12; O2SAT 96
[2022-06-11 20:28] VITALS: BMI 28.5
== END ==
PROVIDERS: Family Provider Student in an Organized Health Care Education/Training Program; PCP Family Medicine; Referring Provider Orthopaedic Surgery Foot and Ankle Surgery; Visit Provider Orthopaedic Surgery Foot and Ankle Surgery
DX: Z01.818 Encounter for other preprocedural examination (principal)
CPT/HCPCS: 93005; 93010

== ENCOUNTER → 2024-01-26 13:32 | Outpatient (CLI) | payer OTHER, SELFPAY ==
[2022-05-04 22:35] VITALS: PULSE 67; RESP 12; O2SAT 96
[2022-06-11 20:28] VITALS: BMI 28.5
--- NOTE | 2024-01-26 13:33 | DI.US.S_ITS ---
PROCEDURE: US PERIPH VENOUS UP EXTREM RT INDICATIONS: RIGHT CALF PAIN / RULE OUT DVT TECHNIQUE: Real-time imaging, as well as color and pulse Doppler interrogation, was performed of the upper extremity deep veins from the inferior neck to the antecubital fossa. COMPARISON: None. FINDINGS: The internal jugular vein, visualized portions of the subclavian vein, axillary, and brachial veins are free of intraluminal thrombus. Where physically possible, the veins are normally compressible. Color and pulse Doppler demonstrate normal intraluminal flow, with expected phasicity and pulsatility. Additional scanning of the cephalic and basilic veins of the superficial system demonstrates normal compressibility, without thrombus. IMPRESSION: No findings of upper extremity deep venous thrombosis can be seen. Dictated by: Yusef Quiñones M.D. on 01/26/2024 at 14:51 Approved by: Yusef Quiñones M.D. on 01/26/2024 at 14:57
== END ==
PROVIDERS: Family Provider Student in an Organized Health Care Education/Training Program; PCP Family Medicine; Referring Provider Orthopaedic Surgery Foot and Ankle Surgery; Visit Provider Orthopaedic Surgery Foot and Ankle Surgery
DX: M79.661 Pain in right lower leg (principal)
CPT/HCPCS: 93971

== ENCOUNTER → 2024-03-22 15:10 | Outpatient (CLI) | payer OTHER, SELFPAY ==
[2022-05-04 22:35] VITALS: PULSE 67; RESP 12; O2SAT 96
[2022-06-11 20:28] VITALS: BMI 28.5
[2024-03-22 18:08] LABS: Blood Urea Nitrogen 13 mg/dL (7-17); Calcium 9.6 mg/dL (8.4-10.2); Carbon Dioxide 30 mmol/L (22-32); Chloride 103 mmol/L (98-107); Estimated Glomerular Filt Rate > 60 mL/min (>60); Glucose 88 mg/dL (80-110); HEMOLYSIS < 15 (0-50); Sodium 140 mmol/L (137-145)
== END ==
PROVIDERS: Family Provider Student in an Organized Health Care Education/Training Program; PCP Family Medicine; Referring Provider Family Medicine; Visit Provider Family Medicine
DX: N18.30 Chronic kidney disease, stage 3 unspecified (principal)
CPT/HCPCS: 80048

== ENCOUNTER → 2024-05-14 13:46 | Outpatient (CLI) | payer OTHER, SELFPAY ==
[2022-05-04 22:35] VITALS: PULSE 67; RESP 12; O2SAT 96
[2022-06-11 20:28] VITALS: BMI 28.5
== END ==
PROVIDERS: Family Provider Student in an Organized Health Care Education/Training Program; PCP Family Medicine; Visit Provider Nurse Practitioner Family
DX: R30.0 Dysuria (principal)
CPT/HCPCS: 87077; 87086; 87186

== ENCOUNTER 2024-06-25 14:44 | Emergency (ER) | payer OTHER, SELFPAY ==
[2022-05-04 22:35] VITALS: PULSE 67; RESP 12; O2SAT 96
[2022-06-11 20:28] VITALS: BMI 28.5
[2024-06-25 14:49] VITALS: BP 128/76; PULSE 70; RESP 16; TEMP 36.6; O2SAT 99; BMI 24.6
--- NOTE | 2024-06-25 15:26 | DI.US.S_ITS ---
PROCEDURE: US PERIPH VENOUS LOW EXTREM RT INDICATIONS: SWELLING/PAIN TECHNIQUE: Real-time imaging, as well as color and pulse Doppler interrogation, were performed of the lower extremity deep veins from the inguinal ligament to the popliteal fossa, with documentation of the visualized calf veins. COMPARISON: None. FINDINGS: The common femoral, femoral, popliteal, and the visualized calf veins are normally compressible, and free of intraluminal thrombus. Color and pulse Doppler demonstrate normal phasic intraluminal flow. There is normal augmentation response to distal compression maneuver. There is a popliteal fossa right-sided fluid collection measuring up to 7.6 x 6.3 x 1.0 cm, simple. A more complex fluid collection is seen anterior near the right knee measuring up to 12.4 x 12.3 x 1.3 cm extending from the distal anterior thigh to the superior anterior calf area surrounding an area of the presumed quadriceps tendon. IMPRESSION: Simple appearing popliteal fossa presumed Cali cyst. Complex anterior fluid collection may represent posttraumatic hematoma and surrounds a portion of what appears to be the distal quadriceps tendon. Possible quadriceps tendon tear. Follow-up by MR scanning may be warranted for more accurate assessment. Dictated by: Bandar Nicole M.D. on 06/25/2024 at 16:32 Approved by: Bandar Nicole M.D. on 06/25/2024 at 16:34
--- NOTE | 2024-06-25 15:45 | DI.RAD.S_ITS ---
PROCEDURE: XR KNEE RT 3V INDICATIONS: Pain x 2 weeks TECHNIQUE: 3 views of the knee were acquired. COMPARISON: [facility], CR, XR KNEE RT 4V, 10/30/2022, 12:29. [facility], CR, XR KNEE 4+ VIEWS RIGHT, 03/02/2024, 11:30. FINDINGS: Bones: No fractures or dislocations. No suspicious bony lesions. Soft tissues: No joint effusion. No suspicious soft tissue calcifications. IMPRESSION: No acute bony abnormality or significant effusion. Prior right total knee arthroplasty shows no evidence of device loosening or disruption. Dictated by: Bandar Nicole M.D. on 06/25/2024 at 16:37 Approved by: Bandar Nicole M.D. on 06/25/2024 at 16:38
[2024-06-25 16:18] LABS: Add Manual Diff / Slide Review NO; Basophils Absolute Auto 100 /uL (0-100); Basophils Percent Auto 0.6 % (0-2); Eosinophils Absolute Auto 100 /uL (0-450); Eosinophils Percent Auto 1.5 % (2-4); Hematocrit 33.9 % (36-46); Hemoglobin 11.5 g/dL (12.0-16.0); Lymphocytes Absolute Auto 2000 /uL (1100-4500); Lymphocytes Percent Auto 21.1 % (25-40); Mean Corpuscular Hemoglobin 30.2 PG (26-34); Mean Corpuscular Volume 88.6 fL (80-100); Monocytes Absolute Auto 500 /uL (0-900); Monocytes Percent Auto 5.5 % (3-14); Neutrophils Absolute Auto 6900 /uL (1500-7000); Neutrophils Percent Auto 71.3 % (50-75); Platelet Count 351 X10^3/uL (150-400); Red Blood Cell Count 3.82 X10^6/uL (4.0-5.2); Red Cell Distribution Width 14.4 % (11.6-14.8); White Blood Cell Count 9.7 X10^3/uL (4.5-11.0)
[2024-06-25 16:38] LABS: Alanine Aminotransferase 14 IU/L (<35); Albumin 4.3 g/dL (3.5-5.0); Albumin Globulin Ratio 1.8 (1.0-2.8); Alkaline Phosphatase 93 U/L (38-126); Aspartate Aminotransferase 21 IU/L (14-36); BUN Creatinine Ratio 17.9 (6-22); Bilirubin Total 0.5 mg/dL (0.2-1.3); Blood Urea Nitrogen 17 mg/dL (7-17); Calcium 9.8 mg/dL (8.4-10.2); Carbon Dioxide 30 mmol/L (22-32); Chloride 101 mmol/L (98-107); Estimated Glomerular Filt Rate > 60 mL/min (>60); Globulin 2.4 g/dL (1.7-4.1); Glucose 87 mg/dL (80-110); HEMOLYSIS < 15 (0-50); Lactate (Lactic Acid) 0.5 mmol/L (0.7-2.1); Potassium 4.1 mmol/L (3.4-5.1); Sodium 137 mmol/L (137-145); Total Protein 6.7 g/dL (6.3-8.2)
--- NOTE | 2024-06-25 17:03 | ED_ITS ---
HPI - Extremity Injury (Lower) <Omid Lennon PA-C - Last Filed: 06/25/24 17:12> General Chief Complaint: Extremity Injury, Lower Stated Complaint: Rt knee swelling and px, sx on 01/21 Time Seen by Provider: 06/25/24 15:05 Source: patient Mode of arrival: Wheelchair History of Present Illness HPI Narrative: This patient is a 68-year-old female that has had right knee swelling and pain for the past 2 weeks. She had total knee replacement performed on January 22, 2024. No treatments have been tried for this. She has not been able to see her orthopedic surgeon regarding today's chief complaint. The patient did see her PCP and was apparently informed that there was, a lot of fluid around the knee. She denies night sweats, fever, chills, blunt force trauma to the knee, radiating pain, paresthesias distally or hip pain. Patient also denies recent illness. She states that she is unable to take NSAIDs due to a, liver or kidney issue. Related Data Home Medications Medication Instructions Recorded Confirmed cholecalciferol (vitamin D3) 25 25 mcg PO DAILY 07/28/20 06/21/24 mcg (1,000 unit) capsule magnesium hydroxide 400 mg (170 mg 400 mg PO DAILY 07/28/20 06/21/24 magnesium) chewable tablet mecobalamin (vitamin B12) 1,000 1,000 mcg PO DAILY 07/28/20 06/21/24 mcg chewable tablet trospium 60 mg capsule,extended 60 mg PO DAILY 10/16/21 06/21/24 release 24 hr Previous Rx's Medication Instructions Recorded telmisartan 80 mg tablet 80 mg PO DAILY #90 tabs 06/23/23 triamcinolone acetonide 0.1 % 1 applic topical BID PRN rash #30 08/05/23 topical cream grams doxepin 100 mg capsule 100 mg PO BEDTIME #90 caps 12/16/23 fluoxetine 20 mg capsule 60 mg (3 x 20 mg) PO QDAY #270 caps 12/16/23 Subcutaneous Supplies Kit #12 ea 12/17/23 famotidine 20 mg tablet 20 mg PO DAILY #90 tabs 12/30/23 acyclovir 400 mg tablet 400 mg PO DAILY #90 tabs 03/08/24 methocarbamol 500 mg tablet 500 mg PO TID PRN muscle spasm #90 03/12/24 tabs amlodipine 2.5 mg tablet (Norvasc) 2.5 mg PO DAILY blood pressure #90 03/22/24 tabs ondansetron HCl 4 mg tablet 4 mg PO TID-QID PRN nausea and 03/22/24 vomiting #30 tabs potassium chloride 10 mEq 10 meq PO DAILY #90 tabs 03/28/24 tablet,extended release(part/cryst) rizatriptan 10 mg tablet 10 mg PO Q2H PRN migraine headache 04/27/24 #12 tabs albuterol sulfate 90 mcg/actuation 2 puff inhalation QID PRN 05/10/24 aerosol inhaler (Ventolin HFA) shortness of breath or wheezing #6.7 grams phenazopyridine 200 mg tablet 200 mg PO TID 6 doses #6 tabs 05/14/24 (Pyridium) risperidone 0.5 mg tablet 1 mg (2 x 0.5 mg) PO BEDTIME #60 05/17/24 tabs gabapentin 300 mg capsule 300 mg PO TID #270 caps 06/21/24 semaglutide 0.25 mg or 0.5 mg (2 1 mg (1.472 mL) SUBCUT QWEEK #9 mL 06/21/24 mg/3 mL) subcutaneous pen injector diclofenac sodium 1 % topical gel 4 g topical QID #200 grams 06/25/24 (Voltaren Arthritis Pain) Allergies Allergy/AdvReac Type Severity Reaction Status Date / Time zolpidem AdvReac Severe HALLUCINATIONS, Verified 06/25/24 14:51 NOT KNOWING WHERE SHE WAS, DIZZINESS Review of Systems <Omid Lennon PA-C - Last Filed: 06/25/24 17:12> Review of Systems Narrative: General: See HPI MSK: See HPI All other review of systems have been reviewed and are ultimately negative unless otherwise stated in the HPI. Patient History <Omid Lennon PA-C - Last Filed: 06/25/24 17:12> Medical History Normocytic anemia Encounter for subsequent annual wellness visit (AWV) in Medicare patient CKD (chronic kidney disease) stage 3, GFR 30-59 ml/min Post-menopausal Colonoscopy planned Obstipation Hx of fracture of ankle Mixed hyperlipidemia Anxiety Major depressive disorder, recurrent, moderate Fibromyalgia Cholelithiasis Post traumatic stress disorder (PTSD) Surgical History History of carpal tunnel release of both wrists Hx of hysterectomy Family History Mother Cardiac arrest Father Colitis Social History household members: spouse Smoking Status: Never smoker alcohol intake: current Smoking Status: Never smoker alcohol intake frequency: holidays/special occasions only Substance Use Type: does not use Exam <Omid Lennon PA-C - Last Filed: 06/25/24 17:12> Initial Vital Signs Initial Vital Signs: Vital Signs Temperature 97.8 F 06/25/24 14:49 Pulse Rate 70 06/25/24 14:49 Respiratory Rate 16 06/25/24 14:49 Blood Pressure 128/76 06/25/24 14:49 Pulse Oximetry 99 06/25/24 14:49 Oxygen Delivery Method Room Air 06/25/24 14:49 Const General: cooperative, healthy appearing, comfortable, well developed, well groomed and acute distress HENKS Head: normal to inspection and normocephalic Ears: hearing grossly normal bilaterally Nose: external nose normal and nares normal Face and sinus: normal facial exam Mouth: oral mucosae normal Eyes General: Yes appearance normal, both eyes and all related structures Neck Neck: normal visual inspection, full ROM and no meningeal signs Resp Effort & Inspection: normal respiratory effort and able to speak in complete sentences Auscultation: clear to auscultation bilaterally Cardio Rate: regular rate Back/Spine/Pelvis Back: normal to inspection Cervical Spine: normal cervical lordosis and cervical ROM normal Thoracic/Lumbar Spine: thoracic and lumbar spine normal to inspection Skin General: no rashes or lesions noted, elasticity normal and turgor normal Neuro General: patient alert, patient awake and patient oriented x3 Extrem Other: Patient has mild soft tissue swelling of the right knee. No warmth to palpation. Full range of motion of the right knee is noted. Neurovascular distally intact with capillary refill less than 2 seconds. No crepitus noted. Full range of motion of all other extremities. Steady gait. Psych Appearance: grossly normal and well kempt Mental Status: mental status grossly normal <Edna Iverson DO - Last Filed: 06/30/24 05:20> Initial Vital Signs Initial Vital Signs: Vital Signs Temperature 97.8 F 06/25/24 14:49 Pulse Rate 70 06/25/24 14:49 Respiratory Rate 16 06/25/24 14:49 Blood Pressure 128/76 06/25/24 14:49 Pulse Oximetry 99 06/25/24 14:49 Oxygen Delivery Method Room Air 06/25/24 14:49 Course <Omid Lennon PA-C - Last Filed: 06/25/24 17:12> Course Course Narrative: Patient was seen and examined. An ultrasound was ordered to rule out DVT. This was ruled out, per the radiologist. The knee x-ray series did not reveal any erosion or derangement of the knee or prosthetic device. The patient's labs are unremarkable as well. There is no evidence of leukocytosis, elevated lactic acid and the CMP is within normal limits. In conclusion, I do not believe the patient has a septic joint, overwhelming sepsis, derangement of the prosthetic device or necrotizing fasciitis. I also do not believe this is a deep space abscess. The ultrasound does reveal signs of likely quadriceps tendon tear / rupture. The patient has been advised of the findings. She will restart using her knee support/ brace. I will start the patient on Voltaren gel. She has been advised to follow up with her PCP or orthopedist for an outpatient MRI. The patient understands the treatment plan. There were no additional questions at the time of discharge and she will follow up as required. Orders Ordered: ED Orders 06/25/24 15:26 US periph venous low extrem rt Stat 06/25/24 15:45 XR knee RT 3V Stat 06/25/24 16:10 CBC Auto Diff [Complete Blood Count AUTO DIFF] Stat CMP [Comprehensive Metabolic Panel] Stat Lactate (Lactic Acid) Stat Vital Signs Vital signs: Vital Signs - 8 hr 06/25/24 14:49 Temperature 97.8 F Pulse Rate 70 Respiratory Rate 16 Blood Pressure 128/76 Pulse Oximetry 99 Oxygen Delivery Method Room Air <Edna Iverson DO - Last Filed: 06/30/24 05:20> Orders Ordered: ED Orders 06/25/24 15:26 US periph venous low extrem rt Stat 06/25/24 15:45 XR knee RT 3V Stat 06/25/24 16:10 CBC Auto Diff [Complete Blood Count AUTO DIFF] Stat CMP [Comprehensive Metabolic Panel] Stat Lactate (Lactic Acid) Stat Vital Signs Vital signs: Vital Signs - 8 hr 06/25/24 14:49 Temperature 97.8 F Pulse Rate 70 Respiratory Rate 16 Blood Pressure 128/76 Pulse Oximetry 99 Oxygen Delivery Method Room Air MDM - Extremity Injury (Lower) <Omid Lennon PA-C - Last Filed: 06/25/24 17:12> Medical Records Attestation: I reviewed the patient's medical records. Lab Data Attestation: I reviewed the patient's lab results. 06/25/24 16:10 06/25/24 16:10 Labs: Lab Results 06/25/24 Range/Units 16:10 WBC 9.7 (4.5-11.0) X10^3/uL RBC 3.82 L (4.0-5.2) X10^6/uL Hgb 11.5 L (12.0-16.0) g/dL Hct 33.9 L (36-46) % MCV 88.6 (80-100) fL MCH 30.2 (26-34) PG MCHC 34.0 (30-36) % RDW 14.4 (11.6-14.8) % Plt Count 351 (150-400) X10^3/uL Neut % (Auto) 71.3 (50-75) % Lymph % (Auto) 21.1 L (25-40) % [place] % (Auto) 5.5 (3-14) % Eos % (Auto) 1.5 L (2-4) % Baso % (Auto) 0.6 (0-2) % Neut # (Auto) 6900 (0870-0549) /uL Lymph # (Auto) 2000 (7219-9296) /uL [place] # (Auto) 500 (0-900) /uL Eos # (Auto) 100 (0-450) /uL Baso # (Auto) 100 (0-100) /uL Sodium 137 (137-145) mmol/L Potassium 4.1 (3.4-5.1) mmol/L Chloride 101 (98-107) mmol/L Carbon Dioxide 30 (22-32) mmol/L BUN 17 (7-17) mg/dL Creatinine 0.95 (0.52-1.04) mg/dL Estimated GFR > 60 (>60) mL/min BUN/Creatinine Ratio 17.9 (6-22) Glucose 87 (80-110) mg/dL Lactate 0.5 L (0.7-2.1) mmol/L Calcium 9.8 (8.4-10.2) mg/dL Total Bilirubin 0.5 (0.2-1.3) mg/dL AST 21 (14-36) IU/L ALT 14 (<35) IU/L Alkaline Phosphatase 93 (38-126) U/L Total Protein 6.7 (6.3-8.2) g/dL Albumin 4.3 (3.5-5.0) g/dL Globulin 2.4 (1.7-4.1) g/dL Albumin/Globulin Ratio 1.8 (1.0-2.8) Imaging Data See above: Radiologist's Impression: According to the radiologist, the three-view right knee x-ray series reveals no obvious, acute changes. The ultrasound did not reveal evidence of a DVT but signs of a quadriceps tendon tear. MDM Narrative Medical decision making narrative: see above <Edna Iverson, DO - Last Filed: 06/30/24 05:20> Lab Data Labs: Lab Results 06/25/24 Range/Units 16:10 WBC 9.7 (4.5-11.0) X10^3/uL RBC 3.82 L (4.0-5.2) X10^6/uL Hgb 11.5 L (12.0-16.0) g/dL Hct 33.9 L (36-46) % MCV 88.6 (80-100) fL MCH 30.2 (26-34) PG MCHC 34.0 (30-36) % RDW 14.4 (11.6-14.8) % Plt Count 351 (150-400) X10^3/uL Neut % (Auto) 71.3 (50-75) % Lymph % (Auto) 21.1 L (25-40) % [place] % (Auto) 5.5 (3-14) % Eos % (Auto) 1.5 L (2-4) % Baso % (Auto) 0.6 (0-2) % Neut # (Auto) 6900 (4458-3033) /uL Lymph # (Auto) 2000 (6445-5914) /uL [place] # (Auto) 500 (0-900) /uL Eos # (Auto) 100 (0-450) /uL Baso # (Auto) 100 (0-100) /uL Sodium 137 (137-145) mmol/L Potassium 4.1 (3.4-5.1) mmol/L Chloride 101 (98-107) mmol/L Carbon Dioxide 30 (22-32) mmol/L BUN 17 (7-17) mg/dL Creatinine 0.95 (0.52-1.04) mg/dL Estimated GFR > 60 (>60) mL/min BUN/Creatinine Ratio 17.9 (6-22) Glucose 87 (80-110) mg/dL Lactate 0.5 L (0.7-2.1) mmol/L Calcium 9.8 (8.4-10.2) mg/dL Total Bilirubin 0.5 (0.2-1.3) mg/dL AST 21 (14-36) IU/L ALT 14 (<35) IU/L Alkaline Phosphatase 93 (38-126) U/L Total Protein 6.7 (6.3-8.2) g/dL Albumin 4.3 (3.5-5.0) g/dL Globulin 2.4 (1.7-4.1) g/dL Albumin/Globulin Ratio 1.8 (1.0-2.8) Discharge Plan Departure Patient Disposition: Home Clinical Impression: Injury of quadriceps tendon Right knee sprain Qualifiers: Encounter type: initial encounter Involved ligament of knee: other ligament Q ualified Code(s): S83.8X1A - Sprain of other specified parts of right knee, initial encounter Instructions: DI for Knee Pain Activity Restrictions/Additional Instructions: Apply moist heat to the affected area 10 minutes at a time 5 times a day Use your knee brace as discussed as needed Start the medication today as prescribed Follow-up with your orthopedist next week Return here for any new, emergent concerns or if he should worsen in any way Prescriptions: New diclofenac sodium [Voltaren Arthritis Pain] 1 % gel 4 g topical QID Qty: 200 0RF Rx Instructions: apply to single knee, ankle, foot; for foot includes sole/toes/top of foot No Action phenazopyridine [Pyridium] 200 mg tablet 200 mg PO TID 0 Days Qty: 6 0RF doxepin 100 mg capsule 100 mg PO BEDTIME Qty: 90 3RF fluoxetine 20 mg capsule 60 mg PO QDAY Qty: 270 3RF cholecalciferol (vitamin D3) 25 mcg (1,000 unit) capsule 25 mcg PO DAILY mecobalamin (vitamin B12) 1,000 mcg tablet,chewable 1,000 mcg PO DAILY magnesium hydroxide 400 mg (170 mg magnesium) tablet,chewable 400 mg PO DAILY trospium 60 mg capsule,extended release 24hr 60 mg PO DAILY risperidone 0.5 mg tablet 1 mg PO BEDTIME Qty: 60 5RF telmisartan 80 mg tablet 80 mg PO DAILY Qty: 90 3RF famotidine 20 mg tablet 20 mg PO DAILY Qty: 90 3RF acyclovir 400 mg tablet 400 mg PO DAILY Qty: 90 2RF methocarbamol 500 mg tablet 500 mg PO TID PRN (Reason: muscle spasm) Qty: 90 11RF potassium chloride 10 mEq tablet,ER particles/crystals 10 meq PO DAILY Qty: 90 3RF rizatriptan 10 mg tablet 10 mg PO Q2H MDD 30 mg PRN (Reason: migraine headache) Qty: 12 11RF albuterol sulfate [Ventolin HFA] 90 mcg/actuation HFA aerosol inhaler 2 puff inhalation QID PRN (Reason: shortness of breath or wheezing) Qty: 6.7 1RF gabapentin 300 mg capsule 300 mg PO TID Qty: 270 0RF (DME) Subcutaneous Supplies Kit See Rx Instructions .ROUTE .MEDSUPPLY Qty: 12 3RF Rx Instructions: As directed with semaglutide triamcinolone acetonide 0.1 % cream 1 applic topical BID PRN (Reason: rash) Qty: 30 11RF Rx Instructions: apply to affected areas for a 2 weeks if needed then stop for 1-2 weeks. can repeat as needed. ondansetron HCl 4 mg tablet 4 mg PO TID-QID PRN (Reason: nausea and vomiting) Qty: 30 5RF amlodipine [Norvasc] 2.5 mg tablet 2.5 mg PO DAILY Qty: 90 3RF semaglutide 0.25 mg or 0.5 mg (2 mg/3 mL) pen injector 1 mg SUBCUT QWEEK Qty: 9 3RF Rx Instructions: ok to compound. 1 mg/mL Referrals: Dario Coffman DO [Primary Care Provider] - Stand Alone Forms: Patient Portal/API ED Sign-out <Edna Iverson DO - Last Filed: 06/30/24 05:20> Cosign ED Attending Harjit Attestation: I was immediately available in the department for consultation.
[2024-06-25 17:05] VITALS: BP 158/81; PULSE 73; RESP 16; O2SAT 99
== END 2024-06-25 17:12 | disposition home or self-care (01) ==
PROVIDERS: Emergency Provider Physician Assistant; Family Provider Student in an Organized Health Care Education/Training Program; PCP Family Medicine
DX: S83.8X1A Sprain of other specified parts of right knee, initial encounter (principal); S76.109A Unspecified injury of unspecified quadriceps muscle, fascia and tendon, initial encounter; Z79.899 Other long term (current) drug therapy
CPT/HCPCS: 36415; 73562; 80053; 83605; 85025; 93971; 99283; 99284

== ENCOUNTER → 2024-07-06 10:28 | Outpatient (CLI) | payer OTHER, SELFPAY ==
[2022-05-04 22:35] VITALS: PULSE 67; RESP 12; O2SAT 96
[2022-06-11 20:28] VITALS: BMI 28.5
[2024-07-06 11:04] LABS: Add Manual Diff / Slide Review NO; Basophils Absolute Auto 100 /uL (0-100); Basophils Percent Auto 1.1 % (0-2); Eosinophils Absolute Auto 200 /uL (0-450); Eosinophils Percent Auto 2.2 % (2-4); Hematocrit 36.3 % (36-46); Hemoglobin 12.3 g/dL (12.0-16.0); Lymphocytes Absolute Auto 1800 /uL (1100-4500); Lymphocytes Percent Auto 18.4 % (25-40); Mean Corpuscular HGB Conc 33.8 % (30-36); Mean Corpuscular Hemoglobin 30.1 PG (26-34); Mean Corpuscular Volume 88.9 fL (80-100); Monocytes Absolute Auto 400 /uL (0-900); Neutrophils Absolute Auto 7100 /uL (1500-7000); Neutrophils Percent Auto 74.3 % (50-75); Platelet Count 422 X10^3/uL (150-400); Red Blood Cell Count 4.09 X10^6/uL (4.0-5.2); White Blood Cell Count 9.5 X10^3/uL (4.5-11.0)
[2024-07-06 11:48] LABS: Erythrocyte Sedimentation Rate 9 MM/HR (0-20)
[2024-07-06 12:05] LABS: Albumin 4.1 g/dL (3.5-5.0); Blood Urea Nitrogen 12 mg/dL (7-17); Calcium 10.4 mg/dL (8.4-10.2); Carbon Dioxide 29 mmol/L (22-32); Chloride 100 mmol/L (98-107); Estimated Glomerular Filt Rate > 60 mL/min (>60); Glucose 96 mg/dL (80-110); HEMOLYSIS < 15 (0-50); Phosphorous 3.9 mg/dL (2.8-4.1); Potassium 4.4 mmol/L (3.4-5.1); Sodium 137 mmol/L (137-145)
[2024-07-06 12:20] LABS: C-Reactive Protein Quant < 0.5 mg/dL (<1.0)
== END ==
PROVIDERS: Family Provider Student in an Organized Health Care Education/Training Program; PCP Family Medicine; Referring Provider Orthopaedic Surgery Foot and Ankle Surgery; Visit Provider Orthopaedic Surgery Foot and Ankle Surgery
DX: M25.561 Pain in right knee (principal); Z96.651 Presence of right artificial knee joint
CPT/HCPCS: 36415; 80069; 85025; 85651; 86140

== ENCOUNTER → 2024-08-04 09:56 | Outpatient (CLI) | payer OTHER, SELFPAY ==
[2022-05-04 22:35] VITALS: PULSE 67; RESP 12; O2SAT 96
[2022-06-11 20:28] VITALS: BMI 28.5
--- NOTE | 2024-08-04 | DI.NM.S_ITS ---
PROCEDURE: NM BONE 3 PHASE RADIOPHARMACEUTICAL: 22 mCi Tc-99m MDP IV. INDICATIONS: Pain due to internal orthopedic prosthetic devices, implants TECHNIQUE: Multiple bone scintigrams were obtained after intravenous injection of Tc-99m MDP, including flow, blood pool, and delayed images centered to the region of interest. COMPARISON: [facility] [place], CR, XR KNEE 4+ VIEWS RIGHT, 07/06/2024, 9:45. FINDINGS: Positive flow images with asymmetric uptake to the right lower extremity. This is confirmed on blood pool images. There is moderate diffuse uptake around the right knee arthroplasty on delayed images. IMPRESSION: Three-phase positive bone scan suspicious for infection or loosening. Correlated also with timing of surgery. Dictated by: Huber Roberson M.D. on 08/04/2024 at 15:41 Approved by: Huber Roberson M.D. on 08/04/2024 at 15:44
== END ==
PROVIDERS: Family Provider Family Medicine; PCP Family Medicine; Referring Provider Orthopaedic Surgery Foot and Ankle Surgery; Visit Provider Orthopaedic Surgery Foot and Ankle Surgery
DX: T84.84XA Pain due to internal orthopedic prosthetic devices, implants and grafts, initial encounter (principal)
CPT/HCPCS: 78315; A9503

== ENCOUNTER → 2024-08-17 12:34 | Outpatient (CLI) | payer OTHER, SELFPAY ==
[2022-05-04 22:35] VITALS: PULSE 67; RESP 12; O2SAT 96
[2022-06-11 20:28] VITALS: BMI 28.5
--- NOTE | 2024-08-17 12:35 | DI.MG.S_ITS ---
BILATERAL DIGITAL SCREENING MAMMOGRAM 3D/2D WITH CAD: 08/17/2024 CLINICAL: Routine screening. Comparison is made to exams dated: 08/13/2023 mammogram, 08/06/2022 mammogram, 08/03/2021 mammogram, 08/02/2020 mammogram - [facility] [place], 03/03/2019 mammogram, and 03/03/2019 mammogram - outside location. There are scattered areas of fibroglandular density (category b / 25%-50% glandular tissue). Current study was also evaluated with a Computer Aided Detection (CAD) system. No significant masses, calcifications, or other findings are seen in either breast. There has been no significant interval change. IMPRESSION: NEGATIVE There is no mammographic evidence of malignancy. A 1 year screening mammogram is recommended. Based on the Tyrer Cuzick model (a risk assessment model) the patient's lifetime risk is 5.2% and her 10 year risk is 2.6%. According to the ACR, ACS, and NCCN guidelines, an annual breast MRI exam along with mammogram is recommended if the patient's lifetime risk is 20% or greater. This exam was interpreted at Station ID: [id number]. NOTE: For mammograms, a report in lay terms will be sent to the patient. Approximately 15% of breast malignancies will not be visualized mammographically. In the management of a palpable breast mass, a negative mammogram must not discourage biopsy of a clinically suspicious lesion. Electronically Signed By: Pari Pratt M.D., Ph.D. sherry/liz:08/18/2024 18:17:49 letter sent: Normal Exam ACR BI-RADS Category 1: Negative
== END ==
PROVIDERS: Family Provider Family Medicine; PCP Family Medicine; Referring Provider Family Medicine; Visit Provider Family Medicine
DX: Z12.31 Encounter for screening mammogram for malignant neoplasm of breast (principal)
CPT/HCPCS: 77063; 77067

== ENCOUNTER → 2024-09-28 16:13 | Outpatient (CLI) | payer OTHER, SELFPAY ==
[2024-08-23 10:22] VITALS: PULSE 67; RESP 12; O2SAT 96; BMI 28.5
[2024-09-28 19:58] LABS: Influenza A - CEPHEID Flu A NEGATIVE (NEGATIVE); Influenza B - CEPHEID Flu B NEGATIVE (NEGATIVE); Respiratory Syncytial Virus POSITIVE (Negative)
[2024-09-28 20:08] LABS: COVID-19 CEPHEID 4-PLEX PCR Negative (Negative)
== END ==
PROVIDERS: Family Provider Family Medicine; PCP Family Medicine; Visit Provider Family Medicine
DX: R05.9 Cough, unspecified (principal); J39.8 Other specified diseases of upper respiratory tract
CPT/HCPCS: 0241U

== ENCOUNTER → 2024-10-05 13:46 | Outpatient (CLI) | payer OTHER, SELFPAY ==
[2024-08-23 10:22] VITALS: PULSE 67; RESP 12; O2SAT 96; BMI 28.5
--- NOTE | 2024-10-05 13:52 | DI.RAD.S_ITS ---
PROCEDURE: XR ABDOMEN MIN 2V INDICATIONS: CONSTIPATION TECHNIQUE: 2 views of the abdomen were acquired. COMPARISON: None. FINDINGS: Surgical changes and devices: None. Bowel: No pneumoperitoneum. The bowel gas pattern is normal. Soft tissues: No masses; visualized solid organ contours appear normal in size. No suspicious abdominal calcifications. Moderate amount of stool throughout the colon. Bones: No suspicious bony abnormalities. Convex left thoracolumbar spine scoliosis. Sacral spine neurostimulator. IMPRESSION: Non-obstructive bowel gas pattern. Moderate colonic fecal loading. Dictated by: Jenni oHuse MD, PhD on 10/05/2024 at 14:45 Approved by: Jenni House MD, PhD on 10/05/2024 at 14:45
== END ==
PROVIDERS: Family Provider Family Medicine; PCP Family Medicine; Referring Provider Family Medicine; Visit Provider Family Medicine
DX: K59.00 Constipation, unspecified (principal); M41.9 Scoliosis, unspecified
CPT/HCPCS: 74019

== ENCOUNTER 2024-12-08 13:45 | Outpatient (RCR) | payer OTHER, SELFPAY ==
[2022-05-04 22:35] VITALS: PULSE 67; RESP 12; O2SAT 96
[2022-06-11 20:28] VITALS: BMI 28.5
[2024-08-23 10:22] VITALS: PULSE 67; RESP 12; O2SAT 96; BMI 28.5
--- NOTE | 2024-09-01 16:37 | PT.OIE ---
Current Diagnoses Pain in right knee (09/01/24) Past Medical History (Last Reviewed 06/25/24 @ 17:06 by Omid Lnenon PA-C) Anxiety Cholelithiasis CKD (chronic kidney disease) stage 3, GFR 30-59 ml/min Colonoscopy planned Encounter for subsequent annual wellness visit (AWV) in Medicare patient Fibromyalgia Hx of fracture of ankle Major depressive disorder, recurrent, moderate Mixed hyperlipidemia Normocytic anemia Obstipation Post traumatic stress disorder (PTSD) Post-menopausal Past Surgical History (Last Reviewed 06/25/24 @ 17:06 by Omid Lennon PA-C) History of carpal tunnel release of both wrists Hx of hysterectomy Visit Care Team Role Provider Type Dario Coffman DO Attending Provider Physician Family Provider Primary Care Provider Referring Provider Specialty: Family Practice Address: [address] [place] [address], [address], [facility] Email: [email or web address] Physical Therapy Initial Evaluation PT-OP-A Visit Information Start: 08/30/24 14:53 Freq: Status: Active Protocol: Document 09/01/24 13:45 [facility] (Rec: 09/01/24 15:06 [facility] [id number]) Out-Patient Physical Therapy Visit Information Visit Information Visit Type Initial Evaluation Visit Start Time 13:49 Visit Stop Time 14:40 Visit Number 1 Number of ACCESS REP Visits 0 PT-OP-B Current Condition Start: 08/30/24 14:53 Freq: Status: Active Protocol: Document 09/01/24 13:45 [facility] (Rec: 09/01/24 15:06 [facility] [id number]) Current Condition History of Current Condition Current Complaints R knee pain History of Current Condition Pt had TKA R on February 10 and did PT for about 2 months and it got pretty good so she dc from PT. Knee started bothering her again . Can go up the stairs but can't come down stairs comfortably but never achieved this w/prior PT either. The past several week it has been getting worse. Has stairs at home. Has difficulty w/kneeling and squatting. Feels good about ROM. Turning is difficult. Pt has cont her PT exercises and walk to her mailbox ([address] w[address]hill). For a long time before TKA, couldn't do things d/t her knee. Doesn't have to ice or heat any more but does use cream on it. Occ will use ice if ends up hurting. Pt reports she does have MS and word finding can be difficult. 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 Pt has back pain (LB) w/hx of scoliosis). Also fibromyalgia. Has broken R ankle mult times and most recent in 2008. Does have screws in ankle. R ankle does bother her Treatment Goals Patient/Caregiver Goals be able to go down stairs comfortably and squat, be able to kneel to ground and get back up. Be able to go for 2 mile walks PT-OP-C Subjective Start: 08/30/24 14:53 Freq: Status: Active Protocol: Document 09/01/24 13:45 [facility] (Rec: 09/01/24 15[id number]-PT Pain Assessment Location R knee Pain Location Details med knee and post Intensity 4 Scale Used Numeric (0 - 10) Other Pain Aggravating Factors squat, kneel up/down ground, down stairs, turning, extended walking Pain Alleviating Factors Cold Other Pain Alleviating Factors creams PT-OP-D Balance Start: 08/30/24 14:53 Freq: Status: Active Protocol: Document 09/01/24 13:45 [facility] (Rec: 09/01/24 15:06 [id number] Balance Tests Single Limb Standing Single Limb- Right 1 sec Single Limb- Left 1 sec PT-OP-G Mobility & Gait Start: 08/30/24 14:53 Freq: Status: Active Protocol: Document 09/01/24 13:45 [facility] (Rec: 09/01/24 15:06 [facility] [id number]) OP Gait Assessment Comments Gait Comments dec RUE arm swing,LUE swing only at elbow, R pelvic shear and dec RLE stance time, dec trunk motion PT-OP-J Posture/Palpation/Skin Start: 08/30/24 14:53 Freq: Status: Active Protocol: Document 09/01/24 13:45 [facility] (Rec: 09/01/24 15:06 [facility] [id number]) Posture Evaluation Comments Posture Comments R pelvic shear, R iliac crest higher, and R greater trochanter higher, R foot toes out, R foot pronation, R knee flexed Palpation Assessment Location RLE Palpation Details tightnes sin quad, ITB, calf, ER tibia, IR femur, limited patella movement PT-OP-K Range of Motion Start: 08/30/24 14:53 Freq: Status: Active Protocol: Document 09/01/24 13:45 [facility] (Rec: 09/01/24 15:06 [facility] [id number]) Knee Goniometric Range of Motion Knee Right Flexion Active (degrees) 119 Extension Active (degrees) 5 Left Flexion Active (degrees) 127 Extension Active (degrees) 0 PT-OP-L Special Tests Start: 08/30/24 14:53 Freq: Status: Active Protocol: Document 09/01/24 13:45 [facility] (Rec: 09/01/24 15:06 [facility] [id number]) Special Tests Knee Special Tests Straight Leg Raise Comments >90 deg Chanell Arellano Comments R>L quad tightness PT-OP-M Strength Start: 08/30/24 14:53 Freq: Status: Active Protocol: Document 09/01/24 13:45 [facility] (Rec: 09/01/24 15:06 [facility] [id number]) Hip Strength Hip Manual Muscle Testing Right Flexion (L2) 3+ Fair+ Extension (S1) 3+ Fair+ Abduction 3+ Fair+ Adduction 4 Good External Rotation 3+ Fair+ Internal Rotation 3+ Fair+ Left Flexion (L2) 4 Good Extension (S1) 4 Good Abduction 4 Good Adduction 4 Good External Rotation 4 Good Internal Rotation 4 Good Knee Strength Knee Manual Muscle Testing Right Flexion (S2) 4- Good- Extension (L3) 4 Good Left Flexion (S2) 4+ Good+ Extension (L3) 4 Good Ankle/Foot Strength Ankle and Foot Manual Muscle Testing Right Dorsiflexion (L4) 4 Good Plantarflexion (S1) 5 Normal Left Dorsiflexion (L4) 4+ Good+ Plantarflexion (S1) 5 Normal Comments PF tested seated PT-OP-Q Treatments Start: 09/01/24 15:06 Freq: Status: Active Protocol: Document 09/01/24 13:45 [facility] (Rec: 09/01/24 15:10 [facility] [id number]) Self-Care/Home Management Treatment Education Other Education 15 min: edu re: restrictions still present in knee and how pelvis/leg length and scoliosis may be affecting R knee. Discussed how weak R side is and how there are rotational changes at tibfem PT-OP-T Assessment and Plan Start: 08/30/24 14:53 Freq: Status: Active Protocol: Document 09/01/24 13:45 [facility] (Rec: 09/01/24 15:06 [facility] [id number]) Physical Therapy Assessment Rehab Potential Rehabilitation Potential Good Evaluation Complexity Number of Personal Factors/Comorbidities 3 or More Number of Body Systems Impaired 4 or More Clinical Presentation at Evaluation Evolving Impairments Impairments Activity Tolerance,Balance, Functional Activities, Functional Mobility,Gait,Pain, Posture,ROM,Soft Tissue Mobility,Strength Goals stairs Nursing Home Goal (LTG) Pt will be able to reciprocate down stairs w/o inc knee pain LTG Duration 11/10/24 activity Short Term Goal (STG) Pt will be able to squat w/o inc knee pain. STG Duration 10/06/24 Nursing Home Goal (LTG) Pt will be able to go for walks of 2 miles w/o inc pain in R knee greater than 1/10 and kneel to get to the ground and get back up LTG Duration 11/10/24 strength Short Term Goal (STG) Pt will be indep w/HEP STG Duration 10/01/24 Nursing Home Goal (LTG) Pt will score at least 4+/5 on all BLE MMT to show improved strength in order to allow greater ease w/activity. LTG Duration 11/10 balance State Wildlife Officer Goal (LTG) Pt will be able to do at least SLS for at least 5 sec to show improved balance. LTG Duration 11/10/24 Assessment Summary Assessment Pt presents 9 months s/p R TKA w/resent worsening of symptoms and without full rehab to full mobility w/o pain w/prior PT. She has always had pain w/down stairs and now pain is worse and she also has difficulty w/ squatting and getting up/down to kneel on ground along w/ walking extended d/t R knee pain. Does have lacking R ankle mobility that is likely affecting his R knee pain along w/scoliosis and leg length discrepency. She has profound RLE weakness and mm tension and jt stiffness likely affecting her pain. She would benefit from skilled PT to address these deficits to improve function. Physical Therapy Plan Frequency and Duration Frequency of Treatment 2x/Week Duration of treatment (weeks) 10 Plan of Care Start Date 09/01/24 Plan of Care End Date 11/10/24 Therapeutic Interventions Therapeutic Interventions Balance Training,Gait Training ,Home Exercise Program,Joint Mobilizations,Manual Therapy, Neuromuscular Re-education, Patient/Caregiver Education, Self-Care/Home Management,Soft Tissue Mobilization,Taping, Therapeutic Activities, Therapeutic Exercises Modalities Cold Pack/Ice Massage,Electric Stimulation,Hot Packs Next Visit Focus/Plan Next Note Type Treatment Note Next Visit Plan manual to tibfem, patellofemoral, tibfib, innominate, hip, STM: calf, quad, ITB review old HEP and determine if still appropriate balance consider taping
--- NOTE | 2024-09-01 16:37 | PT.OPPOC ---
Physical, Occupational & Speech Therapy At [facility] Current Diagnoses Pain in right knee (09/01/24) Visit Care Team Role Provider Type Dario Coffman DO Attending Provider Physician Family Provider Primary Care Provider Referring Provider Specialty: Family Practice Address: [address] [place] [address], [facility] [address], [place], [address] Email: [email or web address] Plan Of Care PT-OP-B Current Condition Start: 08/30/24 14:53 Freq: Status: Active Protocol: Document 09/01/24 13:45 [facility] (Rec: 09/01/24 15:06 [facility] [id number]) Current Condition History of Current Condition Current Complaints R knee pain History of Current Condition Pt had TKA R on February 10 and did PT for about 2 months and it got pretty good so she dc from PT. Knee started bothering her again . Can go up the stairs but can't come down stairs comfortably but never achieved this w/prior PT either. The past several week it has been getting worse. Has stairs at home. Has difficulty w/kneeling and squatting. Feels good about ROM. Turning is difficult. Pt has cont her PT exercises and walk to her mailbox ([address] w/hill). For a long time before TKA, couldn't do things d/t her knee. Doesn't have to ice or heat any more but does use cream on it. Occ will use ice if ends up hurting. Pt reports she does have MS and word finding can be difficult. 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 Pt has back pain (LB) w/hx of scoliosis). Also fibromyalgia. Has broken R ankle mult times and most recent in 2008. Does have screws in ankle. R ankle does bother her Treatment Goals Patient/Caregiver Goals be able to go down stairs comfortably and squat, be able to kneel to ground and get back up. Be able to go for 2 mile walks PT-OP-T Assessment and Plan Start: 08/30/24 14:53 Freq: Status: Active Protocol: Document 09/01/24 13:45 [facility] (Rec: 09/01/24 15:06 [facility] [id number]) Physical Therapy Assessment Rehab Potential Rehabilitation Potential Good Evaluation Complexity Number of Personal Factors/Comorbidities 3 or More Number of Body Systems Impaired 4 or More Clinical Presentation at Evaluation Evolving Impairments Impairments Activity Tolerance,Balance, Functional Activities, Functional Mobility,Gait,Pain, Posture,ROM,Soft Tissue Mobility,Strength Goals stairs M[facility] Goal (LTG) Pt will be able to reciprocate down stairs w/o inc knee pain LTG Duration 11/10/24 activity Short Term Goal (STG) Pt will be able to squat w/o inc knee pain. STG Duration 10/06/24 Mcc Goal (LTG) Pt will be able to go for walks of 2 miles w/o inc pain in R knee greater than /10 and kneel to get to the ground and get back up LTG Duration 11/10/24 strength Short Term Goal (STG) Pt will be indep w/HEP STG Duration 10/01/24 Batchmaker Goal (LTG) Pt will score at least 4+/5 on all BLE MMT to show improved strength in order to allow greater ease w/activity. LTG Duration 11/10 balance Batchmaker Goal (LTG) Pt will be able to do at least SLS for at least 5 sec to show improved balance. LTG Duration 11/10/24 Assessment Summary Assessment Pt presents 9 months s/p R TKA w/resent worsening of symptoms and without full rehab to full mobility w/o pain w/prior PT. She has always had pain w/down stairs and now pain is worse and she also has difficulty w/ squatting and getting up/down to kneel on ground along w/ walking extended d/t R knee pain. Does have lacking R ankle mobility that is likely affecting his R knee pain along w/scoliosis and leg length discrepency. She has profound RLE weakness and mm tension and jt stiffness likely affecting her pain. She would benefit from skilled PT to address these deficits to improve function. Physical Therapy Plan Frequency and Duration Frequency of Treatment 2x/Week Duration of treatment (weeks) 10 Plan of Care Start Date 09/01/24 Plan of Care End Date 11/10/24 Therapeutic Interventions Therapeutic Interventions Balance Training,Gait Training ,Home Exercise Program,Joint Mobilizations,Manual Therapy, Neuromuscular Re-education, Patient/Caregiver Education, Self-Care/Home Management,Soft Tissue Mobilization,Taping, Therapeutic Activities, Therapeutic Exercises Modalities Cold Pack/Ice Massage,Electric Stimulation,Hot Packs Next Visit Focus/Plan Next Note Type Treatment Note Next Visit Plan manual to tibfem, patellofemoral, tibfib, innominate, hip, STM: calf, quad, ITB review old HEP and determine if still appropriate balance consider taping Plan of Care Dates Plan of Care Start Date 09/01/24 Plan of Care End Date 11/10/24 Electronically Signed by: Adriana Rosado, PT 09/01/24 [id number] If you are in agreement with this Plan of Care, please return a signed and dated copy. I have reviewed this Plan of Care and certify that the skilled therapy services above are required to meet the patient?s needs. Physician Signature Date Printed Name and Credentials Clinical Instructor Signature Printed Name and Credentials
--- NOTE | 2024-09-06 15:59 | PT.OTN ---
Current Diagnoses Pain in right knee (09/06/24) Physical Therapy Treatment Note PT-OP-A Visit Information Start: 08/30/24 14:53 Freq: Status: Active Protocol: Document 09/06/24 13:48 [facility] (Rec: 09/06/24 15:59 [facility] [id number]) Out-Patient Physical Therapy Visit Information Visit Information Visit Type Treatment Note Visit Start Time 13:50 Visit Stop Time 14:30 Visit Number 2 Number of AUDIOPROSTHOLOGIST Visits 0 PT-OP-B Current Condition Start: 08/30/24 14:53 Freq: Status: Active Protocol: Document 09/01/24 13:45 [facility] (Rec: 09/01/24 15:06 [facility] [id number]) Current Condition History of Current Condition Current Complaints R knee pain History of Current Condition Pt had TKA R on February 10 and did PT for about 2 months and it got pretty good so she dc from PT. Knee started bothering her again . Can go up the stairs but can't come down stairs comfortably but never achieved this w/prior PT either. The past several week it has been getting worse. Has stairs at home. Has difficulty w/kneeling and squatting. Feels good about ROM. Turning is difficult. Pt has cont her PT exercises and walk to her mailbox ([address] w/hill). For a long time before TKA, couldn't do things d/t her knee. Doesn't have to ice or heat any more but does use cream on it. Occ will use ice if ends up hurting. Pt reports she does have MS and word finding can be difficult. 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 Pt has back pain (LB) w/hx of scoliosis). Also fibromyalgia. Has broken R ankle mult times and most recent in 2008. Does have screws in ankle. R ankle does bother her Treatment Goals Patient/Caregiver Goals be able to go down stairs comfortably and squat, be able to kneel to ground and get back up. Be able to go for 2 mile walks PT-OP-C Subjective Start: 08/30/24 14:53 Freq: Status: Active Protocol: Document 09/06/24 13:48 [facility] (Rec: 09/06/24 15:59 [facility] [id number]) OP-PT Subjective Patient Comments Patient Comments Pt reports some old exercises are painful PT-OP-D Balance Start: 08/30/24 14:53 Freq: Status: Active Protocol: Document 09/01/24 13:45 [facility] (Rec: 09/01/24 15:06 [facility] [id number]) Balance Tests Single Limb Standing Single Limb- Right 1 sec Single Limb- Left 1 sec PT-OP-G Mobility & Gait Start: 08/30/24 14:53 Freq: Status: Active Protocol: Document 09/01/24 13:45 [facility] (Rec: 09/01/24 15:06 [facility] [id number]) OP Gait Assessment Comments Gait Comments dec RUE arm swing,LUE swing only at elbow, R pelvic shear and dec RLE stance time, dec trunk motion PT-OP-J Posture/Palpation/Skin Start: 08/30/24 14:53 Freq: Status: Active Protocol: Document 09/01/24 13:45 [facility] (Rec: 09/01/24 15:06 [facility] [id number]) Posture Evaluation Comments Posture Comments R pelvic shear, R iliac crest higher, and R greater trochanter higher, R foot toes out, R foot pronation, R knee flexed Palpation Assessment Location RLE Palpation Details tightnes sin quad, ITB, calf, ER tibia, IR femur, limited patella movement PT-OP-K Range of Motion Start: 08/30/24 14:53 Freq: Status: Active Protocol: Document 09/01/24 13:45 [facility] (Rec: 09/01/24 15:06 [facility] [id number]) Knee Goniometric Range of Motion Knee Right Flexion Active (degrees) 119 Extension Active (degrees) 5 Left Flexion Active (degrees) 127 Extension Active (degrees) 0 PT-OP-L Special Tests Start: 08/30/24 14:53 Freq: Status: Active Protocol: Document 09/01/24 13:45 [facility] (Rec: 09/01/24 15:06 [facility] [id number]) Special Tests Knee Special Tests Straight Leg Raise Comments >90 deg Chanell Arellano Comments R>L quad tightness PT-OP-M Strength Start: 08/30/24 14:53 Freq: Status: Active Protocol: Document 09/01/24 13:45 [facility] (Rec: 09/01/24 15:06 [facility] [id number]) Hip Strength Hip Manual Muscle Testing Right Flexion (L2) 3+ Fair+ Extension (S1) 3+ Fair+ Abduction 3+ Fair+ Adduction 4 Good External Rotation 3+ Fair+ Internal Rotation 3+ Fair+ Left Flexion (L2) 4 Good Extension (S1) 4 Good Abduction 4 Good Adduction 4 Good External Rotation 4 Good Internal Rotation 4 Good Knee Strength Knee Manual Muscle Testing Right Flexion (S2) 4- Good- Extension (L3) 4 Good Left Flexion (S2) 4+ Good+ Extension (L3) 4 Good Ankle/Foot Strength Ankle and Foot Manual Muscle Testing Right Dorsiflexion (L4) 4 Good Plantarflexion (S1) 5 Normal Left Dorsiflexion (L4) 4+ Good+ Plantarflexion (S1) 5 Normal Comments PF tested seated PT-OP-Q Treatments Start: 09/01/24 15:06 Freq: Status: Active Protocol: Document 09/06/24 13:48 [facility] (Rec: 09/06/24 15:59 [facility] [id number]) Therapeutic Exercises Supine Exercises march Supine Exercise Name focus on IR of knee Side right Reps/Minutes 2x10 Comments dec pain heel slides Supine Exercise Name focus on IR fo knee Side right Reps/Minutes 10 Comments instead of bicycle kicks Sidelying Exercises hip abd Side right Reps/Minutes 2x10 Comments cues alignment Standing Exercises squat Standing Exercise Name partial range Side bilateral Equipment Used L2 Reps/Minutes 15 Comments cues knee position Manual Therapy Treatment Consent Patient gave verbal consent for manual Yes treatment Soft Tissue Mobilization quad Body Location patellar tendon Mobilization Type Myofascial Release Intensity/Depth Superficial scar Mobilization Type Myofascial Release Intensity/Depth Superficial Comments flex w/APs Joint Mobilizations tibfib Comments PA c/r tibfemoral Comments PA c/r;AP tibia w/IR and AP femur c/r patellofemoral Joint R sup, inf, med PT-OP-T Assessment and Plan Start: 08/30/24 14:53 Freq: Status: Active Protocol: Document 09/06/24 13:48 [facility] (Rec: 09/06/24 15:59 [facility] [id number]) Physical Therapy Assessment Goals stairs Lead Tank Mechanic Goal (LTG) Pt will be able to reciprocate down stairs w/o inc knee pain LTG Duration 11/10/24 activity Short Term Goal (STG) Pt will be able to squat w/o inc knee pain. STG Duration 10/06/24 Lead Tank Mechanic Goal (LTG) Pt will be able to go for walks of 2 miles w/o inc pain in R knee greater than 1/10 and kneel to get to the ground and get back up LTG Duration 11/10/24 strength Short Term Goal (STG) Pt will be indep w/HEP STG Duration 10/01/24 [facility] Goal (LTG) Pt will score at least 4+/5 on all BLE MMT to show improved strength in order to allow greater ease w/activity. LTG Duration 11/10 balance [facility] Goal (LTG) Pt will be able to do at least SLS for at least 5 sec to show improved balance. LTG Duration 11/10/24 Assessment Summary Assessment Pt did improved ROM to 0-124 after manual and had less pain w/exercises if focused on IR of knee during ROM exercises. Physical Therapy Plan Frequency and Duration Frequency of Treatment 2x/Week Duration of treatment (weeks) 10 Plan of Care Start Date 09/01/24 Plan of Care End Date 11/10/24 Next Visit Focus/Plan Next Note Type Treatment Note Next Visit Plan manual to tibfem, patellofemoral, tibfib, innominate, hip, STM: calf, quad, ITB review exercises from last time balance consider taping
--- NOTE | 2024-09-08 13:00 | PT.OTN ---
Current Diagnoses Pain in right knee (09/08/24) Physical Therapy Treatment Note PT-OP-A Visit Information Start: 08/30/24 14:53 Freq: Status: Active Protocol: Document 09/08/24 11:18 NBM (Rec: 09/08/24 12:38 [facility] [id number]) Out-Patient Physical Therapy Visit Information Visit Information Visit Type Treatment Note Visit Start Time 10:55 Visit Stop Time 11:35 Visit Number 3 Number of PREFORMING MACHINE OPERATOR Visits 1 PT-OP-B Current Condition Start: 08/30/24 14:53 Freq: Status: Active Protocol: Document 09/01/24 13:45 [facility] (Rec: 09/01/24 15:06 [facility] [id number]) Current Condition History of Current Condition Current Complaints R knee pain History of Current Condition Pt had TKA R on February 10 and did PT for about 2 months and it got pretty good so she dc from PT. Knee started bothering her again . Can go up the stairs but can't come down stairs comfortably but never achieved this w/prior PT either. The past several week it has been getting worse. Has stairs at home. Has difficulty w/kneeling and squatting. Feels good about ROM. Turning is difficult. Pt has cont her PT exercises and walk to her mailbox ([address] w[address]hill). For a long time before TKA, couldn't do things d/t her knee. Doesn't have to ice or heat any more but does use cream on it. Occ will use ice if ends up hurting. Pt reports she does have MS and word finding can be difficult. 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 Pt has back pain (LB) w/hx of scoliosis). Also fibromyalgia. Has broken R ankle mult times and most recent in 2008. Does have screws in ankle. R ankle does bother her Treatment Goals Patient/Caregiver Goals be able to go down stairs comfortably and squat, be able to kneel to ground and get back up. Be able to go for 2 mile walks PT-OP-C Subjective Start: 08/30/24 14:53 Freq: Status: Active Protocol: Document 09/08/24 11:18 NBM (Rec: 09/08/24 12:38 [facility] [id number]) OP-PT Subjective Patient Comments Patient Comments Rhonda reports 5/10 R knee pain at the moment; she took over the counter pain med at 9am. All of her ex's get much more painful when she's doing them, but especially squats and bicycle kicks, and she is slow with her HEP due to the pain. PT-OP-D Balance Start: 08/30/24 14:53 Freq: Status: Active Protocol: Document 09/01/24 13:45 [facility] (Rec: 09/01/24 15:06 [facility] [id number]) Balance Tests Single Limb Standing Single Limb- Right 1 sec Single Limb- Left 1 sec PT-OP-G Mobility & Gait Start: 08/30/24 14:53 Freq: Status: Active Protocol: Document 09/01/24 13:45 [facility] (Rec: 09/01/24 15:06 [facility] [id number]) OP Gait Assessment Comments Gait Comments dec RUE arm swing,LUE swing only at elbow, R pelvic shear and dec RLE stance time, dec trunk motion PT-OP-J Posture/Palpation/Skin Start: 08/30/24 14:53 Freq: Status: Active Protocol: Document 09/01/24 13:45 [facility] (Rec: 09/01/24 15:06 [facility] [id number]) Posture Evaluation Comments Posture Comments R pelvic shear, R iliac crest higher, and R greater trochanter higher, R foot toes out, R foot pronation, R knee flexed Palpation Assessment Location RLE Palpation Details tightnes sin quad, ITB, calf, ER tibia, IR femur, limited patella movement PT-OP-K Range of Motion Start: 08/30/24 14:53 Freq: Status: Active Protocol: Document 09/01/24 13:45 [facility] (Rec: 09/01/24 15:06 [facility] [id number]) Knee Goniometric Range of Motion Knee Right Flexion Active (degrees) 119 Extension Active (degrees) 5 Left Flexion Active (degrees) 127 Extension Active (degrees) 0 PT-OP-L Special Tests Start: 08/30/24 14:53 Freq: Status: Active Protocol: Document 09/01/24 13:45 [facility] (Rec: 09/01/24 15:06 [facility] [id number]) Special Tests Knee Special Tests Straight Leg Raise Comments >90 deg Chanell Arellano Comments R>L quad tightness PT-OP-M Strength Start: 08/30/24 14:53 Freq: Status: Active Protocol: Document 09/01/24 13:45 [facility] (Rec: 09/01/24 15:06 [facility] [id number]) Hip Strength Hip Manual Muscle Testing Right Flexion (L2) 3+ Fair+ Extension (S1) 3+ Fair+ Abduction 3+ Fair+ Adduction 4 Good External Rotation 3+ Fair+ Internal Rotation 3+ Fair+ Left Flexion (L2) 4 Good Extension (S1) 4 Good Abduction 4 Good Adduction 4 Good External Rotation 4 Good Internal Rotation 4 Good Knee Strength Knee Manual Muscle Testing Right Flexion (S2) 4- Good- Extension (L3) 4 Good Left Flexion (S2) 4+ Good+ Extension (L3) 4 Good Ankle/Foot Strength Ankle and Foot Manual Muscle Testing Right Dorsiflexion (L4) 4 Good Plantarflexion (S1) 5 Normal Left Dorsiflexion (L4) 4+ Good+ Plantarflexion (S1) 5 Normal Comments PF tested seated PT-OP-Q Treatments Start: 09/01/24 15:06 Freq: Status: Active Protocol: Document 09/08/24 11:18 NB (Rec: 09/08/24 12:38 [facility] [id number]) Therapeutic Exercises Supine Exercises bicycle kicks Supine Exercise Name pt's personal HEP - replaced with heel slides Side bilateral Reps/Minutes trials Comments dc'd d/t RLE pain (pain improves slightly w/ TrA and breathwork) november Supine Exercise Name focus on IR of knee Side right Reps/Minutes 2x10 Comments cues for TrA, breath, LE alignment; decreased pain heel slides Supine Exercise Name focus on IR fo knee (replaced bicycle kicks in HEP) Side bilateral Reps/Minutes L x5 to establish pattern, R x10 Comments tactile cue for LE alignment, keep plantar contact. vc TrA and breath Sidelying Exercises clamshell Side right Resistance Lvl 2 Tb Reps/Minutes x10 Comments cues for set up hip abd Sidelying Exercise Name slight hip extension Side right Reps/Minutes x10 Comments max cues alignment, form, range, breath - challenging Standing Exercises squat Standing Exercise Name partial range Side bilateral Resistance L2 above knees Reps/Minutes 4 x5 reps Comments cues for hip hinge resolve R knee discomfort, vc form with fatigue Self-Care/Home Management Treatment Education Patient Education Body Mechanics,Home Exercise Program,Joint Protection,Pain Management Other Education Treatment focus on HEP review and education of Transverse abdominis m. anatomy and activitation w/ visual aids, interrelationship w/ diaphragm and pelvic floor, and importance of not breathholding to improve core recruitment. PT-OP-R Modalities Start: 09/01/24 15:06 Freq: Status: Active Protocol: Document 09/08/24 11:18 NBM (Rec: 09/08/24 12:38 [facility] [id number]) Hot Pack/Cold Pack Treatment Cold Pack Location R knee Patient Position Hooklying Patient Tolerance Good Comments LEs on bolster, all needs within reach. cervical posterior, lumbar anterior. 8 min PT-OP-T Assessment and Plan Start: 08/30/24 14:53 Freq: Status: Active Protocol: Document 09/08/24 11:18 NBM (Rec: 09/08/24 12:38 [facility] [id number]) Physical Therapy Assessment Goals stairs Mcfp Goal (LTG) Pt will be able to reciprocate down stairs w/o inc knee pain LTG Duration 11/10/24 activity Short Term Goal (STG) Pt will be able to squat w/o inc knee pain. 09/08/24: Knee pain resolves with cueing for hip hinge. STG Duration 10/06/24 (09/08/24 Progressing) Mcfp Goal (LTG) Pt will be able to go for walks of 2 miles w/o inc pain in R knee greater than 1/10 and kneel to get to the ground and get back up LTG Duration 11/10/24 strength Short Term Goal (STG) Pt will be indep w/HEP STG Duration 10/01/24 Door Person Goal (LTG) Pt will score at least 4+/5 on all BLE MMT to show improved strength in order to allow greater ease w/activity. LTG Duration 11/10 balance Mcfp Goal (LTG) Pt will be able to do at least SLS for at least 5 sec to show improved balance. LTG Duration 11/10/24 Assessment Summary Assessment Rhonda presents with 5/10 R knee pain which improves to 4/ 10 end of session prior to cryotherapy and 3/10 after cryotherapy. Treatment focus on HEP review with education for appropriate activation of TrA m with breath. She requires cues for hip hinge with squat which resolve R knee pain and demos progress towards activity short term goal. She is especially challenged w/ sidelying hip abduction end of session which may have been secondary to fatigue and MS, requiring max cues for range and form. She demos improved self-awareness for breathwork and TrA activation with education and repetition. She does not recall instruction from 09/06 to replace bicycle kicks with heel slides - Existing HEP updated with written cues; squats modified from 2x10 to 4 x5 reps for energy pacing and form due to fatigue; and to substitute supine bicycle with heel slides due to RLE pain - HO given. Physical Therapy Plan Frequency and Duration Frequency of Treatment 2x/Week Duration of treatment (weeks) 10 Plan of Care Start Date 09/01/24 Plan of Care End Date 11/10/24 Therapeutic Interventions Therapeutic Interventions Balance Training,Gait Training ,Home Exercise Program,Joint Mobilizations,Manual Therapy, Neuromuscular Re-education, Patient/Caregiver Education, Self-Care/Home Management,Soft Tissue Mobilization,Taping, Therapeutic Activities, Therapeutic Exercises Modalities Cold Pack/Ice Massage,Electric Stimulation,Hot Packs Next Visit Focus/Plan Next Note Type Treatment Note Next Visit Plan manual to tibfem, patellofemoral, tibfib, innominate, hip, STM: calf, quad, ITB review exercises from last time balance consider taping
--- NOTE | 2024-09-24 13:49 | PT.OTN ---
Current Diagnoses Pain in right knee (09/24/24) Physical Therapy Treatment Note PT-OP-A Visit Information Start: 08/30/24 14:53 Freq: Status: Active Protocol: Document 09/08/24 11:18 NBM (Rec: 09/08/24 12:38 [facility] [id number]) Out-Patient Physical Therapy Visit Information Visit Information Visit Type Treatment Note Visit Start Time 10:55 Visit Stop Time 11:35 Visit Number 3 Number of POLICY ADVISER Visits 1 PT-OP-B Current Condition Start: 08/30/24 14:53 Freq: Status: Active Protocol: Document 09/01/24 13:45 [facility] (Rec: 09/01/24 15:06 [facility] [id number]) Current Condition History of Current Condition Current Complaints R knee pain History of Current Condition Pt had TKA R on February 10 and did PT for about 2 months and it got pretty good so she dc from PT. Knee started bothering her again . Can go up the stairs but can't come down stairs comfortably but never achieved this w/prior PT either. The past several week it has been getting worse. Has stairs at home. Has difficulty w/kneeling and squatting. Feels good about ROM. Turning is difficult. Pt has cont her PT exercises and walk to her mailbox ([address] w/hill). For a long time before TKA, couldn't do things d/t her knee. Doesn't have to ice or heat any more but does use cream on it. Occ will use ice if ends up hurting. Pt reports she does have MS and word finding can be difficult. 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 Pt has back pain (LB) w/hx of scoliosis). Also fibromyalgia. Has broken R ankle mult times and most recent in 2008. Does have screws in ankle. R ankle does bother her Treatment Goals Patient/Caregiver Goals be able to go down stairs comfortably and squat, be able to kneel to ground and get back up. Be able to go for 2 mile walks PT-OP-C Subjective Start: 08/30/24 14:53 Freq: Status: Active Protocol: Document 09/08/24 11:18 NBM (Rec: 09/08/24 12:38 [facility] [id number]) OP-PT Subjective Patient Comments Patient Comments Rhonda reports 5/10 R knee pain at the moment; she took over the counter pain med at 9am. All of her ex's get much more painful when she's doing them, but especially squats and bicycle kicks, and she is slow with her HEP due to the pain. PT-OP-D Balance Start: 08/30/24 14:53 Freq: Status: Active Protocol: Document 09/01/24 13:45 [facility] (Rec: 09/01/24 15:06 [facility] [id number]) Balance Tests Single Limb Standing Single Limb- Right 1 sec Single Limb- Left 1 sec PT-OP-G Mobility & Gait Start: 08/30/24 14:53 Freq: Status: Active Protocol: Document 09/01/24 13:45 [facility] (Rec: 09/01/24 15:06 [facility] [id number]) OP Gait Assessment Comments Gait Comments dec RUE arm swing,LUE swing only at elbow, R pelvic shear and dec RLE stance time, dec trunk motion PT-OP-J Posture/Palpation/Skin Start: 08/30/24 14:53 Freq: Status: Active Protocol: Document 09/01/24 13:45 [facility] (Rec: 09/01/24 15:06 [facility] [id number]) Posture Evaluation Comments Posture Comments R pelvic shear, R iliac crest higher, and R greater trochanter higher, R foot toes out, R foot pronation, R knee flexed Palpation Assessment Location RLE Palpation Details tightnes sin quad, ITB, calf, ER tibia, IR femur, limited patella movement PT-OP-K Range of Motion Start: 08/30/24 14:53 Freq: Status: Active Protocol: Document 09/01/24 13:45 [facility] (Rec: 09/01/24 15:06 [facility] [id number]) Knee Goniometric Range of Motion Knee Right Flexion Active (degrees) 119 Extension Active (degrees) 5 Left Flexion Active (degrees) 127 Extension Active (degrees) 0 PT-OP-L Special Tests Start: 08/30/24 14:53 Freq: Status: Active Protocol: Document 09/01/24 13:45 [facility] (Rec: 09/01/24 15:06 [facility] [id number]) Special Tests Knee Special Tests Straight Leg Raise Comments >90 deg Chanell Arellano Comments R>L quad tightness PT-OP-M Strength Start: 08/30/24 14:53 Freq: Status: Active Protocol: Document 09/01/24 13:45 [facility] (Rec: 09/01/24 15:06 [facility] [id number]) Hip Strength Hip Manual Muscle Testing Right Flexion (L2) 3+ Fair+ Extension (S1) 3+ Fair+ Abduction 3+ Fair+ Adduction 4 Good External Rotation 3+ Fair+ Internal Rotation 3+ Fair+ Left Flexion (L2) 4 Good Extension (S1) 4 Good Abduction 4 Good Adduction 4 Good External Rotation 4 Good Internal Rotation 4 Good Knee Strength Knee Manual Muscle Testing Right Flexion (S2) 4- Good- Extension (L3) 4 Good Left Flexion (S2) 4+ Good+ Extension (L3) 4 Good Ankle/Foot Strength Ankle and Foot Manual Muscle Testing Right Dorsiflexion (L4) 4 Good Plantarflexion (S1) 5 Normal Left Dorsiflexion (L4) 4+ Good+ Plantarflexion (S1) 5 Normal Comments PF tested seated PT-OP-Q Treatments Start: 09/01/24 15:06 Freq: Status: Active Protocol: Document 09/08/24 11:18 NB (Rec: 09/08/24 12:38 [facility] [id number]) Therapeutic Exercises Supine Exercises bicycle kicks Supine Exercise Name pt's personal HEP - replaced with heel slides Side bilateral Reps/Minutes trials Comments dc'd d/t RLE pain (pain improves slightly w/ TrA and breathwork) november Supine Exercise Name focus on IR of knee Side right Reps/Minutes 2x10 Comments cues for TrA, breath, LE alignment; decreased pain heel slides Supine Exercise Name focus on IR fo knee (replaced bicycle kicks in HEP) Side bilateral Reps/Minutes L x5 to establish pattern, R x10 Comments tactile cue for LE alignment, keep plantar contact. vc TrA and breath Sidelying Exercises clamshell Side right Resistance Lvl 2 Tb Reps/Minutes x10 Comments cues for set up hip abd Sidelying Exercise Name slight hip extension Side right Reps/Minutes x10 Comments max cues alignment, form, range, breath - challenging Standing Exercises squat Standing Exercise Name partial range Side bilateral Resistance L2 above knees Reps/Minutes 4 x5 reps Comments cues for hip hinge resolve R knee discomfort, vc form with fatigue Self-Care/Home Management Treatment Education Patient Education Body Mechanics,Home Exercise Program,Joint Protection,Pain Management Other Education Treatment focus on HEP review and education of Transverse abdominis m. anatomy and activitation w/ visual aids, interrelationship w/ diaphragm and pelvic floor, and importance of not breathholding to improve core recruitment. PT-OP-R Modalities Start: 09/01/24 15:06 Freq: Status: Active Protocol: Document 09/08/24 11:18 NBM (Rec: 09/08/24 12:38 [facility] [id number]) Hot Pack/Cold Pack Treatment Cold Pack Location R knee Patient Position Hooklying Patient Tolerance Good Comments LEs on bolster, all needs within reach. cervical posterior, lumbar anterior. 8 min PT-OP-T Assessment and Plan Start: 08/30/24 14:53 Freq: Status: Active Protocol: Document 09/08/24 11:18 NBM (Rec: 09/08/24 12:38 [facility] [id number]) Physical Therapy Assessment Goals stairs Fpc Goal (LTG) Pt will be able to reciprocate down stairs w/o inc knee pain LTG Duration 11/10/24 activity Short Term Goal (STG) Pt will be able to squat w/o inc knee pain. 09/08/24: Knee pain resolves with cueing for hip hinge. STG Duration 10/06/24 (09/08/24 Progressing) Fpc Goal (LTG) Pt will be able to go for walks of 2 miles w/o inc pain in R knee greater than 1/10 and kneel to get to the ground and get back up LTG Duration 11/10/24 strength Short Term Goal (STG) Pt will be indep w/HEP STG Duration 10/01/24 Cyber Security Manager Goal (LTG) Pt will score at least 4+/5 on all BLE MMT to show improved strength in order to allow greater ease w/activity. LTG Duration 11/10 balance Fpc Goal (LTG) Pt will be able to do at least SLS for at least 5 sec to show improved balance. LTG Duration 11/10/24 Assessment Summary Assessment Rhonda presents with 5/10 R knee pain which improves to 4/ 10 end of session prior to cryotherapy and 3/10 after cryotherapy. Treatment focus on HEP review with education for appropriate activation of TrA m with breath. She requires cues for hip hinge with squat which resolve R knee pain and demos progress towards activity short term goal. She is especially challenged w/ sidelying hip abduction end of session which may have been secondary to fatigue and MS, requiring max cues for range and form. She demos improved self-awareness for breathwork and TrA activation with education and repetition. She does not recall instruction from 09/06 to replace bicycle kicks with heel slides - Existing HEP updated with written cues; squats modified from 2x10 to 4 x5 reps for energy pacing and form due to fatigue; and to substitute supine bicycle with heel slides due to RLE pain - HO given. Physical Therapy Plan Frequency and Duration Frequency of Treatment 2x/Week Duration of treatment (weeks) 10 Plan of Care Start Date 09/01/24 Plan of Care End Date 11/10/24 Therapeutic Interventions Therapeutic Interventions Balance Training,Gait Training ,Home Exercise Program,Joint Mobilizations,Manual Therapy, Neuromuscular Re-education, Patient/Caregiver Education, Self-Care/Home Management,Soft Tissue Mobilization,Taping, Therapeutic Activities, Therapeutic Exercises Modalities Cold Pack/Ice Massage,Electric Stimulation,Hot Packs Next Visit Focus/Plan Next Note Type Treatment Note Next Visit Plan manual to tibfem, patellofemoral, tibfib, innominate, hip, STM: calf, quad, ITB review exercises from last time balance consider taping
--- NOTE | 2024-10-15 15:35 | PT.OTN ---
Current Diagnoses Pain in right knee (10/15/24) Physical Therapy Treatment Note PT-OP-A Visit Information Start: 08/30/24 14:53 Freq: Status: Active Protocol: Document 10/15/24 12:59 AB (Rec: 10/15/24 15:34 AB [id number]) Out-Patient Physical Therapy Visit Information Visit Information Visit Type Treatment Note Visit Start Time 13:49 Visit Stop Time 14:33 Visit Number 4 Number of COMMUTATOR OPERATOR Visits 2 PT-OP-B Current Condition Start: 08/30/24 14:53 Freq: Status: Active Protocol: Document 09/01/24 13:45 [facility] (Rec: 09/01/24 15:06 [facility] [id number]) Current Condition History of Current Condition Current Complaints R knee pain History of Current Condition Pt had TKA R on February 10 and did PT for about 2 months and it got pretty good so she dc from PT. Knee started bothering her again . Can go up the stairs but can't come down stairs comfortably but never achieved this w/prior PT either. The past several week it has been getting worse. Has stairs at home. Has difficulty w/kneeling and squatting. Feels good about ROM. Turning is difficult. Pt has cont her PT exercises and walk to her mailbox ([address] w[address]hill). For a long time before TKA, couldn't do things d/t her knee. Doesn't have to ice or heat any more but does use cream on it. Occ will use ice if ends up hurting. Pt reports she does have MS and word finding can be difficult. 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 Pt has back pain (LB) w/hx of scoliosis). Also fibromyalgia. Has broken R ankle mult times and most recent in 2008. Does have screws in ankle. R ankle does bother her Treatment Goals Patient/Caregiver Goals be able to go down stairs comfortably and squat, be able to kneel to ground and get back up. Be able to go for 2 mile walks PT-OP-C Subjective Start: 08/30/24 14:53 Freq: Status: Active Protocol: Document 10/15/24 12:59 AB (Rec: 10/15/24 15:34 AB [id number]) OP-PT Subjective Patient Comments Patient Comments Rhonda reports she is about the same, attributes to not able to exercise as much as she could because she was sick . PT-OP-D Balance Start: 08/30/24 14:53 Freq: Status: Active Protocol: Document 09/01/24 13:45 [facility] (Rec: 09/01/24 15:06 [facility] [id number]) Balance Tests Single Limb Standing Single Limb- Right 1 sec Single Limb- Left 1 sec PT-OP-G Mobility & Gait Start: 08/30/24 14:53 Freq: Status: Active Protocol: Document 09/01/24 13:45 [facility] (Rec: 09/01/24 15:06 [facility] [id number]) OP Gait Assessment Comments Gait Comments dec RUE arm swing,LUE swing only at elbow, R pelvic shear and dec RLE stance time, dec trunk motion PT-OP-J Posture/Palpation/Skin Start: 08/30/24 14:53 Freq: Status: Active Protocol: Document 09/01/24 13:45 [facility] (Rec: 09/01/24 15:06 [facility] [id number]) Posture Evaluation Comments Posture Comments R pelvic shear, R iliac crest higher, and R greater trochanter higher, R foot toes out, R foot pronation, R knee flexed Palpation Assessment Location RLE Palpation Details tightnes sin quad, ITB, calf, ER tibia, IR femur, limited patella movement PT-OP-K Range of Motion Start: 08/30/24 14:53 Freq: Status: Active Protocol: Document 09/01/24 13:45 [facility] (Rec: 09/01/24 15:06 [facility] [id number]) Knee Goniometric Range of Motion Knee Right Flexion Active (degrees) 119 Extension Active (degrees) 5 Left Flexion Active (degrees) 127 Extension Active (degrees) 0 PT-OP-L Special Tests Start: 08/30/24 14:53 Freq: Status: Active Protocol: Document 09/01/24 13:45 [facility] (Rec: 09/01/24 15:06 [facility] [id number]) Special Tests Knee Special Tests Straight Leg Raise Comments >90 deg B Adan Comments R>L quad tightness PT-OP-M Strength Start: 08/30/24 14:53 Freq: Status: Active Protocol: Document 09/01/24 13:45 [facility] (Rec: 09/01/24 15:06 [facility] [id number]) Hip Strength Hip Manual Muscle Testing Right Flexion (L2) 3+ Fair+ Extension (S1) 3+ Fair+ Abduction 3+ Fair+ Adduction 4 Good External Rotation 3+ Fair+ Internal Rotation 3+ Fair+ Left Flexion (L2) 4 Good Extension (S1) 4 Good Abduction 4 Good Adduction 4 Good External Rotation 4 Good Internal Rotation 4 Good Knee Strength Knee Manual Muscle Testing Right Flexion (S2) 4- Good- Extension (L3) 4 Good Left Flexion (S2) 4+ Good+ Extension (L3) 4 Good Ankle/Foot Strength Ankle and Foot Manual Muscle Testing Right Dorsiflexion (L4) 4 Good Plantarflexion (S1) 5 Normal Left Dorsiflexion (L4) 4+ Good+ Plantarflexion (S1) 5 Normal Comments PF tested seated PT-OP-Q Treatments Start: 09/01/24 15:06 Freq: Status: Active Protocol: Document 10/15/24 12:59 AB (Rec: 10/15/24 15:34 AB [id number]) Therapeutic Exercises Supine Exercises piriformis stretch Supine Exercise Name HEP Side right Reps/Minutes 60 sec X 2 Comments verbal and tactile cues march Supine Exercise Name focus on IR of knee Side right Reps/Minutes X15 Comments verbal cues for bracing and IR of knee heel slides Supine Exercise Name focus on IR for knee Side bilateral Reps/Minutes X 15 Comments monitored for pain, verbal cues Sidelying Exercises clamshell Side right Resistance Lvl 2 Tb Reps/Minutes x10 Comments cues for set up hip abd Sidelying Exercise Name slight hip extension Side right Reps/Minutes x10 Comments max cues alignment, form, range, breath - challenging Standing Exercises calf stretches on ANDRY Standing Exercise Name Gastroc and soleus Side bilateral Equipment Used bilateral UE support and CGA unsteady with one UE support Reps/Minutes 60 sec each stretch each LE X 2 Comments verbal cues squat Standing Exercise Name partial range Side bilateral Resistance L2 above knees Reps/Minutes X 5 and X 8 Comments VC for hip hinge also visual cues Therapeutic Activity Therapeutic Activity stair training Name 6 inch stairs with rails X 2 post obs 4 inch stairs w/ rails Comments VC for hands fwd on rails monitored for pain Manual Therapy Treatment Consent Patient gave verbal consent for manual Yes treatment Soft Tissue Mobilization calf muscles Body Location R LE Mobilization Type Cross-Friction,Rolling Intensity/Depth Moderate Body Position Hooklying scar Mobilization Type Myofascial Release Intensity/Depth Superficial Taping right knee Treatment Focus unload fat pad Type of Tape Kinesio Tape Skin Inspection WNL Comments I strips per patella one med one lat with stretch cranially 50% Manual Techniques MET R AI left PI Body Position Hooklying Reps/Duration 6 X 6 sec PT-OP-R Modalities Start: 09/01/24 15:06 Freq: Status: Active Protocol: Document 09/08/24 11:18 [facility] (Rec: 09/08/24 12:38 [facility] [id number]) Hot Pack/Cold Pack Treatment Cold Pack Location R knee Patient Position Hooklying Patient Tolerance Good Comments LEs on bolster, all needs within reach. cervical posterior, lumbar anterior. 8 min PT-OP-T Assessment and Plan Start: 08/30/24 14:53 Freq: Status: Active Protocol: Document 10/15/24 12:59 AB (Rec: 10/15/24 15:34 AB [id number]) Physical Therapy Assessment Goals stairs Retirement Goal (LTG) Pt will be able to reciprocate down stairs w/o inc knee pain LTG Duration 11/10/24 activity Short Term Goal (STG) Pt will be able to squat w/o inc knee pain. 09/08/24: Knee pain resolves with cueing for hip hinge. STG Duration 10/06/24 (09/08/24 Progressing) Retirement Goal (LTG) Pt will be able to go for walks of 2 miles w/o inc pain in R knee greater than 1/10 and kneel to get to the ground and get back up LTG Duration 11/10/24 strength Short Term Goal (STG) Pt will be indep w/HEP STG Duration 10/01/24 Tire Technician Goal (LTG) Pt will score at least 4+/5 on all BLE MMT to show improved strength in order to allow greater ease w/activity. LTG Duration 11/10 balance Tire Technician Goal (LTG) Pt will be able to do at least SLS for at least 5 sec to show improved balance. LTG Duration 11/10/24 Assessment Summary Assessment Rhonda reports decreased knee pain descending stairs with rails ( 6 inch ) post calf stretches, and much less descending 4 inch steps end of session. Physical Therapy Plan Frequency and Duration Frequency of Treatment 2x/Week Duration of treatment (weeks) 10 Plan of Care Start Date 09/01/24 Plan of Care End Date 11/10/24 Next Visit Focus/Plan Next Note Type Treatment Note Next Visit Plan manual to tibfem, patellofemoral, tibfib, innominate, hip, STM: calf, quad, ITB review exercises from last time balance assess sagrario to taping, Calf stretches trial of at wall and add to HEP.
--- NOTE | 2024-10-19 17:05 | PT.OTN ---
Current Diagnoses Pain in right knee (10/19/24) Physical Therapy Treatment Note PT-OP-A Visit Information Start: 08/30/24 14:53 Freq: Status: Active Protocol: Document 10/19/24 13:49 [facility] (Rec: 10/19/24 14:36 [facility] [id number]) Out-Patient Physical Therapy Visit Information Visit Information Visit Type Progress Note Visit Start Time 13:49 Visit Stop Time 14:29 Visit Number 5 Number of SENIOR LEAD DEVELOPER Visits 0 PT-OP-B Current Condition Start: 08/30/24 14:53 Freq: Status: Active Protocol: Document 09/01/24 13:45 [facility] (Rec: 09/01/24 15:06 [facility] [id number]) Current Condition History of Current Condition Current Complaints R knee pain History of Current Condition Pt had TKA R on February 10 and did PT for about 2 months and it got pretty good so she dc from PT. Knee started bothering her again . Can go up the stairs but can't come down stairs comfortably but never achieved this w/prior PT either. The past several week it has been getting worse. Has stairs at home. Has difficulty w/kneeling and squatting. Feels good about ROM. Turning is difficult. Pt has cont her PT exercises and walk to her mailbox ([address] w[address]hill). For a long time before TKA, couldn't do things d/t her knee. Doesn't have to ice or heat any more but does use cream on it. Occ will use ice if ends up hurting. Pt reports she does have MS and word finding can be difficult. 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 Pt has back pain (LB) w/hx of scoliosis). Also fibromyalgia. Has broken R ankle mult times and most recent in 2008. Does have screws in ankle. R ankle does bother her Treatment Goals Patient/Caregiver Goals be able to go down stairs comfortably and squat, be able to kneel to ground and get back up. Be able to go for 2 mile walks PT-OP-C Subjective Start: 08/30/24 14:53 Freq: Status: Active Protocol: Document 10/19/24 13:49 [facility] (Rec: 10/19/24 14:36 [facility] [id number]) OP-PT Subjective Patient Comments Patient Comments pain comes and goes. Taping from Lucila [place] helped. PT-OP-D Balance Start: 08/30/24 14:53 Freq: Status: Active Protocol: Document 10/19/24 13:49 [facility] (Rec: 10/19/24 14:36 [id number] Balance Tests Single Limb Standing Single Limb- Right 3 sec Single Limb- Left 2 sec PT-OP-G Mobility & Gait Start: 08/30/24 14:53 Freq: Status: Active Protocol: Document 09/01/24 13:45 [facility] (Rec: 09/01/24 15:06 [id number] OP Gait Assessment Comments Gait Comments dec RUE arm swing,LUE swing only at elbow, R pelvic shear and dec RLE stance time, dec trunk motion PT-OP-J Posture/Palpation/Skin Start: 08/30/24 14:53 Freq: Status: Active Protocol: Document 09/01/24 13:45 [facility] (Rec: 09/01/24 15:06 [id number] Posture Evaluation Comments Posture Comments R pelvic shear, R iliac crest higher, and R greater trochanter higher, R foot toes out, R foot pronation, R knee flexed Palpation Assessment Location RLE Palpation Details tightnes sin quad, ITB, calf, ER tibia, IR femur, limited patella movement PT-OP-K Range of Motion Start: 08/30/24 14:53 Freq: Status: Active Protocol: Document 09/01/24 13:45 [facility] (Rec: 09/01/24 15:06 [facility] [id number]) Knee Goniometric Range of Motion Knee Right Flexion Active (degrees) 119 Extension Active (degrees) 5 Left Flexion Active (degrees) 127 Extension Active (degrees) 0 PT-OP-L Special Tests Start: 08/30/24 14:53 Freq: Status: Active Protocol: Document 09/01/24 13:45 [facility] (Rec: 09/01/24 15:06 [facility] [id number]) Special Tests Knee Special Tests Straight Leg Raise Comments >90 deg Chanell Arellano Comments R>L quad tightness PT-OP-M Strength Start: 08/30/24 14:53 Freq: Status: Active Protocol: Document 10/19/24 13:49 [facility] (Rec: 10/19/24 14:36 [facility] [id number]) Hip Strength Hip Manual Muscle Testing Right Flexion (L2) 4 Good Extension (S1) 4- Good- Abduction 4- Good- Adduction 4+ Good+ External Rotation 4- Good- Internal Rotation 4 Good Left Flexion (L2) 4+ Good+ Extension (S1) 4 Good Abduction 4+ Good+ Adduction 4+ Good+ External Rotation 4+ Good+ Internal Rotation 4+ Good+ Knee Strength Knee Manual Muscle Testing Right Flexion (S2) 4 Good Extension (L3) 4+ Good+ Left Flexion (S2) 4+ Good+ Extension (L3) 5 Normal Ankle/Foot Strength Ankle and Foot Manual Muscle Testing Right Dorsiflexion (L4) 4+ Good+ Plantarflexion (S1) 5 Normal Left Dorsiflexion (L4) 5 Normal Plantarflexion (S1) 5 Normal Comments PF tested seated PT-OP-Q Treatments Start: 09/01/24 15:06 Freq: Status: Active Protocol: Document 10/19/24 13:49 [facility] (Rec: 10/19/24 14:36 [facility] [id number]) Therapeutic Exercises Standing Exercises squat Standing Exercise Name partial range Side bilateral Reps/Minutes 3x10 Comments VC for inc range towards chair w/foot and knee position cues Other Exercises isometrics Other Exercise Name BLE MMT Manual Therapy Treatment Consent Patient gave verbal consent for manual Yes treatment Joint Mobilizations foot/ankle Comments distraction calcaneus and talus c/r; med cuneiform 1-2 c /r innominate Comments L caudal, R IR, L ER, R abd x/ r sacrum Comments caudal R w/LTR prone hip Comments R hip on axis IR c/r and supine inf [place] c/r; inf med abd R c/r tibfib Comments AP distal c/r supine tibfemoral Comments AP w/IR c/r Taping right knee Treatment Focus unload fat pad Type of Tape Kinesio Tape Skin Inspection WNL Comments I strips per patella one med one lat with stretch cranially 50% PT-OP-R Modalities Start: 09/01/24 15:06 Freq: Status: Active Protocol: Document 09/08/24 11:18 [facility] (Rec: 09/08/24 12:38 [facility] [id number]) Hot Pack/Cold Pack Treatment Cold Pack Location R knee Patient Position Hooklying Patient Tolerance Good Comments LEs on bolster, all needs within reach. cervical posterior, lumbar anterior. 8 min PT-OP-T Assessment and Plan Start: 08/30/24 14:53 Freq: Status: Active Protocol: Document 10/19/24 13:49 [facility] (Rec: 10/19/24 14:36 [facility] [id number]) Physical Therapy Assessment Goals stairs Senior Principal Architect Goal (LTG) Pt will be able to reciprocate down stairs w/o inc knee pain 10/19-still dec LTG Duration 12/09 activity Short Term Goal (STG) Pt will be able to squat w/o inc knee pain. 09/08/24: Knee pain resolves with cueing for hip hinge. 10/19-improving depth STG Duration 2. Senior Principal Architect Goal (LTG) Pt will be able to go for walks of 2 miles w/o inc pain in R knee greater than 1/10 and kneel to get to the ground and get back up LTG Duration 12/09 strength Short Term Goal (STG) Pt will be indep w/HEP 10/19-improving advancinga s able STG Duration 11/10 Nursing Home Goal (LTG) Pt will score at least 4+/5 on all BLE MMT to show improved strength in order to allow greater ease w/activity. 10/19-improving LTG Duration 48 balance Nursing Home Goal (LTG) Pt will be able to do at least SLS for at least 5 sec to show improved balance. 10/19-L 2 sec, R 3 sec improved LTG Duration 8 Assessment Summary Assessment Pt is making progress w/ therapy but slowly d/t being sick for a few weeks which limited ability to attend appts and do exercises. She is improving with strength and will cont to work on mobility to improve pain. Pt R ankle mobility limits likely affects her ability to squat and do stairs w/o knee pain as this lack of motion creates collapse of knee. COnt PT to dec pain and impove pt strength, balance and function . Physical Therapy Plan Frequency and Duration Frequency of Treatment 2x/Week Duration of treatment (weeks) 10 Plan of Care Start Date 10/19/24 Plan of Care End Date 12/28/24 Therapeutic Interventions Therapeutic Interventions Balance Training,Gait Training ,Home Exercise Program,Joint Mobilizations,Manual Therapy, Neuromuscular Re-education, Patient/Caregiver Education, Self-Care/Home Management,Soft Tissue Mobilization,Taping, Therapeutic Activities, Therapeutic Exercises Modalities Cold Pack/Ice Massage,Electric Stimulation,Hot Packs Next Visit Focus/Plan Next Note Type Treatment Note Next Visit Plan manual to tibfem, patellofemoral, tibfib, foot/ ankle innominate, hip, STM: calf, quad, ITB work on improving squat and step up mechanics based on foot/ankle position balance taping
--- NOTE | 2024-10-19 17:05 | PT.OPPOC ---
Physical, Occupational & Speech Therapy At [facility] Current Diagnoses Pain in right knee (10/19/24) Visit Care Team Role Provider Type Dario Coffman DO Attending Provider Physician Family Provider Primary Care Provider Referring Provider Specialty: Family Practice Address: [address] [place] [address], [facility] [address], [place], [address] Email: [email or web address] Plan Of Care PT-OP-B Current Condition Start: 08/30/24 14:53 Freq: Status: Active Protocol: Document 09/01/24 13:45 [facility] (Rec: 09/01/24 15:06 [facility] [id number]) Current Condition History of Current Condition Current Complaints R knee pain History of Current Condition Pt had TKA R on February 10 and did PT for about 2 months and it got pretty good so she dc from PT. Knee started bothering her again . Can go up the stairs but can't come down stairs comfortably but never achieved this w/prior PT either. The past several week it has been getting worse. Has stairs at home. Has difficulty w/kneeling and squatting. Feels good about ROM. Turning is difficult. Pt has cont her PT exercises and walk to her mailbox ([address] w[address]hill). For a long time before TKA, couldn't do things d/t her knee. Doesn't have to ice or heat any more but does use cream on it. Occ will use ice if ends up hurting. Pt reports she does have MS and word finding can be difficult. 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 Pt has back pain (LB) w/hx of scoliosis). Also fibromyalgia. Has broken R ankle mult times and most recent in 2008. Does have screws in ankle. R ankle does bother her Treatment Goals Patient/Caregiver Goals be able to go down stairs comfortably and squat, be able to kneel to ground and get back up. Be able to go for 2 mile walks PT-OP-T Assessment and Plan Start: 08/30/24 14:53 Freq: Status: Active Protocol: Document 10/19/24 13:49 [facility] (Rec: 10/19/24 14:36 [facility] [id number]) Physical Therapy Assessment Goals stairs Longterm Goal (LTG) Pt will be able to reciprocate down stairs w/o inc knee pain 10/19-still dec LTG Duration 12/09 activity Short Term Goal (STG) Pt will be able to squat w/o inc knee pain. 09/08/24: Knee pain resolves with cueing for hip hinge. 10/19-improving depth STG Duration 2. Longterm Goal (LTG) Pt will be able to go for walks of 2 miles w/o inc pain in R knee greater than 1/10 and kneel to get to the ground and get back up LTG Duration 12/09 strength Short Term Goal (STG) Pt will be indep w/HEP 10/19-improving advancinga s able STG Duration 11/10 Longterm Goal (LTG) Pt will score at least 4+/5 on all BLE MMT to show improved strength in order to allow greater ease w/activity. 10/19-improving LTG Duration 12/28 balance Longterm Goal (LTG) Pt will be able to do at least SLS for at least 5 sec to show improved balance. 10/19-L 2 sec, R 3 sec improved LTG Duration 12/28 Assessment Summary Assessment Pt is making progress w/ therapy but slowly d/t being sick for a few weeks which limited ability to attend appts and do exercises. She is improving with strength and will cont to work on mobility to improve pain. Pt R ankle mobility limits likely affects her ability to squat and do stairs w/o knee pain as this lack of motion creates collapse of knee. COnt PT to dec pain and impove pt strength, balance and function . Physical Therapy Plan Frequency and Duration Frequency of Treatment 2x/Week Duration of treatment (weeks) 10 Plan of Care Start Date 10/19/24 Plan of Care End Date 12/28/24 Therapeutic Interventions Therapeutic Interventions Balance Training,Gait Training ,Home Exercise Program,Joint Mobilizations,Manual Therapy, Neuromuscular Re-education, Patient/Caregiver Education, Self-Care/Home Management,Soft Tissue Mobilization,Taping, Therapeutic Activities, Therapeutic Exercises Modalities Cold Pack/Ice Massage,Electric Stimulation,Hot Packs Next Visit Focus/Plan Next Note Type Treatment Note Next Visit Plan manual to tibfem, patellofemoral, tibfib, foot/ ankle innominate, hip, STM: calf, quad, ITB work on improving squat and step up mechanics based on foot/ankle position balance taping Plan of Care Dates Plan of Care Start Date 10/19/24 Plan of Care End Date 12/28/24 Electronically Signed by: Adriana Rosado, PT 10/19/24 3943 If you are in agreement with this Plan of Care, please return a signed and dated copy. I have reviewed this Plan of Care and certify that the skilled therapy services above are required to meet the patient?s needs. Physician Signature Date Printed Name and Credentials Clinical Instructor Signature Printed Name and Credentials
--- NOTE | 2024-10-21 18:16 | PT.OTN ---
Current Diagnoses Pain in right knee (10/21/24) Physical Therapy Treatment Note PT-OP-A Visit Information Start: 08/30/24 14:53 Freq: Status: Active Protocol: Document 10/21/24 14:38 [facility] (Rec: 10/21/24 18:16 [facility] [id number]) Out-Patient Physical Therapy Visit Information Visit Information Visit Type Treatment Note Visit Start Time 14:35 Visit Stop Time 15:15 Visit Number 6 Number of CORRECTIONAL COUNSELOR/CASE MANAGER Visits 0 PT-OP-B Current Condition Start: 08/30/24 14:53 Freq: Status: Active Protocol: Document 09/01/24 13:45 [facility] (Rec: 09/01/24 15:06 [facility] [id number]) Current Condition History of Current Condition Current Complaints R knee pain History of Current Condition Pt had TKA R on February 10 and did PT for about 2 months and it got pretty good so she dc from PT. Knee started bothering her again . Can go up the stairs but can't come down stairs comfortably but never achieved this w/prior PT either. The past several week it has been getting worse. Has stairs at home. Has difficulty w/kneeling and squatting. Feels good about ROM. Turning is difficult. Pt has cont her PT exercises and walk to her mailbox ([address] w[address]hill). For a long time before TKA, couldn't do things d/t her knee. Doesn't have to ice or heat any more but does use cream on it. Occ will use ice if ends up hurting. Pt reports she does have MS and word finding can be difficult. 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 Pt has back pain (LB) w/hx of scoliosis). Also fibromyalgia. Has broken R ankle mult times and most recent in 2008. Does have screws in ankle. R ankle does bother her Treatment Goals Patient/Caregiver Goals be able to go down stairs comfortably and squat, be able to kneel to ground and get back up. Be able to go for 2 mile walks PT-OP-C Subjective Start: 08/30/24 14:53 Freq: Status: Active Protocol: Document 10/21/24 14:38 [facility] (Rec: 10/21/24 18:16 [facility] [id number]) OP-PT Subjective Patient Comments Patient Comments Pt reports tape really helps PT-OP-D Balance Start: 08/30/24 14:53 Freq: Status: Active Protocol: Document 10/19/24 13:49 [facility] (Rec: 10/19/24 14:36 [facility] [id number]) Balance Tests Single Limb Standing Single Limb- Right 3 sec Single Limb- Left 2 sec PT-OP-G Mobility & Gait Start: 08/30/24 14:53 Freq: Status: Active Protocol: Document 09/01/24 13:45 [facility] (Rec: 09/01/24 15:06 [facility] [id number]) OP Gait Assessment Comments Gait Comments dec RUE arm swing,LUE swing only at elbow, R pelvic shear and dec RLE stance time, dec trunk motion PT-OP-J Posture/Palpation/Skin Start: 08/30/24 14:53 Freq: Status: Active Protocol: Document 09/01/24 13:45 [facility] (Rec: 09/01/24 15:06 [facility] [id number]) Posture Evaluation Comments Posture Comments R pelvic shear, R iliac crest higher, and R greater trochanter higher, R foot toes out, R foot pronation, R knee flexed Palpation Assessment Location RLE Palpation Details tightnes sin quad, ITB, calf, ER tibia, IR femur, limited patella movement PT-OP-K Range of Motion Start: 08/30/24 14:53 Freq: Status: Active Protocol: Document 09/01/24 13:45 [facility] (Rec: 09/01/24 15:06 [facility] [id number]) Knee Goniometric Range of Motion Knee Right Flexion Active (degrees) 119 Extension Active (degrees) 5 Left Flexion Active (degrees) 127 Extension Active (degrees) 0 PT-OP-L Special Tests Start: 08/30/24 14:53 Freq: Status: Active Protocol: Document 09/01/24 13:45 [facility] (Rec: 09/01/24 15:06 [facility] [id number]) Special Tests Knee Special Tests Straight Leg Raise Comments >90 deg Chanell Arellano Comments R>L quad tightness PT-OP-M Strength Start: 08/30/24 14:53 Freq: Status: Active Protocol: Document 10/19/24 13:49 [facility] (Rec: 10/19/24 14:36 [facility] [id number]) Hip Strength Hip Manual Muscle Testing Right Flexion (L2) 4 Good Extension (S1) 4- Good- Abduction 4- Good- Adduction 4+ Good+ External Rotation 4- Good- Internal Rotation 4 Good Left Flexion (L2) 4+ Good+ Extension (S1) 4 Good Abduction 4+ Good+ Adduction 4+ Good+ External Rotation 4+ Good+ Internal Rotation 4+ Good+ Knee Strength Knee Manual Muscle Testing Right Flexion (S2) 4 Good Extension (L3) 4+ Good+ Left Flexion (S2) 4+ Good+ Extension (L3) 5 Normal Ankle/Foot Strength Ankle and Foot Manual Muscle Testing Right Dorsiflexion (L4) 4+ Good+ Plantarflexion (S1) 5 Normal Left Dorsiflexion (L4) 5 Normal Plantarflexion (S1) 5 Normal Comments PF tested seated PT-OP-Q Treatments Start: 09/01/24 15:06 Freq: Status: Active Protocol: Document 10/21/24 14:38 [facility] (Rec: 10/21/24 18:16 [facility] [id number]) Therapeutic Exercises Standing Exercises arch lift Side bilateral Reps/Minutes 2x15 Comments cues sidestep Side bilateral Equipment Used L1 around foot Reps/Minutes 6ft x2 squat Standing Exercise Name partial Side bilateral Reps/Minutes 2x10 Comments arch lift and cues knees out Manual Therapy Treatment Consent Patient gave verbal consent for manual Yes treatment Soft Tissue Mobilization calf muscles Body Location R calf and plantar fascia w/DF Mobilization Type Rolling Intensity/Depth Moderate Body Position Hooklying Comments also circumfrential MFR in standing Joint Mobilizations foot/ankle Comments distraction calcaneus and talus c/r; med cuneiform 1-2 c /r and navicular c/r and percussion PT-OP-R Modalities Start: 09/01/24 15:06 Freq: Status: Active Protocol: Document 09/08/24 11:18 [facility] (Rec: 09/08/24 12:38 [facility] [id number]) Hot Pack/Cold Pack Treatment Cold Pack Location R knee Patient Position Hooklying Patient Tolerance Good Comments LEs on bolster, all needs within reach. cervical posterior, lumbar anterior. 8 min PT-OP-T Assessment and Plan Start: 08/30/24 14:53 Freq: Status: Active Protocol: Document 10/21/24 14:38 [facility] (Rec: 10/21/24 18:16 [facility] [id number]) Physical Therapy Assessment Goals stairs Insurance Salesman Goal (LTG) Pt will be able to reciprocate down stairs w/o inc knee pain 10/19-still dec LTG Duration 12/09 activity Short Term Goal (STG) Pt will be able to squat w/o inc knee pain. 09/08/24: Knee pain resolves with cueing for hip hinge. 10/19-improving depth STG Duration 2. Insurance Salesman Goal (LTG) Pt will be able to go for walks of 2 miles w/o inc pain in R knee greater than 1/10 and kneel to get to the ground and get back up LTG Duration 12/09 strength Short Term Goal (STG) Pt will be indep w/HEP 10/19-improving advancinga s able STG Duration 11/10 Insurance Salesman Goal (LTG) Pt will score at least 4+/5 on all BLE MMT to show improved strength in order to allow greater ease w/activity. 10/19-improving LTG Duration 12/28 balance Insurance Salesman Goal (LTG) Pt will be able to do at least SLS for at least 5 sec to show improved balance. 10/19-L 2 sec, R 3 sec improved LTG Duration 12/28 Assessment Summary Assessment Pt had improved tracking after working on foot stability and mobility today. Inc time required to work on knee tracking and arch lift as these were difficult for pt. Physical Therapy Plan Frequency and Duration Frequency of Treatment 2x/Week Duration of treatment (weeks) 10 Plan of Care Start Date 10/19/24 Plan of Care End Date 12/28/24 Next Visit Focus/Plan Next Note Type Treatment Note Next Visit Plan review arch lift and sidestep manual to tibfem, patellofemoral, tibfib, foot/ ankle innominate, hip, STM: calf, quad, ITB work on improving squat and step up mechanics based on foot/ankle position balance taping
--- NOTE | 2024-10-25 14:52 | PT.OTN ---
Current Diagnoses Pain in right knee (10/25/24) Physical Therapy Treatment Note PT-OP-A Visit Information Start: 08/30/24 14:53 Freq: Status: Active Protocol: Document 10/25/24 12:56 [facility] (Rec: 10/25/24 14:51 [facility] [id number]) Out-Patient Physical Therapy Visit Information Visit Information Visit Type Treatment Note Visit Start Time 13:47 Visit Stop Time 14:33 Visit Number 7 Number of RAND BUTTING MACHINE OPERATOR Visits 1 PT-OP-B Current Condition Start: 08/30/24 14:53 Freq: Status: Active Protocol: Document 09/01/24 13:45 [facility] (Rec: 09/01/24 15:06 [facility] [id number]) Current Condition History of Current Condition Current Complaints R knee pain History of Current Condition Pt had TKA R on February 10 and did PT for about 2 months and it got pretty good so she dc from PT. Knee started bothering her again . Can go up the stairs but can't come down stairs comfortably but never achieved this w/prior PT either. The past several week it has been getting worse. Has stairs at home. Has difficulty w/kneeling and squatting. Feels good about ROM. Turning is difficult. Pt has cont her PT exercises and walk to her mailbox ([address] w[address]hill). For a long time before TKA, couldn't do things d/t her knee. Doesn't have to ice or heat any more but does use cream on it. Occ will use ice if ends up hurting. Pt reports she does have MS and word finding can be difficult. 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 Pt has back pain (LB) w/hx of scoliosis). Also fibromyalgia. Has broken R ankle mult times and most recent in 2008. Does have screws in ankle. R ankle does bother her Treatment Goals Patient/Caregiver Goals be able to go down stairs comfortably and squat, be able to kneel to ground and get back up. Be able to go for 2 mile walks PT-OP-C Subjective Start: 08/30/24 14:53 Freq: Status: Active Protocol: Document 10/25/24 12:56 [facility] (Rec: 10/25/24 14:51 [facility] [id number]) OP-PT Subjective Patient Comments Patient Comments Patient reports she is getting better. Patient reports the side stepping with band is difficult. R knee AROM lacking 3 deg ext to 120 deg flexion start of sesssion. PT-OP-D Balance Start: 08/30/24 14:53 Freq: Status: Active Protocol: Document 10/19/24 13:49 [facility] (Rec: 10/19/24 14:36 [id number] Balance Tests Single Limb Standing Single Limb- Right 3 sec Single Limb- Left 2 sec PT-OP-G Mobility & Gait Start: 08/30/24 14:53 Freq: Status: Active Protocol: Document 09/01/24 13:45 [facility] (Rec: 09/01/24 15:06 [id number] OP Gait Assessment Comments Gait Comments dec RUE arm swing,LUE swing only at elbow, R pelvic shear and dec RLE stance time, dec trunk motion PT-OP-J Posture/Palpation/Skin Start: 08/30/24 14:53 Freq: Status: Active Protocol: Document 09/01/24 13:45 [facility] (Rec: 09/01/24 15:06 [id number] Posture Evaluation Comments Posture Comments R pelvic shear, R iliac crest higher, and R greater trochanter higher, R foot toes out, R foot pronation, R knee flexed Palpation Assessment Location RLE Palpation Details tightnes sin quad, ITB, calf, ER tibia, IR femur, limited patella movement PT-OP-K Range of Motion Start: 08/30/24 14:53 Freq: Status: Active Protocol: Document 09/01/24 13:45 [facility] (Rec: 09/01/24 15:06 [facility] [id number]) Knee Goniometric Range of Motion Knee Right Flexion Active (degrees) 119 Extension Active (degrees) 5 Left Flexion Active (degrees) 127 Extension Active (degrees) 0 PT-OP-L Special Tests Start: 08/30/24 14:53 Freq: Status: Active Protocol: Document 09/01/24 13:45 [facility] (Rec: 09/01/24 15:06 [facility] [id number]) Special Tests Knee Special Tests Straight Leg Raise Comments >90 deg Chanell Arellano Comments R>L quad tightness PT-OP-M Strength Start: 08/30/24 14:53 Freq: Status: Active Protocol: Document 10/19/24 13:49 [facility] (Rec: 10/19/24 14:36 [facility] [id number]) Hip Strength Hip Manual Muscle Testing Right Flexion (L2) 4 Good Extension (S1) 4- Good- Abduction 4- Good- Adduction 4+ Good+ External Rotation 4- Good- Internal Rotation 4 Good Left Flexion (L2) 4+ Good+ Extension (S1) 4 Good Abduction 4+ Good+ Adduction 4+ Good+ External Rotation 4+ Good+ Internal Rotation 4+ Good+ Knee Strength Knee Manual Muscle Testing Right Flexion (S2) 4 Good Extension (L3) 4+ Good+ Left Flexion (S2) 4+ Good+ Extension (L3) 5 Normal Ankle/Foot Strength Ankle and Foot Manual Muscle Testing Right Dorsiflexion (L4) 4+ Good+ Plantarflexion (S1) 5 Normal Left Dorsiflexion (L4) 5 Normal Plantarflexion (S1) 5 Normal Comments PF tested seated PT-OP-Q Treatments Start: 09/01/24 15:06 Freq: Status: Active Protocol: Document 10/25/24 12:56 [facility] (Rec: 10/25/24 14:51 [id number]) Therapeutic Exercises Supine Exercises hamstring stretch Supine Exercise Name from hooklying using towel to hold LE Reps/Minutes 60 sec X 2 Comments verbal cues piriformis stretch Supine Exercise Name HEP Side right Reps/Minutes 60 sec X 2 Comments verbal and tactile cues heel slides Side bilateral Reps/Minutes x10 Comments Verbal cues Standing Exercises arch lift Side bilateral Reps/Minutes 2x15 Comments tactile cues at great toe, 2nd set in standing sidestep Side bilateral Equipment Used L1 around foot Reps/Minutes 8ft x4 left and right Comments VC to avoid toeing out Manual Therapy Treatment Consent Patient gave verbal consent for manual Yes treatment Soft Tissue Mobilization Right knee Body Location HS, quad, knee/peripatellare area Mobilization Type Cross-Friction,Myofascial Release,Rolling Intensity/Depth Superficial Body Position Hooklying Comments and moderate calf muscles Body Location R calf Mobilization Type Cross-Friction,Rolling Intensity/Depth Moderate Joint Mobilizations tibfemoral Direction AP and PA Grade III Body Position Supine Reps/Duration X10 X 2 patellofemoral Joint R Direction inf, sup, med, lat, CW and CCW Grade III Body Position Sitting Reps/Duration X10 X 2 Taping right knee Treatment Focus unload fat pad Type of Tape Kinesio Tape Skin Inspection WNL Comments I strips per patella one med one lat with stretch cranially 50% Manual Techniques MET R AI left PI Body Position Hooklying Reps/Duration 6 X 6 sec PT-OP-R Modalities Start: 09/01/24 15:06 Freq: Status: Active Protocol: Document 09/08/24 11:18 [facility] (Rec: 09/08/24 12:38 [facility] [id number]) Hot Pack/Cold Pack Treatment Cold Pack Location R knee Patient Position Hooklying Patient Tolerance Good Comments LEs on bolster, all needs within reach. cervical posterior, lumbar anterior. 8 min PT-OP-T Assessment and Plan Start: 08/30/24 14:53 Freq: Status: Active Protocol: Document 10/25/24 12:56 [facility] (Rec: 10/25/24 14:51 [facility] [id number]) Physical Therapy Assessment Goals stairs Low Heel Builder Goal (LTG) Pt will be able to reciprocate down stairs w/o inc knee pain 10/19-still dec LTG Duration 3 activity Short Term Goal (STG) Pt will be able to squat w/o inc knee pain. 09/08/24: Knee pain resolves with cueing for hip hinge. 10/19-improving depth STG Duration 2.28 Low Heel Builder Goal (LTG) Pt will be able to go for walks of 2 miles w/o inc pain in R knee greater than 1/10 and kneel to get to the ground and get back up LTG Duration 320 strength Short Term Goal (STG) Pt will be indep w/HEP 10/19-improving advancinga s able STG Duration 11/10 Snf Goal (LTG) Pt will score at least 4+/5 on all BLE MMT to show improved strength in order to allow greater ease w/activity. 10/19-improving LTG Duration 12/28 balance Low Heel Builder Goal (LTG) Pt will be able to do at least SLS for at least 5 sec to show improved balance. 10/19-L 2 sec, R 3 sec improved LTG Duration 12/28 Assessment Summary Assessment AROM right knee 0 deg ext flexion 127 deg flexion AROM post manual and exercise, rating pain 0/10 end of session. Physical Therapy Plan Frequency and Duration Frequency of Treatment 2x/Week Duration of treatment (weeks) 10 Plan of Care Start Date 10/19/24 Plan of Care End Date 12/28/24 Next Visit Focus/Plan Next Note Type Treatment Note Next Visit Plan manual to tibfem, patellofemoral, tibfib, foot/ ankle innominate, hip, STM: calf, quad, ITB work on improving squat and step up mechanics based on foot/ankle position balance taping
--- NOTE | 2024-10-27 14:35 | PT.OTN ---
Current Diagnoses Pain in right knee (10/27/24) Physical Therapy Treatment Note PT-OP-A Visit Information Start: 08/30/24 14:53 Freq: Status: Active Protocol: Document 10/27/24 13:46 [facility] (Rec: 10/27/24 14:34 [facility] [id number]) Out-Patient Physical Therapy Visit Information Visit Information Visit Type Treatment Note Visit Start Time 13:48 Visit Stop Time 14:28 Visit Number 8 Number of RELATIONSHIP COUNSELOR Visits 0 PT-OP-B Current Condition Start: 08/30/24 14:53 Freq: Status: Active Protocol: Document 09/01/24 13:45 [facility] (Rec: 09/01/24 15:06 [facility] [id number]) Current Condition History of Current Condition Current Complaints R knee pain History of Current Condition Pt had TKA R on February 10 and did PT for about 2 months and it got pretty good so she dc from PT. Knee started bothering her again . Can go up the stairs but can't come down stairs comfortably but never achieved this w/prior PT either. The past several week it has been getting worse. Has stairs at home. Has difficulty w/kneeling and squatting. Feels good about ROM. Turning is difficult. Pt has cont her PT exercises and walk to her mailbox ([address] w[address]hill). For a long time before TKA, couldn't do things d/t her knee. Doesn't have to ice or heat any more but does use cream on it. Occ will use ice if ends up hurting. Pt reports she does have MS and word finding can be difficult. 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 Pt has back pain (LB) w/hx of scoliosis). Also fibromyalgia. Has broken R ankle mult times and most recent in 2008. Does have screws in ankle. R ankle does bother her Treatment Goals Patient/Caregiver Goals be able to go down stairs comfortably and squat, be able to kneel to ground and get back up. Be able to go for 2 mile walks PT-OP-C Subjective Start: 08/30/24 14:53 Freq: Status: Active Protocol: Document 10/27/24 13:46 [facility] (Rec: 10/27/24 14:34 [facility] [id number]) OP-PT Subjective Patient Comments Patient Comments Pt reports sore for a shelton fter sessions but feel better after PT-OP-D Balance Start: 08/30/24 14:53 Freq: Status: Active Protocol: Document 10/19/24 13:49 [facility] (Rec: 10/19/24 14:36 [id number] Balance Tests Single Limb Standing Single Limb- Right 3 sec Single Limb- Left 2 sec PT-OP-G Mobility & Gait Start: 08/30/24 14:53 Freq: Status: Active Protocol: Document 09/01/24 13:45 [facility] (Rec: 09/01/24 15:06 [id number] OP Gait Assessment Comments Gait Comments dec RUE arm swing,LUE swing only at elbow, R pelvic shear and dec RLE stance time, dec trunk motion PT-OP-J Posture/Palpation/Skin Start: 08/30/24 14:53 Freq: Status: Active Protocol: Document 09/01/24 13:45 [facility] (Rec: 09/01/24 15:06 [id number] Posture Evaluation Comments Posture Comments R pelvic shear, R iliac crest higher, and R greater trochanter higher, R foot toes out, R foot pronation, R knee flexed Palpation Assessment Location RLE Palpation Details tightnes sin quad, ITB, calf, ER tibia, IR femur, limited patella movement PT-OP-K Range of Motion Start: 08/30/24 14:53 Freq: Status: Active Protocol: Document 09/01/24 13:45 [facility] (Rec: 09/01/24 15:06 [facility] [id number]) Knee Goniometric Range of Motion Knee Right Flexion Active (degrees) 119 Extension Active (degrees) 5 Left Flexion Active (degrees) 127 Extension Active (degrees) 0 PT-OP-L Special Tests Start: 08/30/24 14:53 Freq: Status: Active Protocol: Document 09/01/24 13:45 [facility] (Rec: 09/01/24 15:06 [facility] [id number]) Special Tests Knee Special Tests Straight Leg Raise Comments >90 deg Chanell Arellano Comments R>L quad tightness PT-OP-M Strength Start: 08/30/24 14:53 Freq: Status: Active Protocol: Document 10/19/24 13:49 [facility] (Rec: 10/19/24 14:36 [facility] [id number]) Hip Strength Hip Manual Muscle Testing Right Flexion (L2) 4 Good Extension (S1) 4- Good- Abduction 4- Good- Adduction 4+ Good+ External Rotation 4- Good- Internal Rotation 4 Good Left Flexion (L2) 4+ Good+ Extension (S1) 4 Good Abduction 4+ Good+ Adduction 4+ Good+ External Rotation 4+ Good+ Internal Rotation 4+ Good+ Knee Strength Knee Manual Muscle Testing Right Flexion (S2) 4 Good Extension (L3) 4+ Good+ Left Flexion (S2) 4+ Good+ Extension (L3) 5 Normal Ankle/Foot Strength Ankle and Foot Manual Muscle Testing Right Dorsiflexion (L4) 4+ Good+ Plantarflexion (S1) 5 Normal Left Dorsiflexion (L4) 5 Normal Plantarflexion (S1) 5 Normal Comments PF tested seated PT-OP-Q Treatments Start: 09/01/24 15:06 Freq: Status: Active Protocol: Document 10/27/24 13:46 [facility] (Rec: 10/27/24 14:34 [facility] [id number]) Gait Training Gait Activity stairs Comments 1. step down 4 in step 2x10 in mirror R 2. recip up/down 4 and 6 in steps cues knee x4 ea Manual Therapy Treatment Consent Patient gave verbal consent for manual Yes treatment Soft Tissue Mobilization calf muscles Body Location R calf Mobilization Type Cross-Friction,Rolling Intensity/Depth Moderate Comments w/APs Joint Mobilizations foot/ankle Comments AP tibia and talus c/r tibfib Comments PA fib proximal tibfemoral Comments PA w/IR c/r Taping arch Body Location R arch stability Comments dec knee pain w/stairs after Self-Care/Home Management Treatment Activities Self-Care/Home Management Activities 7min: work on arch support for foot position. Tried superfeet blue and green and tested w/gait and with step down position PT-OP-R Modalities Start: 09/01/24 15:06 Freq: Status: Active Protocol: Document 09/08/24 11:18 [facility] (Rec: 09/08/24 12:38 [facility] [id number]) Hot Pack/Cold Pack Treatment Cold Pack Location R knee Patient Position Hooklying Patient Tolerance Good Comments LEs on bolster, all needs within reach. cervical posterior, lumbar anterior. 8 min PT-OP-T Assessment and Plan Start: 08/30/24 14:53 Freq: Status: Active Protocol: Document 10/27/24 13:46 [facility] (Rec: 10/27/24 14:34 [facility] [id number]) Physical Therapy Assessment Goals stairs Sustainability Specialist Goal (LTG) Pt will be able to reciprocate down stairs w/o inc knee pain 10/19-still dec LTG Duration 12/09 activity Short Term Goal (STG) Pt will be able to squat w/o inc knee pain. 09/08/24: Knee pain resolves with cueing for hip hinge. 10/19-improving depth STG Duration 2. Sustainability Specialist Goal (LTG) Pt will be able to go for walks of 2 miles w/o inc pain in R knee greater than 1/10 and kneel to get to the ground and get back up LTG Duration 12/09 strength Short Term Goal (STG) Pt will be indep w/HEP 10/19-improving advancinga s able STG Duration 11/10 Sustainability Specialist Goal (LTG) Pt will score at least 4+/5 on all BLE MMT to show improved strength in order to allow greater ease w/activity. 10/19-improving LTG Duration 12/28 balance Intermediate Goal (LTG) Pt will be able to do at least SLS for at least 5 sec to show improved balance. 10/19-L 2 sec, R 3 sec improved LTG Duration 12/28 Assessment Summary Assessment Pt had decreased pain w/step down w/arch taping and adding arch supports in shoes. Pt to get her own. Pt able ot improve step down ability and control with cues. Physical Therapy Plan Frequency and Duration Frequency of Treatment 2x/Week Duration of treatment (weeks) 10 Plan of Care Start Date 10/19/24 Plan of Care End Date 12/28/24 Next Visit Focus/Plan Next Note Type Treatment Note Next Visit Plan manual to tibfem, patellofemoral, tibfib, foot/ ankle innominate, hip, STM: calf, quad, ITB work on improving squat and step up mechanics based on foot/ankle position balance taping
--- NOTE | 2024-11-08 16:18 | PT.OTN ---
Current Diagnoses Pain in right knee (11/08/24) Physical Therapy Treatment Note PT-OP-A Visit Information Start: 08/30/24 14:53 Freq: Status: Active Protocol: Document 11/08/24 14:37 [facility] (Rec: 11/08/24 16:18 [facility] [id number]) Out-Patient Physical Therapy Visit Information Visit Information Visit Type Treatment Note Visit Start Time 14:35 Visit Stop Time 15:15 Visit Number 9 Number of [employer] Visits 0 PT-OP-B Current Condition Start: 08/30/24 14:53 Freq: Status: Active Protocol: Document 09/01/24 13:45 [facility] (Rec: 09/01/24 15:06 [facility] [id number]) Current Condition History of Current Condition Current Complaints R knee pain History of Current Condition Pt had TKA R on February 10 and did PT for about 2 months and it got pretty good so she dc from PT. Knee started bothering her again . Can go up the stairs but can't come down stairs comfortably but never achieved this w/prior PT either. The past several week it has been getting worse. Has stairs at home. Has difficulty w/kneeling and squatting. Feels good about ROM. Turning is difficult. Pt has cont her PT exercises and walk to her mailbox ([address] w[address]hill). For a long time before TKA, couldn't do things d/t her knee. Doesn't have to ice or heat any more but does use cream on it. Occ will use ice if ends up hurting. Pt reports she does have MS and word finding can be difficult. 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 Pt has back pain (LB) w/hx of scoliosis). Also fibromyalgia. Has broken R ankle mult times and most recent in 2008. Does have screws in ankle. R ankle does bother her Treatment Goals Patient/Caregiver Goals be able to go down stairs comfortably and squat, be able to kneel to ground and get back up. Be able to go for 2 mile walks PT-OP-C Subjective Start: 08/30/24 14:53 Freq: Status: Active Protocol: Document 11/08/24 14:37 [facility] (Rec: 11/08/24 16:18 [facility] [id number]) OP-PT Subjective Patient Comments Patient Comments Pt reports got new insoles, and going down stairs better PT-OP-D Balance Start: 08/30/24 14:53 Freq: Status: Active Protocol: Document 11/08/24 14:37 [facility] ([facility] 11[facility]08/24 [id number] Balance Tests Single Limb Standing Single Limb- Right 7 sec Single Limb- Left 5 sec PT-OP-G Mobility & Gait Start: 08/30/24 14:53 Freq: Status: Active Protocol: Document 09/01/24 13:45 [facility] (Rec: 09/01/24 15:06 [id number] OP Gait Assessment Comments Gait Comments dec RUE arm swing,LUE swing only at elbow, R pelvic shear and dec RLE stance time, dec trunk motion PT-OP-J Posture/Palpation/Skin Start: 08/30/24 14:53 Freq: Status: Active Protocol: Document 09/01/24 13:45 [facility] (Rec: 09/01/24 15:06 [facility] [id number]) Posture Evaluation Comments Posture Comments R pelvic shear, R iliac crest higher, and R greater trochanter higher, R foot toes out, R foot pronation, R knee flexed Palpation Assessment Location RLE Palpation Details tightnes sin quad, ITB, calf, ER tibia, IR femur, limited patella movement PT-OP-K Range of Motion Start: 08/30/24 14:53 Freq: Status: Active Protocol: Document 09/01/24 13:45 [facility] (Rec: 09/01/24 15:06 [facility] [id number]) Knee Goniometric Range of Motion Knee Right Flexion Active (degrees) 119 Extension Active (degrees) 5 Left Flexion Active (degrees) 127 Extension Active (degrees) 0 PT-OP-L Special Tests Start: 08/30/24 14:53 Freq: Status: Active Protocol: Document 09/01/24 13:45 [facility] (Rec: 09/01/24 15:06 [facility] [id number]) Special Tests Knee Special Tests Straight Leg Raise Comments >90 deg Chanell Arellano Comments R>L quad tightness PT-OP-M Strength Start: 08/30/24 14:53 Freq: Status: Active Protocol: Document 11/08/24 14:37 [facility] (Rec: 11/08/24 16:18 [facility] [id number]) Hip Strength Hip Manual Muscle Testing Right Flexion (L2) 4+ Good+ Extension (S1) 4+ Good+ Abduction 4+ Good+ Adduction 4+ Good+ External Rotation 4 Good Internal Rotation 5 Normal Left Flexion (L2) 5 Normal Extension (S1) 4+ Good+ Abduction 5 Normal Adduction 4+ Good+ External Rotation 4+ Good+ Internal Rotation 4+ Good+ Knee Strength Knee Manual Muscle Testing Right Flexion (S2) 4+ Good+ Extension (L3) 4+ Good+ Left Flexion (S2) 5 Normal Extension (L3) 5 Normal Ankle/Foot Strength Ankle and Foot Manual Muscle Testing Right Dorsiflexion (L4) 4+ Good+ Plantarflexion (S1) 5 Normal Left Dorsiflexion (L4) 5 Normal Plantarflexion (S1) 5 Normal Comments PF tested seated PT-OP-Q Treatments Start: 09/01/24 15:06 Freq: Status: Active Protocol: Document 11/08/24 14:37 [facility] (Rec: 11/08/24 16:18 [facility] [id number]) Therapeutic Exercises Sidelying Exercises clamshell Side right Resistance Lvl 3 Tb Reps/Minutes x10 Comments cues for slow control Sitting Exercises self mob Sitting Exercise Name plantar fascia tennis ball Side right Reps/Minutes 2 min Standing Exercises self mob Standing Exercise Name ankle DF w/foot on step Side right Equipment Used L5 band Reps/Minutes 15 calf stretches on ANDRY Standing Exercise Name bottom step 1. gastroc 2. soleus Side bilateral Reps/Minutes 1. 1 min 2. 30 sec squat Standing Exercise Name partial Side bilateral Equipment Used L2 at knees Reps/Minutes 15 Comments cues glute squeeze Other Exercises isometrics Other Exercise Name BLE MMT Manual Therapy Treatment Consent Patient gave verbal consent for manual Yes treatment Joint Mobilizations foot/ankle Comments AP talus c/r supine and standing & distraction talus and calcaneus med glide cunieform 1-2 c/r tibfib Comments AP tibia distal c/r PF PT-OP-R Modalities Start: 09/01/24 15:06 Freq: Status: Active Protocol: Document 09/08/24 11:18 [facility] (Rec: 09/08/24 12:38 [facility] [id number]) Hot Pack/Cold Pack Treatment Cold Pack Location R knee Patient Position Hooklying Patient Tolerance Good Comments LEs on bolster, all needs within reach. cervical posterior, lumbar anterior. 8 min PT-OP-T Assessment and Plan Start: 08/30/24 14:53 Freq: Status: Active Protocol: Document 11/08/24 14:37 [facility] (Rec: 11/08/24 16:18 [facility] [id number]) Physical Therapy Assessment Goals stairs Artist Scientific Goal (LTG) Pt will be able to reciprocate down stairs w/o inc knee pain 10/19-still dec 11/08-pain is dec LTG Duration 12/09 activity Short Term Goal (STG) Pt will be able to squat w/o inc knee pain. 09/08/24: Knee pain resolves with cueing for hip hinge. 10/19-improving depth 11/08-difficulty w/deep squats STG Duration 2. Artist [employer] Goal (LTG) Pt will be able to go for walks of 2 miles w/o inc pain in R knee greater than 1/10 and kneel to get to the ground and get back up 11/08-1600ft LTG Duration 12/09 strength Short Term Goal (STG) Pt will be indep w/HEP 10/19-improving advancinga s able STG Duration achieved advancing as able Intermediate Goal (LTG) Pt will score at least 4+/5 on all BLE MMT to show improved strength in order to allow greater ease w/activity. 10/19-improving 11/08 mostly achieved LTG Duration 4/8 balance Artist Scientific Goal (LTG) Pt will be able to do at least SLS for at least 5 sec to show improved balance. 10/19-L 2 sec, R 3 sec improved LTG Duration achieved 11/08 Assessment Summary Assessment Pt is progressing well with PT overall but still limited in knee tracking of L knee d/t dec L ankle ROM. she would benefit from cont PT to work on this. Physical Therapy Plan Frequency and Duration Frequency of Treatment 2x/Week Duration of treatment (weeks) 10 Plan of Care Start Date 10/19/24 Plan of Care End Date 12/28/24 Next Visit Focus/Plan Next Note Type Treatment Note Next Visit Plan manual to tibfem, patellofemoral, tibfib, foot/ ankle innominate, hip, STM: calf, quad, ITB work on improving squat and step up mechanics based on foot/ankle position balance taping
--- NOTE | 2024-11-10 17:10 | PT.OTN ---
Current Diagnoses Pain in right knee (11/10/24) Physical Therapy Treatment Note PT-OP-A Visit Information Start: 08/30/24 14:53 Freq: Status: Active Protocol: Document 11/10/24 14:40 [facility] (Rec: 11/10/24 17:09 [facility] [id number]) Out-Patient Physical Therapy Visit Information Visit Information Visit Type Treatment Note Visit Start Time 14:40 Visit Stop Time 15:20 Visit Number 10 Number of PROJECT GEOPHYSICIST Visits 1 PT-OP-B Current Condition Start: 08/30/24 14:53 Freq: Status: Active Protocol: Document 09/01/24 13:45 [facility] (Rec: 09/01/24 15:06 [facility] [id number]) Current Condition History of Current Condition Current Complaints R knee pain History of Current Condition Pt had TKA R on February 10 and did PT for about 2 months and it got pretty good so she dc from PT. Knee started bothering her again . Can go up the stairs but can't come down stairs comfortably but never achieved this w/prior PT either. The past several week it has been getting worse. Has stairs at home. Has difficulty w/kneeling and squatting. Feels good about ROM. Turning is difficult. Pt has cont her PT exercises and walk to her mailbox ([address] w/hill). For a long time before TKA, couldn't do things d/t her knee. Doesn't have to ice or heat any more but does use cream on it. Occ will use ice if ends up hurting. Pt reports she does have MS and word finding can be difficult. 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 Pt has back pain (LB) w/hx of scoliosis). Also fibromyalgia. Has broken R ankle mult times and most recent in 2008. Does have screws in ankle. R ankle does bother her Treatment Goals Patient/Caregiver Goals be able to go down stairs comfortably and squat, be able to kneel to ground and get back up. Be able to go for 2 mile walks PT-OP-C Subjective Start: 08/30/24 14:53 Freq: Status: Active Protocol: Document 11/10/24 14:40 [facility] (Rec: 11/10/24 17:09 [facility] [id number]) OP-PT Subjective Patient Comments Patient Comments Rhonda reports that using blue insoles instead of green has helped a lot with R knee pain on stairs, but still some pain. R knee pain currently /10, annoying. PT-OP-D Balance Start: 08/30/24 14:53 Freq: Status: Active Protocol: Document 11/08/24 14:37 [facility] (Rec: 11/08/24 16:18 [facility] [id number]) Balance Tests Single Limb Standing Single Limb- Right 7 sec Single Limb- Left 5 sec PT-OP-G Mobility & Gait Start: 08/30/24 14:53 Freq: Status: Active Protocol: Document 09/01/24 13:45 [facility] (Rec: 09/01/24 15:06 [facility] [id number]) OP Gait Assessment Comments Gait Comments dec RUE arm swing,LUE swing only at elbow, R pelvic shear and dec RLE stance time, dec trunk motion PT-OP-J Posture/Palpation/Skin Start: 08/30/24 14:53 Freq: Status: Active Protocol: Document 09/01/24 13:45 [facility] (Rec: 09/01/24 15:06 [facility] [id number]) Posture Evaluation Comments Posture Comments R pelvic shear, R iliac crest higher, and R greater trochanter higher, R foot toes out, R foot pronation, R knee flexed Palpation Assessment Location RLE Palpation Details tightnes sin quad, ITB, calf, ER tibia, IR femur, limited patella movement PT-OP-K Range of Motion Start: 08/30/24 14:53 Freq: Status: Active Protocol: Document 09/01/24 13:45 [facility] (Rec: 09/01/24 15:06 [facility] [id number]) Knee Goniometric Range of Motion Knee Right Flexion Active (degrees) 119 Extension Active (degrees) 5 Left Flexion Active (degrees) 127 Extension Active (degrees) 0 PT-OP-L Special Tests Start: 08/30/24 14:53 Freq: Status: Active Protocol: Document 09/01/24 13:45 [facility] (Rec: 09/01/24 15:06 [facility] [id number]) Special Tests Knee Special Tests Straight Leg Raise Comments >90 deg B Adan Comments R>L quad tightness PT-OP-M Strength Start: 08/30/24 14:53 Freq: Status: Active Protocol: Document 11/08/24 14:37 [facility] (Rec: 11/08/24 16:18 [facility] [id number]) Hip Strength Hip Manual Muscle Testing Right Flexion (L2) 4+ Good+ Extension (S1) 4+ Good+ Abduction 4+ Good+ Adduction 4+ Good+ External Rotation 4 Good Internal Rotation 5 Normal Left Flexion (L2) 5 Normal Extension (S1) 4+ Good+ Abduction 5 Normal Adduction 4+ Good+ External Rotation 4+ Good+ Internal Rotation 4+ Good+ Knee Strength Knee Manual Muscle Testing Right Flexion (S2) 4+ Good+ Extension (L3) 4+ Good+ Left Flexion (S2) 5 Normal Extension (L3) 5 Normal Ankle/Foot Strength Ankle and Foot Manual Muscle Testing Right Dorsiflexion (L4) 4+ Good+ Plantarflexion (S1) 5 Normal Left Dorsiflexion (L4) 5 Normal Plantarflexion (S1) 5 Normal Comments PF tested seated PT-OP-Q Treatments Start: 09/01/24 15:06 Freq: Status: Active Protocol: Document 11/10/24 14:40 [facility] (Rec: 11/10/24 17:09 [facility] [id number]) Therapeutic Exercises Standing Exercises sidestep Side bilateral Equipment Used L1 around ankles, handrail Reps/Minutes 10ft x2 ea Comments VC for upright posture, smaller steps and to avoid R toeing out squat Standing Exercise Name Sit to stand thigh support> fwd reach Side bilateral Equipment Used L2 above knees Reps/Minutes x10 ea Comments cues hip hinge and foot placement, R knee pain resolves Gait Training Gait Activity stairs Description added to HEP Treatment Focus R knee tracking/alignment Comments recip up/down 4 x6 4 steps and 10 x4 6 steps -vc R toes fwd, upright posture. Ascending: increase R hip flexion and avoid R circumduction. Descending avoid R knee valgus. Pain improves. PT-OP-R Modalities Start: 09/01/24 15:06 Freq: Status: Active Protocol: Document 09/08/24 11:18 [facility] (Rec: 09/08/24 12:38 [facility] [id number]) Hot Pack/Cold Pack Treatment Cold Pack Location R knee Patient Position Hooklying Patient Tolerance Good Comments LEs on bolster, all needs within reach. cervical posterior, lumbar anterior. 8 min PT-OP-T Assessment and Plan Start: 08/30/24 14:53 Freq: Status: Active Protocol: Document 11/10/24 14:40 [facility] (Rec: 11/10/24 17:09 [facility] [id number]) Physical Therapy Assessment Goals stairs Shaper Machine Hand Goal (LTG) Pt will be able to reciprocate down stairs w/o inc knee pain 10/19-still aug 23-pain is dec 11/10 - 12/30 R knee pain start of session improves to 0/10 after completing multiple sets of 6 stairs with focus on toes fwd, upright posture, R hip flexion and no circumduction w/ ascending, and no R knee valgus descending. LTG Duration 12/09 activity Short Term Goal (STG) Pt will be able to squat w/o inc knee pain. 09/08/24: Knee pain resolves with cueing for hip hinge. 10/19-improving depth 11/08-difficulty w/deep squats STG Duration 11.19 Half-Way Goal (LTG) Pt will be able to go for walks of 2 miles w/o inc pain in R knee greater than 1/10 and kneel to get to the ground and get back up 11/08-1600ft LTG Duration 12/09 strength Short Term Goal (STG) Pt will be indep w/HEP 10/19-improving advancinga s able STG Duration achieved advancing as able Shaper Machine Hand Goal (LTG) Pt will score at least 4+/5 on all BLE MMT to show improved strength in order to allow greater ease w/activity. 10/19-improving 11/08 mostly achieved LTG Duration 4/8 balance Half-Way Goal (LTG) Pt will be able to do at least SLS for at least 5 sec to show improved balance. 10/19-L 2 sec, R 3 sec improved LTG Duration achieved 11/08 Assessment Summary Assessment Treatment focus on lower extremity alignment and R neutral foot positioning with sit to stands and stairs. R knee pain with resisted sit to stands improves with cues for hip hinge and RLE alignment as R leg was abucted too far, and pt progresses from thigh support to fwd reach. Pt's R knee pain 12/30 start of session improves to 0/10 after completing 10 sets x6 6 stairs ascending/descending w/ cues for R toes fwd and upright posture, and focus on increasing R hip flexion and avoiding R circumduction w/ ascending, and reducing R knee valgus with descending - HO given to pt for stairs. Physical Therapy Plan Frequency and Duration Frequency of Treatment 2x/Week Duration of treatment (weeks) 10 Plan of Care Start Date 10/19/24 Plan of Care End Date 12/28/24 Therapeutic Interventions Therapeutic Interventions Balance Training,Gait Training ,Home Exercise Program,Joint Mobilizations,Manual Therapy, Neuromuscular Re-education, Patient/Caregiver Education, Self-Care/Home Management,Soft Tissue Mobilization,Taping, Therapeutic Activities, Therapeutic Exercises Modalities Cold Pack/Ice Massage,Electric Stimulation,Hot Packs Next Visit Focus/Plan Next Note Type Treatment Note Next Visit Plan Next: Review resisted STS fwd reach for hip hinge, and 6 stairs. POC: manual to tibfem, patellofemoral, tibfib, foot/ ankle innominate, hip, STM: calf, quad, ITB work on improving squat and step up mechanics based on foot/ankle position balance taping
--- NOTE | 2024-11-16 15:00 | PT.OTN ---
Current Diagnoses Pain in right knee (11/16/24) Physical Therapy Treatment Note PT-OP-A Visit Information Start: 08/30/24 14:53 Freq: Status: Active Protocol: Document 11/16/24 13:02 [facility] (Rec: 11/16/24 15:00 [facility] [id number]) Out-Patient Physical Therapy Visit Information Visit Information Visit Type Treatment Note Visit Start Time 13:03 Visit Stop Time 13:43 Visit Number 11 Number of RETAIL PRODUCT DEMO SPECIALIST Visits 0 PT-OP-B Current Condition Start: 08/30/24 14:53 Freq: Status: Active Protocol: Document 09/01/24 13:45 [facility] (Rec: 09/01/24 15:06 [facility] [id number]) Current Condition History of Current Condition Current Complaints R knee pain History of Current Condition Pt had TKA R on February 10 and did PT for about 2 months and it got pretty good so she dc from PT. Knee started bothering her again . Can go up the stairs but can't come down stairs comfortably but never achieved this w/prior PT either. The past several week it has been getting worse. Has stairs at home. Has difficulty w/kneeling and squatting. Feels good about ROM. Turning is difficult. Pt has cont her PT exercises and walk to her mailbox ([address] w/hill). For a long time before TKA, couldn't do things d/t her knee. Doesn't have to ice or heat any more but does use cream on it. Occ will use ice if ends up hurting. Pt reports she does have MS and word finding can be difficult. 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 Pt has back pain (LB) w/hx of scoliosis). Also fibromyalgia. Has broken R ankle mult times and most recent in 2008. Does have screws in ankle. R ankle does bother her Treatment Goals Patient/Caregiver Goals be able to go down stairs comfortably and squat, be able to kneel to ground and get back up. Be able to go for 2 mile walks PT-OP-C Subjective Start: 08/30/24 14:53 Freq: Status: Active Protocol: Document 11/16/24 13:02 [facility] (Rec: 11/16/24 15:00 [facility] [id number]) OP-PT Subjective Patient Comments Patient Comments Pt reports knee pain today starting yesterday in the day. 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 did a lot of travelling and it got achey w/o a lot of time on her feet. Going down the stairs was more challenging again today. achey comes and goes. 2 -11/29 today PT-OP-D Balance Start: 08/30/24 14:53 Freq: Status: Active Protocol: Document 11/08/24 14:37 [facility] (Rec: 11/08/24 16:18 [facility] [id number]) Balance Tests Single Limb Standing Single Limb- Right 7 sec Single Limb- Left 5 sec PT-OP-G Mobility & Gait Start: 08/30/24 14:53 Freq: Status: Active Protocol: Document 09/01/24 13:45 [facility] (Rec: 09/01/24 15:06 [facility] [id number]) OP Gait Assessment Comments Gait Comments dec RUE arm swing,LUE swing only at elbow, R pelvic shear and dec RLE stance time, dec trunk motion PT-OP-J Posture/Palpation/Skin Start: 08/30/24 14:53 Freq: Status: Active Protocol: Document 09/01/24 13:45 [facility] (Rec: 09/01/24 15:06 [facility] [id number]) Posture Evaluation Comments Posture Comments R pelvic shear, R iliac crest higher, and R greater trochanter higher, R foot toes out, R foot pronation, R knee flexed Palpation Assessment Location RLE Palpation Details tightnes sin quad, ITB, calf, ER tibia, IR femur, limited patella movement PT-OP-K Range of Motion Start: 08/30/24 14:53 Freq: Status: Active Protocol: Document 09/01/24 13:45 [facility] (Rec: 09/01/24 15:06 [facility] [id number]) Knee Goniometric Range of Motion Knee Right Flexion Active (degrees) 119 Extension Active (degrees) 5 Left Flexion Active (degrees) 127 Extension Active (degrees) 0 PT-OP-L Special Tests Start: 08/30/24 14:53 Freq: Status: Active Protocol: Document 09/01/24 13:45 [facility] (Rec: 09/01/24 15:06 [facility] [id number]) Special Tests Knee Special Tests Straight Leg Raise Comments >90 deg Chanell Arellano Comments R>L quad tightness PT-OP-M Strength Start: 08/30/24 14:53 Freq: Status: Active Protocol: Document 11/08/24 14:37 [facility] (Rec: 11/08/24 16:18 [facility] [id number]) Hip Strength Hip Manual Muscle Testing Right Flexion (L2) 4+ Good+ Extension (S1) 4+ Good+ Abduction 4+ Good+ Adduction 4+ Good+ External Rotation 4 Good Internal Rotation 5 Normal Left Flexion (L2) 5 Normal Extension (S1) 4+ Good+ Abduction 5 Normal Adduction 4+ Good+ External Rotation 4+ Good+ Internal Rotation 4+ Good+ Knee Strength Knee Manual Muscle Testing Right Flexion (S2) 4+ Good+ Extension (L3) 4+ Good+ Left Flexion (S2) 5 Normal Extension (L3) 5 Normal Ankle/Foot Strength Ankle and Foot Manual Muscle Testing Right Dorsiflexion (L4) 4+ Good+ Plantarflexion (S1) 5 Normal Left Dorsiflexion (L4) 5 Normal Plantarflexion (S1) 5 Normal Comments PF tested seated PT-OP-Q Treatments Start: 09/01/24 15:06 Freq: Status: Active Protocol: Document 11/16/24 13:02 [facility] (Rec: 11/16/24 15:00 [facility] [id number]) Manual Therapy Treatment Consent Patient gave verbal consent for manual Yes treatment Soft Tissue Mobilization Right knee Body Location MFR around knee w/quad sets and APs calf muscles Body Location R calf Mobilization Type Rolling Intensity/Depth Moderate Comments w/APs quad Body Location patellar tendon and quad Mobilization Type Myofascial Release,Rolling Intensity/Depth Moderate Joint Mobilizations foot/ankle Comments med glide cunieform 1-2 c/r innominate Comments R caudal c/r supine hip Comments R hip on axis ER c/r supine tibfib Comments PA fib proximal tibfemoral Comments PA and AP w/IR c/r PT-OP-R Modalities Start: 09/01/24 15:06 Freq: Status: Active Protocol: Document 09/08/24 11:18 [facility] (Rec: 09/08/24 12:38 [facility] [id number]) Hot Pack/Cold Pack Treatment Cold Pack Location R knee Patient Position Hooklying Patient Tolerance Good Comments LEs on bolster, all needs within reach. cervical posterior, lumbar anterior. 8 min PT-OP-T Assessment and Plan Start: 08/30/24 14:53 Freq: Status: Active Protocol: Document 11/16/24 13:02 [facility] (Rec: 11/16/24 15:00 [facility] [id number]) Physical Therapy Assessment Goals stairs Cosmetic Consultant Goal (LTG) Pt will be able to reciprocate down stairs w/o inc knee pain 10/19-still dec 11/08-pain is dec 11/10 - 12/30 R knee pain start of session improves to 0/10 after completing multiple sets of 6 stairs with focus on toes fwd, upright posture, R hip flexion and no circumduction w/ ascending, and no R knee valgus descending. LTG Duration 3 activity Short Term Goal (STG) Pt will be able to squat w/o inc knee pain. 09/08/24: Knee pain resolves with cueing for hip hinge. 10/19-improving depth 11/08-difficulty w/deep squats STG Duration 2. Cosmetic Consultant Goal (LTG) Pt will be able to go for walks of 2 miles w/o inc pain in R knee greater than 1/10 and kneel to get to the ground and get back up 11/08-1600ft LTG Duration 3 strength Short Term Goal (STG) Pt will be indep w/HEP 10/19-improving advancinga s able STG Duration achieved advancing as able Skilled Nursing Goal (LTG) Pt will score at least 4+/5 on all BLE MMT to show improved strength in order to allow greater ease w/activity. 10/19-improving 11/08 mostly achieved LTG Duration 4/8 balance Cosmetic Consultant Goal (LTG) Pt will be able to do at least SLS for at least 5 sec to show improved balance. 10/19-L 2 sec, R 3 sec improved LTG Duration achieved 11/08 Assessment Summary Assessment Pt had dec pain down stairs after manual treatment and no pain upstairs after treatment (prior did note pain). She encouraged to cont HEP Physical Therapy Plan Frequency and Duration Frequency of Treatment 2x/Week Duration of treatment (weeks) 10 Plan of Care Start Date 10/19/24 Plan of Care End Date 12/28/24 Next Visit Focus/Plan Next Note Type Treatment Note Next Visit Plan Next: Review resisted STS fwd reach for hip hinge, and 6 stairs. POC: manual to tibfem, patellofemoral, tibfib, foot/ ankle innominate, hip, STM: calf, quad, ITB work on improving squat and step up mechanics based on foot/ankle position balance taping
--- NOTE | 2024-11-18 13:49 | PT.OTN ---
Current Diagnoses Pain in right knee (11/18/24) Physical Therapy Treatment Note PT-OP-A Visit Information Start: 08/30/24 14:53 Freq: Status: Active Protocol: Document 11/18/24 13:12 [facility] (Rec: 11/18/24 13:48 [facility] [id number]) Out-Patient Physical Therapy Visit Information Visit Information Visit Type Treatment Note Visit Start Time 13:03 Visit Stop Time 13:43 Visit Number 12 Number of SENIOR NET C DEVELOPER Visits 0 PT-OP-B Current Condition Start: 08/30/24 14:53 Freq: Status: Active Protocol: Document 09/01/24 13:45 [facility] (Rec: 09/01/24 15:06 [facility] [id number]) Current Condition History of Current Condition Current Complaints R knee pain History of Current Condition Pt had TKA R on February 10 and did PT for about 2 months and it got pretty good so she dc from PT. Knee started bothering her again . Can go up the stairs but can't come down stairs comfortably but never achieved this w/prior PT either. The past several week it has been getting worse. Has stairs at home. Has difficulty w/kneeling and squatting. Feels good about ROM. Turning is difficult. Pt has cont her PT exercises and walk to her mailbox ([address] w/hill). For a long time before TKA, couldn't do things d/t her knee. Doesn't have to ice or heat any more but does use cream on it. Occ will use ice if ends up hurting. Pt reports she does have MS and word finding can be difficult. 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 Pt has back pain (LB) w/hx of scoliosis). Also fibromyalgia. Has broken R ankle mult times and most recent in 2008. Does have screws in ankle. R ankle does bother her Treatment Goals Patient/Caregiver Goals be able to go down stairs comfortably and squat, be able to kneel to ground and get back up. Be able to go for 2 mile walks PT-OP-C Subjective Start: 08/30/24 14:53 Freq: Status: Active Protocol: Document 11/18/24 13:12 [facility] (Rec: 11/18/24 13:48 [facility] [id number]) OP-PT Subjective Patient Comments Patient Comments Pt reports knee is doing pretty good. PT-OP-D Balance Start: 08/30/24 14:53 Freq: Status: Active Protocol: Document 11/08/24 14:37 [facility] (Rec: 11/08/24 16:18 [facility] [id number]) Balance Tests Single Limb Standing Single Limb- Right 7 sec Single Limb- Left 5 sec PT-OP-G Mobility & Gait Start: 08/30/24 14:53 Freq: Status: Active Protocol: Document 09/01/24 13:45 [facility] (Rec: 09/01/24 15:06 [facility] [id number]) OP Gait Assessment Comments Gait Comments dec RUE arm swing,LUE swing only at elbow, R pelvic shear and dec RLE stance time, dec trunk motion PT-OP-J Posture/Palpation/Skin Start: 08/30/24 14:53 Freq: Status: Active Protocol: Document 09/01/24 13:45 [facility] (Rec: 09/01/24 15:06 [facility] [id number]) Posture Evaluation Comments Posture Comments R pelvic shear, R iliac crest higher, and R greater trochanter higher, R foot toes out, R foot pronation, R knee flexed Palpation Assessment Location RLE Palpation Details tightnes sin quad, ITB, calf, ER tibia, IR femur, limited patella movement PT-OP-K Range of Motion Start: 08/30/24 14:53 Freq: Status: Active Protocol: Document 09/01/24 13:45 [facility] (Rec: 09/01/24 15:06 [facility] [id number]) Knee Goniometric Range of Motion Knee Right Flexion Active (degrees) 119 Extension Active (degrees) 5 Left Flexion Active (degrees) 127 Extension Active (degrees) 0 PT-OP-L Special Tests Start: 08/30/24 14:53 Freq: Status: Active Protocol: Document 09/01/24 13:45 [facility] (Rec: 09/01/24 15:06 [facility] [id number]) Special Tests Knee Special Tests Straight Leg Raise Comments >90 deg B Adan Comments R>L quad tightness PT-OP-M Strength Start: 08/30/24 14:53 Freq: Status: Active Protocol: Document 11/08/24 14:37 [facility] (Rec: 11/08/24 16:18 [facility] [id number]) Hip Strength Hip Manual Muscle Testing Right Flexion (L2) 4+ Good+ Extension (S1) 4+ Good+ Abduction 4+ Good+ Adduction 4+ Good+ External Rotation 4 Good Internal Rotation 5 Normal Left Flexion (L2) 5 Normal Extension (S1) 4+ Good+ Abduction 5 Normal Adduction 4+ Good+ External Rotation 4+ Good+ Internal Rotation 4+ Good+ Knee Strength Knee Manual Muscle Testing Right Flexion (S2) 4+ Good+ Extension (L3) 4+ Good+ Left Flexion (S2) 5 Normal Extension (L3) 5 Normal Ankle/Foot Strength Ankle and Foot Manual Muscle Testing Right Dorsiflexion (L4) 4+ Good+ Plantarflexion (S1) 5 Normal Left Dorsiflexion (L4) 5 Normal Plantarflexion (S1) 5 Normal Comments PF tested seated PT-OP-Q Treatments Start: 09/01/24 15:06 Freq: Status: Active Protocol: Document 11/18/24 13:12 [facility] (Rec: 11/18/24 13:48 [facility] [id number]) Therapeutic Exercises Standing Exercises hip hike Side bilateral Equipment Used stair w/rail Reps/Minutes 10 ea sidestep Side bilateral Equipment Used L1 around ankles, L2 at ankles handrail Reps/Minutes 15ft ea reistance Comments VC for upright posture, smaller steps and to avoid R toeing out squat Standing Exercise Name holding bar Side bilateral Reps/Minutes 10 Comments working on depth, no shear of pelvis and knee tracking Manual Therapy Treatment Consent Patient gave verbal consent for manual Yes treatment Soft Tissue Mobilization calf muscles Body Location R calf Mobilization Type Rolling Intensity/Depth Moderate Comments standing cupping w/squat quad Body Location lat quad and ITB Comments cupping in standing w/squat and supine in adan test rolling Joint Mobilizations foot/ankle Comments MWM w/strap w/knee bend talocrual innominate Comments R abd and ext c/r s/l hip Comments R inf med s/l c/r abd PT-OP-R Modalities Start: 09/01/24 15:06 Freq: Status: Active Protocol: Document 09/08/24 11:18 [facility] (Rec: 09/08/24 12:38 [facility] [id number]) Hot Pack/Cold Pack Treatment Cold Pack Location R knee Patient Position Hooklying Patient Tolerance Good Comments LEs on bolster, all needs within reach. cervical posterior, lumbar anterior. 8 min PT-OP-T Assessment and Plan Start: 08/30/24 14:53 Freq: Status: Active Protocol: Document 11/18/24 13:12 [facility] (Rec: 11/18/24 13:48 [facility] [id number]) Physical Therapy Assessment Goals stairs Foundation Digger Goal (LTG) Pt will be able to reciprocate down stairs w/o inc knee pain 10/19-still dec 11/08-pain is dec 11/10 - 4/10 R knee pain start of session improves to 0/10 after completing multiple sets of 6 stairs with focus on toes fwd, upright posture, R hip flexion and no circumduction w/ ascending, and no R knee valgus descending. LTG Duration 12/09 activity Short Term Goal (STG) Pt will be able to squat w/o inc knee pain. 09/08/24: Knee pain resolves with cueing for hip hinge. 10/19-improving depth 11/08-difficulty w/deep squats STG Duration 2. Foundation Digger Goal (LTG) Pt will be able to go for walks of 2 miles w/o inc pain in R knee greater than 1/10 and kneel to get to the ground and get back up 11/08-1600ft LTG Duration 3 strength Short Term Goal (STG) Pt will be indep w/HEP 10/19-improving advancinga s able STG Duration achieved advancing as able Longterm Goal (LTG) Pt will score at least 4+/5 on all BLE MMT to show improved strength in order to allow greater ease w/activity. 10/19-improving 11/08 mostly achieved LTG Duration 4/8 balance Longterm Goal (LTG) Pt will be able to do at least SLS for at least 5 sec to show improved balance. 10/19-L 2 sec, R 3 sec improved LTG Duration achieved 11/08 Assessment Summary Assessment Pt had improved ability to go down stairs after treatment today. Improved trackng of knee after manual. Overall good form w/exercises. was challenged by hip hikes Physical Therapy Plan Frequency and Duration Frequency of Treatment 2x/Week Duration of treatment (weeks) 10 Plan of Care Start Date 10/19/24 Plan of Care End Date 12/28/24 Next Visit Focus/Plan Next Note Type Treatment Note Next Visit Plan cont to work hip abd POC: manual to tibfem, patellofemoral, tibfib, foot/ ankle innominate, hip, STM: calf, quad, ITB work on improving squat and step up mechanics based on foot/ankle position balance taping
--- NOTE | 2024-11-23 17:29 | PT.OTN ---
Current Diagnoses Pain in right knee (11/23/24) Physical Therapy Treatment Note PT-OP-A Visit Information Start: 08/30/24 14:53 Freq: Status: Active Protocol: Document 11/23/24 13:54 NBM (Rec: 11/23/24 14:32 [facility] [id number]) Out-Patient Physical Therapy Visit Information Visit Information Visit Type Treatment Note Visit Start Time 13:50 Visit Stop Time 14:32 Visit Number 13 Number of CHRISTIAN COUNSELOR Visits 1 PT-OP-B Current Condition Start: 08/30/24 14:53 Freq: Status: Active Protocol: Document 09/01/24 13:45 [facility] (Rec: 09/01/24 15:06 [facility] [id number]) Current Condition History of Current Condition Current Complaints R knee pain History of Current Condition Pt had TKA R on February 10 and did PT for about 2 months and it got pretty good so she dc from PT. Knee started bothering her again . Can go up the stairs but can't come down stairs comfortably but never achieved this w/prior PT either. The past several week it has been getting worse. Has stairs at home. Has difficulty w/kneeling and squatting. Feels good about ROM. Turning is difficult. Pt has cont her PT exercises and walk to her mailbox ([address] w/hill). For a long time before TKA, couldn't do things d/t her knee. Doesn't have to ice or heat any more but does use cream on it. Occ will use ice if ends up hurting. Pt reports she does have MS and word finding can be difficult. 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 Pt has back pain (LB) w/hx of scoliosis). Also fibromyalgia. Has broken R ankle mult times and most recent in 2008. Does have screws in ankle. R ankle does bother her Treatment Goals Patient/Caregiver Goals be able to go down stairs comfortably and squat, be able to kneel to ground and get back up. Be able to go for 2 mile walks PT-OP-C Subjective Start: 08/30/24 14:53 Freq: Status: Active Protocol: Document 11/23/24 13:54 NBM (Rec: 11/23/24 14:32 [facility] [id number]) OP-PT Subjective Patient Comments Patient Comments Rhonda reports she is doing much better and would like help with how to tape her knee . Stairs are much better but she still catches herself turning her R foot out. She feels ready to discharge next visit. No pain in knee currently but it was bothering her yesterday because she was on the stairs too much. PT-OP-D Balance Start: 08/30/24 14:53 Freq: Status: Active Protocol: Document 11/08/24 14:37 [facility] (Rec: 11/08/24 16:18 [facility] [id number]) Balance Tests Single Limb Standing Single Limb- Right 7 sec Single Limb- Left 5 sec PT-OP-G Mobility & Gait Start: 08/30/24 14:53 Freq: Status: Active Protocol: Document 09/01/24 13:45 [facility] (Rec: 09/01/24 15:06 [facility] [id number]) OP Gait Assessment Comments Gait Comments dec RUE arm swing,LUE swing only at elbow, R pelvic shear and dec RLE stance time, dec trunk motion PT-OP-J Posture/Palpation/Skin Start: 08/30/24 14:53 Freq: Status: Active Protocol: Document 09/01/24 13:45 [facility] (Rec: 09/01/24 15:06 [facility] [id number]) Posture Evaluation Comments Posture Comments R pelvic shear, R iliac crest higher, and R greater trochanter higher, R foot toes out, R foot pronation, R knee flexed Palpation Assessment Location RLE Palpation Details tightnes sin quad, ITB, calf, ER tibia, IR femur, limited patella movement PT-OP-K Range of Motion Start: 08/30/24 14:53 Freq: Status: Active Protocol: Document 09/01/24 13:45 [facility] (Rec: 09/01/24 15:06 [facility] [id number]) Knee Goniometric Range of Motion Knee Right Flexion Active (degrees) 119 Extension Active (degrees) 5 Left Flexion Active (degrees) 127 Extension Active (degrees) 0 PT-OP-L Special Tests Start: 08/30/24 14:53 Freq: Status: Active Protocol: Document 09/01/24 13:45 [facility] (Rec: 09/01/24 15:06 [facility] [id number]) Special Tests Knee Special Tests Straight Leg Raise Comments >90 deg Chanell Arellano Comments R>L quad tightness PT-OP-M Strength Start: 08/30/24 14:53 Freq: Status: Active Protocol: Document 11/08/24 14:37 [facility] (Rec: 11/08/24 16:18 [facility] [id number]) Hip Strength Hip Manual Muscle Testing Right Flexion (L2) 4+ Good+ Extension (S1) 4+ Good+ Abduction 4+ Good+ Adduction 4+ Good+ External Rotation 4 Good Internal Rotation 5 Normal Left Flexion (L2) 5 Normal Extension (S1) 4+ Good+ Abduction 5 Normal Adduction 4+ Good+ External Rotation 4+ Good+ Internal Rotation 4+ Good+ Knee Strength Knee Manual Muscle Testing Right Flexion (S2) 4+ Good+ Extension (L3) 4+ Good+ Left Flexion (S2) 5 Normal Extension (L3) 5 Normal Ankle/Foot Strength Ankle and Foot Manual Muscle Testing Right Dorsiflexion (L4) 4+ Good+ Plantarflexion (S1) 5 Normal Left Dorsiflexion (L4) 5 Normal Plantarflexion (S1) 5 Normal Comments PF tested seated PT-OP-Q Treatments Start: 09/01/24 15:06 Freq: Status: Active Protocol: Document 11/23/24 13:54 [facility] (Rec: 11/23/24 14:32 [facility] [id number]) Therapeutic Exercises Standing Exercises hip hike Standing Exercise Name HEP review Side bilateral Equipment Used stair w/rail Reps/Minutes 10 ea Comments cues for no knee flexion w/ stance leg and form improves. Gait Training Gait Activity stairs Description HEP review Treatment Focus R knee tracking/alignment Comments recip up/down 3 x4 6 steps -min cues R toes fwd Descending cues to avoid R knee valgus and improve hip hinge. Painfree Manual Therapy Treatment Taping right knee Treatment Focus unload fat pad Type of Tape Kinesio Tape Skin Inspection WNL Comments I strips per patella one med one lat with stretch cranially 50% pt i/s in self-application. Neuro Re-Education Treatment Balance Activities SLS Surface firm Equipment handrail prn Reps/Duration trials Comments L and R 4-5 sec ea. PT-OP-R Modalities Start: 09/01/24 15:06 Freq: Status: Active Protocol: Document 09/08/24 11:18 [facility] (Rec: 09/08/24 12:38 [facility] [id number]) Hot Pack/Cold Pack Treatment Cold Pack Location R knee Patient Position Hooklying Patient Tolerance Good Comments LEs on bolster, all needs within reach. cervical posterior, lumbar anterior. 8 min PT-OP-T Assessment and Plan Start: 08/30/24 14:53 Freq: Status: Active Protocol: Document 11/23/24 13:54 [facility] (Rec: 11/23/24 14:32 [facility] [id number]) Physical Therapy Assessment Goals activity Short Term Goal (STG) Pt will be able to squat w/o inc knee pain. 09/08/24: Knee pain resolves with cueing for hip hinge. 10/19-improving depth 11/08-difficulty w/deep squats STG Duration 11.19 [facility] Goal (LTG) Pt will be able to go for walks of 2 miles w/o inc pain in R knee greater than 1/10 and kneel to get to the ground and get back up 11/08-1600ft 11/23 - Pt reports able to go for walks >2 miles without increased knee pain, but getting up from ground she gets R knee pain ~ 3/10. LTG Duration 12/09 strength Short Term Goal (STG) Pt will be indep w/HEP 10/19-improving advancinga s able STG Duration achieved advancing as able [facility]ci Goal (LTG) Pt will score at least 4+/5 on all BLE MMT to show improved strength in order to allow greater ease w/activity. 10/19-improving 11/08 mostly achieved LTG Duration 4/8 balance Ink Maker Goal (LTG) Pt will be able to do at least SLS for at least 5 sec to show improved balance. 10/19-L 2 sec, R 3 sec improved LTG Duration achieved 11/08 Assessment Summary Assessment Rhonda states she is ready for discharge next visit, ok to discarge per discussion with evaluating PT with direction for scheduled appointments. She presents with no R knee pain which is unchanged throughout session. She is instructed in self- application of KT tape for unloading fat pad of R knee as needed, and requires minimal cues for LE alignment and hip hinge with descending stairs. She requires for cues to maintaining stance leg in extension with hip hike, and is given written instructions for returning for 15th visit for discharge assessment with evaluating PT. Tray Drier Operator and Seasonal Customer Service Associate notified accordingly. Physical Therapy Plan Frequency and Duration Frequency of Treatment 2x/Week Duration of treatment (weeks) 10 Plan of Care Start Date 10/19/24 Plan of Care End Date 12/28/24 Therapeutic Interventions Therapeutic Interventions Balance Training,Gait Training ,Home Exercise Program,Joint Mobilizations,Manual Therapy, Neuromuscular Re-education, Patient/Caregiver Education, Self-Care/Home Management,Soft Tissue Mobilization,Taping, Therapeutic Activities, Therapeutic Exercises Modalities Cold Pack/Ice Massage,Electric Stimulation,Hot Packs Next Visit Focus/Plan Next Note Type Treatment Note Next Visit Plan Next: Assess for discharge. Consider review of transition from ground to standing for activity LTG. POC: cont to work hip abd POC: manual to tibfem, patellofemoral, tibfib, foot/ ankle innominate, hip, STM: calf, quad, ITB work on improving squat and step up mechanics based on foot/ankle position balance taping
--- NOTE | 2024-12-08 16:16 | PT.OTN ---
Current Diagnoses Pain in right knee (12/08/24) Physical Therapy Treatment Note PT-OP-A Visit Information Start: 08/30/24 14:53 Freq: Status: Active Protocol: Document 12/08/24 13:47 [facility] (Rec: 12/08/24 16:15 [facility] [id number]) Out-Patient Physical Therapy Visit Information Visit Information Visit Type Discharge Summary Visit Start Time 13:46 Visit Stop Time 14:26 Visit Number 14 Number of GAMBLING FLOOR SUPERVISOR Visits 0 PT-OP-B Current Condition Start: 08/30/24 14:53 Freq: Status: Active Protocol: Document 09/01/24 13:45 [facility] (Rec: 09/01/24 15:06 [facility] [id number]) Current Condition History of Current Condition Current Complaints R knee pain History of Current Condition Pt had TKA R on February 10 and did PT for about 2 months and it got pretty good so she dc from PT. Knee started bothering her again . Can go up the stairs but can't come down stairs comfortably but never achieved this w/prior PT either. The past several week it has been getting worse. Has stairs at home. Has difficulty w/kneeling and squatting. Feels good about ROM. Turning is difficult. Pt has cont her PT exercises and walk to her mailbox ([address] w/hill). For a long time before TKA, couldn't do things d/t her knee. Doesn't have to ice or heat any more but does use cream on it. Occ will use ice if ends up hurting. Pt reports she does have MS and word finding can be difficult. 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 Pt has back pain (LB) w/hx of scoliosis). Also fibromyalgia. Has broken R ankle mult times and most recent in 2008. Does have screws in ankle. R ankle does bother her Treatment Goals Patient/Caregiver Goals be able to go down stairs comfortably and squat, be able to kneel to ground and get back up. Be able to go for 2 mile walks PT-OP-C Subjective Start: 08/30/24 14:53 Freq: Status: Active Protocol: Document 12/08/24 13:47 [facility] (Rec: 12/08/24 16:15 [facility] [id number]) OP-PT Subjective Patient Comments Patient Comments Pt reports some pain in knee. Occ wakes up w/it achey. PT-OP-D Balance Start: 08/30/24 14:53 Freq: Status: Active Protocol: Document 11/08/24 14:37 [facility] (Rec: 11/08/24 16:18 [facility] [id number]) Balance Tests Single Limb Standing Single Limb- Right 7 sec Single Limb- Left 5 sec PT-OP-G Mobility & Gait Start: 08/30/24 14:53 Freq: Status: Active Protocol: Document 09/01/24 13:45 [facility] (Rec: 09/01/24 15:06 [facility] [id number]) OP Gait Assessment Comments Gait Comments dec RUE arm swing,LUE swing only at elbow, R pelvic shear and dec RLE stance time, dec trunk motion PT-OP-J Posture/Palpation/Skin Start: 08/30/24 14:53 Freq: Status: Active Protocol: Document 09/01/24 13:45 [facility] (Rec: 09/01/24 15:06 [facility] [id number]) Posture Evaluation Comments Posture Comments R pelvic shear, R iliac crest higher, and R greater trochanter higher, R foot toes out, R foot pronation, R knee flexed Palpation Assessment Location RLE Palpation Details tightnes sin quad, ITB, calf, ER tibia, IR femur, limited patella movement PT-OP-K Range of Motion Start: 08/30/24 14:53 Freq: Status: Active Protocol: Document 09/01/24 13:45 [facility] (Rec: 09/01/24 15:06 [facility] [id number]) Knee Goniometric Range of Motion Knee Right Flexion Active (degrees) 119 Extension Active (degrees) 5 Left Flexion Active (degrees) 127 Extension Active (degrees) 0 PT-OP-L Special Tests Start: 08/30/24 14:53 Freq: Status: Active Protocol: Document 09/01/24 13:45 [facility] (Rec: 09/01/24 15:06 [facility] [id number]) Special Tests Knee Special Tests Straight Leg Raise Comments >90 deg B Adan Comments R>L quad tightness PT-OP-M Strength Start: 08/30/24 14:53 Freq: Status: Active Protocol: Document 12/08/24 13:47 [facility] (Rec: 12/08/24 16:15 [facility] [id number]) Hip Strength Hip Manual Muscle Testing Right Flexion (L2) 5 Normal Extension (S1) 5 Normal Abduction 4+ Good+ Adduction 5 Normal External Rotation 4 Good Internal Rotation 5 Normal Left Flexion (L2) 5 Normal Extension (S1) 5 Normal Abduction 5 Normal Adduction 5 Normal External Rotation 4+ Good+ Internal Rotation 5 Normal Knee Strength Knee Manual Muscle Testing Right Flexion (S2) 5 Normal Extension (L3) 4+ Good+ Left Flexion (S2) 5 Normal Extension (L3) 5 Normal Ankle/Foot Strength Ankle and Foot Manual Muscle Testing Right Dorsiflexion (L4) 5 Normal Plantarflexion (S1) 5 Normal Left Dorsiflexion (L4) 5 Normal Plantarflexion (S1) 5 Normal Comments PF tested seated PT-OP-Q Treatments Start: 09/01/24 15:06 Freq: Status: Active Protocol: Document 12/08/24 13:47 [facility] (Rec: 12/08/24 16:15 [facility] [id number]) Therapeutic Exercises Supine Exercises stretch Supine Exercise Name adan test Side right Reps/Minutes 60 sec hamstring stretch Side right Reps/Minutes 60 sec Comments verbal cues piriformis stretch Supine Exercise Name HEP Side right Reps/Minutes 60 sec Comments verbal and tactile cues Standing Exercises hip hike Standing Exercise Name HEP review Side bilateral Equipment Used stair w/rail Reps/Minutes 10 ea Comments cues pelvis motion sidestep Side bilateral Equipment Used L2 at ankles Reps/Minutes 10ft ea Comments VC for upright posture, smaller steps and to avoid R toeing out calf stretches on ANDRY Standing Exercise Name calf stretch on step Side bilateral Reps/Minutes 60 sec squat Side bilateral Equipment Used L3 at knees Reps/Minutes 10 Manual Therapy Treatment Consent Patient gave verbal consent for manual Yes treatment Soft Tissue Mobilization quad Body Location patellar tendon Mobilization Type Myofascial Release,Rolling, Strumming scar Mobilization Type Myofascial Release Intensity/Depth Superficial PT-OP-R Modalities Start: 09/01/24 15:06 Freq: Status: Active Protocol: Document 09/08/24 11:18 [facility] (Rec: 09/08/24 12:38 [facility] [id number]) Hot Pack/Cold Pack Treatment Cold Pack Location R knee Patient Position Hooklying Patient Tolerance Good Comments LEs on bolster, all needs within reach. cervical posterior, lumbar anterior. 8 min PT-OP-T Assessment and Plan Start: 08/30/24 14:53 Freq: Status: Active Protocol: Document 12/08/24 13:47 [facility] (Rec: 12/08/24 16:15 [facility] [id number]) Physical Therapy Assessment Goals stairs Contracts Administrator Goal (LTG) Pt will be able to reciprocate down stairs w/o inc knee pain 10/19-still dec 11/08-pain is dec 11/10 - 4/10 R knee pain start of session improves to 0/10 after completing multiple sets of 6 stairs with focus on toes fwd, upright posture, R hip flexion and no circumduction w/ ascending, and no R knee valgus descending. LTG Duration achieved 12/08 activity Short Term Goal (STG) Pt will be able to squat w/o inc knee pain. 09/08/24: Knee pain resolves with cueing for hip hinge. 10/19-improving depth 11/08-difficulty w/deep squats STG Duration achieved 12/08 Contracts Administrator Goal (LTG) Pt will be able to go for walks of 2 miles w/o inc pain in R knee greater than 1/10 and kneel to get to the ground and get back up 11/08-1600ft 11/23 - Pt reports able to go for walks >2 miles without increased knee pain, but getting up from ground she gets R knee pain ~ 3/10. LTG Duration achieved 12/08 strength Short Term Goal (STG) Pt will be indep w/HEP 10/19-improving advancinga s able STG Duration achieved advancing as able Contracts Administrator Goal (LTG) Pt will score at least 4+/5 on all BLE MMT to show improved strength in order to allow greater ease w/activity. 10/19-improving 11/08 mostly achieved LTG Duration achieved except ER balance Mcfp Goal (LTG) Pt will be able to do at least SLS for at least 5 sec to show improved balance. 10/19-L 2 sec, R 3 sec improved LTG Duration achieved 11/08 Assessment Summary Assessment Pt has met goals at this time and is ready for DC. reviewed stretches to help w/pain and encouraged pt to try stretches and ice first. She did well with exercises w/min cues. She also did well w/edu for self patellar tendon STM and scar massage. DC to [facility] Physical Therapy Plan Discharge Physical Therapy Discharge Reasons Goals Met
== END 2024-12-13 10:05 | disposition home or self-care (01) ==
LOC: PHYS 13:45
PROVIDERS: Family Provider Family Medicine; PCP Family Medicine; Referring Provider Family Medicine; Visit Provider Family Medicine
DX: M25.561 Pain in right knee (principal)
CPT/HCPCS: 97110; 97116; 97140; 97162; 97530; 97535

== ENCOUNTER → 2025-01-04 11:37 | Outpatient (CLI) | payer OTHER, SELFPAY ==
[2024-08-23 10:22] VITALS: PULSE 67; RESP 12; O2SAT 96; BMI 28.5
[2025-01-04 12:08] LABS: Hematocrit 36.4 % (36-46); Hemoglobin 12.5 g/dL (12.0-16.0); Mean Corpuscular HGB Conc 34.3 % (30-36); Mean Corpuscular Hemoglobin 30.9 PG (26-34); Platelet Count 297 X10^3/uL (150-400); Red Blood Cell Count 4.05 X10^6/uL (4.0-5.2); Red Cell Distribution Width 12.9 % (11.6-14.8)
[2025-01-04 12:47] LABS: Alanine Aminotransferase 18 IU/L (<35); Albumin 4.6 g/dL (3.5-5.0); Albumin Globulin Ratio 2.2 (1.0-2.8); Alkaline Phosphatase 107 U/L (38-126); Aspartate Aminotransferase 20 IU/L (14-36); BUN Creatinine Ratio 16.7 (6-22); Bilirubin Total 0.4 mg/dL (0.2-1.3); Blood Urea Nitrogen 18 mg/dL (7-17); Carbon Dioxide 32 mmol/L (22-32); Chloride 102 mmol/L (98-107); Cholesterol 210 mg/dL (140-199); Estimated Glomerular Filt Rate 56 mL/min (>60); Globulin 2.1 g/dL (1.7-4.1); Glucose 80 mg/dL (80-110); HDL Cholesterol 61 mg/dL (40-60); HEMOLYSIS < 15 (0-50); LDL Cholesterol Calculated 126 mg/dL (<100); Potassium 4.7 mmol/L (3.4-5.1); Sodium 140 mmol/L (137-145); Total Protein 6.7 g/dL (6.3-8.2); Triglycerides 116 mg/dL (35-150)
[2025-01-04 15:32] LABS: Hep C Virus Ab w/Reflex Quant NEGATIVE s/c (NEGATIVE)
== END ==
PROVIDERS: Family Provider Family Medicine; PCP Family Medicine; Referring Provider Family Medicine; Visit Provider Family Medicine
DX: Z00.00 Encounter for general adult medical examination without abnormal findings (principal); N18.30 Chronic kidney disease, stage 3 unspecified; G35 Multiple sclerosis; F33.1 Major depressive disorder, recurrent, moderate; Z76.89 Persons encountering health services in other specified circumstances
CPT/HCPCS: 36415; 80053; 80061; 85027; 86803

== ENCOUNTER → 2025-02-10 14:03 | Outpatient (CLI) | payer OTHER, SELFPAY ==
[2024-08-23 10:22] VITALS: PULSE 67; RESP 12; O2SAT 96; BMI 28.5
[2025-02-10 14:41] LABS: Add Manual Diff / Slide Review NO; Basophils Absolute Auto 100 /uL (0-100); Eosinophils Absolute Auto 100 /uL (0-450); Eosinophils Percent Auto 1.8 % (2-4); Hematocrit 34.9 % (36-46); Hemoglobin 11.8 g/dL (12.0-16.0); Lymphocytes Absolute Auto 1700 /uL (1100-4500); Lymphocytes Percent Auto 22.9 % (25-40); Mean Corpuscular HGB Conc 33.9 % (30-36); Mean Corpuscular Hemoglobin 30.8 PG (26-34); Mean Corpuscular Volume 90.8 fL (80-100); Monocytes Absolute Auto 300 /uL (0-900); Monocytes Percent Auto 4.3 % (3-14); Neutrophils Absolute Auto 5200 /uL (1500-7000); Platelet Count 404 X10^3/uL (150-400); Red Blood Cell Count 3.85 X10^6/uL (4.0-5.2); Red Cell Distribution Width 13.2 % (11.6-14.8); White Blood Cell Count 7.4 X10^3/uL (4.5-11.0)
[2025-02-10 15:02] LABS: C-Reactive Protein Quant < 0.5 mg/dL (<1.0)
[2025-02-10 15:10] LABS: Erythrocyte Sedimentation Rate 5 MM/HR (0-20)
== END ==
PROVIDERS: Family Provider Family Medicine; PCP Family Medicine; Referring Provider Orthopaedic Surgery Foot and Ankle Surgery; Visit Provider Orthopaedic Surgery Foot and Ankle Surgery
DX: T84.84XA Pain due to internal orthopedic prosthetic devices, implants and grafts, initial encounter (principal); Z96.651 Presence of right artificial knee joint
CPT/HCPCS: 36415; 85025; 85651; 86140

== ENCOUNTER → 2025-04-04 14:01 | Outpatient (CLI) | payer OTHER, SELFPAY ==
[2024-08-23 10:22] VITALS: PULSE 67; RESP 12; O2SAT 96; BMI 28.5
[2025-04-04 14:33] LABS: Alanine Aminotransferase 27 IU/L (<35); Albumin 5.0 g/dL (3.5-5.0); Albumin Globulin Ratio 2.2 (1.0-2.8); Alkaline Phosphatase 102 U/L (38-126); Blood Urea Nitrogen 12 mg/dL (7-17); Calcium 9.8 mg/dL (8.4-10.2); Carbon Dioxide 30 mmol/L (22-32); Chloride 100 mmol/L (98-107); Cholesterol 166 mg/dL (140-199); Estimated Glomerular Filt Rate > 60 mL/min (>60); Globulin 2.3 g/dL (1.7-4.1); Glucose 94 mg/dL (70-99); HDL Cholesterol 82 mg/dL (40-60); HEMOLYSIS < 15 (0-50); Potassium 4.3 mmol/L (3.4-5.1); Sodium 139 mmol/L (137-145); Total Protein 7.3 g/dL (6.3-8.2); Triglycerides 91 mg/dL (35-150)
== END ==
PROVIDERS: PCP Family Medicine; Referring Provider Family Medicine; Visit Provider Family Medicine
DX: N18.30 Chronic kidney disease, stage 3 unspecified (principal); I10 Essential (primary) hypertension; E78.5 Hyperlipidemia, unspecified
CPT/HCPCS: 36415; 80053; 80061

== ENCOUNTER 2025-04-12 16:02 | Emergency (ER) | payer OTHER, SELFPAY ==
[2024-08-23 10:22] VITALS: PULSE 67; RESP 12; O2SAT 96; BMI 28.5
[2025-04-12 16:31] VITALS: BP 108/55; PULSE 94; RESP 16; TEMP 36.7; O2SAT 100; BMI 23.3
--- NOTE | 2025-04-12 16:37 | DI.RAD.S_ITS ---
PROCEDURE: XR KNEE RT 3V INDICATIONS: increasing knee pain TECHNIQUE: 3 views of the knee were acquired. COMPARISON: [facility], CR, XR KNEE RT 3V, 06/25/2024, 16:07. FINDINGS: Bones: Status post right total knee arthroplasty, in near anatomic alignment. No hardware complication. 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 Soft tissues: No joint effusion. No suspicious soft tissue calcifications. IMPRESSION: No acute bony abnormality or significant effusion. Dictated by: Radha Boston M.D. on 04/12/2025 at 17:05 Approved by: Radha Boston M.D. on 04/12/2025 at 17:06
[2025-04-12 17:41] VITALS: BP 119/69; PULSE 83; RESP 16; TEMP 36.9; O2SAT 99
--- NOTE | 2025-04-12 17:51 | ED_ITS ---
HPI - Extremity Problem <Go Mcknight PA-C - Last Filed: 04/12/25 18:19> General Chief complaint: Extremity Problem,Nontraumatic Stated complaint: Rt knee pain Time Seen by Provider: 04/12/25 16:49 Source: patient Mode of arrival: Wheelchair History of Present Illness HPI Narrative: 69-year-old female with past medical history multiple sclerosis, essential hypertension, GERD, migraine, CKD presents to the ED for acute on chronic right- sided knee pain. Patient had a knee replacement done by Dr. Cruz in January 2024, following which she has had chronic pain in the right knee. In the absence of any etiology for patient's pain, Dr. Cruz referred patient to to Dr. Pineda for a 2nd opinion. Patient states that she has not heard back from the practice. Patient is currently in the process of seeking a 2nd opinion from a different orthopedic practice. In the meanwhile, patient has had an acute exacerbation of the right knee pain, making it difficult for her to sleep. Patient denies fever, chills, chest pain, shortness of breath, vomiting, numbness, tingling, weakness. Patient denies any trauma. Related Data Home Medications ?Medication ?Instructions ?Recorded ?Confirmed cholecalciferol (vitamin D3) 25 25 mcg PO DAILY 04/04/25 mcg (1,000 unit) capsule magnesium hydroxide 400 mg (170 mg 400 mg PO DAILY 03/1104/04/25 magnesium) chewable tablet mecobalamin (vitamin B12) 1,000 1,000 mcg PO DAILY 03/1104/04/25 mcg chewable tablet Previous Rx's ?Medication ?Instructions ?Recorded triamcinolone acetonide 0.1 % 1 applic topical BID PRN rash #30 08/05/23 topical cream grams Subcutaneous Supplies Kit #12 ea 12/17/23 methocarbamol 500 mg tablet 500 mg PO TID PRN muscle s pasm #90 03/12/24 tabs ondansetron HCl 4 mg tablet 4 mg PO TID-QID PRN nausea and 03/22/24 vomiting #30 tabs rizatriptan 10 mg tablet 10 mg PO Q2H PRN migraine he adache 04/27/24 #12 tabs semaglutide 0.25 mg or 0.5 mg (2 1 mg (1.472 mL) SUBCU T QWEEK #9 mL 06/21/24 mg/3 mL) subcutaneous pen injector diclofenac sodium 1 % topical gel 4 g topical QID #200 grams 06/25/24 (Voltaren Arthritis Pain) doxepin 100 mg capsule 100 mg PO BEDTIME #90 caps 1 10/24/23 albuterol sulfate 90 mcg/actuation 2 puff inhalation Q ID PRN 09/08/24 aerosol inhaler (Ventolin HFA) shortness of breath or wheezing #6.7 grams telmisartan 80 mg tablet 80 mg PO DAILY #90 tabs 0302/13 acyclovir 400 mg tablet 400 mg PO DAILY #90 tabs 05/16 fluoxetine 20 mg capsule 60 mg (3 x 20 mg) PO QDAY #2 70 caps 12/28/24 famotidine 20 mg tablet 20 mg PO DAILY #90 tabs 12/21 04/15 rosuvastatin 5 mg tablet (Crestor) 5 mg PO DAILY rosy sterol #100 tabs 01/10/25 hydrocodone 5 mg-acetaminophen 325 1 tab PO Q6H PRN pa in #30 tabs 01/27/25 mg tablet amlodipine 2.5 mg tablet (Norvasc) 2.5 mg PO DAILY blo od pressure #90 02/01/25 tabs potassium chloride 10 mEq 10 meq PO DAILY #90 tabs tablet,extended release(part/cryst) gabapentin 600 mg tablet 600 mg PO TID #270 tabs 12/14 oxycodone-acetaminophen 5 mg-325 1 tab PO Q4-6H PRN pa in #30 tabs 04/12/25 mg tablet (Endocet) risperidone 0.5 mg tablet 1 mg (2 x 0.5 mg) PO BEDTIME #270 04/12/25 tabs Allergies Allergy/AdvReac Type Severity Reaction Status Date / Time zolpidem AdvReac Severe HALLUCINATIONS, Verified 04/04/25 13:35 NOT KNOWING WHERE SHE WAS, DIZZINESS Review of Systems <Go Mcknight PA-C - Last Filed: 04/12/25 18:19> Constitutional Constitutional: Denies chills, Denies fatigue, Denies fever(s), Denies frequent falls, Denies lethargy and Denies weakness Eyes Eyes: Denies change in vision, Denies eye discharge, Denies irritation and Denies loss of vision ENT Ears, Nose, Mouth, and Throat: Denies change in voice, Denies dizziness, Denies neck pain, Denies sore throat and Denies throat swelling Cardiovascular Cardiovascular: Denies chest pain, Denies irregular heart rhythm, Denies lightheadedness, Denies palpitations, Denies dyspnea, Denies dyspnea on exertion and Denies orthopnea Respiratory Respiratory: Denies cough, Denies dyspnea, Denies dyspnea on exertion and Denies wheezing Gastrointestinal Gastrointestinal: Denies abdominal pain, Denies change in bowel habits, Denies diarrhea, Denies nausea and Denies vomiting Musculoskeletal Musculoskeletal: Denies neck pain and Denies numbness Comments: Right-sided knee pain Integumentary/Breasts Skin/Breast: Denies pruritus, Denies erythema, Denies rash and Denies wounds Neurologic Neurologic: Denies behavioral changes, Denies confusion, Denies dizziness, Denies frequent falls, Denies loss of vision, Denies numbness and Denies weakness Psychiatric Psychiatric: Denies anxiety, Denies behavioral changes, Denies confusion, Denies depression, Denies homicidal ideation and Denies suicidal ideation Endocrine Endocrine: Denies fatigue, Denies flushing and Denies palpitations Hematologic/Lymphatic Hematologic/Lymphatic: Denies easy bruising Allergic/Immunologic Allergic/Immunologic: Denies urticaria, Denies throat swelling and Denies wheezing Patient History <Go Mcknight PA-C - Last Filed: 04/12/25 18:19> Medical History Hyperlipidemia, unspecified Normocytic anemia Encounter for subsequent annual wellness visit (AWV) in Medicare patient CKD (chronic kidney disease) stage 3, GFR 30-59 ml/min Post-menopausal Colonoscopy planned Obstipation Hx of fracture of ankle Mixed hyperlipidemia Anxiety Major depressive disorder, recurrent, moderate Fibromyalgia Cholelithiasis Post traumatic stress disorder (PTSD) Surgical History History of carpal tunnel release of both wrists Hx of hysterectomy Family History Mother Cardiac arrest Father Colitis Social History household members: spouse Smoking Status: Never smoker alcohol intake: current Smoking Status: Never smoker alcohol intake frequency: holidays/special occasions only Exam <Go Mcknight PA-C - Last Filed: 04/12/25 18:19> Narrative Exam Narrative: Const General:?cooperative, healthy appearing and comfortable [facility] Head:?normal to inspection Ears:?hearing grossly normal bilaterally Nose:?external nose normal Face and sinus:?normal facial exam and sinuses nontender Mouth:?oral mucosae normal Throat:?posterior oropharynx normal Eyes General:?appearance normal, both eyes and all related structures Neck Neck:?normal visual inspection and no lymphadenopathy noted Resp Effort & Inspection:?normal respiratory effort Auscultation:?clear to auscultation bilaterally Cardio Rate:?regular rate Rhythm:?regular rhythm Musculoskeletal No erythema, warmth, tenderness, stiffness of the right knee joint. Neurovascularly intact. Neuro General:?patient alert, patient awake and patient oriented x3 Initial Vital Signs Initial Vital Signs: Vital Signs Temperature 98.1 F 04/12/25 16:31 Pulse Rate 94 H 04/12/25 16:31 Respiratory Rate 16 04/12/25 16:31 Blood Pressure 108/55 L 04/12/25 16:31 Pulse Oximetry 100 04/12/25 16:31 Oxygen Delivery Method Room Air 04/12/25 16:31 <Jaycob Farnsworth MD - Last Filed: 04/12/25 19:04> Initial Vital Signs Initial Vital Signs: Vital Signs Temperature 98.1 F 04/12/25 16:31 Pulse Rate 94 H 04/12/25 16:31 Respiratory Rate 16 04/12/25 16:31 Blood Pressure 108/55 L 04/12/25 16:31 Pulse Oximetry 100 04/12/25 16:31 Oxygen Delivery Method Room Air 04/12/25 16:31 Course <Go Mcknight PA-C - Last Filed: 04/12/25 18:19> Orders Ordered: ED Orders 04/12/25 16:37 XR knee RT 3V Stat Vital Signs Vital signs: Vital Signs - 8 hr 04/12/25 16:31 04/12/25 17:41 Temperature 98.1 F 98.4 F Pulse Rate 94 H 83 Respiratory Rate 16 16 Blood Pressure 108/55 L 119/69 Pulse Oximetry 100 99 Oxygen Delivery Method Room Air Room Air <Jaycob Farnsworth MD - Last Filed: 04/12/25 19:04> Orders Ordered: ED Orders 04/12/25 16:37 XR knee RT 3V Stat Vital Signs Vital signs: Vital Signs - 8 hr 04/12/25 16:31 04/12/25 17:41 Temperature 98.1 F 98.4 F Pulse Rate 94 H 83 Respiratory Rate 16 16 Blood Pressure 108/55 L 119/69 Pulse Oximetry 100 99 Oxygen Delivery Method Room Air Room Air MDM - Extremity (Nontraumatic) <Go Mcknight PA-C - Last Filed: 04/12/25 18:19> [facility] Narrative Medical decision making narrative: 69-year-old female with past medical history multiple sclerosis, essential hypertension, GERD, migraine, CKD presents to the ED for acute on chronic right- sided knee pain. X-ray was obtained which shows no acute bony abnormality or significant effusion. Did consider septic joint, however no erythema, swelling, or stiffness of the joint. Patient does range the joint completely, however experiences pain while doing so. Patient's symptoms are more consistent with a soft tissue injury. Prescribed pain med patient pain at is able to see your ortho. Recommend follow-up with [facility]. ED return precautions discussed with patient. Patient verbalized understanding. Medical records reviewed: Yes <Jaycob Farnsworth MD - Last Filed: 04/12/25 19:04> [facility] Narrative Medical decision making narrative: 69-year-old female with past medical history multiple sclerosis, essential hypertension, GERD, migraine, CKD presents to the ED for acute on chronic right- sided knee pain. X-ray was obtained which shows no acute bony abnormality or significant effusion. Did consider septic joint, however no erythema, swelling, or stiffness of the joint. Patient does range the joint completely, however experiences pain while doing so. Patient's symptoms are more consistent with a soft tissue injury. Prescribed pain med patient pain at is able to see your ortho. Recommend follow-up with [facility]. ED return precautions discussed with patient. Patient verbalized understanding. Medical records reviewed: Yes I was available for consult but did not actually see the patient. Discharge Plan Departure Patient Disposition: Home Clinical Impression: Knee pain Qualifiers: Chronicity: chronic Laterality: right Qualified Code(s): M25.561 - Pain in right knee Instructions: DI for Knee Pain Activity Restrictions/Additional Instructions: You were evaluated in the emergency department today for right-sided knee pain. Your x-ray did not show any abnormalities. It is recommended that you follow-up with [facility] for further evaluation by calling [phone]. You have been prescribed some pain medication to manage your pain until you are able to see an ortho specialist. Return to the ED if you have worsening symptoms. Prescriptions: New oxycodone-acetaminophen [Endocet] 5-325 mg tablet 1 tab PO Q4-6H PRN (Reason: pain) Qty: 30 0RF No Action cholecalciferol (vitamin D3) 25 mcg (1,000 unit) capsule 25 mcg PO DAILY mecobalamin (vitamin B12) 1,000 mcg tablet,chewable 1,000 mcg PO DAILY magnesium hydroxide 400 mg (170 mg magnesium) tablet,chewable 400 mg PO DAILY risperidone 0.5 mg tablet 1 mg PO BEDTIME Qty: 270 3RF methocarbamol 500 mg tablet 500 mg PO TID PRN (Reason: muscle spasm) Qty: 90 11RF rizatriptan 10 mg tablet 10 mg PO Q2H MDD 30 mg PRN (Reason: migraine headache) Qty: 12 11RF doxepin 100 mg capsule 100 mg PO BEDTIME Qty: 90 3RF albuterol sulfate [Ventolin HFA] 90 mcg/actuation HFA aerosol inhaler 2 puff inhalation QID PRN (Reason: shortness of breath or wheezing) Qty: 6.7 1RF telmisartan 80 mg tablet 80 mg PO DAILY Qty: 90 1RF acyclovir 400 mg tablet 400 mg PO DAILY Qty: 90 3RF fluoxetine 20 mg capsule 60 mg PO QDAY Qty: 270 3RF famotidine 20 mg tablet 20 mg PO DAILY Qty: 90 3RF potassium chloride 10 mEq tablet,ER particles/crystals 10 meq PO DAILY Qty: 90 3RF amlodipine [Norvasc] 2.5 mg tablet 2.5 mg PO DAILY Qty: 90 3RF gabapentin 600 mg tablet 600 mg PO TID Qty: 270 0RF (DME) Subcutaneous Supplies Kit See Rx Instructions .ROUTE .MEDSUPPLY Qty: 12 3RF Rx Instructions: As directed with semaglutide triamcinolone acetonide 0.1 % cream 1 applic topical BID PRN (Reason: rash) Qty: 30 11RF Rx Instructions: apply to affected areas for a 2 weeks if needed then stop for 1-2 weeks. can repeat as needed. ondansetron HCl 4 mg tablet 4 mg PO TID-QID PRN (Reason: nausea and vomiting) Qty: 30 5RF semaglutide 0.25 mg or 0.5 mg (2 mg/3 mL) pen injector 1 mg SUBCUT QWEEK Qty: 9 3RF Rx Instructions: ok to compound. 1 mg/mL rosuvastatin [Crestor] 5 mg tablet 5 mg PO DAILY Qty: 100 3RF hydrocodone-acetaminophen 5-325 mg tablet 1 tab PO Q6H PRN (Reason: pain) Qty: 30 0RF diclofenac sodium [Voltaren Arthritis Pain] 1 % gel 4 g topical QID Qty: 200 0RF Rx Instructions: apply to single knee, ankle, foot; for foot includes sole/toes/top of foot Referrals: Dario Coffman DO [Primary Care Provider, Family Practice] Stand Alone Forms: Patient Portal/API
== END 2025-04-12 17:44 | disposition home or self-care (01) ==
PROVIDERS: Emergency Provider Student in an Organized Health Care Education/Training Program; PCP Family Medicine
DX: M25.561 Pain in right knee (principal)
CPT/HCPCS: 73562; 99213; 99281; 99283

== ENCOUNTER → 2025-09-09 12:46 | Outpatient (CLI) | payer OTHER, SELFPAY ==
[2024-08-23 10:22] VITALS: PULSE 67; RESP 12; O2SAT 96; BMI 28.5
--- NOTE | 2025-09-09 12:47 | DI.MG.S_ITS ---
MM screening mammo BI: 09/09/2025. BI-RADS: 1 CLINICAL: 69-year old female for bilateral screening mammogram. Tyrer-Cuzick lifetime risk of 3.5%. No personal or first-degree family history of breast cancer. PRIOR EXAMS 08/17/2024, 08/13/2023, 08/06/2022, 08/03/2021. MAMMOGRAPHY TECHNIQUE: 2D and 3D (tomosynthesis) digital mammographic views obtained, with additional images as needed for full coverage. Current study was also evaluated with a Computer Aided Detection (CAD) system. DENSITY B. There are scattered areas of fibroglandular density. MAMMOGRAPHY FINDINGS Bilateral: No suspicious mass, asymmetry, microcalcification, or other abnormality seen. IMPRESSION: * No evidence of malignancy. RECOMMENDATIONS Bilateral * Annual screening mammography. OVERALL ASSESSMENT CATEGORY BI-RADS-1: Negative. [employer] [place] [employer] recommends annual screening mammography beginning at age 40 for women with average risk of breast cancer. ELECTRONICALLY SIGNED: Emily Pina M.D. on 09/13/2025 at 09:34:42 AM PT Interpreting Station ID: [id number]
== END ==
LOC: MAMMO 12:47
PROVIDERS: PCP Family Medicine; Referring Provider Family Medicine; Visit Provider Family Medicine
DX: Z12.31 Encounter for screening mammogram for malignant neoplasm of breast (principal)
CPT/HCPCS: 77063; 77067